=== PATIENT | male | born 1950 | race Caucasian/White ===

== ENCOUNTER → 2020-08-10 10:32 | Outpatient (BNVA) | payer MEDICARE, MEDICAID, SELFPAY | PROVIDERS: PCP Internal Medicine; Visit Provider Surgery | DX: K64.4 Residual hemorrhoidal skin tags (principal); K64.8 Other hemorrhoids | CPT/HCPCS: 46600; 99212 ==

== ENCOUNTER 2021-03-23 10:13 | Outpatient (REF) | payer MEDICARE, MEDICAID, SELFPAY | END 2021-03-23 10:14 | disposition home or self-care (01) | LOC: HO.LAB 10:13 | PROVIDERS: PCP Internal Medicine; Referring Provider Internal Medicine; Visit Provider Surgery | DX: L72.0 Epidermal cyst (principal) | CPT/HCPCS: 11403; 88304; 99212 ==

== ENCOUNTER → 2021-04-06 11:09 | Outpatient (BNVA) | payer MEDICARE, MEDICAID, SELFPAY | PROVIDERS: PCP Internal Medicine; Referring Provider Internal Medicine; Visit Provider Surgery | DX: L72.0 Epidermal cyst (principal) | CPT/HCPCS: 99212 ==

== ENCOUNTER 2022-10-17 02:18 | Observation (INO) | payer MEDICARE, MEDICAID, SELFPAY ==
[2022-10-17] VITALS (7 sets, daily range): BP systolic 129–154; BP diastolic 62–76; PULSE 47–99; RESP 12–18; TEMP 36.3–36.7; O2SAT 95–99; BMI 19.4; BMI 18.2
--- NOTE | ~2022-10-17 | XR_ITS ---
EXAMINATION: XR CHEST CLINICAL INFORMATION: Smoker. Weight loss. Rule out malignancy. COMPARISON: None available. TECHNIQUE: 2 views of the chest were obtained. FINDINGS: Emphysema with marked lung hyperinflation. Bandlike opacity in the right midlung. No pleural effusion or pneumothorax. Cardiac mediastinal silhouette and pulmonary vascularity within normal limits. XR/XR chest 2V IMPRESSION: * No acute findings. * Emphysema. * Bandlike opacity in the right midlung could represent subsegmental atelectasis, pleural-parenchymal scarring or potentially a right hilar/perihilar mass resulting in postobstructive changes
--- NOTE | 2022-10-17 02:39 | ECG_ITS ---
Test Reason : ABNORMAL LABS Blood Pressure : / mmHG Vent. Rate : 054 BPM Atrial Rate : 054 BPM P-R Int : 186 ms QRS Dur : 114 ms QT Int : 392 ms P-R-T Axes : 076 062 -10 degrees QTc Int : 371 ms Sinus bradycardia Nonspecific ST and T wave abnormality Abnormal ECG When compared with ECG of 05-MAR-2013 15:11, Non-specific change in ST segment in Anterior leads Nonspecific T wave abnormality now evident in Anterolateral leads QT has shortened Referred By: Generic ED Physician Electronically Signed By:SILVERIO ROSALES
[2022-10-17 02:56] LABS: MANUAL DIFF FLAG NO
[2022-10-17 02:59] LABS: Basophils Percent Auto 0.4 % (0-2); Eosinophils Absolute Auto 0.1 X10*3/uL (0.0-0.4); Eosinophils Percent Auto 0.9 % (0-4); Hematocrit 37.6 % (42.0-52.0); Imm Gran Abs Auto 0.03 X10*3/uL (0.00-0.03); Imm Gran Pct Auto 0.3 % (0.0-0.4); Lymphocytes Absolute Auto 1.8 X10*3/uL (1.2-4.9); Mean Corpuscular HGB Conc 34.6 g/dl (31.0-36.0); Mean Corpuscular Hemoglobin 31.5 pg (27.0-33.0); Mean Platelet Volume 9.1 fL (9.4-12.4); Monocytes Absolute Auto 0.7 X10*3/uL (0.1-1.2); Monocytes Percent Auto 6.8 % (2-11); Neutrophils Absolute Auto 7.6 x10*3/uL (2.0-8.3); Neutrophils Percent Auto 73.6 % (45-73); Platelet Count 244 X10*3/uL (160-400); Red Blood Count 4.13 X10*6/uL (4.60-5.80); Red Cell Distribution Width 12.1 % (11.0-16.0); White Blood Count 10.3 X10*3/uL (4.8-10.8)
--- NOTE | 2022-10-17 03:15 | MHC.EDTECH ---
Patient was changed into hospital attire, awake overnight monitor placed,EKG obtained. Call adam in reach.
[2022-10-17 03:23] LABS: Alanine Aminotransferase 11 U/L (0-40); Albumin Level 4.2 g/dL (3.5-5.0); Alkaline Phosphatase 50 U/L (39-117); Anion Gap 10 (12-20); Aspartate Amino Transferase 13 U/L (5-37); Bilirubin Total 0.8 mg/dL (0.0-1.0); Blood Urea Nitrogen 42 mg/dL (9-16); Calcium 15.7 mg/dL (8.4-10.2); Carbon Dioxide 33 mmol/L (22-29); Chloride 99 mmol/L (96-108); Creatinine Clr Calc Pharmacy 18.4; Estimated Glomerular Filt Rate 19; Glucose Random 129 mg/dL (60-115); Potassium 3.8 mmol/L (3.3-5.1); Sodium 138 mmol/L (135-145)
--- NOTE | 2022-10-17 03:43 | ED.RECABL ---
HPI - Recheck/Abnormal Lab/Rx General Chief Complaint: Recheck/Abnormal Lab/Rx Stated Complaint: ABN NORMAL LABS PER EMS Time Seen by Provider: 10/17/22 03:37 Source: patient and EMS Mode of arrival: EMS Limitations: no limitations History of Present Illness HPI narrative: 72-year-old male brought in by ambulance after found to have hypercalcemia on routine blood workup by his PCP. Patient is a heavy smoker reported that he had RSV for the past 5 months causing him to lose over 20 lb weight unintentionally, patient otherwise declined headache, no blurry vision, no CP, no abdominal pain. Patient takes supplemental calcium 1000 mg daily. Only medical history significant for hypertension takes amlodipine for 15 years. Related Data Home Medications Medication Instructions Recorded Confirmed amlodipine 2.5 mg tablet 2.5 mg PO DAILY 08/10/20 08/10/20 varenicline 0.5 mg (11)-1 mg (42) 0 ea PO 08/10/20 08/10/20 tablets in a dose pack Allergies Allergy/AdvReac Type Severity Reaction Status Date / Time peanut [PEANUT] AdvReac Intermediate GI UPSET Verified 03/23/21 10:22 tree nut [TREE NUT] AdvReac Intermediate GI UPSET Verified 03/23/21 10:22 Review of Systems Review of Systems: All other systems are reviewed and are negative Constitutional: Reports as per HPI and Reports no additional constitutional complaints Eyes: Reports as per HPI and Reports no additional eye complaints Reports system reviewed and no additional complaints, except as documented Cardiovascular: Reports as per HPI and Reports no additional cardiovascular complaints Respiratory: Reports as per HPI and Reports no additional respiratory complaints Gastrointestinal: Reports as per HPI and Reports no additional gastrointestinal complaints Genitourinary: Reports no additional female genitourinary complaints Musculoskeletal: Reports no additional musculoskeletal complaints Skin/Breast: Reports system reviewed and no additional complaints, except as docu Psychiatric: Reports no additional psychiatric complaints Endocrine: Reports no additional endocrine complaints Hematologic/Lymphatic: Reports no additional hematologic/lymphatic complaints Allergic/Immunologic: Reports no additional allergic/immunologic complaints Reports system reviewed and no additional complaints, except as documented and Reports Abnormal speech present [facility] Past Medical History Medical History Epidermal inclusion cyst Hypertension Internal and external bleeding hemorrhoids Smoker Surgical History History of removal of cyst History of removal of cyst (~2020) Family History Family History Paternal Aunt Colon cancer Social History Social History Alcohol intake: current Alcohol intake frequency: does not drink Smoked in Last 30 Days: Yes Use of substances other than those prescribed or required for medical reasons: No Substance Use Type: Marijuana Physical Exam Vital Signs: Vital Signs: Last Vital Signs Temp 97.6 F 10/17/22 02:29 Pulse 61 10/17/22 02:29 Resp 12 10/17/22 02:29 BP 129/71 10/17/22 02:29 Pulse Ox 96 10/17/22 02:29 O2 Del Method Room Air 10/17/22 02:29 BMI result Body Mass Index 19.4 Vital signs have been reviewed as appeared to be correct. Blood pressure normal. Heart rate normal. Respiration rate normal. Temperature normal. Oxygen saturation normal. Appearance: Alert. Oriented X3. No acute distress. Head: Normal external exam. Normocephalic. Atraumatic. No Mohamud signs noted. No raccoon eyes noted Eyes: PERRLA. EOMI. Conjunctiva and sclera normal. Eyelids normal. ENT: TM's Normal. Pharynx normal. Uvula midline. Moist mucous membranes. No trismus noted. No drooling noted. No muffled voice noted. Neck: Normal inspection. Neck supple. FROM. No adenopathy. Thyroid Normal. No meningeal signs. No neck mass noted. CVS: Normal heart rate and rhythm. Heart sound normal. No murmurs noted. Pulses normal throughout. Respiratory: No respiratory distress. Painless inspiration. Breath sounds normal. No wheezes/rales/rhonchi noted. Chest nontender. No accessory muscle usage noted or decreased air movement noted. Abdomen: Soft and nontender. Bowel sounds normal in all 4 quadrants. No distention noted. No organomegaly noted. No visible injury noted. Back: No CVA tenderness. Full range of motion noted. Skin: Skin warm and dry. Normal skin color. Normal skin turgor. No rashes/lesions/lacerations noted. Extremities: No lower extremity edema. Extremities exhibit normal range of motion. Extremities nontender. Neuro: Oriented X 3. Cranial nerve exam: II-XII are grossly intact No motor deficit. No sensory deficit. Reflexes normal. Course Course Course Narrative: Hypercalcemia. Will get admitted for further malignancy workup, IV hydration with normal saline, Lasix, and pamidronate. Medical Decision Making Differential Diagnosis Differential Diagnoses: The differential diagnosis associated with the presentation includes (Dehydration, electrolyte abnormalities, malignancy, hypercalcemia, severe anemia.) Admission/Observation Consideration of admission/observation: Escalation of care including admission/observation considered Consult Healthcare Provider Management of the patient was discussed with: Hospitalist (Dr. Bazan) and Forms Analyst (Dr. Lyles) Lab Data MDM Lab Attestation statement: I reviewed the patient's lab results. 10/17/22 02:51 10/17/22 02:51 Labs: Lab Results 10/17/22 10/17/22 Range/Units 02:51 02:51 WBC 10.3 (4.8-10.8) X10*3/uL RBC 4.13 L (4.60-5.80) X10*6/uL Hgb 13.0 L (14.0-18.0) g/dl Hct 37.6 L (42.0-52.0) % MCV 91.0 (80.0-98.0) fL MCH 31.5 (27.0-33.0) pg MCHC 34.6 (31.0-36.0) g/dl RDW 12.1 (11.0-16.0) % Plt Count 244 (160-400) X10*3/uL MPV 9.1 L (9.4-12.4) fL Immature Gran % (Auto) 0.3 (0.0-0.4) % Neut % (Auto) 73.6 H (45-73) % Lymph % (Auto) 18.0 L (20-40) % [place] % (Auto) 6.8 (2-11) % Eos % (Auto) 0.9 (0-4) % Baso % (Auto) 0.4 (0-2) % Lymph # (Auto) 1.8 (1.2-4.9) X10*3/uL [place] # (Auto) 0.7 (0.1-1.2) X10*3/uL Eos # (Auto) 0.1 (0.0-0.4) X10*3/uL Baso # (Auto) 0.0 (0.0-0.2) X10*3/uL Abs Immat Gran (auto) 0.03 (0.00-0.03) X10*3/uL Absolute Neuts (auto) 7.6 (2.0-8.3) x10*3/uL Absolute Nucleated RBC 0.000 (0.0-0.012) X10*3/uL Nucleated RBC % (auto) 0.0 (0.0-0.2) /100WBC Sodium 138 (135-145) mmol/L Potassium 3.8 (3.3-5.1) mmol/L Chloride 99 (96-108) mmol/L Carbon Dioxide 33 H (22-29) mmol/L Anion Gap 10 L (12-20) BUN 42 H (9-16) mg/dL Creatinine 3.18 H (0.5-1.4) mg/dL Estim Creat Clear Calc 18.4 Estimated GFR 19 Random Glucose 129 H (60-115) mg/dL Calcium 15.7 H* (8.4-10.2) mg/dL Total Bilirubin 0.8 (0.0-1.0) mg/dL AST 13 (5-37) U/L ALT 11 (0-40) U/L Alkaline Phosphatase 50 (39-117) U/L Total Protein 7.0 (6.5-8.0) g/dL Albumin 4.2 (3.5-5.0) g/dL Independent Interpretation I performed an independent interpretation of an: Plain X-Ray (Chest:) Radiology Impression Discussion of test interpretation with radiology: I have reviewed the radiologist's reading. Discharge Plan Discharge Clinical Impression: Hypercalcemia Patient Disposition: Admitted As Inpatient Prescriptions: No Action Chantix Starting Month Box 0.5 mg (11)- 1 mg (42) tablets,dose pack 0 ea PO amlodipine 2.5 mg tablet 2.5 mg PO DAILY
--- NOTE | 2022-10-17 04:12 | MHC.EDTECH ---
Patient walked to bathroom with a steady gait, Urine was collected and sent to lab.
[2022-10-17 04:21] LABS: Magnesium 2.6 mg/dL (1.6-2.6)
[2022-10-17 04:22] LABS: Appearance Urine Clear; Color Urine Yellow; Glucose Urine UA Negative (Negative); Leukocyte Esterase Urine Small (1+) (Negative); Nitrite Urine Negative (Negative); PH 6.5 (5.0-9.0); UMIC TRIGGER UACC YES; Urine Blood Negative (Negative); Urine Ketones Negative (Negative); Urine Protein Negative (Neg-Trace)
--- NOTE | 2022-10-17 04:22 | PC.NURSE ---
Contacted pharmacy regarding medication order for Aredia that needs to be mixed by pharmacist and not available in the pyxis. Pharmacy will mix medication upon their arrival this morning around 6am. aware and agrees to medicate pt at 0700.
[2022-10-17 04:26] LABS: Bacteria Urine None Seen (None Seen); RBC Urine 0-2 /HPF (0-2); Squamous Epithelial Cell Urine 0-2 /HPF (0-2); UACC Culture Trigger YES
[2022-10-17] MEDS: 0.9 % Sodium Chloride 1,000 ML 999 ML IV (04:27)
[2022-10-17] MEDS: Furosemide 40 MG/4 ML VIAL IVPUSH (04:27)
--- NOTE | 2022-10-17 05:06 | MHC.EDTECH ---
Patients belongings list done and at bedside with patient. Patient has clothes, boots, a cellphone,and $43.00 dollars in roe,and upper and lower dentures full set. Patient urinated 200cc of yellow urine in urinal. vitals were taken and patient is resting st this time. Call adam within reach
--- NOTE | 2022-10-17 05:17 | P.HPHOSP_ITS ---
History of Present Illness Date of Service: 10/17/22 Chief Complaint: Abnormal lab values This is a 72-year-old male with pertinent history essential hypertension, tobacco use disorder presents to the emergency department for evaluation and treatment of hypercalcemia. Patient states he went to his PCP for semiannual visit and got blood work done. His calcium was found to be significantly elevated and he was sent to the ER for further evaluation. Patient does not think he had elevated calcium levels in the past. Does complain of occasional dizziness and constipation. Patient denies abdominal discomfort, kidney stones, anorexia, nausea, vomiting. He denies fever, chills, chest discomfort, palpitations, shortness of breath, changes in urinary habits In the emergency department, calcium was found to be 15.7. Lasix and IV bisphosphonate ordered Review of Systems Constitutional: Constitutional: Reports fatigue Cardiovascular: Cardiovascular: Reports no additional cardiovascular complaints Respiratory: Respiratory: Reports no additional respiratory complaints Endocrine: Endocrine: Reports fatigue PMFSH Medical History Epidermal inclusion cyst Hypertension Internal and external bleeding hemorrhoids Smoker Family History Paternal Aunt Colon cancer Surgical History History of removal of cyst History of removal of cyst (~2020) Social History Alcohol intake: current Alcohol intake frequency: does not drink Smoked in Last 30 Days: Yes Use of substances other than those prescribed or required for medical reasons: No Substance Use Type: Marijuana Advance Directives: No Advance Directives Information Provided: Yes Meds Allergies Allergy/AdvReac Type Severity Reaction Status Date / Time peanut [PEANUT] AdvReac Intermediate GI UPSET Verified 03/23/21 10:22 tree nut [TREE NUT] AdvReac Intermediate GI UPSET Verified 03/23/21 10:22 Active Medications: Current Medications Pamidronate Disodium 60 mg/ (Sodium Chloride) 260 mls @ 130 mls/hr IV ONCE ONE Stop: 10/17/22 05:54 Home Medications Medication Instructions Recorded Confirmed Last Taken Type amlodipine 2.5 mg tablet 2.5 mg PO DAILY 08/10/20 10/17/22 Unknown History Physical Exam Vital Signs and Narrative: Vital Signs: Last Vital Signs Temp 97.6 F 05/24/23 04:42 Pulse 47 L 10/17/22 04:42 Resp 18 10/17/22 04:42 BP 138/76 10/17/22 04:42 Pulse Ox 98 10/17/22 04:42 O2 Del Method Room Air 10/17/22 04:42 BMI result Body Mass Index 19.4 Middle-aged male lying in bed in no distress Neck supple, no JVD Regular rate and rhythm, S1-S2 heard Regular breath sounds bilaterally, no wheezing or crackles appreciated Abdomen soft nontender, no guarding, no rigidity Patient is awake, alert and oriented to self, place, time and person ; no focal motor deficit Psych: Normal mood No pedal edema Results Labs 10/17/22 02:51 10/17/22 02:51 Labs: Laboratory Results - last 24 hr 10/17/22 10/17/22 10/17/22 02:51 02:51 04:16 MCV 91.0 MCH 31.5 MCHC 34.6 RDW 12.1 Plt Count 244 MPV 9.1 L Immature Gran % (Auto) 0.3 Neut % (Auto) 73.6 H Lymph % (Auto) 18.0 L [place] % (Auto) 6.8 Eos % (Auto) 0.9 Baso % (Auto) 0.4 Lymph # (Auto) 1.8 [place] # (Auto) 0.7 Eos # (Auto) 0.1 Baso # (Auto) 0.0 Abs Immat Gran (auto) 0.03 Absolute Neuts (auto) 7.6 Absolute Nucleated RBC 0.000 Nucleated RBC % (auto) 0.0 Anion Gap 10 L Estim Creat Clear Calc 18.4 Estimated GFR 19 Random Glucose 129 H Calcium 15.7 H* Magnesium 2.6 Total Bilirubin 0.8 AST 13 ALT 11 Alkaline Phosphatase 50 Total Protein 7.0 Albumin 4.2 Urine Color Yellow Urine Appearance Clear Urine pH 6.5 Ur Specific [place] 1.010 Urine Protein Negative Urine Glucose (UA) Negative Urine Ketones Negative Urine Blood Negative Urine Nitrite Negative Ur Leukocyte Esterase Small (1+) H Urine RBC 0-2 Urine WBC 11-20 H Ur Squamous Epith Cells 0-2 Urine Bacteria None Seen Hyaline Casts 3-5 Imaging Radiologist's Impressions: Impressions Chest X-Ray 10/17/22 03:50 IMPRESSION: * No acute findings. * Emphysema. * Bandlike opacity in the right midlung could represent subsegmental atelectasis, pleural-parenchymal scarring or potentially a right hilar/perihilar mass resulting in postobstructive changes Assessment and Plan (1) Hypercalcemia: Status: Acute Plan This is a 72-year-old male with pertinent history essential hypertension, tobacco use disorder presents to the emergency department for evaluation and treatment of hypercalcemia. #. Severe hypercalcemia: Will admit patient and continue IV fluid resuscitation. Patient given IV Lasix and IV pamidronate in the ER. Ordered PTH. Closely monitor serum calcium #. Elevated creatinine, likely acute kidney injury in the setting of above. Unknown baseline. Monitor urine output and creatinine with IV crystalloid resuscitation. Avoid nephrotoxins #. Essential hypertension: On amlodipine #. Tobacco use disorder: Counseled regarding cessation. Will offer nicotine patch while in the hospital DVT prophylaxis: Lovenox Full code Cardiac diet Time Spent With Patient Time: Total time managing care of this patient today ____ minutes. Quality Stroke Does the patient have a stroke diagnosis?: No VTE Prior VTE?: No VTE Risk Level:: Medical - moderate - high VTE Device Contraindication: Treatment Not Indicated VTE Drug Contraindication: N/A - Med Ordered
[2022-10-17] MEDS: 0.9 % Sodium Chloride 1,000 ML 200 ML IVCONT (05:43)
--- NOTE | 2022-10-17 05:59 | MHC.EDTECH ---
Vitals were taken, Patient voided 550cc of yellow urine in the urinal, Patient is resting at this time. Call adam within reach
[2022-10-17 06:20] LABS: Vitamin D 25-OH Total > 154.2 ng/mL (>30)
--- NOTE | 2022-10-17 06:23 | PC.NURSE ---
Called pharmacy regarding order for Aredia. Pharmacy states will bring medication down to the ED once it is mixed. Pharmacy will also contact provider regarding Lovenox 30mg scheduled for 0530 that has not been verified. Pharmacy reports not verifying this medication due to pts renal function.
--- NOTE | 2022-10-17 07:32 | PC.NURSE ---
assumed care of this pt at 0700. pt a&o x4, pleasant, calm, and cooperative. denies pain/sob. currently resting quietly on stretcher eating breakfast in no apparent distress. rr even/unlabored. wctm
--- NOTE | 2022-10-17 07:35 | PHA.MEDREC ---
Pharmacy Consult ? Medication Reconciliation Pharmacy has completed the medication reconciliation.
[2022-10-17 08:27] LABS: Anion Gap 10 (12-20); Blood Urea Nitrogen 40 mg/dL (9-16); Carbon Dioxide 29 mmol/L (22-29); Chloride 104 mmol/L (96-108); Creatinine Clr Calc Pharmacy 19.4; Estimated Glomerular Filt Rate 21; Glucose Random 142 mg/dL (60-115); Potassium 3.9 mmol/L (3.3-5.1); Sodium 139 mmol/L (135-145)
--- NOTE | 2022-10-17 09:28 | PC.NURSE ---
Text sent to at [phone]
--- NOTE | 2022-10-17 10:08 | PM.EVENT ---
Event Note Date of Service: 10/17/22 Event Note: Pt seen and examined. Admitted this morning with elevated calcim of 15 and Creatine of 3. A/P per H and P of this morning and additionally consult Nephrology, stop Vitamin D Time Spent With Patient Time: Total time managing care of this patient today ____ minutes.
--- NOTE | 2022-10-17 10:13 | P.CONNP_ITS ---
History of Present Illness Reason for Consult Consult date: 10/17/22 Chief Complaint Chief complaint: Abnormal lab History of Present Illness Narrative: 72-year-old male with presented to the emergency department for evaluation and treatment of hypercalcemia.? He had blood work after a visit to wvos PCP and was aksed to go to the hospital due to an elevated serum calcium. There is no report of fever, chills, chest discomfort, palpitations, shortness of breath, abdominal discomfort, nausea, vomiting.? He tells me he takes tums daily and was taking additional vitamin d supplementation. Review of Systems Review of Systems 10 points ROS negative except for pertinent in HPI PMFSH Past Medical History Medical History Epidermal inclusion cyst Hypertension Internal and external bleeding hemorrhoids Smoker Family History Family History Paternal Aunt Colon cancer Surgical History Surgical History History of removal of cyst History of removal of cyst (~2020) Social History Social History Alcohol intake: current Alcohol intake frequency: does not drink Patient Tobacco Use Status: Former Tobacco user Substance Use Type: Marijuana Meds Allergies Allergy/AdvReac Type Severity Reaction Status Date / Time peanut [PEANUT] AdvReac Intermediate GI UPSET Verified 03/23/21 10:22 tree nut [TREE NUT] AdvReac Intermediate GI UPSET Verified 03/23/21 10:22 Active Medications: Current Medications Acetaminophen (Acetaminophen 325 Mg Tablet) 650 mg PO Q6H PRN PRN Reason: Pain, Mild (Pain Scale 1-3) Heparin Sodium (Porcine) (Heparin Sodium,Porcine 5,000 Unit/Ml Vial) 5,000 unit SUBCUT Q12H ARIANA Sodium Chloride (Ns) 1,000 mls @ 200 mls/hr IVCONT .Q5H ARIANA Stop: 10/17/22 10:29 Last Admin: 10/17/22 05:43 Dose: 200 mls/hr Pamidronate Disodium 60 mg/ (Sodium Chloride) 260 mls @ 65 mls/hr IV ONCE ONE Stop: 10/17/22 11:59 Melatonin (Melatonin 3 Mg Tablet) 6 mg PO BEDTIME PRN PRN Reason: Insomnia Nicotine (Nicotine 14 Mg Patch.Td24) 14 mg TRANSDERMA DAILY PENDING SALE TO [facility] Ondansetron HCl (Ondansetron Hcl 4 Mg/2 Ml Vial) 4 mg IVPUSH Q8H PRN PRN Reason: Nausea and Vomiting Polyethylene Glycol (Polyethylene Glycol 3350 17 Gm Powd.Pack) 17 gm PO DAILY PRN PRN Reason: Constipation Sodium Chloride (0.9 % Sodium Chloride Flush 3 Ml Syringe) 3 ml IVFLUSH QSHIFT PENDING SALE TO [facility] Home Medications Medication Instructions Recorded Confirmed Last Taken Type amlodipine 2.5 mg tablet 2.5 mg PO BEDTIME 08/10/20 10/17/22 10/16/22 History cholecalciferol (vitamin D3) 125 125 mcg PO DAILY 10/17/22 10/17/22 Unknown History mcg (5,000 unit) tablet multivitamin 1 tab PO DAILY 10/17/22 10/17/22 Unknown History vitamin E 268 mg (400 unit) capsule 268 mg PO DAILY 10/17/22 10/17/22 Unknown History Physical Exam Vital Signs: Last Vital Signs Temp 97.6 F 10/17/22 05:57 Pulse 49 L 10/17/22 05:57 Resp 18 10/17/22 05:57 BP 143/73 H 10/17/22 05:57 Pulse Ox 98 10/17/22 05:57 O2 Del Method Room Air 10/17/22 05:57 BMI result Body Mass Index 19.4 Const General: alert and awake HEENT Head: Yes normocephalic and Yes atraumatic Neck Neck: Yes supple Resp Auscultation: clear to auscultation bilaterally Cardio Heart sounds: S1 normal heart sound present and S2 normal heart sound present GI Palpation (GI): Soft to palpation and nontender Extrem General: No pedal edema Results Lab Results 10/17/22 02:51 10/17/22 07:58 Lab results: Chemistry 10/17/22 10/17/22 02:51 07:58 Sodium 138 139 Potassium 3.8 3.9 Carbon Dioxide 33 H 29 BUN 42 H 40 H Creatinine 3.18 H 3.02 H Calcium 15.7 H* 15.0 H* Hematology 10/17/22 02:51 WBC 10.3 Hgb 13.0 L Plt Count 244 Urinalysis 10/17/22 04:16 Urine Color Yellow Urine Appearance Clear Urine pH 6.5 Ur Specific [place] 1.010 Urine Protein Negative Urine Glucose (UA) Negative Urine Ketones Negative Urine Blood Negative Urine Nitrite Negative Ur Leukocyte Esterase Small (1+) H Urine RBC 0-2 Urine WBC 11-20 H Ur Squamous Epith Cells 0-2 Hyaline Casts 3-5 Assessment and Plan (1) JAVIER (acute kidney injury): Status: Acute (2) Hypercalcemia: Status: Acute Plan JAVIER due to renal hypoperfusion and calcium nephrotoxicity causing vasoconstriction hypercalcemia can cause transient DI hypercalcemia most likely due to vitamin d intoxication and calcium supplementation will need to r/o other s/p pamidronate iPTH pending ? normal baseline kidney function REC Sylvia serum immunofixation IVF 0.9% to enhance calcium renal excretion hold furosemide (only if volume overload) follow kidney function and electrolytes Time Spent With Patient Time: Total time managing care of this patient today ____ minutes. Procedures Date of Service Date of Service: 10/17/22
[2022-10-17] MEDS: Heparin Sodium,Porcine 5,000 UNIT/ML VIAL 5000 UNIT SUBCUT ×2 (10:25→20:40)
[2022-10-17] MEDS: Pamidronate Disodium 60 MG in 0.9 % Sodium Chloride 250 ML 65 MG IV (10:26)
[2022-10-17] MEDS: Nicotine 14 MG PATCH.TD24 TRANSDERMA (10:26)
[2022-10-17] MEDS: 0.9 % Sodium Chloride Flush 3 ML SYRINGE IVFLUSH (10:27)
[2022-10-17] MEDS: 0.9 % Sodium Chloride 1,000 ML 125 ML IVCONT ×2 (11:05→20:40)
--- NOTE | 2022-10-17 11:06 | MHC.CM.PN ---
MALE 72 DX ABNORMAL LAB DIXON 10/17/22 LIVES BY HIMSELF INDEPENDENT VAXXED FOR LYNNID DECLINED OFFER TO DOCUMENT HCP [facility]. HE WILL ARRANGE FOR HIS FRIEND NATACHA TO PROVIDE TRANSPORT HOME.
--- NOTE | 2022-10-17 13:37 | MHC.CLN ---
NUTRITION SIGNIFICANT, UNPLANNED WEIGHT LOSS OF 20-30# X 5 MONTHS. DIET=CARDIAC. ADDING ENSURE BID. PROVIDES ADDITIONAL 700 KCALS, 40 G PROTEIN. SEE CLINICAL NUTRITION ASSESSMENT 10/17/22.
[2022-10-17] MEDS: polyethylene glycoL 3350 17 GM POWD.PACK PO (22:45)
[2022-10-18 04:00] VITALS: BP 130/68; PULSE 63; RESP 14; TEMP 36.4; O2SAT 94
[2022-10-18] MEDS: 0.9 % Sodium Chloride 1,000 ML 125 ML IVCONT ×3 (04:48→18:09)
[2022-10-18 07:01] LABS: MANUAL DIFF FLAG NO
[2022-10-18 07:08] LABS: Basophils Percent Auto 0.3 % (0-2); Eosinophils Absolute Auto 0.2 X10*3/uL (0.0-0.4); Eosinophils Percent Auto 1.9 % (0-4); Hematocrit 36.1 % (42.0-52.0); Hemoglobin 12.1 g/dl (14.0-18.0); Imm Gran Abs Auto 0.03 X10*3/uL (0.00-0.03); Imm Gran Pct Auto 0.3 % (0.0-0.4); Lymphocytes Absolute Auto 1.6 X10*3/uL (1.2-4.9); Mean Corpuscular HGB Conc 33.5 g/dl (31.0-36.0); Mean Corpuscular Hemoglobin 31.3 pg (27.0-33.0); Mean Corpuscular Volume 93.3 fL (80.0-98.0); Mean Platelet Volume 9.3 fL (9.4-12.4); Monocytes Absolute Auto 0.8 X10*3/uL (0.1-1.2); Monocytes Percent Auto 9.4 % (2-11); Neutrophils Percent Auto 70.1 % (45-73); Platelet Count 218 X10*3/uL (160-400); Red Blood Count 3.87 X10*6/uL (4.60-5.80); Red Cell Distribution Width 12.4 % (11.0-16.0); White Blood Count 8.6 X10*3/uL (4.8-10.8)
[2022-10-18 07:14] VITALS: BP 125/70; PULSE 53; RESP 16; TEMP 36.3; O2SAT 97
[2022-10-18] MEDS: 0.9 % Sodium Chloride Flush 3 ML SYRINGE IVFLUSH (07:39)
[2022-10-18 07:41] LABS: Anion Gap 11 (12-20); Blood Urea Nitrogen 45 mg/dL (9-16); Carbon Dioxide 26 mmol/L (22-29); Chloride 111 mmol/L (96-108); Creatinine Clr Calc Pharmacy 21.3; Estimated Glomerular Filt Rate 25; Glucose Random 87 mg/dL (60-115); Potassium 3.2 mmol/L (3.3-5.1); Sodium 145 mmol/L (135-145)
[2022-10-18] MEDS: Nicotine 14 MG PATCH.TD24 TRANSDERMA (07:46)
[2022-10-18 08:20] LABS: Calcium 13.1 mg/dL (8.4-10.2)
--- NOTE | 2022-10-18 09:10 | P.PNIM_ITS ---
Subjective Subjective Date of Service: 10/18/22 Interval History: f/u on javier, high ca2+ ca2+ 13, renal function is better Physical Exam 2 Vital Signs: Vital Signs: Last Vital Signs Temp 97.3 F 10/18/22 07:14 Pulse 53 10/18/22 07:14 Resp 16 10/18/22 07:14 BP 125/70 10/18/22 07:14 Pulse Ox 97 10/18/22 07:14 O2 Del Method Room Air 10/18/22 07:14 BMI result Body Mass Index 18.2 Const: Other: General: AO X 3, no acute distress Resp: CTA bilateral CVS: S1,S2,RRR GI: +BS, NT, no distention Skin: No rash Neuro: motor grossly intact Psych: appropriate affect Objective Data Active Medications Acetaminophen (Acetaminophen 325 Mg Tablet) 650 mg PO Q6H PRN PRN Reason: Pain, Mild (Pain Scale 1-3) Heparin Sodium (Porcine) (Heparin Sodium,Porcine 5,000 Unit/Ml Vial) 5,000 unit SUBCUT Q12H [facility] Last Admin: 10/17/22 20:40 Dose: 5,000 unit Documented By: JUSTIN Sodium Chloride (Ns) 1,000 mls @ 125 mls/hr IVCONT .Q8H [facility] Last Admin: 10/18/22 04:48 Dose: 125 mls/hr Documented By: JUSTIN Melatonin (Melatonin 3 Mg Tablet) 6 mg PO BEDTIME PRN PRN Reason: Insomnia Nicotine (Nicotine 14 Mg Patch.Td24) 14 mg TRANSDERMA DAILY [facility] Last Admin: 10/18/22 07:46 Dose: 14 mg Documented By: ALANA Ondansetron HCl (Ondansetron Hcl 4 Mg/2 Ml Vial) 4 mg IVPUSH Q8H PRN PRN Reason: Nausea and Vomiting Polyethylene Glycol (Polyethylene Glycol 3350 17 Gm Powd.Pack) 17 gm PO DAILY PRN PRN Reason: Constipation Last Admin: 10/17/22 22:45 Dose: 17 gm Documented By: JUSTIN Sodium Chloride (0.9 % Sodium Chloride Flush 3 Ml Syringe) 3 ml IVFLUSH QSHIFT [facility] Last Admin: 10/18/22 07:39 Dose: 3 ml Documented By: ALANA Labs 10/18/22 06:14 10/18/22 06:15 Labs: Laboratory Results - last 24 hr 10/17/22 10/18/22 10/18/22 22:30 06:14 06:15 MCV 93.3 MCH 31.3 MCHC 33.5 RDW 12.4 Plt Count 218 MPV 9.3 L Immature Gran % (Auto) 0.3 Neut % (Auto) 70.1 Lymph % (Auto) 18.0 L Williams % (Auto) 9.4 Eos % (Auto) 1.9 Baso % (Auto) 0.3 Lymph # (Auto) 1.6 Williams # (Auto) 0.8 Eos # (Auto) 0.2 Baso # (Auto) 0.0 Abs Immat Gran (auto) 0.03 Absolute Neuts (auto) 6.0 Absolute Nucleated RBC 0.000 Nucleated RBC % (auto) 0.0 Anion Gap Cancelled Estim Creat Clear Calc Cancelled Estimated GFR Cancelled Random Glucose Cancelled Calcium Cancelled Ur Random Sodium 43.0 10/18/22 06:15 MCV MCH MCHC RDW Plt Count MPV Immature Gran % (Auto) Neut % (Auto) Lymph % (Auto) Williams % (Auto) Eos % (Auto) Baso % (Auto) Lymph # (Auto) Williams # (Auto) Eos # (Auto) Baso # (Auto) Abs Immat Gran (auto) Absolute Neuts (auto) Absolute Nucleated RBC Nucleated RBC % (auto) Anion Gap 11 L Estim Creat Clear Calc 21.3 Estimated GFR 25 Random Glucose 87 Calcium 13.1 H* D Ur Random Sodium Assessment and Plan (1) JAVIER (acute kidney injury): Status: Acute (2) Hypercalcemia: Status: Acute Plan JAVIER --etiology unclear, pre renal vs hyercalcemia vs other, improving with IVF, baseline unknown -continue IVF -Awaiting Nephrology consult hypercalcemia most likely due to vitamin d intoxication and calcium supplementation -stopped VitD and Wili supplement, work up in progress, Nephro consult pending He wants to go home, but should wait till seen by Nephrology Time Spent With Patient Time: Total time managing care of this patient today ____ minutes. Quality Stroke Does the patient have a stroke diagnosis?: No VTE Prior VTE?: No VTE Risk Level:: Medical - moderate - high VTE Device Contraindication: Treatment Not Indicated VTE Drug Contraindication: N/A - Med Ordered
[2022-10-18] MEDS: Heparin Sodium,Porcine 5,000 UNIT/ML VIAL 5000 UNIT SUBCUT ×2 (11:03→21:25)
--- NOTE | 2022-10-18 12:16 | PM.PNNEP ---
Subjective Subjective Date of Service: 10/18/22 Interval history: seen and examined no complaints Physical Exam Vital Signs: Vital Signs: Last Vital Signs Temp 97.3 F 10/18/22 07:14 Pulse 53 10/18/22 07:14 Resp 16 10/18/22 07:14 BP 125/70 10/18/22 07:14 Pulse Ox 97 10/18/22 07:14 O2 Del Method Room Air 10/18/22 07:14 BMI result Body Mass Index 18.2 Const: General: alert and awake HEENT: Head: Yes normocephalic and Yes atraumatic Neck: Neck: Yes supple Resp: Auscultation: clear to auscultation bilaterally Cardio: Heart sounds: S1 normal heart sound present and S2 normal heart sound present GI: Palpation (GI): Soft to palpation and nontender Extrem: General: No pedal edema Objective Data Labs 10/18/22 06:14 10/18/22 06:15 Labs: Laboratory Results - last 24 hr 10/17/22 10/18/22 10/18/22 22:30 06:14 06:15 WBC 8.6 RBC 3.87 L Hgb 12.1 L Hct 36.1 L MCV 93.3 MCH 31.3 MCHC 33.5 RDW 12.4 Plt Count 218 MPV 9.3 L Immature Gran % (Auto) 0.3 Neut % (Auto) 70.1 Lymph % (Auto) 18.0 L Morris % (Auto) 9.4 Eos % (Auto) 1.9 Baso % (Auto) 0.3 Lymph # (Auto) 1.6 Morris # (Auto) 0.8 Eos # (Auto) 0.2 Baso # (Auto) 0.0 Abs Immat Gran (auto) 0.03 Absolute Neuts (auto) 6.0 Absolute Nucleated RBC 0.000 Nucleated RBC % (auto) 0.0 Sodium Cancelled Potassium Cancelled Chloride Cancelled Carbon Dioxide Cancelled Anion Gap Cancelled BUN Cancelled Creatinine Cancelled Estim Creat Clear Calc Cancelled Estimated GFR Cancelled Random Glucose Cancelled Calcium Cancelled Ur Random Sodium 43.0 10/18/22 06:15 WBC RBC Hgb Hct MCV MCH MCHC RDW Plt Count MPV Immature Gran % (Auto) Neut % (Auto) Lymph % (Auto) Morris % (Auto) Eos % (Auto) Baso % (Auto) Lymph # (Auto) Morris # (Auto) Eos # (Auto) Baso # (Auto) Abs Immat Gran (auto) Absolute Neuts (auto) Absolute Nucleated RBC Nucleated RBC % (auto) Sodium 145 Potassium 3.2 L Chloride 111 H Carbon Dioxide 26 Anion Gap 11 L BUN 45 H Creatinine 2.58 H Estim Creat Clear Calc 21.3 Estimated GFR 25 Random Glucose 87 Calcium 13.1 H* D Ur Random Sodium Procedures Date of Service Date of Service: 10/18/22 Assessment & Plan Assessment and plan (1) JAVIER (acute kidney injury): Status: Acute (2) Hypercalcemia: Status: Acute Plan Sa and Scr better JAVIER due to renal hypoperfusion and calcium nephrotoxicity causing vasoconstriction hypercalcemia can cause transient DI hypercalcemia most likely due to vitamin d intoxication and calcium supplementation will need to r/o other s/p pamidronate iPTH and serum immunofixation pending ? normal baseline kidney function REC replace potassium IVF 0.9% to enhance calcium renal excretion hold furosemide (only if volume overload) follow kidney function and electrolytes Time Spent With Patient Time: Total time managing care of this patient today ____ minutes. Progress Note: Quality Stroke Does the patient have a stroke diagnosis?: No
[2022-10-18] MEDS: Potassium Chloride Packet 20 MEQ PACKET PO (12:55)
[2022-10-18 15:08] VITALS: BP 141/71; PULSE 71; RESP 18; TEMP 36.3; O2SAT 99
[2022-10-18 19:10] VITALS: BP 134/69; PULSE 61; RESP 18; TEMP 36.3; O2SAT 97
[2022-10-18 20:49] LABS: PTHI 8 pg/mL (16-77)
[2022-10-18] MEDS: polyethylene glycoL 3350 17 GM POWD.PACK PO (21:30)
[2022-10-19] MEDS: 0.9 % Sodium Chloride 1,000 ML 125 ML IVCONT (02:28)
[2022-10-19 03:31] VITALS: BP 121/61; PULSE 60; RESP 16; TEMP 37; O2SAT 96
[2022-10-19 07:52] LABS: Calcium (PTHI) >15.0
[2022-10-19 08:00] VITALS: BP 143/68; PULSE 58; RESP 18; TEMP 36.6; O2SAT 96
--- NOTE | 2022-10-19 08:23 | HO.PM.IMPN ---
Subjective Subjective Date of Service: 10/19/22 Interval History: doing well, has no complaint and wishes to go home soon Physical Exam Vital Signs: Vital Signs: Last Vital Signs Temp 97.8 F 10/19/22 08:00 Pulse 58 10/19/22 08:00 Resp 18 10/19/22 08:00 BP 143/68 H 10/19/22 08:00 Pulse Ox 96 10/19/22 08:00 O2 Del Method Room Air 10/19/22 08:00 BMI result Body Mass Index 18.2 Const: Other: General: AO X 3, no acute distress Resp: CTA bilateral CVS: S1,S2,RRR GI: +BS, NT, no distention Skin: No rash Neuro: motor grossly intact Psych: appropriate affect Objective Data Active Medications Acetaminophen (Acetaminophen 325 Mg Tablet) 650 mg PO Q6H PRN PRN Reason: Pain, Mild (Pain Scale 1-3) Heparin Sodium (Porcine) (Heparin Sodium,Porcine 5,000 Unit/Ml Vial) 5,000 unit SUBCUT Q12H [facility] Last Admin: 10/18/22 21:25 Dose: 5,000 unit Documented By: JONATHAN Sodium Chloride (Ns) 1,000 mls @ 125 mls/hr IVCONT .Q8H [facility] Last Admin: 10/19/22 02:28 Dose: 125 mls/hr Documented By: JONATHAN Melatonin (Melatonin 3 Mg Tablet) 6 mg PO BEDTIME PRN PRN Reason: Insomnia Nicotine (Nicotine 14 Mg Patch.Td24) 14 mg TRANSDERMA DAILY [facility] Last Admin: 10/18/22 07:46 Dose: 14 mg Documented By: ALANA Ondansetron HCl (Ondansetron Hcl 4 Mg/2 Ml Vial) 4 mg IVPUSH Q8H PRN PRN Reason: Nausea and Vomiting Polyethylene Glycol (Polyethylene Glycol 3350 17 Gm Powd.Pack) 17 gm PO DAILY PRN PRN Reason: Constipation Last Admin: 10/18/22 21:30 Dose: 17 gm Documented By: JONATHAN Sodium Chloride (0.9 % Sodium Chloride Flush 3 Ml Syringe) 3 ml IVFLUSH QSHIFT [facility] Last Admin: 10/18/22 21:25 Dose: Not Given Documented By: JONATHAN Non-Admin Reason: IV Running Labs 10/18/22 06:14 10/18/22 06:15 Labs: Laboratory Results - last 24 hr 10/17/22 02:51 PTH Intact 8 L Calcium (PTH Intact) >15.0 Microbiology Microbiology Results: Microbiology 10/17/22 Unknown Urine Culture - Final Urine clean catch - Clean Catch Midstream Assessment and Plan (1) JAVIER (acute kidney injury): Status: Acute (2) Hypercalcemia: Status: Acute Plan JAVIER --etiology unclear, pre renal vs hyercalcemia vs other, improving with IVF, baseline unknown--Cr improving -continue IVF -Nephrology input noted, hypercalcemia most likely due to vitamin d intoxication and calcium supplementation -stopped VitD and Wili supplement, work up in progress, Nephro consult pending He wants to go home, but should wait till seen by Nephrology need for inpatient: severe hypercalcemia needing work up and IVF management and frequent level check Time Spent With Patient Time: Total time managing care of this patient today ____ minutes. Quality Stroke Does the patient have a stroke diagnosis?: No VTE Prior VTE?: No VTE Risk Level:: Medical - moderate - high VTE Device Contraindication: Treatment Not Indicated VTE Drug Contraindication: N/A - Med Ordered
[2022-10-19 08:27] LABS: Anion Gap 9 (12-20); Blood Urea Nitrogen 37 mg/dL (9-16); Calcium 11.5 mg/dL (8.4-10.2); Carbon Dioxide 23 mmol/L (22-29); Chloride 112 mmol/L (96-108); Creatinine Clr Calc Pharmacy 22.8; Estimated Glomerular Filt Rate 27; Glucose Random 84 mg/dL (60-115); Potassium 3.1 mmol/L (3.3-5.1); Sodium 141 mmol/L (135-145)
[2022-10-19] MEDS: Nicotine 14 MG PATCH.TD24 TRANSDERMA (08:51)
[2022-10-19] MEDS: Heparin Sodium,Porcine 5,000 UNIT/ML VIAL 5000 UNIT SUBCUT ×2 (08:52→21:21)
[2022-10-19] MEDS: 0.9 % Sodium Chloride Flush 3 ML SYRINGE IVFLUSH (08:53)
--- NOTE | 2022-10-19 10:04 | MHC.CLN ---
NUTRITION SIGNIFICANT, UNPLANNED WEIGHT LOSS OF 20-30# X 5 MONTHS. DIET=CARDIAC. ENSURE BID PROVIDES ADDITIONAL 700 KCALS, 40 G PROTEIN. INTAKE APPEARS GOOD/EXCELLENT. CALCIUM ELEVATED BUT IMPROVING. CONTINUE TO FOLLOW FOR INTAKE AND LABS.
[2022-10-19] MEDS: Lactated Ringers 1,000 ML 125 ML IVCONT ×2 (13:40→21:17)
--- NOTE | 2022-10-19 15:04 | PM.PNNEP ---
Subjective Subjective Date of Service: 10/19/22 Interval history: Seen and examined, events noted Physical Exam Vital Signs: Vital Signs: Last Vital Signs Temp 97.8 F 10/19/22 08:00 Pulse 58 10/19/22 08:00 Resp 18 10/19/22 08:00 BP 143/68 H 10/19/22 08:00 Pulse Ox 96 10/19/22 08:00 O2 Del Method Room Air 10/19/22 08:00 BMI result Body Mass Index 18.2 Const: General: alert and awake HEENT: Head: Yes normocephalic and Yes atraumatic Neck: Neck: Yes supple Resp: Auscultation: clear to auscultation bilaterally Cardio: Heart sounds: S1 normal heart sound present and S2 normal heart sound present GI: Palpation (GI): Soft to palpation and nontender Extrem: General: No pedal edema Objective Data Labs 10/18/22 06:14 10/19/22 07:51 Labs: Laboratory Results - last 24 hr 10/17/22 10/19/22 02:51 07:51 Sodium 141 Potassium 3.1 L Chloride 112 H Carbon Dioxide 23 Anion Gap 9 L BUN 37 H Creatinine 2.41 H Estim Creat Clear Calc 22.8 Estimated GFR 27 Random Glucose 84 Calcium 11.5 H D PTH Intact 8 L Calcium (PTH Intact) >15.0 Microbiology Microbiology Results: Microbiology 10/17/22 Unknown Urine clean catch - Clean Catch Midstream Urine Culture - Final Procedures Date of Service Date of Service: 10/19/22 Assessment & Plan Assessment and plan (1) JAVIER (acute kidney injury): Status: Acute (2) Hypercalcemia: Status: Acute Plan JAVIER: most c/w combo of HYPERCA and renal hypoperfuion ischemic ATN ( hyperCa can cause vasoconstriction of renal vasc); SCr cont to decr with IVF and decr Ca is encouraging hypercalcemia most likely due to vitamin d intoxication and calcium supplementation other causes being r/o s/p pamidronate x1 serum immunofixation, PTHrp and vit D 1,25, RORO level all pending ? normal baseline kidney function hypoK REC: cont IVF; track UOP/renal func; avoid vitD/Ca; check sero; repalce K r Time Spent With Patient Time: Total time managing care of this patient today ____ minutes. Progress Note: Quality Stroke Does the patient have a stroke diagnosis?: No
[2022-10-19 15:35] VITALS: BP 141/68; PULSE 54; RESP 18; TEMP 36.4; O2SAT 95
[2022-10-19 19:23] VITALS: BP 131/68; PULSE 66; RESP 20; TEMP 36.7; O2SAT 96
[2022-10-19] MEDS: Docusate Sodium 100 MG CAPSULE PO (19:44)
[2022-10-19] MEDS: Sennosides 8.6 MG TABLET 17.2 MG PO (19:44)
[2022-10-19 23:53] VITALS: BP 137/65; PULSE 59; RESP 18; TEMP 37.1; O2SAT 97
[2022-10-20] MEDS: Lactated Ringers 1,000 ML 125 ML IVCONT (04:46)
[2022-10-20 07:38] VITALS: BP 146/68; PULSE 67; RESP 20; TEMP 36.5; O2SAT 97
--- NOTE | 2022-10-20 08:06 | PM.DS ---
DS: Providers Provider Date of Service: 10/20/22 Date of admission: 10/17/22 05:17 Primary care physician: Arti Pires MD Consults: 10/17/22 10:06 Consult to Nephrology Routine Consulting Provider: Aleksandr Ayers Reason for consultation: JAVIER, Creatine Has provider been notified: No DS: Diagnosis Discharge Diagnosis (1) JAVIER (acute kidney injury): Status: Acute (2) Hypercalcemia: Status: Acute DS: Summary Hospital Course Hospital Course: Chief Complaint: Abnormal lab values This is a 72-year-old male with pertinent history essential hypertension, tobacco use disorder presents to the emergency department for evaluation and treatment of hypercalcemia.? Patient states he went to his PCP for semiannual visit and got blood work done.? His calcium was found to be significantly elevated and he was sent to the ER for further evaluation.? Patient does not think he had elevated calcium levels in the past.? Does complain of occasional dizziness and constipation.? Patient denies abdominal discomfort, kidney stones, anorexia, nausea, vomiting.? He denies fever, chills, chest discomfort, palpitations, shortness of breath, changes in urinary habits In the emergency department, calcium was found to be 15.7.? Lasix and IV bisphosphonate ordered Hospital course: Patient had routine labs work and found to have calcium of 15.7, normal albumin without any symptom of hypercalcemia. He takes calcium and Vit D 5000 units daily. He was admitted and given 1 dose of Pamidronate, and put on IVF with daily calcium level. Furhter work up included Vit D level of of 154 which is high, PTH level is 8 which is low. Pending labs include serum immunofixation, PTHrp and vit D 1,25, RORO level all pending. We suspect that hypercalcemia is due to vitamin-D intoxication and calcium suplment. as such he is advised to stop taking vitamin D and calcium supplements. He also had acute renal insufficiency although his baseline creatinine is not known, he presented with creatinine level of 3.18 and has steadily gone down with IV fluid to presently 2.15 It is possible that he has CKD. Calcium level iss 11.3 today. Also checking PTHrp and [place]/lambda before he goes, will have repeat labs in 3 days, advised to drink pleny of fluid and will follow up with nephrology on outaptient basis Final diagnosis: Acute hypercalcemia Acute kidney injury, Vitamin-D toxicity Hypertension Time Spent with Patient Time attestation: Total time managing care of this patient today ____ minutes. Discharge coordination time: Greater than 30 minutes Quality: Safe Use of Opioids Does Pt have an Active Cancer Diagnosis on the Problem List?: No Quality: Stroke Does the patient have a stroke diagnosis?: No Physical Exam Vital Signs: Vital Signs: Last Vital Signs Temp 97.7 F 10/20/22 07:38 Pulse 67 10/20/22 07:38 Resp 20 10/20/22 07:38 BP 146/68 H 10/20/22 07:38 Pulse Ox 97 10/20/22 07:38 O2 Del Method Room Air 10/20/22 07:38 BMI result Body Mass Index 18.2 Const: Other: General: AO X 3, no acute distress Resp: CTA bilateral CVS: S1,S2,RRR GI: +BS, NT, no distention Skin: No rash Neuro: motor grossly intact Psych: appropriate affect DS: Data Data Completed and Pending Labs on day of discharge: Laboratory Results - last 24 hr 10/19/22 07:51 Sodium 141 Potassium 3.1 L Chloride 112 H Carbon Dioxide 23 Anion Gap 9 L BUN 37 H Creatinine 2.41 H Estim Creat Clear Calc 22.8 Estimated GFR 27 Random Glucose 84 Calcium 11.5 H D Discharge Plan Discharge Anticipated Discharge Date/Time: 10/20/22 08:04 Patient Disposition: Home, Self-Care Discharge Diagnosis: JAVIER, hypercalcemia Referrals: Arti Lei MD [Primary Care Provider] - 1 Week Discharge Medications: Continued multivitamin Tablet 1 tab PO DAILY vitamin E 268 mg (400 unit) Capsule 268 mg PO DAILY amlodipine 2.5 mg tablet 2.5 mg PO BEDTIME Discontinued cholecalciferol (vitamin D3) 125 mcg (5,000 unit) Tablet 125 mcg PO DAILY Discharge Orders: Discharge Order (Routine); Ordered 10/20/22 Ordered By: Darwin Butlre Diet: Advance to usual diet Activity on Discharge: As tolerated Stand Alone Forms: Patient Portal Discharge page Care Plan Goals: recovery from hypercalcemia and renal failure Health Concerns: Calcemia and renal failure Plan of Treatment: Stop taking vitamin Avoid calcium supplements such as Tums Follow-up with her primary care doctor within a week call for appointment. Follow up with the kidney doctor (Dr. Hammond) Get labs done on Saturday10/23/22 Assessment: As above
[2022-10-20] MEDS: Heparin Sodium,Porcine 5,000 UNIT/ML VIAL 5000 UNIT SUBCUT (08:53)
[2022-10-20] MEDS: Nicotine 14 MG PATCH.TD24 TRANSDERMA (08:54)
[2022-10-20 10:11] LABS: Anion Gap 10 (12-20); Blood Urea Nitrogen 34 mg/dL (9-16); Calcium 11.3 mg/dL (8.4-10.2); Carbon Dioxide 24 mmol/L (22-29); Chloride 112 mmol/L (96-108); Creatinine Clr Calc Pharmacy 25.6; Estimated Glomerular Filt Rate 30; Glucose Random 109 mg/dL (60-115); Potassium 3.3 mmol/L (3.3-5.1); Sodium 143 mmol/L (135-145)
[2022-10-23 14:53] LABS: IgA 124 mg/dL (70-320); IgG 1016 mg/dL (600-1540); IgM 388 mg/dL (50-300)
[2022-10-24 14:59] LABS: Kappa Light Chain, Free Serum 219.9 mg/L (3.3-19.4); Kappa/Lambda Lt Ch Free Ratio 6.06 (0.26-1.65); Lambda Light Chain, Free Serum 36.3 mg/L (5.7-26.3)
[2022-10-26 17:24] LABS: Parathyroid Hormone Related Pr 13 pg/mL (11-20)
== END 2022-10-20 12:47 | disposition home or self-care (01) ==
LOC: HO.ED 04:23 → HO.EDOVER 05:34 → HO.S3 07:13
PROVIDERS: Internal Medicine Nephrology; Admitting Provider Student in an Organized Health Care Education/Training Program; Emergency Provider Emergency Medicine; PCP Internal Medicine; Visit Provider Internal Medicine
DX: E83.52 Hypercalcemia (principal); N17.9 Acute kidney failure, unspecified; I10 Essential (primary) hypertension; F17.210 Nicotine dependence, cigarettes, uncomplicated; F12.90 Cannabis use, unspecified, uncomplicated; Z79.899 Other long term (current) drug therapy
CPT/HCPCS: 36415; 71046; 80048; 80053; 81001; 82306; 82784; 83519; 83521; 83735; 83970; 84300; 85025; 86334; 87086; 93005; 96361; 96365; 96366; 96372; 96374; 96375; 99221; 99285; J1643; J1940; J2430

== ENCOUNTER 2022-10-23 09:45 | Outpatient (REF) | payer MEDICARE, MEDICAID, SELFPAY ==
[2022-10-23 11:53] LABS: Anion Gap 10 (12-20); Blood Urea Nitrogen 17 mg/dL (9-16); Carbon Dioxide 28 mmol/L (22-29); Chloride 109 mmol/L (96-108); Estimated Glomerular Filt Rate 33; Phosphorus 2.3 mg/dL (2.7-4.5); Potassium 3.9 mmol/L (3.3-5.1); Sodium 143 mmol/L (135-145)
== END 2022-10-23 09:46 | disposition home or self-care (01) ==
LOC: HO.LAB 09:45
PROVIDERS: PCP Internal Medicine; Visit Provider Internal Medicine Nephrology
DX: Z13.89 Encounter for screening for other disorder (principal)
CPT/HCPCS: 36415; 80051; 82310; 82565; 84100; 84520

== ENCOUNTER 2022-11-20 09:13 | Outpatient (REF) | payer MEDICARE, MEDICAID, SELFPAY ==
--- NOTE | ~2022-11-20 | XR_ITS ---
EXAMINATION: OSSEOUS SURVEY, COMPLETE CLINICAL INFORMATION: Multiple myeloma. COMPARISON: Chest radiographs dated 10/17/2022. TECHNIQUE: The following images were obtained: Lateral view of the skull, lateral view of the cervical spine, AP and lateral views of the thoracic spine, AP and lateral views of the lumbosacral spine, PA view of the chest, AP view the pelvis, and AP views of both upper and lower extremities to include the humeri, femora, and lower legs. FINDINGS: The calvarium is intact. The paranasal sinuses appear clear. At C5-C6, there is moderately severe degenerative disc disease. At C6-C7, there is moderate degenerative disc disease. The thoracic and lumbar vertebra are intact. There is degenerative disc disease at L5-S1. There is hyperinflation. There is chronic scar/subsegmental atelectasis in the mid right lung. There is biapical pleural and parenchymal scarring. At the right base, 2.7 cm 2.3 cm nodules are questioned. The shoulder girdles and pelvis appear intact. A sclerotic bone island is seen at the left acetabular roof. Within the right humeral head, a 7 mm lytic lesion is seen with sclerotic margin. This has nonaggressive features. The long bones of the lower extremity are unremarkable. XR/XR bone survey IMPRESSION: 1. A 7 mm lytic lesion with sclerotic margin is seen within the right humeral head, with nonaggressive features. 2. There are equivocal right base nodular densities, with infectious or inflammatory lesions not excluded. These could be further evaluated with oblique and lordotic chest radiographs and/or chest CT, if clinically indicated. 3. There is degenerative disc disease at C5-C6, C6-C7 and L5-S1.
== END 2022-11-20 09:14 | disposition home or self-care (01) ==
LOC: HO.XRAY 09:13
PROVIDERS: PCP Internal Medicine; Visit Provider Internal Medicine Medical Oncology
DX: C90.00 Multiple myeloma not having achieved remission (principal)
CPT/HCPCS: 77075

== ENCOUNTER 2022-11-22 09:19 | Day surgery (SDC) | payer MEDICARE, MEDICAID, SELFPAY ==
--- NOTE | 2022-11-21 09:38 | HO.ANESPROP2 ---
Documented by User: Crissy Gonzalez NP 11/21/22 09:41 HPI - Anesthesia Eval Consult details Narrative: 72yo M for Bone Marrow Biopsy 09/2022 [facility] admit with hypercalcemia and ARF PMFSH Active Problems Active Problems: All Active Problems (Updated 11/20/22 @ 09:30 by Oliver Ospina MD) Plasma cell dyscrasia (Acute) JAVIER (acute kidney injury) (Acute) Hypercalcemia (Acute) Epidermal inclusion cyst (Acute) Internal and external bleeding hemorrhoids (Acute) Smoker (Acute) Hypertension (Acute) Past Medical History Medical History Epidermal inclusion cyst Hypertension Internal and external bleeding hemorrhoids Smoker Family History Family History Paternal Aunt Colon cancer Surgical History Surgical History History of removal of cyst History of removal of cyst (~2020) Social History Social History Household Members: None Housing: House Do you presently have visiting nurse or other home services: No Alcohol intake: current Alcohol intake frequency: does not drink Patient Tobacco Use Status: Current everyday Tobacco user Tobacco use type: Cigarette Years Smoked: 52 Smoked in Last 30 Days: Yes Patient Interested in Nicotine Replacement: No Second Hand Smoke Exposure: No Substance Use Type: Marijuana Substance Use Frequency: Occasionally Are you DNR?: No Advance Directives: No Advance Directives Information Provided: Yes Nutrition Risks: No Nutritional Risk service: No Current occupational status: employed Meds Allergies Allergy/AdvReac Type Severity Reaction Status Date / Time peanut [PEANUT] AdvReac Intermediate GI UPSET Verified 03/23/21 10:22 tree nut [TREE NUT] AdvReac Intermediate GI UPSET Verified 03/23/21 10:22 Home Medications Medication Instructions Recorded Confirmed Last Taken Type amlodipine 2.5 mg tablet 2.5 mg PO BEDTIME 08/10/20 11/20/22 10/16/22 History multivitamin 1 tab PO DAILY 10/17/22 11/20/22 Unknown History vitamin E 268 mg (400 unit) capsule 268 mg PO DAILY 10/17/22 11/20/22 Unknown History Exam Exam Date and Time: November 21, 2022 0938 Pertinent Lab Results Pertinent Lab Results: Laboratory Tests 11/20/22 11/20/22 09:10 09:10 WBC 9.2 Hgb 11.9 L Hct 36.2 L Plt Count 277 D Sodium 141 Potassium 5.2 H D Chloride 108 Carbon Dioxide 25 BUN 18 H Creatinine 1.48 H Narrative Narrative: EKG 09/2022 Vent. Rate : 054 BPM ? ? Atrial Rate : 054 BPM ?? P-R Int : 186 ms? QRS Dur : 114 ms ? ? QT Int : 392 ms ? ? ? P-R-T Axes : 076 062 -10 degrees ?? QTc Int : 371 ms ? Sinus bradycardia Nonspecific ST and T wave abnormality Abnormal ECG When compared with ECG of 05-MAR-2013 15:11, Non-specific change in ST segment in Anterior leads Nonspecific T wave abnormality now evident in Anterolateral leads QT has shortened Assessment and Plan Assessment Anesthesia Assessment: Chart Reviewed Documented by User: Katrin Soto MD 11/22/22 11:18 PMFSH Past Medical History Medical History Epidermal inclusion cyst Hypertension Internal and external bleeding hemorrhoids Smoker Family History Family History Paternal Aunt Colon cancer Family history of problems with anesthesia: No Surgical History Surgical History History of removal of cyst History of removal of cyst (~2020) History of Problems with Anesthesia: No Social History Social History Household Members: None Housing: House Do you presently have visiting nurse or other home services: No Alcohol intake: current Alcohol intake frequency: does not drink Patient Tobacco Use Status: Current everyday Tobacco user Tobacco use type: Cigarette Years Smoked: 52 Smoked in Last 30 Days: Yes Patient Interested in Nicotine Replacement: No Second Hand Smoke Exposure: No Substance Use Type: Marijuana Substance Use Frequency: Occasionally Are you DNR?: No Advance Directives: No Advance Directives Information Provided: Yes Nutrition Risks: No Nutritional Risk service: No Current occupational status: employed Meds Allergies Allergy/AdvReac Type Severity Reaction Status Date / Time peanut [PEANUT] AdvReac Intermediate GI UPSET Verified 03/23/21 10:22 tree nut [TREE NUT] AdvReac Intermediate GI UPSET Verified 03/23/21 10:22 Home Medications Medication Instructions Recorded Confirmed Last Taken Type amlodipine 2.5 mg tablet 2.5 mg PO BEDTIME 08/10/20 11/20/22 10/16/22 History multivitamin 1 tab PO DAILY 10/17/22 11/20/22 Unknown History vitamin E 268 mg (400 unit) capsule 268 mg PO DAILY 10/17/22 11/20/22 Unknown History Exam Airway Mallampati Class: II TM Dist: >3cm Neck ROM: Full Denture: Upper and Lower Heart: rrr Lungs: cta Assessment and Plan Assessment Anesthesia Assessment: Anesthesia Plan Discussed Final Anesthetic Review Family History of Problems with Anesthesia: No History of Problems with Anesthesia: No NPO: Yes Final Preanesthetic Review: No Changes in Pt Med Stat, Meds/Allgs Chart Reviewed, Consent Obtained/Reviewed, Anes Risks/Benef Reviewed and DNR Form (If Appl.) Patient Risk: Low Procedure Risk: Low Anesthetic Plan Anesthetic Plan: MAC: Disposition: Standard PACU
[2022-11-22 09:32] VITALS: BMI 18.7
[2022-11-22] MEDS: Lactated Ringers 1,000 ML 100 ML IVCONT (09:36)
[2022-11-22 09:41] VITALS: BP 145/76; PULSE 60; RESP 18; TEMP 36.6; O2SAT 99
[2022-11-22 12:15] VITALS: BP 94/60; PULSE 59; RESP 16; TEMP 36.2; O2SAT 100
--- NOTE | 2022-11-22 12:19 | HO.ANESPROP2 ---
[facility] Active Problems Active Problems: All Active Problems (Updated 11/20/22 @ 09:30 by Oliver Ospina MD) Plasma cell dyscrasia (Acute) JAVIER (acute kidney injury) (Acute) Hypercalcemia (Acute) Epidermal inclusion cyst (Acute) Internal and external bleeding hemorrhoids (Acute) Smoker (Acute) Hypertension (Acute) Past Medical History Medical History Epidermal inclusion cyst Hypertension Internal and external bleeding hemorrhoids Smoker Family History Family History Paternal Aunt Colon cancer Family history of problems with anesthesia: No Surgical History Surgical History History of removal of cyst History of removal of cyst (~2020) History of Problems with Anesthesia: No Social History Social History Household Members: None Housing: House Do you presently have visiting nurse or other home services: No Alcohol intake: current Alcohol intake frequency: does not drink Patient Tobacco Use Status: Current everyday Tobacco user Tobacco use type: Cigarette Years Smoked: 52 Smoked in Last 30 Days: Yes Patient Interested in Nicotine Replacement: No Second Hand Smoke Exposure: No Substance Use Type: Marijuana Substance Use Frequency: Occasionally Are you DNR?: No Advance Directives: No Advance Directives Information Provided: Yes Nutrition Risks: No Nutritional Risk service: No Current occupational status: employed Meds Allergies Allergy/AdvReac Type Severity Reaction Status Date / Time peanut [PEANUT] AdvReac Intermediate GI UPSET Verified 03/23/21 10:22 tree nut [TREE NUT] AdvReac Intermediate GI UPSET Verified 03/23/21 10:22 Active Medications: Current Medications Albuterol Sulfate (Albuterol Sulfate (0.083%) 2.5 Mg/3 Ml Vial.Neb) 2.5 mg INHALE ONCE PRN PRN Reason: Shortness of Breath/Wheezing Fentanyl (Fentanyl Citrate/Pf 100 Mcg/2 Ml Vial) 25 mcg IVPUSH Q5M PRN; Protocol PRN Reason: Pain, Moderate(Pain Scale 4-6) Lactated Ringer's (Lr) 1,000 mls @ 100 mls/hr IVCONT .Q10H ARIANA Last Admin: 11/22/22 09:36 Dose: 100 mls/hr Ondansetron HCl (Ondansetron Hcl 4 Mg/2 Ml Vial) 4 mg IVPUSH ONCE PRN PRN Reason: Nausea and Vomiting Oxycodone HCl (Oxycodone Hcl Immed Release 5 Mg Tablet) 5 mg PO ONCE PRN PRN Reason: Pain, Severe (Pain Scale 7-10) Home Medications Medication Instructions Recorded Confirmed Last Taken Type amlodipine 2.5 mg tablet 2.5 mg PO BEDTIME 08/10/20 11/20/22 10/16/22 History multivitamin 1 tab PO DAILY 10/17/22 11/20/22 Unknown History vitamin E 268 mg (400 unit) capsule 268 mg PO DAILY 10/17/22 11/20/22 Unknown History Exam Exam Date and Time: November 22, 2022 121 Height,Weight and Vital Signs: Height 5 ft 10 in Weight 58.967 kg Last Vital Signs Temp 97.9 F 11/22/22 09:41 Pulse 60 11/22/22 09:41 Resp 18 11/22/22 09:41 BP 145/76 H 11/22/22 09:41 Pulse Ox 99 11/22/22 09:41 O2 Del Method Room Air 11/22/22 09:41 Airway Mallampati Class: II TM Dist: >3cm Neck ROM: Full Denture: Upper and Lower Heart: RRR Lungs: CTA Assessment and Plan Final Anesthetic Review Family History of Problems with Anesthesia: No History of Problems with Anesthesia: No Final Preanesthetic Review: Meds/Allgs Chart Reviewed, Consent Obtained/Reviewed and Anes Risks/Benef Reviewed Patient Risk: Low Procedure Risk: Low Anesthetic Plan Anesthetic Plan: MAC: Disposition: Standard PACU
--- NOTE | 2022-11-22 12:20 | HO.POSTANES ---
Post Anesthesia Evaluation Post Anesthesia Evaluation Date of Service: 11/22/22 Vital Signs: Vital Signs Temp Pulse Resp BP Pulse Ox O2 Del Method 11/22/22 09:41 97.9 F 60 18 145/76 H 99 Room Air Anesthesia: Monitored Mental Status: Awake Pain Control: Satisfactory Nausea/Vomiting: None Hydration: Adequate Anesthesia-Related Issues: No Anes. Related Issues
[2022-11-22 12:30] VITALS: BP 98/46; PULSE 56; RESP 16; O2SAT 99
[2022-11-22 12:45] VITALS: BP 115/69; PULSE 52; RESP 16; O2SAT 96
[2022-11-22 13:00] VITALS: BP 123/66; PULSE 57; RESP 16; TEMP 36.6; O2SAT 97
[2022-11-22 13:47] LABS: Bone Marrow SEE SEPARATE REPORT
--- NOTE | 2022-11-22 16:34 | PM.HEMONCBM ---
Bone Marrow Aspiration - Bone Marrow Aspiration Procedure:: *Service Date: [11/22/22] Pre Op Diagnosis:: Multiple myeloma. Post Op Diagnosis:: Multiple myeloma. Surgeon:: Oliver Ospina. Anesthesia:: MAC. Consent:: Informed consent obtained from the patient for the procedure. Pros and cons of biopsy explained. The patient was willing to proceed with the procedure under local anesthesia. Procedure in Detail:: *Service Date: October,2022. *Procedure: BONE MARROW ASPIRATE AND BIOPSY. *Pre Op Dx: MULTIPLE MYELOMA. *Surgeon: Oliver Ospina. The patient was positioned prone and the left posterior superior iliac spine prepped and draped. Patient was anesthetized under MAC. Under aseptic precautions, 5 ml of 1% lidocaine used for local anesthesia. A bone marrow aspirate was taken. Biopsy was performed with the Jamshidi needle, without any complications. Specimens were sent for Banerjee stain, flow cytometry and cytogenetics. Will also check the myeloma panel. Biopsy was sent for histology. The patient tolerated the procedure well. Bandage was applied and patient was positioned on his back for 10 to 15 minutes after the procedure. The patient was advised to call us if he develops any pain or swelling at the surgical site. Follow up in 2 weeks.
== END 2022-11-22 13:55 | disposition home or self-care (01) ==
PROVIDERS: PCP Internal Medicine; Visit Provider Internal Medicine Medical Oncology
PROC: (CPT 38221; principal; 2022-11-22 11:00)
DX: C90.00 Multiple myeloma not having achieved remission (principal); I10 Essential (primary) hypertension; F17.210 Nicotine dependence, cigarettes, uncomplicated
CPT/HCPCS: 38222; 36415; 88184; 88185; 88237; 88264; 88305; 88311; 88313; 88341; 88342; J0131; J1100; J1642; J2250; J3010

== ENCOUNTER 2022-11-28 09:00 | Outpatient (REF) | payer MEDICARE, MEDICAID, SELFPAY ==
[2022-11-28 09:23] LABS: MANUAL DIFF FLAG NO
[2022-11-28 09:50] LABS: Basophils Percent Auto 0.4 % (0-2); Eosinophils Absolute Auto 0.1 X10*3/uL (0.0-0.4); Eosinophils Percent Auto 1.2 % (0-4); Hematocrit 38.1 % (42.0-52.0); Hemoglobin 12.4 g/dl (14.0-18.0); Imm Gran Abs Auto 0.03 X10*3/uL (0.00-0.03); Imm Gran Pct Auto 0.4 % (0.0-0.4); Lymphocytes Absolute Auto 1.6 X10*3/uL (1.2-4.9); Lymphocytes Percent Auto 21.1 % (20-40); Mean Corpuscular HGB Conc 32.5 g/dl (31.0-36.0); Mean Corpuscular Hemoglobin 31.6 pg (27.0-33.0); Mean Corpuscular Volume 97.2 fL (80.0-98.0); Mean Platelet Volume 8.9 fL (9.4-12.4); Monocytes Absolute Auto 0.6 X10*3/uL (0.1-1.2); Monocytes Percent Auto 8.2 % (2-11); Neutrophils Absolute Auto 5.3 x10*3/uL (2.0-8.3); Neutrophils Percent Auto 68.7 % (45-73); Platelet Count 282 X10*3/uL (160-400); Red Blood Count 3.92 X10*6/uL (4.60-5.80); Red Cell Distribution Width 13.5 % (11.0-16.0); White Blood Count 7.7 X10*3/uL (4.8-10.8)
== END 2022-11-28 09:01 | disposition home or self-care (01) ==
LOC: HO.LAB 09:00
PROVIDERS: Absent Provider Internal Medicine Medical Oncology; PCP Internal Medicine; Visit Provider Internal Medicine Nephrology
DX: E88.09 Other disorders of plasma-protein metabolism, not elsewhere classified (principal); N17.9 Acute kidney failure, unspecified; E83.52 Hypercalcemia
CPT/HCPCS: 36415; 80051; 80053; 81003; 82043; 82306; 82310; 82565; 84156; 84520; 85025

== ENCOUNTER 2022-12-14 12:09 | Outpatient (AMB) | payer MEDICARE, MEDICAID, SELFPAY ==
--- NOTE | 2022-12-14 12:30 | MHC.OFFVIS ---
Intake Vital Signs 12/14/22 12:31 Height 5 ft 10 in Weight 126 lb 1.671 oz BMI 18.1 BP 120/72 Blood Pressure Location Lt brachial Position Sitting Pulse 50 Intake Visit Reasons: DEEP TISSUE MASSAGE THERAPIST/ Barciona/Dyspnea on exertion Intake Note: NPV Route Relief Driver Required: No Accompanied by: Self / Same As Patient Allergies peanut [PEANUT] Adverse Reaction (Intermediate, Verified 12/14/22 12:33) GI UPSET tree nut [TREE NUT] Adverse Reaction (Intermediate, Verified 12/14/22 12:33) GI UPSET Medication List - Last Reconciled 12/14/22 by Vidal James MD amlodipine 2.5 mg PO BEDTIME multivitamin 1 tab PO .Q3days vitamin E 268 mg PO DAILY HPI HPI Comments History of Present Illness Details John is here for consultation regarding shortness of breath. Referral is made few months ago but it seems that after that he was admitted to the hospital with hypercalcemia and renal failure. There is a possibility of multiple myeloma and he is being seen by Oncology in that regard. Patient himself denies any history of coronary disease, myocardial infarction or cardiomyopathy. He has a long history of smoking. There is also family history of coronary disease. With moderate to severe exertion, can feel short of breath but otherwise no clear-cut anginal-type symptoms. [facility] Medical History Epidermal inclusion cyst Hypertension Internal and external bleeding hemorrhoids Smoker Surgical History History of removal of cyst History of removal of cyst (~2020) Family History Paternal Aunt Colon cancer Social History Household Members: None Housing: House Do you presently have visiting nurse or other home services: No Alcohol intake: current Alcohol intake frequency: does not drink Patient Tobacco Use Status: Current everyday Tobacco user Tobacco use type: Cigarette Years Smoked: 52 Second Hand Smoke Exposure: No Substance Use Type: Marijuana service: No Current occupational status: employed Review of Systems Const Denies weakness ENT Denies dizziness Card Denies chest pain, Denies chest pain with activity, Denies syncope, Denies rapid heart rate, Denies pedal edema, Denies edema, Denies leg edema, Denies lightheadedness, Denies palpitations, Denies dyspnea, Denies dyspnea on exertion and Denies orthopnea Resp Denies cough, Denies dyspnea and Denies dyspnea on exertion GI Denies hematochezia and Denies change in stool character Musc Denies abnormal gait, Denies muscle cramps, Denies muscle weakness, Denies numbness, Denies radiating pain into limb and Denies tingling Neuro Denies abnormal gait, Denies dizziness, Denies syncope, Denies numbness, Denies tingling and Denies weakness Endo Denies palpitations Physical Exam Vital Signs: Last Vital Signs Pulse 50 12/14/22 12:31 BP 120/72 12/14/22 12:31 BMI result Body Mass Index 18.1 Const General: comfortable and no acute distress Orientation/consciousness: patient oriented x3 HEENT Other: Unremarkable Head: Yes normal to inspection Neck Neck: Yes normal visual inspection Chest Chest palpation & inspection: normal inspection of the chest Resp Auscultation: clear to auscultation bilaterally Cardio Palpation: normal PMI Heart sounds: S1 normal heart sound present, S2 normal heart sound present, no gallops, no murmurs and no rubs GI Palpation (GI): Soft to palpation Back/Spine/Pelvis Other: unremarkable Skin General skin exam: no rashes or lesions noted Neuro General: patient oriented x3 Extrem General: Yes normal to inspection Psych Mental Status: mental status grossly normal Assessment & Plan Assessment & Plan (1) Shortness of breath: Code(s): R06.02 - Shortness of breath (2) Plasma cell dyscrasia: Code(s): E88.09 - Other disorders of plasma-protein metabolism, not elsewhere classified Plan EKG from September shows sinus rhythm at 54/Min; nonspecific ST-T changes in the anterolateral leads and inferior leads. Normal OH and corrected QT. With long smoking history as well as family history, can do workup for ischemic heart disease. Can get an echocardiogram and stress test for further evaluation. If multiple myeloma also confirmed, then need to look for cardiac amyloidosis. Follow-up in a few weeks time. Orders: Orders CA stress test Today I25.10 - Atherosclerotic heart disease of [place] coronary artery without angina pectoris, R06.02 - Shortness of breath CA echo transthoracic complete Today E85.9 - Amyloidosis, unspecified, R06.02 - Shortness of breath NM cardiolite stress test Today I25.10 - Atherosclerotic heart disease of [place] coronary artery without angina pectoris, R06.02 - Shortness of breath Coding Level of Care Code New Pt Level 4 (77822) Diagnoses Shortness of breath R06.02 Plasma cell dyscrasia E88.09
[2022-12-14 12:31] VITALS: BP 120/72; PULSE 50; BMI 18.1
== END 2022-12-14 12:54 | disposition home or self-care (01) ==
PROVIDERS: PCP Internal Medicine; Visit Provider Internal Medicine
DX: R06.02 Shortness of breath (principal); E88.09 Other disorders of plasma-protein metabolism, not elsewhere classified
CPT/HCPCS: 99214

== ENCOUNTER → 2022-12-14 12:09 | Outpatient (BNVA) | payer MEDICARE, MEDICAID, SELFPAY | PROVIDERS: PCP Internal Medicine; Visit Provider Internal Medicine | DX: R06.02 Shortness of breath (principal); E88.09 Other disorders of plasma-protein metabolism, not elsewhere classified | CPT/HCPCS: 99212 ==

== ENCOUNTER 2022-12-17 13:33 | Outpatient (REF) | payer MEDICARE, MEDICAID, SELFPAY ==
--- NOTE | ~2022-12-17 | XR_ITS ---
EXAMINATION: XR CHEST CLINICAL INFORMATION: Nodules seen on osseous survey. Oblique views were requested per prior imaging the radiologist for protocol of 11/20/2022 COMPARISON: 11/20/2022, 10/17/2022, TECHNIQUE: 2 views of the chest were obtained. FINDINGS: The lungs are hyperinflated with emphysematous changes. Heart size is normal. Previously questioned right basilar nodular opacities are possibly still present. Prominence of the bilateral monse redemonstrated. Persistent bandlike opacity in the right perihilar region remains concerning for possible postobstructive atelectasis related to perihilar mass. Redemonstration of bilateral pleural-parenchymal opacities. XR/XR chest 4 views IMPRESSION: The right base nodular densities identified on exam of 11/20/2022 are difficult to characterize on images provided. Prominence of the bilateral monse redemonstrated. Persistent bandlike opacity in the right perihilar region remains concerning for possible postobstructive atelectasis related to perihilar mass. CT SCAN OF THE CHEST IS RECOMMENDED FOR FURTHER EVALUATION.
== END 2022-12-17 13:34 | disposition home or self-care (01) ==
LOC: HO.XRAY 13:33
PROVIDERS: PCP Internal Medicine; Visit Provider Internal Medicine Medical Oncology
DX: R91.8 Other nonspecific abnormal finding of lung field (principal)
CPT/HCPCS: 71048

== ENCOUNTER → 2022-12-17 14:20 | Outpatient (BNV) | payer MEDICARE, MEDICAID, SELFPAY | PROVIDERS: PCP Internal Medicine; Visit Provider Internal Medicine Medical Oncology | DX: E88.09 Other disorders of plasma-protein metabolism, not elsewhere classified (principal); F17.210 Nicotine dependence, cigarettes, uncomplicated | CPT/HCPCS: 99204; 99213; 99214 ==

== ENCOUNTER → 2022-12-24 08:21 | Outpatient (REF) | payer MEDICARE, MEDICAID, SELFPAY ==
--- NOTE | ~2022-12-24 | NM_ITS ---
Myocardial perfusion study Indication: Shortness of breath to evaluate for myocardial ischemia Technique: The patient was brought in for a Lexiscan perfusion study on 12/24/2022. Patient performed low-level exercise and was injected 0.4 mg of Lexiscan intravenously. Within a minute of injection, 25 mCi of sestamibi was given intravenously. Images were obtained using the SPECT gamma camera interlaced with the gating device. Images were obtained in supine position. Resting perfusion study was performed on 12/25/2022. Patient was administered 25 mCi of sestamibi intravenously at rest. Images were then obtained in supine position. Images obtained with and without CT attenuation. Total DLP 65 mGy-cm. Images were processed with the software and compared side to side in short axis, horizontal long axis and vertical long axis views. Findings: The stress perfusion study showed showed moderately reduced uptake in the inferoseptal, apical and inferior wall of the LV myocardium with absent uptake in the basal inferior wall of the LV myocardium. There is also mildly reduced uptake in the anteroseptal wall of the LV myocardium. Attenuation corrected images show absent uptake in the basal inferior and inferolateral wall of the LV myocardium with severely reduced uptake in the mid inferior and mildly reduced uptake in the inferoapical wall of the cardiac. There is mildly reduced uptake in the inferolateral wall of the LV myocardium apical and midportion.. The gated study shows normal LV systolic function with calculated LVEF of %. LV cavity is mildly to moderately dilated size. The gated study shows reduced basal and mid inferior as well as basal inferolateral wall thickening and contraction . Resting study shows non attenuated images show no change in perfusion pattern compared to stress perfusion study. Attenuation corrected show improved uptake. Gating at rest reveals the wall motion abnormality with ejection fraction at %. The findings are consistent with possible reversible defect mid and apical portion of inferolateral wall which may be ischemia. Basal and mid inferior as well as basal inferolateral and inferoapical apical defect suggestive. NM/NM cardiolite stress test Impression: 1. Myocardial perfusion imaging study shows basal and mid inferior and basal inferolateral myocardial infarction with lillian-infarct ischemia of the mid and apical portion of the inferolateral 2. Gated LVEF is 52% 3. Transient ischemic dilatation not present but LV cavity is dilated EKG is nondiagnostic for ischemia
--- NOTE | 2022-12-24 08:24 | CA_ITS ---
Acquisition Time: 2022-12-24 08:25:14 Total Exercise Time: 00:02:00 Test Indications: Dyspnea Medications: AMLODIPINE Protocol: RACHAEL Max HR: 206 BPM 138% of Pred: 149 BPM Max BP: 180/100 mmHG Max Work Load: 4.5 METS Exercise stress test exercise 2 min of Rachael protocol achieivng 77% MPHR, with severe SOB, no chest discomfort, with isolated PVCs and PACs, ventricular runs longest 7 beats, with highest BP 180/100. with request to stop due to significant SOB and ventricular ectopy. Patient assisted to chair and breathing returned to normal. Test changed to pharmacological with Lexiscan injection, while sitting and marching in chair, without anginal symptoms,with isolated PVCs and PACs, with normotensive response to injection, with non-diagnositic EKGs. Aminphylline 75mg IVP given to reverse Lexiscan, Nuclear images pending. Test reviewed with Dr. Rosales. Strips reviewed- 1 minute into recovery, there is suggestion of polymorphic VT, spontaneously converts to sinus. Referred By: Silverio Rosales Overread By: SILVERIO ROSALES
== END ==
LOC: HO.CARD 08:21
PROVIDERS: PCP Internal Medicine; Visit Provider Internal Medicine
DX: I25.10 Atherosclerotic heart disease of native coronary artery without angina pectoris (principal); R06.02 Shortness of breath
CPT/HCPCS: 78452; 93017; A9500; J0280; J2785

== ENCOUNTER → 2022-12-24 08:24 | Outpatient (BNV) | payer MEDICARE, MEDICAID, SELFPAY | PROVIDERS: PCP Internal Medicine; Visit Provider Internal Medicine | DX: I25.10 Atherosclerotic heart disease of native coronary artery without angina pectoris (principal) | CPT/HCPCS: 78452; 93016; 93018 ==

== ENCOUNTER 2022-12-25 11:22 | Outpatient (REF) | payer MEDICARE, MEDICAID, SELFPAY ==
--- NOTE | ~2022-12-25 | CT_ITS ---
EXAMINATION: CT CHEST SCREENING CLINICAL INFORMATION: Current smoker. 53 pack year history. COMPARISON: Previous chest x-ray November 2022 TECHNIQUE: Multidetector volumetric CT imaging of the chest is performed without contrast using low dose technique. Additional 2D coronal and sagittal reformatted images and axial 3D maximum intensity projection (MIP) images are generated on the CT workstation. This CT examination was performed using dose optimization techniques as appropriate, variously including the following: *Automated exposure control *Adjustment of mA and/or kV according to patient size (this includes techniques or standardized protocols for targeted exams where dose is matched to indication/reason for exam; i.e. extremities or head) *Use of iterative reconstruction technique DLP: 46 mGy-cm FINDINGS: LUNGS: There is severe emphysema. There is biapical pleural and parenchymal scarring. Is a 3 mm calcified right upper lobe nodule axial image 82 series 5. There is a 3 mm noncalcified right upper lobe nodule axial image 148 series 5. There is a 4 mm peripheral or subpleural noncalcified left upper lobe nodule axial image 187 series 5. There is scarring or subsegmental atelectasis in the anterior segment of the right upper lobe and the right middle lobe. There is mild traction bronchiolectasis seen in the right middle lobe. There is a 3 mm peripheral or subpleural noncalcified left lower lobe nodule axial image 342 series 5. There is an irregularly-shaped 3 x 6 mm left lower lobe nodule axial image 361 series 5. There is an irregularly-shaped 5 x 10 mm right lower lobe nodule axial image 414 series 5. There is a 4 mm right lower lobe nodule axial image 434 series 5. There is a 6 x 8 mm right lower lobe nodule axial image 473 series 5. There is a 4 mm lower lobe nodule axial image 358 series 5. There are small 3 mm peripheral or subpleural left lower lobe nodule adjacent to the fissure axial image 379 series 5. There is a heterogeneous or semisolid 7 mm left lower lobe nodule axial image 394 series 5. There is a 3 x 5 mm heterogeneous left lower lobe nodule axial image 402 series 5. There is a 3 x 5 mm peripheral or subpleural left lower lobe nodule adjacent to the fissure axial image 414 series 5. There is a 3 mm left lower lobe nodule axial 4-5 series 5. There is a 4 mm left upper lobe nodule anteriorly in the interhemispheric fissure axial image 293 series 5 and more inferiorly measuring 6 x 8 mm axial image 323 series 5. MEDIASTINUM: Normal heart size. No pericardial effusion. Upper normal-size thoracic aorta. No enlarged hilar or mediastinal lymph nodes. CORONARY ARTERY CALCIFICATION: None. PLEURA: There is no pleural effusion. No pleural mass or thickening. AXILLA: No lymphadenopathy. UPPER ABDOMEN: Unremarkable OSSEOUS STRUCTURES: Unremarkable. CT/CT lung screening IMPRESSION: Severe emphysema. Multiple pulmonary nodules, largest measuring 5 x 10 mm and 6 x 8 mm in the right lower lobe and 6 x 8 mm in the anterior left upper lobe. ASSESSMENT: Lung-RADS category 4A: Suspicious. RECOMMENDATION: 3 month low-dose chest CT follow-up recommended.
== END 2022-12-25 11:23 | disposition home or self-care (01) ==
LOC: HO.CT 11:22
PROVIDERS: Visit Provider Physician Assistant Medical
DX: Z12.2 Encounter for screening for malignant neoplasm of respiratory organs (principal); F17.210 Nicotine dependence, cigarettes, uncomplicated
CPT/HCPCS: 71271

== ENCOUNTER → 2022-12-28 09:29 | Outpatient (REF) | payer MEDICARE, MEDICAID, SELFPAY ==
--- NOTE | 2022-12-28 09:32 | CA_ITS ---
Transthoracic Echocardiogram Patient (Last, First, Middle): John Hwang, Gender: Male Date of : 1950 Age: 72 Procedure Date: 12/28/2022 Procedure Type: Transthoracic Echocardiogram Location: OP Height: 177.8 cm Weight: 56.96 kg BSA: 1.71 m2 Heart Rate: 63 bpm BP: 138 / 72 mmHg Director [employer] Operations: SB Referring MD: Vidal James MD Symptoms: R06.02 - Shortness of breath Study Quality: TDS/Narrow rib spaces ECG Rhythm: Sinus Conclusions: - The left ventricular systolic function is low normal. The visually estimated ejection fraction is between 50-55%. - The inferoseptal wall, the mid inferior, and basal anterolateral segments are hypokinetic. - The basal inferior and basal inferolateral segments are akinetic. - No obvious valvular pathology seen on this study. - Large plaque is seen in the sino tubular ridge. Findings Left Ventricle Normal left ventricular cavity size. There is normal left ventricular wall thickness. The left ventricular systolic function is low normal. The visually estimated ejection fraction is between 50-55%. There is evidence of regional wall motion abnormalities. Evidence suggests grade I (mild) diastolic dysfunction. LV peak GLS -15.9%. Wall Motion Rest Echo Findings The inferoseptal wall, the mid inferior, and basal anterolateral segments are hypokinetic. The basal inferior and basal inferolateral segments are akinetic. Right Ventricle Normal right ventricular cavity size and systolic function. Atria Both atria are normal in size. Aortic Valve There is a normal trileaflet aortic valve. There is no aortic valve stenosis. There is no aortic valve regurgitation. Mitral Valve The mitral valve appears normal. There is no mitral valve regurgitation. There is no mitral valve stenosis. Pulmonic Valve The pulmonic valve is likely normal. Tricuspid Valve There is trace tricuspid valve regurgitation. Borderline RVSP. Great Vessels The aorta was not well visualized. The sinuses of valsalva is normal in size. Large plaque is seen in the sino tubular ridge. Venous The inferior vena cava is normal in size and collapses less than 50% with inspiration. Pericardium/Pleural There is no evidence of pericardial effusion. Prior Study Comparison No prior study available for comparison. Recommendations, Care & Conclusions No obvious valvular pathology seen on this study. Measurements 2D Linear Measurements IVSd: 0.83 0.6-0.9/0.6-1.0 cm LVIDd: 5.22 3.9-5.3/4.2-5.9 cm LVIDd Index: 3.05 2.4-3.2/2.2-3.1 cm/m2 LVIDs: 4.39 2.0-3.6 cm LVPWd: 0.71 0.7-1.1 cm LA Diam: 3.30 2.7-3.8/3.0-4.0 cm LAIDs Index: 1.93 1.5-2.3 cm/m2 LV Mass: 172.63 67-162/88-224 g LV Mass Index: 100.96 43-95/49-115 g/m2 LVOT Diam: 2.00 3.0+(-)1.3 cm 2D Systolic Function EF 4C: 55.00 >55% EF 2C: 59.60 >55% EF BiP: 57.00 >55% Mitral Valve MV Pk E: 0.53 MV PK A: 0.57 MV Decel Time: 218.00 E/A: 0.90 E'Lateral: 10.20 E'Medial: 6.53 E/E' Med: 8.10 E/E' Lat: 5.20 PHT: 64.00 MVA PHT: 3.44 Decel [place]: 2.43 Aortic Valve AoV Pk Bradley: 1.15 AoV Pk Grad: 5.00 MARIVEL: 3.20 LVOT LVOT Pk Bradley: 1.12 LVOT Mn Bradley: 0.75 LVOT VTI: 0.23 LVOT Pk Grad: 5.00 LVOT Mn Grad: 3.00 LVOT Diam: 2.00 LVOT Area: 3.14 Diastolic Function MV Pk E: 0.53 MV Pk A: 0.57 E/A: 0.90 E'Medial: 6.53 E/E' Med: 8.10 E' Laterial: 10.20 E/E' Lat: 5.20 Right Ventricle TAPSE (mm): 19.20 TVS' Bradley: 10.00 Tricuspid Valve TR Pk Bradley: 2.87 TR Pk Grad: 33.00 RA Press: 8.00 RVSP: 41.00 Great Vessels Aorta Sinus of Valsalva: 3.90 2.0-3.5 cm Ao Asc: 3.40 2.1-3.4 cm Pulmonary Valve PV Pk Bradley: 0.61 Peak PV Grad: 1.00 Updated in Other Vendor System with Status of Final Vidal James MD electronically signed on 12/30/2022 9:47:42 AM with status of Final
[2022-12-28 09:41] LABS: MANUAL DIFF FLAG NO
[2022-12-28 10:39] LABS: Prothrombin Time 11.6 SEC (11.1-13.3)
[2022-12-28 10:40] LABS: Basophils Absolute Auto 0.1 X10*3/uL (0.0-0.2); Basophils Percent Auto 0.5 % (0-2); Eosinophils Absolute Auto 0.2 X10*3/uL (0.0-0.4); Hematocrit 39.4 % (42.0-52.0); Lymphocytes Absolute Auto 1.8 X10*3/uL (1.2-4.9); Lymphocytes Percent Auto 17.8 % (20-40); Monocytes Absolute Auto 0.7 X10*3/uL (0.1-1.2); Monocytes Percent Auto 7.5 % (2-11); Neutrophils Absolute Auto 7.1 x10*3/uL (2.0-8.3); Neutrophils Percent Auto 71.2 % (45-73); Platelet Count 275 X10*3/uL (160-400); Red Blood Count 4.06 X10*6/uL (4.60-5.80); Red Cell Distribution Width 12.7 % (11.0-16.0); White Blood Count 9.9 X10*3/uL (4.8-10.8)
[2022-12-28 11:12] LABS: Anion Gap 15 (12-20); Blood Urea Nitrogen 16 mg/dL (9-16); Calcium 9.1 mg/dL (8.4-10.2); Carbon Dioxide 22 mmol/L (22-29); Chloride 106 mmol/L (96-108); Cholesterol 166 mg/dL; Estimated Glomerular Filt Rate > 60; Glucose Random 113 mg/dL (60-115); HDL Cholesterol 45 mg/dL; LDL Cholesterol Calculated 107 mg/dl; Potassium 4.5 mmol/L (3.3-5.1); Sodium 138 mmol/L (135-145); Triglycerides 74 mg/dL
== END ==
LOC: HO.CARD 09:29
PROVIDERS: PCP Internal Medicine; Visit Provider Internal Medicine
DX: E85.9 Amyloidosis, unspecified (principal); R06.02 Shortness of breath; I10 Essential (primary) hypertension; R94.39 Abnormal result of other cardiovascular function study
CPT/HCPCS: 36415; 80048; 80061; 85025; 85610; 93306; 93356

== ENCOUNTER → 2022-12-28 09:32 | Outpatient (BNV) | payer MEDICARE, MEDICAID, SELFPAY | PROVIDERS: PCP Internal Medicine; Visit Provider Internal Medicine | DX: I51.9 Heart disease, unspecified (principal) | CPT/HCPCS: 93306 ==

== ENCOUNTER → 2023-01-08 23:59 | Outpatient (BNV) | payer MEDICARE, MEDICAID, SELFPAY | PROVIDERS: PCP Internal Medicine; Visit Provider Internal Medicine Cardiovascular Disease | DX: R93.1 Abnormal findings on diagnostic imaging of heart and coronary circulation (principal); I25.118 Atherosclerotic heart disease of native coronary artery with other forms of angina pectoris | CPT/HCPCS: 0715T; 92928; 92978; 93458; 93571; 99152 ==

== ENCOUNTER 2023-01-21 13:47 | Outpatient (AMB) | payer MEDICARE, MEDICAID, SELFPAY ==
--- NOTE | 2023-01-21 13:50 | MHC.OFFVIS ---
Intake Vital Signs 01/21/23 13:51 Height 5 ft 10 in Weight 126 lb 15.78 oz BMI 18.2 BP 132/88 Blood Pressure Location Lt brachial Position Sitting Pulse 58 Intake Visit Reasons: fu cardiac cath Intake Note: follow up cardiac cath Health Unit Clerk Required: No Accompanied by: Self / Same As Patient Allergies peanut [PEANUT] Adverse Reaction (Intermediate, Verified 01/21/23 13:52) GI UPSET tree nut [TREE NUT] Adverse Reaction (Intermediate, Verified 01/21/23 13:52) GI UPSET Medication List - Last Reconciled 01/21/23 by Vidal James MD amlodipine 2.5 mg PO BEDTIME aspirin (Mu Chewable Low Dose Aspirin) 81 mg PO DAILY metoprolol succinate ER (Toprol XL) 25 mg PO DAILY multivitamin 1 tab PO .Q3days rosuvastatin 20 mg PO DAILY ticagrelor (Brilinta) 90 mg PO BID vitamin E 268 mg PO DAILY HPI HPI Comments History of Present Illness Details John returns for follow-up. Recently, seen in consultation regarding shortness of breath. He initially underwent noninvasive workup with an echocardiogram and stress test leading to diagnostic catheterization. That showed CT of the right coronary artery, 70% mid LAD stenosis and 50% proximal left circumflex stenosis. Underwent PCI to LAD. Overall, he is optimal medical therapy for coronary disease. Generally okay. Some tiredness and nonspecific fatigue. Not clear if it is due to beta-blockers. No angina. [facility] Medical History (Updated 01/21/23 @ 14:07 by Vidal James MD) Atherosclerotic cardiovascular disease Hypertension Internal and external bleeding hemorrhoids Nicotine dependence, cigarettes, uncomplicated Tubular adenoma of colon (~2012) Surgical History History of bone marrow biopsy History of colonoscopy History of removal of cyst (~2020) Family History Paternal Aunt Colon cancer Social History Household Members: None Housing: House Do you presently have visiting nurse or other home services: No Alcohol intake: current Alcohol intake frequency: does not drink Patient Tobacco Use Status: Current everyday Tobacco user Tobacco use type: Cigarette Years Smoked: 52 Second Hand Smoke Exposure: No Substance Use Type: Marijuana service: No Current occupational status: employed Review of Systems Const Denies weakness ENT Denies dizziness Card Denies chest pain, Denies chest pain with activity, Denies syncope, Denies rapid heart rate, Denies pedal edema, Denies edema, Denies leg edema, Denies lightheadedness, Denies palpitations, Denies dyspnea, Denies dyspnea on exertion and Denies orthopnea Resp Denies cough, Denies dyspnea and Denies dyspnea on exertion GI Denies hematochezia and Denies change in stool character Musc Denies abnormal gait, Denies muscle cramps, Denies muscle weakness, Denies numbness, Denies radiating pain into limb and Denies tingling Neuro Denies abnormal gait, Denies dizziness, Denies syncope, Denies numbness, Denies tingling and Denies weakness Endo Denies palpitations Physical Exam Vital Signs: Last Vital Signs Pulse 58 01/21/23 13:51 BP 132/88 01/21/23 13:51 BMI result Body Mass Index 18.2 Const General: comfortable and no acute distress Orientation/consciousness: patient oriented x3 HEENT Other: Unremarkable Head: Yes normal to inspection Neck Neck: Yes normal visual inspection Chest Chest palpation & inspection: normal inspection of the chest Resp Auscultation: clear to auscultation bilaterally Cardio Palpation: normal PMI Heart sounds: S1 normal heart sound present, S2 normal heart sound present, no gallops, no murmurs and no rubs GI Palpation (GI): Soft to palpation Back/Spine/Pelvis Other: unremarkable Skin General skin exam: no rashes or lesions noted Neuro General: patient oriented x3 Extrem General: Yes normal to inspection Psych Mental Status: mental status grossly normal Assessment & Plan Assessment & Plan (1) Atherosclerotic cardiovascular disease: Code(s): I25.10 - Atherosclerotic heart disease of [place] coronary artery without angina pectoris (2) Hypertension: Code(s): I10 - Essential (primary) hypertension Plan Cardiac catheterization data reviewed. 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 50% proximal left circumflex stenosis and 70% mid LAD stenosis. He underwent PCI to LAD. Continue aspirin indefinitely. Continue Brilinta for about an year from time of PCI. Continue statins and amlodipine. He is describing nonspecific symptoms like not feeling well overall, tiredness. Not clear if it is beta-blockers artifact. Advised to hold it and see how he feels. He does not really have any overt angina. Otherwise, recommend cardiac rehabilitation. Follow-up in 3-4 months. He will call us with ongoing concerns. Orders: Orders Cardiac Rehab Today Z95.5 - Presence of coronary angioplasty implant and graft Coding Level of Care Code Est Pt Level 4 (49748) Diagnoses Atherosclerotic cardiovascular disease I25.10 Hypertension I10
[2023-01-21 13:51] VITALS: BP 132/88; PULSE 58; BMI 18.2
== END 2023-01-21 14:18 | disposition home or self-care (01) ==
PROVIDERS: PCP Internal Medicine; Referring Provider Internal Medicine; Visit Provider Internal Medicine
DX: I25.10 Atherosclerotic heart disease of native coronary artery without angina pectoris (principal); I10 Essential (primary) hypertension
CPT/HCPCS: 99214

== ENCOUNTER → 2023-01-21 13:47 | Outpatient (BNVA) | payer MEDICARE, MEDICAID, SELFPAY | PROVIDERS: PCP Internal Medicine; Referring Provider Internal Medicine; Visit Provider Internal Medicine | DX: I25.10 Atherosclerotic heart disease of native coronary artery without angina pectoris (principal); I10 Essential (primary) hypertension; Z79.82 Long term (current) use of aspirin; Z79.899 Other long term (current) drug therapy | CPT/HCPCS: 99212 ==

== ENCOUNTER 2023-02-01 12:53 | Outpatient (AMB) | payer MEDICARE, MEDICAID, SELFPAY ==
--- NOTE | 2023-02-01 07:41 | MHC.OFFVIS ---
Intake Intake Visit Reasons: LDCT SD Allergies peanut [PEANUT] Adverse Reaction (Intermediate, Verified 01/21/23 13:52) GI UPSET tree nut [TREE NUT] Adverse Reaction (Intermediate, Verified 01/21/23 13:52) GI UPSET HPI LDCT SD HPI Details Initial SDM visit for this 72 smoker with a 50PYH. Patient has been smoking since age 19 for 53 years at 1ppd. He is now down to 1/2ppd. . Reports occasional marijuana use. Denies second hand smoke exposure. Denies exposure to chemicals or substances like asbestos. . Denies known family history of lung cancer. Denies personal history of cancers. Denies chest CT in last year. . Denies recent travel outside the [place]. Denies recent respiratory illness or recent hospitalization for respiratory issues. Denies testing positive for COVID. Admits receiving COVID Vaccine. x 4. . Denies fever, chills, new/worsening cough, hemoptysis, hoarseness or dysphagia. Denies significant chest pain, significant dyspnea or unintentional weight loss. Patient Lung Cancer Screening Questionnaire reviewed with patient by provider. . Shared Decision Making Completed. Patient meets criteria. Discussed in detail with patient, the risk vs benefit of LDCT screening. Patient consents to proceed with scan. Discussed smoking cessation. . He was referred by oncology to join the Lung screening program. 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 12/25/[address] = Lung RADS 4A Multiple pulmonary nodules, largest is 5 x 10 mm and 6 x 8 mm in RLL and 6 x 8 mm in anterior DANISHA. Case reviewed at 01/04/23 interdisciplinary conference and plan is to do PFT's and 3m repeat LDCT scan in March. If nodules grow then plan would be do then do a PET scan and follow up with thoracics. [facility] Medical History (Updated 01/25/23 @ 12:38 by Ila Meek PA-C) Atherosclerotic cardiovascular disease Tubular adenoma of colon (~2012) Nicotine dependence, cigarettes, uncomplicated Internal and external bleeding hemorrhoids Hypertension Surgical History (Updated 01/25/23 @ 12:38 by Ila Meek PA-C) History of heart artery stent (~2022) History of cardiac cath (~2022) History of bone marrow biopsy (~2022) History of colonoscopy History of removal of cyst (~2020) Family History Paternal Aunt Colon cancer Social History Household Members: None Housing: House Do you presently have visiting nurse or other home services: No Alcohol intake: current Alcohol intake frequency: does not drink Patient Tobacco Use Status: Current everyday Tobacco user Tobacco use type: Cigarette Years Smoked: 52 Second Hand Smoke Exposure: No Substance Use Type: Marijuana service: No Current occupational status: employed Assessment & Plan Assessment & Plan (1) Nicotine dependence, cigarettes, uncomplicated: Comment: (Current smoker - onset 19, 1ppd x 53yrs, now 1/2ppd - 50pyh, appears onc wanted to refer to LDCT program - had LDCT on 12/25/22 without SDM visit) Code(s): F17.210 - Nicotine dependence, cigarettes, uncomplicated Plan: - SDM visit completed today in office. - Patient meets criteria for LDCT for lung cancer screening purposes and is asymptomatic. - Smoking cessation counseling offered. Patients can always call [phone]. - CT already done 12/25/22 and plan is for 3 month follow up LDCT in March, as well as PFTs. - Risks, benefits, and alternatives were discussed in detail and the patient agrees to proceed. - Risks discussed include but are not limited to: radiation exposure, anxiety during testing and while awaiting results, false negatives, false positives and possibility of additional intervention such as further imaging or surgical procedures for benign disease. - Benefits are obviously detection of lung cancer at an early stage which can lead to improved outcomes. - Discussed the importance of screening program compliance with adherence to yearly LDCT scan as scheduled - or sooner interval scans for personalized screening regimen. - Discussed follow up plan. Our office will send a letter discussing results and if needed set up phone call and office visit based on CT findings. - Patient educated on results categorization and the management decisions for suspicious findings potentially found on the screening LDCT scan. Any patient with a Lung RADS score of 3 or 4 will be reviewed by a multidisciplinary team at [facility] to form a plan of action in regards to scan findings. - If further work up is warranted for a suspicious lung finding this will be followed by the Lung Cancer Screening program in conjunction with the Thoracic Surgery Department at [facility]. - A copy of the office note and LDCT will be sent to the patient's PCP - as well as documentation on any associated further plans of care. - Incidental findings on LDCT are the PCP's responsibility. These findings are indicated with an S finding on the LDCT Assessment. A note discussing the findings will be sent to the PCP who is then responsible for further management. - All questions answered.? Coding Level of Care Code Lung Cancer Screening G0296 Diagnoses Nicotine dependence, cigarettes, uncomplicated F17.210
== END 2023-02-01 13:20 | disposition home or self-care (01) ==
PROVIDERS: PCP Internal Medicine; Visit Provider Physician Assistant Medical
DX: F17.210 Nicotine dependence, cigarettes, uncomplicated (principal)
CPT/HCPCS: G0296

== ENCOUNTER → 2023-02-01 12:53 | Outpatient (BNVA) | payer MEDICARE, MEDICAID, SELFPAY | PROVIDERS: PCP Internal Medicine; Visit Provider Physician Assistant Medical | DX: F17.210 Nicotine dependence, cigarettes, uncomplicated (principal) | CPT/HCPCS: G0296 ==

== ENCOUNTER 2023-02-04 13:28 | Outpatient (REF) | payer MEDICARE, MEDICAID, SELFPAY ==
[2023-02-04 15:38] LABS: Vitamin D 25-OH Total 25.6 ng/mL (>30)
== END 2023-02-04 13:29 | disposition home or self-care (01) ==
LOC: HO.LAB 13:28
PROVIDERS: Visit Provider Internal Medicine Nephrology
DX: N18.32 Chronic kidney disease, stage 3b (principal)
CPT/HCPCS: 36415; 82306

== ENCOUNTER 2023-02-15 14:19 | Outpatient (REF) | payer MEDICARE, MEDICAID, SELFPAY ==
[2023-02-15 14:33] LABS: MANUAL DIFF FLAG NO
[2023-02-15 15:23] LABS: Basophils Percent Auto 0.4 % (0-2); Eosinophils Absolute Auto 0.1 X10*3/uL (0.0-0.4); Eosinophils Percent Auto 0.8 % (0-4); Hematocrit 37.6 % (42.0-52.0); Hemoglobin 12.5 g/dl (14.0-18.0); Imm Gran Abs Auto 0.03 X10*3/uL (0.00-0.03); Imm Gran Pct Auto 0.3 % (0.0-0.4); Lymphocytes Absolute Auto 2.1 X10*3/uL (1.2-4.9); Lymphocytes Percent Auto 21.3 % (20-40); Mean Corpuscular HGB Conc 33.2 g/dl (31.0-36.0); Mean Corpuscular Volume 96.2 fL (80.0-98.0); Mean Platelet Volume 8.9 fL (9.4-12.4); Monocytes Absolute Auto 0.7 X10*3/uL (0.1-1.2); Monocytes Percent Auto 7.6 % (2-11); Neutrophils Absolute Auto 6.8 x10*3/uL (2.0-8.3); Neutrophils Percent Auto 69.6 % (45-73); Platelet Count 236 X10*3/uL (160-400); Red Blood Count 3.91 X10*6/uL (4.60-5.80); White Blood Count 9.8 X10*3/uL (4.8-10.8)
[2023-02-15 16:18] LABS: Appearance Urine Clear; Color Urine Yellow; Glucose Urine UA Negative (Negative); Leukocyte Esterase Urine Trace (Negative); Nitrite Urine Negative (Negative); UMIC TRIGGER UA YES; Urine Blood Negative (Negative); Urine Ketones Negative (Negative); Urine Protein Negative (Neg-Trace)
[2023-02-15 16:20] LABS: Bacteria Urine None Seen (None Seen); Hyaline Casts Urine 0-2 /LPF (0-2); RBC Urine 0-2 /HPF (0-2); Squamous Epithelial Cell Urine 0-2 /HPF (0-2); WBC Urine 0-5 /HPF (0-5)
[2023-02-15 16:30] LABS: Anion Gap 13 (12-20); Blood Urea Nitrogen 15 mg/dL (9-16); Calcium 9.4 mg/dL (8.4-10.2); Carbon Dioxide 22 mmol/L (22-29); Chloride 107 mmol/L (96-108); Estimated Glomerular Filt Rate > 60; Potassium 4.2 mmol/L (3.3-5.1); Sodium 138 mmol/L (135-145)
[2023-02-15 16:47] LABS: Creatinine Urine 42.04 mg/dL; Microalbumin Urine < 5.0 mg/L; Total Protein Urine Random < 7 mg/dL (<12)
[2023-02-21 15:57] LABS: Kappa, Serum 234 mg/dL (176-443); Kappa/Lambda Ratio, Serum 1.79 (1.29-2.55); Lambda, Serum 131 mg/dL (91-240)
== END 2023-02-15 14:20 | disposition home or self-care (01) ==
LOC: HO.LAB 14:19
PROVIDERS: PCP Internal Medicine; Visit Provider Internal Medicine Nephrology
DX: N18.32 Chronic kidney disease, stage 3b (principal)
CPT/HCPCS: 36415; 80051; 81001; 82310; 82565; 82570; 83883; 84156; 84520; 85025

== ENCOUNTER 2023-06-19 12:18 | Outpatient (REF) | payer MEDICARE, MEDICAID, SELFPAY ==
[2023-06-19 14:35] LABS: Alanine Aminotransferase 14 U/L (0-40); Albumin Level 4.1 g/dL (3.5-5.0); Alkaline Phosphatase 49 U/L (39-117); Aspartate Amino Transferase 17 U/L (5-37); Bilirubin Direct 0.2 mg/dL (0.0-0.5); Bilirubin Total 0.4 mg/dL (0.0-1.0); Cholesterol 110 mg/dL (<200); HDL Cholesterol 41 mg/dL (>40); LDL Cholesterol Calculated 56 mg/dL (<100); Total Protein 7.2 g/dL (6.5-8.0); Triglycerides 67 mg/dL (<150)
== END 2023-06-19 12:19 | disposition home or self-care (01) ==
LOC: HO.LAB 12:18
PROVIDERS: PCP Internal Medicine; Visit Provider Internal Medicine
DX: I25.10 Atherosclerotic heart disease of native coronary artery without angina pectoris (principal); I10 Essential (primary) hypertension; E78.5 Hyperlipidemia, unspecified; R06.02 Shortness of breath; Z79.899 Other long term (current) drug therapy
CPT/HCPCS: 36415; 80061; 80076; 99212

== ENCOUNTER 2023-06-19 12:18 | Outpatient (AMB) | payer MEDICARE, MEDICAID, SELFPAY ==
--- NOTE | 2023-06-19 12:40 | A.OFFVIS_ITS ---
Intake Vital Signs 06/19/23 12:43 Height 5 ft 10 in Weight 149 lb 14.629 oz BMI 21.5 BP 142/68 H Blood Pressure Location Lt brachial Position Sitting Pulse 64 Intake Visit Reasons: R/S 4 month follow up Intake Note: 4 month follow up Bedspread Cutter Required: No Accompanied by: Self / Same As Patient Allergies peanut [PEANUT] Adverse Reaction (Intermediate, Verified 06/19/23 12:42) GI UPSET tree nut [TREE NUT] Adverse Reaction (Intermediate, Verified 06/19/23 12:42) GI UPSET Medication List - Last Reconciled 06/19/23 by Vidal James MD amlodipine 2.5 mg PO BEDTIME aspirin (Um Chewable Low Dose Aspirin) 81 mg PO DAILY multivitamin 1 tab PO .Q3days rosuvastatin 20 mg PO DAILY ticagrelor (Brilinta) 90 mg PO BID 90 days vitamin E 268 mg PO DAILY HPI HPI Comments History of Present Illness Details John returns for follow-up regarding coronary artery disease. He was seen in consultation regarding shortness of breath. He initially underwent noninvasive workup with an echocardiogram and stress test leading to diagnostic catheterization. That showed ROUGH CARPENTER of the right coronary artery, 70% mid LAD stenosis and 50% proximal left circumflex stenosis. Underwent PCI to LAD. Overall, he is optimal medical therapy for coronary disease. No specific cardiac complaints. He has had some nosebleeds but seems to have gotten better. [facility] Medical History (Updated 01/25/23 @ 12:38 by Ila Meek PA-C) Atherosclerotic cardiovascular disease Tubular adenoma of colon (~2012) Nicotine dependence, cigarettes, uncomplicated Internal and external bleeding hemorrhoids Hypertension Surgical History History of heart artery stent (~2022) History of cardiac cath (~2022) History of bone marrow biopsy (~2022) History of colonoscopy History of removal of cyst (~2020) Family History Paternal Aunt Colon cancer Social History Household Members: None Housing: House Do you presently have visiting nurse or other home services: No Alcohol intake: current Alcohol intake frequency: does not drink Patient Tobacco Use Status: Current everyday Tobacco user Tobacco use type: Cigarette Years Smoked: 52 Second Hand Smoke Exposure: No Substance Use Type: Marijuana service: No Current occupational status: employed Review of Systems Const Denies weakness ENT Denies dizziness Card Denies chest pain, Denies chest pain with activity, Denies syncope, Denies rapid heart rate, Denies pedal edema, Denies edema, Denies leg edema, Denies lightheadedness, Denies palpitations, Denies dyspnea on exertion and Denies orthopnea Resp Denies cough and Denies dyspnea on exertion GI Denies hematochezia and Denies change in stool character Musc Denies abnormal gait, Denies muscle cramps, Denies muscle weakness, Denies numbness, Denies radiating pain into limb and Denies tingling Neuro Denies abnormal gait, Denies dizziness, Denies syncope, Denies numbness, Denies tingling and Denies weakness Endo Denies palpitations Physical Exam Vital Signs: Last Vital Signs Pulse 64 06/19/23 12:43 BP 142/68 H 06/19/23 12:43 BMI result Body Mass Index 21.5 Const General: comfortable and no acute distress Orientation/consciousness: patient oriented x3 HEENT Other: Unremarkable Head: Yes normal to inspection Neck Neck: Yes normal visual inspection Chest Chest palpation & inspection: normal inspection of the chest Resp Auscultation: clear to auscultation bilaterally Cardio Palpation: normal PMI Heart sounds: S1 normal heart sound present, S2 normal heart sound present, no gallops, no murmurs and no rubs GI Palpation (GI): Soft to palpation Back/Spine/Pelvis Other: unremarkable Skin General skin exam: no rashes or lesions noted Neuro General: patient oriented x3 Extrem General: Yes normal to inspection Psych Mental Status: mental status grossly normal Assessment & Plan Assessment & Plan (1) Atherosclerotic cardiovascular disease: Code(s): I25.10 - Atherosclerotic heart disease of [place] coronary artery without angina pectoris (2) Hypertension: Code(s): I10 - Essential (primary) hypertension Plan Cardiac catheterization data reviewed. 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 50% proximal left circumflex stenosis and 70% mid LAD stenosis. s/p PCI to LAD. Continue aspirin indefinitely. Continue Brilinta for about an year from time of PCI. For hypertension, he is on amlodipine. Blood pressure is borderline high but he states home pressure is somewhat on the lower side around 130s. We discussed about med changes but he would like to leave it alone for now. He has been on beta-blockers in the past but had some nonspecific tiredness. However, not clear if that is med related or not. With regard to lipids, continue statins. Check lipid profile and LFTs. Ordered. Follow-up in 6 months. He will call us with any interim concerns. Orders: Orders Lipid Panel Today E78.5 - Hyperlipidemia, unspecified, I25.10 - Atherosclerotic heart disease of [place] coronary artery without angina pectoris Liver Panel Today I25.10 - Atherosclerotic heart disease of [place] coronary artery without angina pectoris Coding Level of Care Code Est Pt Level 4 (93818) Diagnoses Atherosclerotic cardiovascular disease I25.10 Hypertension I10
[2023-06-19 12:43] VITALS: BP 142/68; PULSE 64; BMI 21.5
== END 2023-06-19 12:57 | disposition home or self-care (01) ==
PROVIDERS: PCP Internal Medicine; Visit Provider Internal Medicine
DX: I25.10 Atherosclerotic heart disease of native coronary artery without angina pectoris (principal); I10 Essential (primary) hypertension
CPT/HCPCS: 99214

== ENCOUNTER 2023-08-15 13:56 | Outpatient (REF) | payer MEDICARE, MEDICAID, SELFPAY ==
--- NOTE | ~2023-08-15 | CT_ITS ---
EXAMINATION: CT CHEST WITH CONTRAST CLINICAL INFORMATION: Pulmonary nodule in a smoker COMPARISON: 12/28/2022 TECHNIQUE: Multidetector volumetric CT imaging of the chest was obtained after the administration of 65 mL of Omnipaque 350 intravenous contrast without immediate adverse reactions. Axial MIP volume rendering provided. Sagittal and coronal reformatted images were obtained. This CT examination was performed using dose optimization techniques as appropriate, variously including the following: *Automated exposure control *Adjustment of mA and/or kV according to patient size (this includes techniques or standardized protocols for targeted exams where dose is matched to indication/reason for exam; i.e. extremities or head) *Use of iterative reconstruction technique DLP: 232 mGy-cm FINDINGS: COMMUNICATIONS MANAGER: Lungs are hyperinflated and there is scarring through the right lung. There is diaphragm flattening. LUNGS: There are changes of severe, panlobular emphysema. There is scarring in the right upper lobe. There is left upper lobe 0.3 cm nodule seen on image 127 series 6. There is ill-defined 0.3 cm nodule in the right lower lobe, seen on image 228 and 0.4 cm nodule in the right lower lobe seen on image 249. There is 0.3 cm nodule seen on image 367 and there is 0.2 cm nodule in the right middle lobe abating the fissure. There are 0.3 cm nodule seen in the right lower lobe image 386. There is 0.6 cm nodule in the right lower lobe, seen on image 426. On the left there is 0.3 cm nodule seen on image 346 and spiculated nodule in the left lower lobe seen on image 348 measured approximately 0.5 cm. 0.2 cm nodule seen in the left upper lobe on image 335 and 0.2 cm nodule seen on image 303. Subpleural left upper lobe nodule measured 0.5 cm visualized on image 176. Left upper lobe nodule seen on image 148, measured approximately 1.3 cm. Central airways are patent. MEDIASTINUM: There is mild mediastinal lymphadenopathy with multiple pretracheal lymph nodes. Thoracic aorta is ectatic, measured 3.8 x 4.0 cm and aortic arch measured 3.5 cm. Coronary artery calcifications present. PLEURA: There is no pleural effusion. No pleural mass or thickening. AXILLA: No lymphadenopathy. UPPER ABDOMEN: Unremarkable OSSEOUS STRUCTURES: Unremarkable. CT/CT chest w IV con IMPRESSION: 1. Changes of severe, panlobular emphysema with multiple lung nodules as described. 2. Mild mediastinal lymphadenopathy. 3. Coronary artery calcifications. 4. Ectatic thoracic aorta. Fleischner guidelines were followed.
[2023-08-15] MEDS: iohexoL 350 MG/ML 100 ML INFUS..BTL 65 ML IV (14:58)
== END 2023-08-15 13:57 | disposition home or self-care (01) ==
LOC: HO.CT 13:56
PROVIDERS: PCP Internal Medicine; Visit Provider Internal Medicine Medical Oncology
DX: R91.8 Other nonspecific abnormal finding of lung field (principal)
CPT/HCPCS: 71260; Q9967

== ENCOUNTER 2023-12-18 12:31 | Outpatient (AMB) | payer MEDICARE, MEDICAID, SELFPAY ==
[2023-12-18 12:39] VITALS: BP 130/70; PULSE 62; BMI 19.3
--- NOTE | 2023-12-18 12:39 | MHC.OFFVIS ---
Vital Signs 12/18/23 12:39 Height 5 ft 10 in Weight 134 lb 7.712 oz BMI 19.3 BP 130/70 Blood Pressure Location Lt brachial Position Sitting Pulse 62 Intake Visit Reasons: 6 month follow up Psychiatric Nursing Aide Required: No Accompanied by: Self / Same As Patient Allergies peanut [PEANUT] Adverse Reaction (Intermediate, Verified 10/24/23 14:22) GI UPSET tree nut [TREE NUT] Adverse Reaction (Intermediate, Verified 10/24/23 14:22) GI UPSET Medication List - Last Reconciled 12/18/23 by Vidal James MD amlodipine 2.5 mg PO BID aspirin (Mu Chewable Low Dose Aspirin) 81 mg PO DAILY multivitamin 1 tab PO .Q3days rosuvastatin 20 mg PO DAILY vitamin E 268 mg PO DAILY HPI Comments Details: John returns for follow-up regarding coronary artery disease. He was seen in consultation regarding shortness of breath. He initially underwent noninvasive workup with an echocardiogram and stress test leading to diagnostic catheterization. That showed OBSTETRICIAN AND GYNAECOLOGIST of the right coronary artery, 70% mid LAD stenosis and 50% proximal left circumflex stenosis. Underwent PCI to LAD. He states that he feels fine. Does not have any complaints like angina or in fact anything cardiac sounding. He states he is no longer taking the Brilinta. Last took 2 weeks ago. [facility] Medical History (Updated 12/18/23 @ 13:36 by Vidal James MD) Atherosclerotic cardiovascular disease Tubular adenoma of colon (~2012) Nicotine dependence, cigarettes, uncomplicated Internal and external bleeding hemorrhoids Hypertension Surgical History History of heart artery stent (~2022) History of cardiac cath (~2022) History of bone marrow biopsy (~2022) History of colonoscopy History of removal of cyst (~2020) Family History Paternal Aunt Colon cancer Social History Household Members: None Housing: House Do you presently have visiting nurse or other home services: No Alcohol intake: current Alcohol intake frequency: does not drink Patient Tobacco Use Status: Current everyday Tobacco user Tobacco use type: Cigarette Years Smoked: 52 Second Hand Smoke Exposure: No Substance Use Type: Marijuana service: No Current occupational status: employed Review of Systems Const All systems reviewed & are unremarkable except as noted in HPI and below Reports as per HPI and Reports no additional complaints Eyes Reports as per HPI and Denies no additional complaints ENT Denies no additional complaints and Reports as per HPI Card Reports as per HPI, Reports no additional complaints, Denies acrocyanosis, Denies chest pain, Denies leg edema, Denies lightheadedness, Denies palpitations and Denies dyspnea Resp Reports as per HPI, Denies no additional complaints and Denies dyspnea GI Reports as per HPI and Denies no additional complaints Reports no additional complaints and Reports as per HPI Musc Reports no additional complaints and Reports as per HPI Skin/Breast Reports system reviewed and no additional complaints, except as documented Neuro Reports no additional complaints and Reports as per HPI Psych Reports no additional complaints and Reports as per HPI Endo Reports no additional complaints, Reports as per HPI and Denies palpitations Gerald/Lymph Reports no additional complaints and Reports as per HPI Aller/Immun Reports no additional complaints and Reports as per HPI Physical Exam Vital Signs: Last Vital Signs Pulse 62 12/18/23 12:39 BP 130/70 12/18/23 12:39 BMI result Body Mass Index 19.3 Const General: comfortable and no acute distress Orientation/consciousness: patient oriented x3 HEENT Other: Unremarkable Head: Yes normal to inspection Neck Neck: Yes normal visual inspection Chest Chest palpation & inspection: normal inspection of the chest Resp Auscultation: clear to auscultation bilaterally Cardio Palpation: normal PMI Heart sounds: S1 normal heart sound present, S2 normal heart sound present, no gallops, no murmurs and no rubs GI Palpation (GI): Soft to palpation Back/Spine/Pelvis Other: unremarkable Skin General skin exam: no rashes or lesions noted Neuro General: patient oriented x3 Extrem General: Yes normal to inspection Psych Mental Status: mental status grossly normal Office Procedures EKG Details: EKG with sinus rhythm at 62/Min; T inversions along the inferior leads but otherwise unremarkable; [place]. [id number], Complete Assessment & Plan Assessment & Plan (1) Atherosclerotic cardiovascular disease: Code(s): I25.10 - Atherosclerotic heart disease of [place] coronary artery without angina pectoris Category: Medical (2) Hypertension: Code(s): I10 - Essential (primary) hypertension Category: Medical (3) Nicotine dependence, cigarettes, uncomplicated: Code(s): F17.210 - Nicotine dependence, cigarettes, uncomplicated Category: Medical Plan Cardiac catheterization data reviewed from 12/2022. 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 50% proximal left circumflex stenosis and 70% mid LAD stenosis. s/p PCI to LAD. Clinically, free of angina or other cardiac concerns. Continue aspirin. He has already stopped Brilinta as it is about an year. For blood pressure, on amlodipine. States home blood pressures are in the 130s/80s or so. No changes made. He has been on beta-blockers in the past but had some nonspecific tiredness. However, not clear if that is med related or not. For dyslipidemia, on statins. Most recently LDL 56 mg/dL. Triglycerides 67 mg/dL. Stable LFTs. Also discussed about smoking cessation. Unclear if he will quit. Follow-up in 6 months. Coding Level of Care Code Est Pt Level 4 (32835) Diagnoses Atherosclerotic cardiovascular disease I25.10 Hypertension I10 Nicotine dependence, cigarettes, uncomplicated F17.210 CPT Codes EKG - CPT: 16394-[id number], Complete ([id number])
== END 2023-12-18 13:05 | disposition home or self-care (01) ==
PROVIDERS: PCP Internal Medicine; Visit Provider Internal Medicine
DX: I25.10 Atherosclerotic heart disease of native coronary artery without angina pectoris (principal); I10 Essential (primary) hypertension; F17.210 Nicotine dependence, cigarettes, uncomplicated
CPT/HCPCS: 93010; 99214

== ENCOUNTER → 2023-12-18 12:31 | Outpatient (BNVA) | payer MEDICARE, MEDICAID, SELFPAY | PROVIDERS: PCP Internal Medicine; Visit Provider Internal Medicine | DX: I25.10 Atherosclerotic heart disease of native coronary artery without angina pectoris (principal); R94.31 Abnormal electrocardiogram [ECG] [EKG]; I10 Essential (primary) hypertension; F17.210 Nicotine dependence, cigarettes, uncomplicated | CPT/HCPCS: 93005; 99212 ==

== ENCOUNTER 2024-06-22 08:59 | Outpatient (REF) | payer MEDICARE, MEDICAID, SELFPAY ==
--- NOTE | ~2024-06-22 | US_ITS ---
CLINICAL HISTORY: SMOKER, PULSATING AORTA US Abdomen (AAA) Comparison: None Findings: Aorta proximal 2.1 x 2.3 cm. Aorta mid 1.8 x 2 cm. Aorta distal 1.6 x 2 cm. The bilateral iliac arteries are not seen due to bowel gas. Severe Atherosclerosis calcification of the aorta. IMPRESSION: 1. No abdominal aortic aneurysm. Nonvisualization of the bilateral iliac arteries. This document has been electronically signed by: Lenin Solares MD on 06/22/2024 12:50:36
--- OUTSIDE RECORDS SUMMARY | 2024-06-22 13:18 | XMS_ITS | Encounter Summary ---
Author Organization [email or web address] Address [address] [facility] 7t [place] [address] Care Team Providers Care Manager Internship Name Role Phone Arti Lei MD Primary Care Provide r Reason for Visit * Reason Onset Date Comments Nurse Triage 10/28/2023 Encounter Details Date Type Department Care Team ([facility] st Contact Info) Description 10/28/2023 Telephone [facility] [address] [place], [place] [phone] Arti Lei MD [address] [place] [address] Nurse Triage Social History Tobacco Use Types Packs/Day Years Used Date Smoking Tobacco: Every Day Cigarettes Passive Smoke Exposure: Current Smokeless Tobacco: Never Depression Answer Date Recorded Patient Health Questionnaire-9 Score 2 10/15/2022 Housing Stability Answer Date Recorded What is your housing situation today? I have [place] 03/14/[address] you li ve. Do you have problems with any of the following? None of the above 03/14/2023 Food Insecurity Answer Date Recorded Within the past 12 months, y ou worried that your food would run out before you got money to buy more: Never True 03/14/2023 Within the past 12 months,th e food you bought just didn't last and you didn't have enough money to get more: Never True Transportation Answer Date Recorded In the past 12 months, has l ack of transportation kept you from medical appts, meetings, work or from getting things needed for daily living? No 03/14/2023 Utilities Answer Date Recorded In the past 12 months, has t he electric, gas, oil or water company threatened to shut off services in your home? No 03/14/2023 Depression Answer Date Recorded Patient Health Questionnaire-2 Score 1 10/15/2022 Sex and Gender Information Value Date Recorded Sex Assigned at Male 03/26/2022 10:18 AM EDT Legal Sex Male 10:18 AM EDT Gender Identity Male 03/26/2022 10:18 AM EDT Sexual Orientation Straight 03/26/2022 10 :18 AM EDT documented as of this encounter Miscellaneous Notes * Telephone Encounter - Jacqueline Diaz RN - 10/28/2023 11:47 AM EDT Triage call Pt reports a dark mole, size of dime, on forehead by hairline. Pt reports has been there for 4-5 years but, has recently changed. Pt reports a dark spot in in the middle has developed, edges are smooth, rough to touch. No itchiness or redness but, size has changed at times becomes larger then, smaller. Pt would like to see provider and is concerned about melanoma. Apt with PCP today at 145pm. Unable to verify insurance due to computer error. Pt is advised to bring insurance cards toappt if any questions. Pt agreed and agreed with disposition. Protocol Used: Skin Lesion - Moles or Growths (Adult) Protocol-Based Disposition: See in Office or Video Visit within 3 Days Video visit not offered Positive Triage Question: * Patient wants to be seen * All higher-acuity triage questions were negative Care Advice Discussed: * Monthly Skin Self-Exam * Reasons To Call Back - Fever or pain occurs - Any change in the mole or growth - You become worse * Telephone Encounter - Leticia Orozco - 10/28/2023 10:41 AM EDT Symptom: Mole Outcome: Schedule an appointment to be seen within 3 days Reason: This is the only possible outcome for this symptom The caller accepted this outcome Please contact at [phone] documented in this encounter Plan of Treatment Upcoming Encounters Date Type Department Care Team (Late st Contact Info) Description 08/05/2024 11:30 AM EDT Office Visit [facility] [address] [place] [address] Arti Lei MD [address] [place] [address] documented as of this encounter Visit Diagnoses Not on filedocumented in this encounter Additional Health Concerns Assessment Noted Time PHQ-9 Depression Total Score: 2 10/16/19 23 3:44 PM EDT documented as of this encounter Care Teams Manager Internship Relationship Specialty Start Date End Date Arti Lei MD [address] [place], [place] [phone] PCP - General Family Medicine 02/05/18 documented as of this encounter
--- OUTSIDE RECORDS SUMMARY | 2024-06-22 13:18 | XMS_ITS | Encounter Summary ---
Author Organization [employer] [facility] Address [address] [place] [address] 7t [place] [address] Care Team Providers Care Powder Carrier Name Role Phone Arti Lei MD Primary Care Provide r Encounter Details Date Type Department Care Team (Late st Contact Info) Description 02/05/2023 Orders Only [facility] [address] [place] [address] [phone] Provider, MD Jenifer Social History Tobacco Use Types Packs/Day Years Used Date Smoking Tobacco: Every Day Cigarettes Smokeless Tobacco: Never Depression Answer Date Recorded Patient Health Questionnaire-9 Score 2 10/15/2022 Depression Answer Date Recorded Patient Health Questionnaire-2 Score 1 10/15/2022 Sex and Gender Information Value Date Recorded Sex Assigned at Male 03/26/2022 10:18 AM EDT Legal Sex Male 10:18 AM EDT Gender Identity Male 03/26/2022 10:18 AM EDT Sexual Orientation Straight 03/26/2022 10 :18 AM EDT documented as of this encounter Plan of Treatment Upcoming Encounters Date Type Department Care Team (Late st Contact Info) Description 08/05/2024 11:30 AM EDT Office Visit [facility] [address] [place] [address] [phone] Arti Lei MD [address] [place] [address] [phone] documented as of this encounter Procedures Procedure Name Priority Date/Time Associated Diagnosis Comments COLONOSCOPY Routine 05/02/2018 documented in this encounter Results * Hm Colonoscopy (05/02/2018) us Historical Provider HEALTH MAINTENANCE Final Result documented in this encounter Visit Diagnoses Not on filedocumented in this encounter Additional Health Concerns Assessment Noted Time PHQ-9 Depression Total Score: 2 10/16/19 23 3:44 PM EDT documented as of this encounter Care Teams Powder Carrier Relationship Specialty Start Date End Date Arti Lei MD [address] [place] [address] PCP - General Family Medicine 02/05/18 documented as of this encounter
--- OUTSIDE RECORDS SUMMARY | 2024-06-22 13:18 | XMS_ITS | Encounter Summary ---
Author Organization [employer] Address [address] [facility] 7t [place] [address] Care Team Providers Care Medical Case Manager Name Role Phone Arti Lei MD Primary Care Provide r Reason for Visit * Reason Onset Date Comments Nurse Triage 05/29/2024 Encounter Details Date Type Department Care Team ([facility] st Contact Info) Description 05/29/2024 Telephone [facility] [address] [place], [place] [phone] Arti Lei MD [address] [place] [address] Nurse Triage Social History Tobacco Use Types [...] t he electric, gas, oil or water [employer] threatened to shut off services in your [...] encounter Miscellaneous Notes * Telephone Encounter - Adriana Skinner LPN - 05/29/2024 3:42 PM EST Triage call to patient who reports several months of increased belching. Comes and goes Sister identified via Online search concern for Hpylori. Patient wit no abdominal pain no fever no nausea or vomiting and no noted blood in stools. Patient has taken OTC Beano and Gasx with little relief. It is not constant belching. Disposition reviewed and patient in agreement with plan ASK/PCP 06/05/24 315pm Reviewed with patient home care recommendations and reasons to call back. Pt verbalized understanding and agrees. Protocol Used: Abdomen Bloating and Swelling (Adult) Protocol-Based Disposition: See in Office or Video Visit within 2 Weeks Video visit not offered Positive Triage Question: * Abdomen bloating is a chronic symptom (recurrent or ongoing AND present > 4 weeks) * All higher-acuity triage questions were negative Care Advice Discussed: * Reasons To Call Back - Abdomen bloating lasts more than 1 week - New or worsening abdomen swelling - Constant pain lasting more than 2 hours - Intermittent pain (comes and goes, cramps) lasts over 48 hours - You become worse * Telephone Encounter - Robyn Landry - 05/29/2024 3:18 PM EST Tc from pt requesting a callback as he missed the calls . [phone] * Telephone Encounter - Robyn Landry - 05/29/2024 10:18 AM EST Tc from pt requesting a callback as he can't stop (burping) and he feels is not normal (Can't find symptoms for burping) [phone] documented in this encounter Plan of Treatment Upcoming Encounters Date Type Department Care Team (Late st Contact Info) Description 08/05/2024 11:30 AM EDT Office Visit [facility] [address] [place] [address] Arti Lei MD [address] [place], [place] [phone] documented as of this encounter Visit Diagnoses Not on filedocumented in this encounter Additional Health Concerns Assessment Noted Time PHQ-9 Depression Total Score: 2 10/16/19 23 3:44 PM EDT documented as of this encounter Care Teams Medical Case Manager Relationship Specialty Start Date End Date Arti Lei MD [address] [place] [phone] PCP - General Family Medicine 02/05/18 documented as of this encounter
--- OUTSIDE RECORDS SUMMARY | 2024-06-22 13:18 | XMS_ITS | Encounter Summary ---
Author Organization [employer] Address [address] [facility] 7t [place] [address] Care Team Providers Care Assistant Shift Supervisor Name Role Phone Arti Lei MD Primary Care Provide r Reason for Referral * Imaging (Routine) - Authorized Specialty Diagnoses / Procedures Referred By Contac t Referred To Contact Cardiology Diagnoses Bloating symptom Procedures Vascular US Abdominal Aorta Anuerysm Screening Arti Lei MD [address] [place] [address] Phone: tel: fax: [address] Phone: tel: fax: Referral ID Status Reason Start Date Expiration Date Visits Requested Visits Authorized [id number] Authorized Perform Procedure 06/05/2024 06/05/2025 1 1 * Consultation (Routine) - Authorized Specialty Diagnoses / Procedures Referred By Contac t Referred To Contact Gastroenterology Diagnoses Belching symptom Bloating symptom Arti Lei MD [address] [place] [address] Phone: tel: fax: [facility] [address] [place] [address] Drive [address] Floor [place], [place] Phone: tel: fax: Referral ID Status Reason Start Date Expiration Date Visits Requested Visits Authorized [id number] Authorized Specialty Services Required 06/05/2024 06/05/2025 1 1 Encounter Details Date Type Department Care Team (Late st Contact Info) Description 06/05/2024 3:15 PM EST Office Visit [facility] [address] [place] [address] Arti Lei MD [address] [place] [address] Belching symptom (Primary Dx); Bloating symptom Social History Tobacco Use Types Packs/Day Years Used Date Smoking Tobacco: Every Day Cigarettes Passive Smoke Exposure: Current Smokeless Tobacco: Never Alcohol Use Standard Drinks/Week Comments Never 0 (1 standard drink = 0.6 oz pur e alcohol) Depression Answer Date Recorded Patient Health Questionnaire-9 Score 2 10/15/2022 Housing Stability Answer Date Recorded What is your housing situation today? I have [place] 03/14/[address] you [...] AM EDT documented as of this encounter Last Filed Vital Signs Vital Sign Reading Time Taken Comments Blood Pressure 149/83 06/05/2024 3:12 PM EST Pulse 74 06/05/2024 3:12 PM EST Temperature 36.6 ??C (97.8 ??F) 06/05/2024 3:12 PM ES T Respiratory Rate 18 06/05/2024 3:12 PM EST Oxygen Saturation - - Inhaled Oxygen Concentration - - Weight 64.3 kg (141 lb 12.8 oz) 06/05/2024 3:12 PM EST Height 177.8 cm (5' 10 ) 06/05/2024 3:12 PM EST Body Mass Index 20.35 06/05/2024 3:12 PM EST documented in this encounter Progress Notes * Arti Pires MD - 06/05/2024 3:15 PM EST SUBJECTIVE: John Hwang is a 73 y.o. year old male who presents for sick visit . Acute Concerns: Burping for the past 4-5 months symptoms is described as debilitating Social History Social History Narrative Not on file Patient Active Problem List Diagnosis Primary hypertension Chronic fatigue Dyspnea on exertion Dyscrasia, plasma cell Coronary artery disease involving [place]sh[place] coronary artery of pa[place]shoshone heart without angina pectoris Stage 3b chronic kidney disease (CKD) (CMS/HCC) Chronic constipation Hemorrhoids Mixed anxiety and depressive disorder Tobacco dependence syndrome Hypertension Abdominal bloating Atypical mole Belching symptom Family History Problem Relation Name Age of Onset Coronary artery disease Mother Stroke Mother Stroke Father Review of Systems OBJECTIVE: Vitals: 06/05/24 1512 BP: (!) 149/83 BP Location: Left arm Patient Position: Sitting BP Cuff Size: Adult Pulse: 74 Resp: 18 Temp: 97.8 ??F (36.6 ??C) TempSrc: Oral Weight: 141 lb 12.8 oz (64.3 kg) Height: 5' 10 (1.778 m) Physical Exam Constitutional: Appearance: Normal appearance. Cardiovascular: Rate and Rhythm: Normal rate and regular rhythm. Pulmonary: Effort: Pulmonary effort is normal. Breath sounds: Normal breath sounds. Abdominal: General: Abdomen is flat. Tenderness: There is no abdominal tenderness. Comments: Pulsatile aorta Neurological: Mental Status: He is alert. Follow Up: No follow-ups on file. Current Outpatient Medications on File Prior to Visit Medication Sig Dispense Refill amLODIPine (Norvasc) 2.5 MG tablet Take 1 tablet (2.5 mg) by mouth Once per day. 90 tablet 1 Aspirin 81 MG capsule Take 81 mg by mouth Once per day. 90 capsule 1 Brilinta 90 MG tablet rosuvastatin (Crestor) 20 MG tablet Take 1 tablet (20 mg) by mouth Once per day. 90 tablet 1 No current facility-administered medications on file prior to visit. Problem List Items Addressed This Visit Belching symptom - Primary I advise patient to avoid NSAIDs, spicy and acid food, I advise to eat at the same time every day, I advise to elevate the head of the bed and take medications as prescribe Relevant Orders Helicobacter pylori Antigen, EIA, Stool Referral to Gastroenterology Other Visit Diagnoses Bloating symptom Relevant Medications simethicone (Mylicon,Gas-X) 180 MG capsule Wili Carb-Mag Hydrox-Simeth (Mylanta Tonight) 800-270-80 MG/10ML suspension Other Relevant Orders Helicobacter pylori Antigen, EIA, Stool Referral to Gastroenterology Vascular US Abdominal Aorta Anuerysm Screening documented in this encounter Miscellaneous Notes * Assessment & Plan Note - Arti Pires MD - 06/05/2024 3:46 PM EST Associated Problem(s): Belching symptom I advise patient to avoid NSAIDs, spicy and acid food, I advise to eat at the same time every day, I advise to elevate the head of the bed and take medications as prescribe documented in this encounter Plan of Treatment Upcoming Encounters Date Type Department Care Team (Late st Contact Info) Description 08/05/2024 11:30 AM EDT Office Visit [facility] [address] [place] [address] Arti Lei MD [address] [place], [place] [phone] Scheduled Referrals Name Type Priority Associated Diagnoses Order Schedule Referral to Gastroenterology Outpatient Referral Routine Belching symptom Bloating symptom Expected: 06/05/2024 (Approximate), Expires: 06/05/2025 documented as of this encounter Procedures Procedure Name Priority Date/Time Associated Diagnosis Comments HELICOBACTER PYLORI AG, EIA, STOOL Routine 06/08/2024 11:30 AM EST Belching symptom Bloating symptom documented in this encounter Results * Helicobacter pylori??Antigen, EIA, Stool (06/08/2024 11:30 AM EST) H pylori Ag Stool SEE NOTE [facility] Comment:HELICOBACTER PYLORI AG, EIA, STOOL Micro Number: [id number] Test Status: Final Specimen Source: Stool Specimen Quality: Adequate H.pylori Ag: Not Detected Antimicrobials, proton pump inhibitors, and bismuth preparations inhibit H. pylori and ingestion up to two weeks prior to testing may cause false negative results. If clinically indicated the test should be repeated on a new specimen obtained two weeks after discontinuing treatment. Reference Range: Not DetectedTHIS TEST WAS PERFORMED AT:[email or web address] [place] [id number] KEANE MD Stool Rectal contents / Unknown 06/08/2024 11:30 AM EST 06/08/2024 1:00 PM EST Arti Pires MD LAB BODY FLUIDS AND S TOOLS ORDERABLES Final Result [facility] [address] [place] [phone] documented in this encounter Visit Diagnoses Diagnosis Belching symptom- Primary Flatulence, eructation, and gas pain Bloating symptom Flatulence, eructation, and gas pain documented in this encounter Additional Health Concerns Assessment Noted Time PHQ-9 Depression Total Score: 2 10/16/19 23 3:44 PM EDT documented as of this encounter Care Teams Assistant Shift Supervisor Relationship Specialty Start Date End Date Arti Lei MD [address] [place] [phone] PCP - General Family Medicine 02/05/18 documented as of this encounter
--- OUTSIDE RECORDS SUMMARY | 2024-06-22 13:18 | XMS_ITS | Encounter Summary ---
Author Organization [employer] Address [address] [facility] [address] [place] [address] Care Team Providers Care Clock Repair Technician Name Role Phone Arti Lei MD Primary Care Provide r Encounter Details Date Type Department Care Team (Late st Contact Info) Description 09/12/2022 Orders Only [facility] [address] [place], [place] [phone] Emma Loredo LPN Social History Tobacco Use Types Packs/Day Years Used Date Smoking Tobacco: Never Assessed Sex and Gender Information Value Date Recorded Sex Assigned at Male 03/26/2022 10:18 AM EDT Legal Sex Male 10:18 AM EDT Gender Identity Male 03/26/2022 10:18 AM EDT Sexual Orientation Straight 03/26/2022 10 :18 AM EDT documented as of this encounter Plan of Treatment Upcoming Encounters Date Type Department Care Team (Late st Contact Info) Description 08/05/2024 11:30 AM EDT Office Visit [facility] [address] [place] [address] Arti Lei MD [address] [place], [place] [phone] documented as of this encounter Procedures Procedure Name Priority Date/Time Associated Diagnosis Comments CBC WITH AUTO DIFFERENTIAL Routine 12/28/2022 9:40 AM EDT PROTHROMBIN TIME-INR Routine 12/28/2022 9:40 AM EDT LIPID PANEL, STANDARD Routine 12/28/2022 9:40 AM EDT BASIC METABOLIC PANEL Routine 12/28/2022 9:40 AM EDT CBC WITH AUTO DIFFERENTIAL Routine 11/28/2022 9:22 AM EDT COMPREHENSIVE METABOLIC PANEL Routine 11/28/2022 9:22 AM EDT CHROMOSOME ANALYSIS, BONE MARROW Routine 11/22/2022 12:00 PM EDT LEUKEMIA/LYMPH. EVAL. BONE MAR Routine 11/22/2022 12:00 PM EDT BONE MARROW SMEAR Routine 11/22/2022 11: 45 AM EDT CREATININE, SERUM Routine 10/23/2022 10: 03 AM EDT UREA NITROGEN (BUN) Routine 10/23/2022 1 0:03 AM EDT PHOSPHATE ( PHOSPHORUS) Routine 10/23/2022 10:03 AM EDT CALCIUM Routine 10/23/2022 10:03 AM EDT ELECTROLYTE PANEL Routine 10/23/2022 10: 03 AM EDT URINALYSIS, COMPLETE, WITH REFLEX TO CULTURE Routine 10/17/2022 4:16 AM EDT CBC WITH AUTO DIFFERENTIAL Routine 10/17/2022 2:51 AM EDT MAGNESIUM Routine 10/17/2022 2:51 AM EDT COMPREHENSIVE METABOLIC PANEL Routine 10/17/2022 2:51 AM EDT documented in this encounter Results * Lipid Panel, Standard (12/28/2022 9:40 AM EDT) Triglycerides 74 mg/dL [facility] Comment:Desirable Triglyceri de: less than 150 mg/dLBorderline High Triglyceride 150-199 mg/dLHigh Triglyceride: 200-499 mg/dLVery High Triglyceride: greater than or equal to 5OO mg/dL Cholesterol 166 mg/dL [facility] Comment:Desirable Cholestero l: less than 200 mg/dLBorderline High Cholesterol: 200-239 mg/dLHigh Cholesterol: greater than 239 mg/dL LDL Cholesterol Calculated 107 mg/dl [facility] Comment:Desirable LDL: less than 100 mg/dLNear Optimal/Above Optimal LDL: 110- 129 mg/dLBorderline High LDL: 130-159 mg/dLHigh LDL: 160-189 mg/dLVery High LDL: greater than or equal to 190 mg/dL HDL Cholesterol 45 mg/dL [facility] Comment:Desirable HDL: great er than 40 mg/dL Note: This HDL assay may give artificially low results in patients with liver disease. 12/28/2022 9:40 AM EDT 12/28/2022 9:40 AM EDT us Generic External Data Provider LAB BLOOD ORDERAB LES Final Result [facility] [address] [place] [address] [phone] * Basic Metabolic Panel (12/28/2022 9:40 AM EDT) Sodium 138 135 - 145 mmol/L [facility] Potassium 4.5 3.3 - 5.1 mmol/L [facility] Chloride 106 96 - 108 mmol/L [facility] Carbon Dioxide 22 22 - 29 mmol/L [facility] Anion Gap 15 12 - 20 [facility] Urea Nitrogen (BUN) 16 9 - 16 mg/dL [facility] Creatinine, Serum 1.12 0.5 - 1.4 mg/dL [facility] Estimated Glomerular Filt Rate >60 [facility] Comment:NOTE: For -Am erican individuals, multiply the result by 1.210.Chronic Kidney Disease: Estimated GFR < 60 mL/min/1.77s0Fqtoab Kidney Disease: Estimated GFR < 15 mL/min/1.73m2 Glucose 113 60 - 115 mg/dL [facility] Calcium 9.1 8.4 - 10.2 mg/dL [facility] 12/28/2022 9:40 AM EDT 12/28/2022 9:40 AM EDT us [facility] External Provider LAB BLO OD ORDERABLES Final Result [facility] [address] [place] [phone] * (ABNORMAL) CBC auto differential (12/28/2022 9:40 AM EDT) White Blood Count 9.9 4.8 - 10.8 X10*3/uL [facility] Red Blood Count 4.06(L) 4.60 - 5.80 X10*6/uL [facility] Hemoglobin 13.0(L) 14.0 - 18.0 g/dl [facility] Hematocrit 39.4(L) 42.0 - 52.0 % [facility] Mean Corpuscular Volume 97.0 80.0 - 98.0 fL [facility] Mean Corpuscular Hemoglobin 32.0 27.0 - 33.0 pg [facility] Mean Corpuscular HGB Conc 33.0 31.0 - 36.0 g/dl [facility] Red Cell Distribution Width 12.7 11.0 - 16.0 % [facility] Platelet Count 275 160 - 400 X10*3/uL [facility] Mean Platelet Volume 9.0(L) 9.4 - 12.4 fL [facility] Neutrophils Percent Auto 71.2 45 - 73 % [facility] Imm Gran Pct Auto 1.0(H) 0.0 - 0.4 % [facility] Lymphocytes Percent Auto 17.8(L) 20 - 40 % [facility] Monocytes Percent Auto 7.5 2 - 11 % [facility] Eosinophils Percent Auto 2.0 0 - 4 % [facility] Basophils Percent Auto 0.5 0 - 2 % [facility] NRBC Pct Auto 0.0 0.0 - 0.2 /100WBC [facility] Neutrophils Absolute Auto 7.1 2.0 - 8.3 x10*3/uL [facility] Imm Gran Abs Auto 0.10(H) 0.00 - 0.03 X10*3/uL [facility] Lymphocytes Absolute Auto 1.8 1.2 - 4.9 X10*3/uL [facility] Monocytes Absolute Auto 0.7 0.1 - 1.2 X10*3/uL [facility] Eosinophils Absolute Auto 0.2 0.0 - 0.4 X10*3/uL [facility] Basophils Absolute Auto 0.1 0.0 - 0.2 X10*3/uL [facility] NRBC Abs Auto 0.000 0.0 - 0.012 X10*3/uL [facility] 12/28/2022 9:40 AM EDT 12/28/2022 9:40 AM EDT us [facility] External Provider LAB BLO OD ORDERABLES Final Result Performing Organization Address City/State/[facility] Co de Phone Number [facility] [address] [place] [phone] * Prothrombin Time-INR (12/28/2022 9:40 AM EDT) Prothrombin Time 11.6 11.1 - 13.3 SEC [facility] INTERNATIONAL NORM RATIO 1.0 0.9 - 1.1 [facility] Comment:INTERNATIONAL NORMAL IZED RATIO (INR) REFERENCE RANGES Reference RangeFor patients not on anticoagulant therapy: 0.9 - 1.1INR ranges for oral anticoagulanttherapy:For prevention and treatment of venous thrombosis and pulmonary embolism: 2.0 - 3.0For acute myocardial infarction with aspirin therapy: 2.0 - 3.0For acute myocardial infarction without aspirin therapy: 3.0 - 4.0For patients with mechanical prosthetic heart valves: 2.5 - 3.5 12/28/2022 9:40 AM EDT 12/28/2022 9:40 AM EDT us [facility] External Provider LAB BLO OD ORDERABLES Final Result [facility] [address] [place] [phone] * (ABNORMAL) Comprehensive Metabolic Panel (11/28/2022 9:22 AM EDT) Sodium 140 135 - 145 mmol/L [facility] Potassium 5.1 3.3 - 5.1 mmol/L [facility] Chloride 107 96 - 108 mmol/L [facility] Carbon Dioxide 24 22 - 29 mmol/L [facility] Anion Gap 14 12 - 20 [facility] Urea Nitrogen (BUN) 16 9 - 16 mg/dL [facility] Creatinine, Serum 1.54(H) 0.5 - 1.4 mg/dL [facility] Estimated Glomerular Filt Rate 45 [facility] Comment:NOTE: For -Am erican individuals, multiply the result by 1.210.Chronic Kidney Disease: Estimated GFR < 60 mL/min/1.38u1Tempth Kidney Disease: Estimated GFR < 15 mL/min/1.73m2 Glucose 119(H) 60 - 115 mg/dL [facility] Calcium 9.6 8.4 - 10.2 mg/dL [facility] Bilirubin, Total 0.8 0.0 - 1.0 mg/dL [facility] Aspartate Amino Transferase 13 5 - 37 U/L [facility] Alanine Aminotransferase 11 0 - 40 U/L [facility] Total Protein 7.2 6.5 - 8.0 g/dL [facility] Albumin Level 4.0 3.5 - 5.0 g/dL [facility] Alkaline Phosphatase 43 39 - 117 U/L [facility] 11/28/2022 9:22 AM EDT 11/28/2022 9:22 AM EDT us [facility] External Provider LAB BLO OD ORDERABLES Final Result [facility] [address] [place] [phone] * (ABNORMAL) CBC auto differential (11/28/2022 9:22 AM EDT) White Blood Count 7.7 4.8 - 10.8 X10*3/uL [facility] Red Blood Count 3.92(L) 4.60 - 5.80 X10*6/uL [facility] Hemoglobin 12.4(L) 14.0 - 18.0 g/dl [facility] Hematocrit 38.1(L) 42.0 - 52.0 % [facility] Mean Corpuscular Volume 97.2 80.0 - 98.0 fL [facility] Mean Corpuscular Hemoglobin 31.6 27.0 - 33.0 pg [facility] Mean Corpuscular HGB Conc 32.5 31.0 - 36.0 g/dl [facility] Red Cell Distribution Width 13.5 11.0 - 16.0 % [facility] Platelet Count 282 160 - 400 X10*3/uL [facility] Mean Platelet Volume 8.9(L) 9.4 - 12.4 fL [facility] Neutrophils Percent Auto 68.7 45 - 73 % [facility] Imm Gran Pct Auto 0.4 0.0 - 0.4 % [facility] Lymphocytes Percent Auto 21.1 20 - 40 % [facility] Monocytes Percent Auto 8.2 2 - 11 % [facility] Eosinophils Percent Auto 1.2 0 - 4 % [facility] Basophils Percent Auto 0.4 0 - 2 % [facility] NRBC Pct Auto 0.0 0.0 - 0.2 /100WBC [facility] Neutrophils Absolute Auto 5.3 2.0 - 8.3 x10*3/uL [facility] Imm Gran Abs Auto 0.03 0.00 - 0.03 X10*3/uL [facility] Lymphocytes Absolute Auto 1.6 1.2 - 4.9 X10*3/uL [facility] Monocytes Absolute Auto 0.6 0.1 - 1.2 X10*3/uL [facility] Eosinophils Absolute Auto 0.1 0.0 - 0.4 X10*3/uL [facility] Basophils Absolute Auto 0.0 0.0 - 0.2 X10*3/uL [facility] NRBC Abs Auto 0.000 0.0 - 0.012 X10*3/uL [facility] 11/28/2022 9:22 AM EDT 11/28/2022 9:22 AM EDT [facility] External Provider LAB BLO OD ORDERABLES Final Result Performing Organization Address [facility]/ZIP Co de Phone Number [facility] [address] [place] [address] [phone] * Chromosome Analysis, Bone Marrow (11/22/2022 12:00 PM EDT) Pathologist [facility] Chromosome Analysis, Bone Marrow See note [facility] Comment:See report from [employer] in the EMR. 11/22/2022 12:0 0 PM EDT 11/22/2022 1:46 PM EDT [facility] Exter nal Provider LAB BODY FLUIDS AND STOOLS ORDERABLES Final Result Performing Organization Address City/[facility] Co de Phone Number [facility] [address] [place] [address] [phone] * LEUKEMIA/LYMPH. EVAL. BONE MAR (11/22/2022 12:00 PM EDT) LLE Interpretation See Note [facility] Comment:See report from [employer] in the EMR. 11/22/2022 12:0 0 PM EDT 11/22/2022 1:46 PM EDT us [facility] External Provider LAB BLO OD ORDERABLES Final Result [facility] [address] [place] [address] [phone] * Bone Marrow Smear (11/22/2022 11:45 AM EDT) 11/22/2022 11:4 5 AM EDT 11/22/2022 1:56 PM EDT Narrative [facility] - 01/23/2023 11:20 AM EDT ----- ------- Name: John Hwang ?Age/Sex: 72/M ? : 1950 Unit#: [id number] ?? Attend Dr: Oliver Ospina MD ?Re11/22/22 ?Status: DEP SDC ? Location: HO.SS[facility] ?Disch: ? ----- ------- SPEC : [id number] ? RECD: 11/22/22-1356 ? STATUS: ??SOUT ? REQ NUM: [id number] ? AURA: 11/22/22-1145 ? SUBM DR: Oliver Ospina MD ? ENTERED: ??11/22/22-1408 ?SP TYPE: Surgical ? OTHR DR: Arti Lei MD ? ORDERED: ??Bm Smear, Iron Stain/3, HE Stain/3, Reticulin Stain, Gross Micro L4/2, B Cell, ?T Cell, Banerjee Giemsa/3, IHC/2, Add. immunos/2, Special st. 2/4, CD138/2, Decal ?Addendum Addendum ??1 ?Entered: 01/23/23-1119 No reticulin fibrosis is seen on reticulin stain. Cytogenetics: ??Abnormal male karyotype ??45,X,-Y[20] See report in its entirety in the EMR - Reports/Pathology section as a scanned report (camera icon). ??If appropriate, a copy has also been sent to the ordering provider's office. Technical services for reticulin study performed at [facility] [address] Alda Nagel [place]; [place] #[id number] Addendum Signed (signature on file) Malik Lancaster MD 01/23/23 1120 ? ----- ------- ? Diagnosis ?? A-C. ??Bone marrow, aspirate, biopsy and clot: ?- Mildly hypercellular marrow with maturing trilineage hematopoiesis. ?- Diagnostic morphologic features of a plasma cell dyscrasia not identified. ? COMMENT: ??Concurrent flow cytometry does not identify a clonal plasma cell population - ?? see report in its entirety in the EMR - Reports/Pathology section as a scanned report ?? (camera icon). ??If appropriate, a copy has also been sent to the ordering provider's ?? office. ??Cytogenetics will be addended. ?Clinical History Multiple myeloma not having achieved remission ?Microscopic Description Review of the peripheral smear: Red cells are mildly reduced in number, normochromic, and normocytic; rouleaux is not present. ??The white blood cell count appears normal and is comprised of normal constituents. ??The platelet count is normal. Bone Marrow ? CONTINUED ON NEXT PAGE ----- ------- Name: John Hwang ?Age/Sex: 72/M ? : 1950 Unit#: [id number] ?? Attend Dr: Oliver Ospina MD ?Re11/22/22 ?Status: DEP [facility] ? Location: [facility] ?Disch: ? ----- ------- SPEC : [id number] ? RECD: 11/22/226 ? STATUS: ??SOUT ? REQ NUM: [id number] ? AURA: 11/22/22-1145 ? SUBM DR: Oliver Ospina MD ? ENTERED: ??11/22/22-4998 ?SP TYPE: Surgical ? OTHR DR: Arti Lei MD ? ORDERED: ??Bm Smear, Iron Stain/3, HE Stain/3, Reticulin Stain, Gross Micro L4/2, B Cell, ?T Cell, Banerjee Giemsa/3, IHC/2, Add. immunos/2, Special st. 2/4, CD138/2, Decal ?Microscopic Description ? (Continued) A-C. ??The bone marrow biopsy measures 20 mm (fragmented) and consists of trabecular marrow, cortical bone, periosteum and clot. ??The overall cellularity is 40%. ??The M:E ratio is normal. ??Erythroid precursors have normoblastic maturation. ??Myeloid precursors have normal maturation through to the neutrophilic stage. ??Megakaryocytes appear normal in number, are focally loosely clusted and a rare naked megakaryocyte is identified. ??The clot section has marrow elements similar in composition to those seen in the biopsy and, additionally, a few lymphoid aggregates comprised of small lymphocytes. ??Plasma cells are approximately 5% of total cellularity by CD138 immunostain (A and B) and the lymphocytes in part C are mix of B and T-cells by CD20 and CD3 immunostaining, respectively (T-cells greater than B-cells). The marrow aspirate smear is adequate for evaluation and consists of few cellular spicules. The overall M:E ratio is 2.4. ??Red cells are normal in number and have normoblastic maturation. ??Myeloid precursors are normal in number and have normal maturation. Megakaryocytes are readily seen and morphologically typical. ??The differential has less than 1 blast, 1 promyelocytes, 22 myelocytes/metamyelocytes, 40 bands/neutrophils, 8 lymphs, 1 plasma cell, 27 erythroids. Special Studies: Iron stain performed on the core does not have significant stainable iron; iron stain performed on the clot has scattere storage iron. ??Iron stain performed on the aspirate has storage iron; a rare sideroblast is identified; no ring sideroblasts are identified. ??Reticulin stain on the core will be addended. ? Material Received ?? A. Bx bone marrow ?? B. Aspirate bone marrow ?? C. Smears bone marrow ? Gross Description Received in 3 parts. Part A: ??Received in B fix labeled bm bx? are 3 hard, carter-brown cylindrical portions of bone measuring 0.25, 0.3 and 0.7 cm in length and 0.2 cm in diameter which are submitted in toto in a single cassette labeled A following decalcification. Part B: ??Received in B fix labeled ?bm asp.? is a 1.2 x 1.0 x 0.4 cm aggregate of several soft, carter particulate tissue fragments. ??The specimen submitted in toto in a single cassette labeled B. Part C: ??Received are 2 Giemsa stained slides. ??A portion of the specimen is sent for flow cytometry and cytogenetic studies. ??CEDS ? CONTINUED ON NEXT PAGE ----- ------- Name: John Hwang ?Age/Sex: 72/M ? : 1950 Unit#: [id number] ?? Attend Dr: Oliver Ospina MD ?Re11/22/22 ?Status: DEP SDC ? Location: HO.SSS ?Disch: ? ----- ------- SPEC : [id number] ? RECD: 11/22/22-0555 ? STATUS: ??SOUT ? REQ NUM: [id number] ? AURA: 11/22/22-1142 ? SUBM DR: Oliver Ospina MD ? ENTERED: ??11/22/22-0475 ?SP TYPE: Surgical ? OTHR DR: Arti Lei MD ? ORDERED: ??Bm Smear, Iron Stain/3, HE Stain/3, Reticulin Stain, Gross Micro L4/2, B Cell, ?T Cell, Banerjee Giemsa/3, IHC/2, Add. immunos/2, Special st. 2/4, CD138/2, Decal ? Gross Description ?(Continued) Special studies ordered and performed: iron stain (A-C); immunostains for CD138 on A and B and CD20 and CD3 on B. Copies To: ?? Arti Lei MD ?? [address] [facility] ?? [place] ?? [phone] ?? Oliver Ospina MD ?? [address] ?? Dept. of Hematology/Oncology ?? [place] ?? [phone] ----- ------- Signed (signature on file) Malik Lancaster MD 11/30/221630 ? ----- ------- ? END OF REPORT ? us [facility] Exter nal Provider LAB BODY FLUIDS AND STOOLS ORDERABLES Final Result [facility] [address] [place] [address] [phone] * (ABNORMAL) Phosphate (As Phosphorus) (10/23/2022 10:03 AM EDT) Phosphorus 2.3(L) 2.7 - 4.5 mg/dL [facility] 10/23/2022 10:0 3 AM EDT 10/23/2022 10:04 AM EDT [facility] External Provider LAB BLO OD ORDERABLES Final Result [facility] [address] [place] [phone] * Calcium (10/23/2022 10:03 AM EDT) Calcium 10.0 8.4 - 10.2 mg/dL [facility] 10/23/2022 10:0 3 AM EDT 10/23/2022 10:04 AM EDT [facility] External Provider LAB BLO OD ORDERABLES Final Result Performing Organization Address City/[facility]/ZIP Co de Phone Number [facility] [address] [place] [phone] * (ABNORMAL) Creatinine, Serum (10/23/2022 10:03 AM EDT) Creatinine, Serum 2.03(H) 0.5 - 1.4 mg/dL [facility] Estimated Glomerular Filt Rate 33 [facility] Comment:NOTE: For -Am erican individuals, multiply the result by 1.210.Chronic Kidney Disease: Estimated GFR < 60 mL/min/1.63y8Lrwcjw Kidney Disease: Estimated GFR < 15 mL/min/1.73m2 10/23/2022 10:0 3 AM EDT 10/23/2022 10:04 AM EDT [facility] External Provider LAB BLO OD ORDERABLES Final Result Performing Organization Address [facility] Co de Phone Number [facility] [address] [place] [address] [phone] * (ABNORMAL) BUN (Blood Urea Nitrogen) (10/23/2022 10:03 AM EDT) Urea Nitrogen (BUN) 17(H) 9 - 16 mg/dL [facility] 10/23/2022 10:0 3 AM EDT 10/23/2022 10:04 AM EDT [facility] External Provider LAB BLO OD ORDERABLES Final Result Performing Organization Address [facility] de Phone Number [facility] [address] [place] [address] [phone] * (ABNORMAL) Electrolyte Panel (10/23/2022 10:03 AM EDT) Sodium 143 135 - 145 mmol/L [facility] Potassium 3.9 3.3 - 5.1 mmol/L [facility] Chloride 109(H) 96 - 108 mmol/L [facility] Carbon Dioxide 28 22 - 29 mmol/L [facility] Anion Gap 10(L) 12 - 20 [facility] 10/23/2022 10:0 3 AM EDT 10/23/2022 10:04 AM EDT [facility] External Provider LAB BLO OD ORDERABLES Final Result Performing Organization Address [facility] Co de Phone Number [facility] [address] [place] [address] [phone] * (ABNORMAL) Urinalysis, Complete, with Reflex to Culture (10/17/2022 4:16 AM EDT) Color Urine Yellow [facility] Appearance Urine Clear [facility] PH 6.5 5.0 - 9.0 [facility] Glucose Urine UA Negative Negative mg/dL [facility] Urine Blood Negative Negative [facility] Specific [place] - Urine 1.010 1.005 - 1.025 [facility] Urine Protein Negative Neg-Trace mg/dL [facility] Urine Ketones Negative Negative mg/dL [facility] Nitrite Urine Negative Negative [facility] Leukocyte Esterase Urine Small (1+)(A) Negative [facility] RBC Urine 0-2 0 - 2 /HPF [facility] Urine WBC 11-20(A) 0 - 5 /HPF [facility] Urine Squamous Epithelial Cell 0-2 0 - 2 /HPF [facility] Urine Bacteria None Seen None Seen [facility] Hyaline Casts, Urine 3-5 0 - 2 /LPF [facility] 10/17/2022 4:16 AM EDT 10/17/2022 4:19 AM EDT Narrative [facility] - 10/17/2022 4:34 AM EDT Urine, Clean Catch [facility] External Provider LAB URI NE ORDERABLES Final Result Performing Organization Address [facility] Co de Phone Number [facility] [address] [place] [phone] * Magnesium (10/17/2022 2:51 AM EDT) Magnesium 2.6 1.6 - 2.6 mg/dL [facility] 10/17/2022 2:51 AM EDT 10/17/2022 2:55 AM EDT [facility] External Provider LAB BLO OD ORDERABLES Final Result Performing Organization Address [facility] Co de Phone Number [facility] [address] [place] [phone] * (ABNORMAL) Comprehensive Metabolic Panel (10/17/2022 2:51 AM EDT) Sodium 138 135 - 145 mmol/L [facility] Potassium 3.8 3.3 - 5.1 mmol/L [facility] Chloride 99 96 - 108 mmol/L [facility] Carbon Dioxide 33(H) 22 - 29 mmol/L [facility] Anion Gap 10(L) 12 - 20 [facility] Urea Nitrogen (BUN) 42(H) 9 - 16 mg/dL [facility] Creatinine, Serum 3.18(H) 0.5 - 1.4 mg/dL [facility] Creatinine Clr Calc Pharmacy 18.4 [facility] Comment:eGFR (calculated fro m the MDRD study equation) and eCrCl(calculated from the Cockcroft-Gault equation) are based ondifferent parameters and may not yield comparable results.If eCrCl result is absurd, please check patient'sheight/weight. Estimated Glomerular Filt Rate 19 [facility] Comment:NOTE: For -Am erican individuals, multiply the result by 1.210.Chronic Kidney Disease: Estimated GFR < 60 mL/min/1.91t1Jtwcjm Kidney Disease: Estimated GFR < 15 mL/min/1.73m2 Glucose 129(H) 60 - 115 mg/dL [facility] Calcium 15.7(HH) 8.4 - 10.2 mg/dL [facility] Comment:Critical value for t est(s): CALCIUM Results called to luci back by: NEDRA Person calling:VINCENT Date:10/17/22 Time:0323 Bilirubin, Total 0.8 0.0 - 1.0 mg/dL [facility] Aspartate Amino Transferase 13 5 - 37 U/L [facility] Alanine Aminotransferase 11 0 - 40 U/L [facility] Total Protein 7.0 6.5 - 8.0 g/dL [facility] Albumin Level 4.2 3.5 - 5.0 g/dL [facility] Alkaline Phosphatase 50 39 - 117 U/L [facility] 10/17/2022 2:51 AM EDT 10/17/2022 2:55 AM EDT us [facility] External Provider LAB BLO OD ORDERABLES Final Result [facility] [address] [place], [place] [phone] * (ABNORMAL) CBC auto differential (10/17/2022 2:51 AM EDT) White Blood Count 10.3 4.8 - 10.8 X10*3/uL [facility] Red Blood Count 4.13(L) 4.60 - 5.80 X10*6/uL [facility] Hemoglobin 13.0(L) 14.0 - 18.0 g/dl [facility] Hematocrit 37.6(L) 42.0 - 52.0 % [facility] Mean Corpuscular Volume 91.0 80.0 - 98.0 fL [facility] Mean Corpuscular Hemoglobin 31.5 27.0 - 33.0 pg [facility] Mean Corpuscular HGB Conc 34.6 31.0 - 36.0 g/dl [facility] Red Cell Distribution Width 12.1 11.0 - 16.0 % [facility] Platelet Count 244 160 - 400 X10*3/uL [facility] Mean Platelet Volume 9.1(L) 9.4 - 12.4 fL [facility] Neutrophils Percent Auto 73.6(H) 45 - 73 % [facility] Imm Gran Pct Auto 0.3 0.0 - 0.4 % [facility] Lymphocytes Percent Auto 18.0(L) 20 - 40 % [facility] Monocytes Percent Auto 6.8 2 - 11 % [facility] Eosinophils Percent Auto 0.9 0 - 4 % [facility] Basophils Percent Auto 0.4 0 - 2 % [facility] NRBC Pct Auto 0.0 0.0 - 0.2 /100WBC [facility] Neutrophils Absolute Auto 7.6 2.0 - 8.3 x10*3/uL [facility] Imm Gran Abs Auto 0.03 0.00 - 0.03 X10*3/uL [facility] Lymphocytes Absolute Auto 1.8 1.2 - 4.9 X10*3/uL [facility] Monocytes Absolute Auto 0.7 0.1 - 1.2 X10*3/uL [facility] Eosinophils Absolute Auto 0.1 0.0 - 0.4 X10*3/uL [facility] Basophils Absolute Auto 0.0 0.0 - 0.2 X10*3/uL [facility] NRBC Abs Auto 0.000 0.0 - 0.012 X10*3/uL [facility] 10/17/2022 2:51 AM EDT 10/17/2022 2:55 AM EDT us [facility] External Provider LAB BLO OD ORDERABLES Final Result [facility] [address] [place] [phone] documented in this encounter Visit Diagnoses Not on filedocumented in this encounter Care Teams Clock Repair Technician Relationship Specialty Start Date End Date Arti Lei MD [address] [place] [phone] PCP - General Family Medicine 02/05/18 documented as of this encounter
--- OUTSIDE RECORDS SUMMARY | 2024-06-22 13:18 | XMS_ITS | Encounter Summary ---
Author Organization [employer] Address [address] [facility] [address] [place] [address] Care Team Providers Care Ticket Sales Agent Name Role Phone Arti Lei MD Primary Care Provide r Encounter Details Date Type Department Care Team (Latest Contact Info) Description 06/05/2024 Travel Social History Tobacco Use Types Packs/Day Years [...] Description 08/05/2024 11:30 AM EDT Office Visit [facility] [address] [place] [address] Arti Lei MD [address] [place] [address] documented as of this encounter Visit Diagnoses Not on filedocumented in this encounter Additional Health Concerns Assessment Noted Time PHQ-9 Depression Total Score: 2 10/16/19 23 3:44 PM EDT documented as of this encounter Care Teams Ticket Sales Agent Relationship Specialty Start Date End Date Arti Lei MD [address] [place] [phone] PCP - General Family Medicine 02/05/18 documented as of this encounter
--- OUTSIDE RECORDS SUMMARY | 2024-06-22 13:18 | XMS_ITS | Encounter Summary ---
Author Organization [employer] Address [address] [facility] [address] [place] [address] Care Team Providers Care Apartment Leasing Consultant Name Role Phone Arti Lei MD Primary Care Provide r Reason for Visit * Reason Onset Date Comments Results 06/12/2024 Encounter Details Date Type Department Care Team ([facility] st Contact Info) Description 06/12/2024 Telephone [facility] [address] [place], [place] [phone] Arti Lei MD [address] [place] [phone] Results Social History Tobacco Use Types Packs/Day Years [...] encounter Miscellaneous Notes * Telephone Encounter - Chacha Kendall RN - 06/12/2024 10:09 AM EST TC placed to patient [phone] in regards to below message. Patient advised H. Pylori test returned negative. Patient reports his s/s continue and he is requesting a f/u appointment. Patient advised he was referred to [facility] for further evalaution and testing and he should call their office to inquire on his appointment. Patient reports he missed a call from their office. RN provided patient with phone number to [facility] and reminded patient os US scheduled for 06/22/24 at 9am. Patient to f/u PRN. * Telephone Encounter - Parag Ramirez - 06/12/2024 10:06 AM EST TC from pt requesting call back regarding Results. Type of results: Stool Sample Date when done: 06/08/2024 Facility: [facility] lab documented in this encounter Plan of Treatment Upcoming Encounters Date Type Department Care Team (Late st Contact Info) Description 08/05/2024 11:30 AM EDT Office Visit [facility] [address] [place] [address] Arti Lei MD [address] [place] [address] documented as of this encounter Visit Diagnoses Not on filedocumented in this encounter Additional Health Concerns Assessment Noted Time PHQ-9 Depression Total Score: 2 10/16/19 23 3:44 PM EDT documented as of this encounter Care Teams Apartment Leasing Consultant Relationship Specialty Start Date End Date Arti Lei MD [address] [place] [phone] PCP - General Family Medicine 02/05/18 documented as of this encounter
--- OUTSIDE RECORDS SUMMARY | 2024-06-22 13:18 | XMS_ITS | Encounter Summary ---
Author Organization [employer] Address [address] [facility] [address] [place] [address] Care Team Providers Care Metal Reclamation Kettle Tender Name Role Phone Arti Lei MD Primary Care Provide r Reason for Visit * Reason Comments Med Refill Encounter Details Date Type Department Care Team ([facility] st Contact Info) Description 11/30/2023 Refill [facility] [address] [place], [place] [phone] Arti Lei MD [address] [place] [address] Primary hypertension Social History Tobacco Use Types Packs/Day Years [...] 11:30 AM EDT Office Visit [facility] [address] [place] [address] Arti Lei MD [address] [place] [address] documented as of this encounter Visit Diagnoses Diagnosis Primary hypertension Unspecified essential hypertension documented in this encounter Additional Health Concerns Assessment Noted Time PHQ-9 Depression Total Score: 2 10/16/19 23 3:44 PM EDT documented as of this encounter Care Teams Metal Reclamation Kettle Tender Relationship Specialty Start Date End Date Arti Lei MD [address] [place] [phone] PCP - General Family Medicine 02/05/18 documented as of this encounter
--- OUTSIDE RECORDS SUMMARY | 2024-06-22 13:18 | XMS_ITS | Clinical Summary ---
Author Organization [facility] Address [address] [place] [address] Care Team Providers Care Clothes Drier Assembler Name Role Phone Arti Lei MD Primary Care Provide r Allergies No known active allergies Medications amLODIPine (NORVASC) 2.5 MG tablet 2.5 mg in the morning and 2.5 mg in the evening. 09/12/2022 Active Brilinta 90 MG tablet TAKE 1 TABLET BY MOUTH TWO TIMES A DAY 01/08/2023 Active rosuvastatin (CRESTOR) 20 MG tablet 01/30/2023 Active Active Problems Problem Noted Date Diagnosed Date Underweight 08/20/2023 Multiple myeloma not having achieved remission 0 11/20/2022 Overview (08/20/2023): Last Assessment & Plan: Continue to follow with specialist Acute nontraumatic kidney injury 10/30/2022 Hypercalcemia 10/30/2022 Primary hypertension 10/15/2022 Overview (10/30/2022): Last Assessment & Plan: Maintenance: BMP: ordered today Lipid Panel: ordered today ASCVD Risk: Calculate pending updated labs - Aerobic exercise to reduce BP. Initial goal of 30 min walk 3-5x/week. Increase as tolerated. - low-sodium diet (goal: <2g/day) and heart healthy diet such as DASH to reduce BP and prevent ASCVD. - Home BP monitoring 1-2 x day with goal of <140/90. - Seek immediate medical attention for chest pain, palpitations, SOB, syncope, or sudden changes in mental status. - Do not change or discontinue current prescriptions without first consulting health care provider RTC 4 weeks with log Dyspnea on exertion 10/15/2022 Overview (10/30/2022): Last Assessment & Plan: Pulmonary function test ordered cardiology referral Chronic fatigue 10/15/2022 Overview (10/30/2022): Last Assessment & Plan: Blood work ordered today Immunizations Name Administration Dates Next Due Hepatitis B 06/16/2013,02/23/2013 Influenza Split 02/23/2013 Influenza Split High Dose Preservative Free IM 1 06/01/2018 Influenza Vaccine, Quadrivalent, Adjuvanted 06/2020,04/18/2020 Influenza, Quadrivalent, Preservative Free 12/31 Influenza, Unspecified 03/19/2022 Pneumococcal Conjugate Pcv 20 10/15/2022 Pneumococcal Polysaccharide 11/15/2014 Shingrix 12/17/2022,10/15/2022 Tdap 05/17/2015 Zoster 03/01/2009 Family History Relation Status Comments Father Mother Social History Tobacco Use Types Packs/Day Years Used Date Smoking Tobacco: Never Smokeless Tobacco: Never Tobacco Cessation:Counseling Given: Not Answered Alcohol Use Standard Drinks/Week Comments Never 0 (1 standard drink = 0.6 oz pur e alcohol) Sex and Gender Information Value Date Recorded Sex Assigned at Not on file Legal Sex Male 8:14 AM EDT Gender Identity Not on file Sexual Orientation Not on file Last Filed Vital Signs Vital Sign Reading Time Taken Comments Blood Pressure 121/60 08/20/2023 3:00 PM EDT Pulse 59 08/20/2023 3:00 PM EDT Temperature - - Respiratory Rate - - Oxygen Saturation 96% 08/20/2023 3:00 PM EDT Inhaled Oxygen Concentration - - Weight 64.4 kg (142 lb) 08/20/2023 3:00 PM EDT Height - - Body Mass Index - - Plan of Treatment Upcoming Encounters Date Type Department Care Team (Late st Contact Info) Description 08/24/2024 2:45 PM EDT Office Visit [facility] [address] [place] [phone] Brent Hammond MD [address] [facility] [address] [place] [phone] Health Maintenance Due Date Last Done Comments Colorectal Cancer Screening: Annual FOBT 10/15/2000 Colorectal Cancer Screening: Colonoscopy 10/15/2000 Colorectal Cancer Screening: Sigmoidoscopy 10/15/2000 Influenza Vaccine (#1) 2024 2, 04/27/2021, 04/18/2020, Additional history exists Hepatitis B Vaccine Aged Out 06/16/2013, 3 No longer eligible based on patient's age to complete this topic Pneumococcal Vaccine: 65+ Years Completed 10/15/2022, 11/15/2014 Insurance [place]ICARE [place]ICAID [place]ARE [place]ICAID [place] Care Teams Clothes Drier Assembler Relationship Specialty Start Date End Date Arti Lei MD [address] [place] [phone] PCP - General Internal Medicine 10/18/22
--- OUTSIDE RECORDS SUMMARY | 2024-06-22 13:18 | XMS_ITS | Clinical Summary ---
Author Organization [employer] Address [address] [facility] 7t [place] [address] Care Team Providers Care Table Games Dealer Name Role Phone Arti Lei MD Primary Care Provide r Allergies Active Allergy Reactions Criticality Noted Date Comments Other GI intolerance High 03/23/2021 Peanut-Containing Drug Products GI intolerance High 03/23/2021 Medications Brilinta 90 MG tablet 3 Active amLODIPine (Norvasc) 2.5 MG tabletIndications :Primary hypertension Take 1 tablet (2.5 mg) by mouth Once per day. 90 tablet 1 4 Active Aspirin 81 MG capsuleIndication s:Primary hypertension Take 81 mg by mouth Once per day. 90 capsule 1 4 Active rosuvastatin (Crestor) 20 MG tabletIndications :Primary hypertension Take 1 tablet (20 mg) by mouth Once per day. 90 tablet 1 4 Active simethicone (Mylicon,Gas-X) 180 MG capsuleIndication s:Bloating symptom Take 1 capsule (180 mg) by mouth every 6 (six) hours if needed for flatulence. 90 capsule 1 5 Active Wili Carb-Mag Hydrox-Simeth (Mylanta Tonight) 800-270-80 MG/10ML suspensionIndicat ions:Bloating symptom Take 1 each by mouth with breakfast, with lunch, and with evening meal. 355 mL 1 5 Active Active Problems Problem Noted Date Diagnosed Date Belching symptom 06/05/2024 Assessment & Plan (06/05/2024 3:46 PM EST): I advise patient to avoid NSAIDs, spicy and acid food, I advise to eat at the same time every day, I advise to elevate the head of the bed and take medications as prescribe Atypical mole 10/28/2023 Abdominal bloating 08/19/2023 Assessment & Plan (08/19/2023 2:13 PM EDT): Diet recommendations done He will try shalini the counter probiotics, Pepcid and simethicone Hemorrhoids 08/14/2023 Mixed anxiety and depressive disorder 08/14/2023 Assessment & Plan (02/25/2024 1:29 PM EDT): Counseling done Patient declines BHN referral, declines medications Coronary artery disease invo lving [place] coronary artery of [place] heart without angina pectoris 04/16/2023 Assessment & Plan (08/19/2023 2:12 PM EDT): Patient is being follow closely by cardiology he will c/w brillinta and aspirin until 12/2023 Assessment & Plan (04/16/2023 11:06 AM EST): C/w brillinta, ASA and crestor Continue to follow with cardiology Stage 3b chronic kidney disease (CKD) 04/16/2023 Assessment & Plan (08/19/2023 2:12 PM EDT): Continue to follow up with nephrology Assessment & Plan (04/16/2023 11:07 AM EST): Continue to follow with nephrology Avoid NSAIDs and nephrotoxic medications Dyscrasia, plasma cell 11/20/2022 Assessment & Plan (08/19/2023 2:12 PM EDT): Continue to follow up with hem/onc Assessment & Plan (04/16/2023 11:07 AM EST): Continue to follow with hematology/oncology Assessment & Plan (11/20/2022 12:16 PM EDT): Continue to follow with specialist Primary hypertension 10/15/2022 Assessment & Plan (02/25/2024 1:28 PM EDT): Maintenance: BMP: up to date Lipid Panel: up to date ASCVD Risk: on rosuvastatin 20mg daily - Aerobic exercise to reduce BP. Initial [...] prescriptions without first consulting health care provider Assessment & Plan (10/28/2023 2:39 PM EDT): -Today blood pressure was a little high, plan is patient will monitor his blood pressure at home and bring log on next appointment he will contact us back if he has consistent high readings in 150-160s/90s-100s - Aerobic exercise to reduce BP. Initial [...] prescriptions without first consulting health care provider Assessment & Plan (04/16/2023 11:05 AM EST): - Aerobic exercise to reduce BP. Initial [...] prescriptions without first consulting health care provider Assessment & Plan (11/20/2022 12:17 PM EDT): Controlled c/w current interventions Assessment & Plan (10/15/2022 4:34 PM EDT): Maintenance: BMP: ordered today Lipid Panel: ordered [...] care provider RTC 4 weeks with log Chronic fatigue 10/15/2022 Assessment & Plan (10/15/2022 4:34 PM EDT): Blood work ordered today Dyspnea on exertion 10/15/2022 Assessment & Plan (11/20/2022 12:17 PM EDT): Awaiting for pulmonary function test and cardiology appointment Assessment & Plan (10/15/2022 4:34 PM EDT): Pulmonary function test ordered cardiology referral Hypertension 02/23/2013 Assessment & Plan (08/19/2023 2:11 PM EDT): I notice his BP has being a little high today and on other appointment I decide to go up on his amlodipine to 5mg daily C/w low Na diet Chronic constipation 12/26/2012 Tobacco dependence syndrome 12/26/2012 Encounters Date Type Department Care Team Description 06/22/2024 Orders Only [facility] [address] [place] [phone] Arti Lei MD 06/17/2024 Telephone [facility] [address] [place] [phone] Rahul Yoder MA Results 06/12/2024 Telephone [facility] [address] [place] [phone] Arti Lei MD Results 06/05/2024 3:15 PM EST Office Visit [facility] [address] [place] [phone] Arti Lei MD Belching symptom (Primary Dx); Bloating symptom 06/05/2024 Travel 05/29/2024 Telephone [facility] [address] [place] [address] Arti Lei MD Nurse Triage from Last 3 Months Immunizations Name Administration Dates Next Due Hep B, adult 06/16/2013,02/23/2013 Influenza High-dose Quadrivalent Preservative Fr ee 03/12/2023,03/19/2022 Influenza Quadrivalent Adjuvanted 04/27/2021, Influenza injectable quadrivalent preservative f ree 12/31/2014 Influenza, High Dose Seasonal, Preservative Free 02/19/2024,04/01/2019 Influenza, Split (incl. purified surface antigen ) 02/23/2013 Pfizer Covid-19 Vaccine 12+ 02/19/2024 Pneumococcal Conjugate PCV 20 10/15/2022 Pneumococcal Polysaccharide PPSV23 11/15/2014 RSV Adjuvant 03/22/2023 Tdap 05/17/2015 Zoster, Recombinant 12/17/2022,10/15/2022 Zoster, live 03/01/2009 Family History Medical History Relation Name Comments Stroke Father Coronary artery disease Mother Stroke Mother Relation Name Status Comments Father Mother Social History Tobacco Use Types Packs/Day Years Used Date Smoking Tobacco: Every Day Cigarettes Passive Smoke Exposure: Current Smokeless Tobacco: Never Tobacco Cessation:Ready to Q uit: Not Asked; Counseling Given: Not Answered Alcohol Use Standard Drinks/Week [...] Orientation Straight 03/26/2022 10 :18 AM EDT Last Filed Vital Signs Vital Sign Reading Time Taken Comments Blood Pressure 149/83 06/05/2024 3:12 PM EST Pulse 74 06/05/2024 3:12 PM EST Temperature 36.6 ??C (97.8 ??F) 06/05/2024 3:12 PM ES T Respiratory Rate 18 06/05/2024 3:12 PM EST Oxygen Saturation 97% 01/22/2024 10: 36 AM EDT Inhaled Oxygen Concentration - - Weight 64.3 kg (141 lb 12.8 oz) 06/05/2024 3:12 PM EST Height 177.8 cm (5' 10 ) 06/05/2024 3:12 PM EST Body Mass Index 20.35 06/05/2024 3:12 PM EST Plan of Treatment Upcoming Encounters Date Type Department Care Team (Late st Contact Info) Description 08/05/2024 11:30 AM EDT Office Visit [facility] [address] [place], [place] [phone] Arti Lei MD [address] [place] [address] Health Maintenance Due Date Last Done Comments CT Colonography 1950 FIT DNA/Cologuard 1950 FIT 1950 FOBT 1950 Sigmoidoscopy 1950 Alcohol/Substance Use Screening 1963 Hepatitis C Screening 10/15/1969 Hepatitis A Vaccines (1 of 2 - Risk 2-dose series) 10/15/1970 Hepatitis B Vaccines (3 of 3 - 19+ 3-dose series) 08/23/2013 06/16/2013, 02/23/2013 Colonoscopy 05/02/2023 05/02/2018 Colorectal Cancer Screening 05/02/2023 Depression Screening 2023 10/15/2022, 10/16/19 23 SDOH Screening 2023 10/15/2022 COVID-19 Vaccine ( season) 2024 02/19/2024, 10/18/2023, 03/22/2023, Additional history exists DTaP/Tdap/Td Vaccines (2 - Td or Tdap) 05/17/2025 05/17/2015 Tobacco Screening 06/05/2025 06/05/2024 Lipid Panel 06/19/2028 06/19/2023, 08/0 08/2022, 2022, Additional history exists Pneumococcal Vaccine: 65+ Years Completed 10/15/2022, 11/15/2014 Zoster Vaccines Completed 12/17/2022, 09/25, 03/01/2009 RSV Patients and Patients Aged 60 years or older Completed 03/22/2023 Influenza Vaccine Completed 02/19/2024, , 03/19/2022, Additional history exists HIB Vaccines Aged Out No longer eligi ble based on patient's age to complete this topic HPV Vaccines Aged Out No longer eligi ble based on patient's age to complete this topic IPV Vaccines Aged Out No longer eligi ble based on patient's age to complete this topic Meningococcal Vaccine Aged Out No mouna ania eligible based on patient's age to complete this topic RSV under 20 months Aged Out No longe r eligible based on patient's age to complete this topic Rotavirus Vaccines Aged Out No longer eligible based on patient's age to complete this topic Procedures Procedure Name Priority Date/Time Associated Diagnosis Comments US ABDOMINAL AORTIC ANEURYSM Routine 06/22/2024 12:50 PM EST HELICOBACTER PYLORI AG, EIA, STOOL Routine 06/08/2024 11:30 AM EST Belching symptom Bloating symptom LIPID PANEL, STANDARD Routine 06/19/2023 1:12 PM EST HM COLONOSCOPY Routine 05/02/2018 from Last 3 Months or Most Recently Relevant to Health Maintenance Results * US ABDOMINAL AORTIC ANEURYSM (06/22/2024 12:50 PM EST) Anatomical Region Laterality Modality Abdomen Ultrasound 06/22/2024 12:5 0 PM EST Narrative 06/22/2024 12:51 PM EST ? [facility] ?[address] ? [place] [address] ? Ultrasound Report ? Signed ? Patient: John Hwang ?MR#: [id number] ?? 250 ? : 1950 ?Acct:[id number] ? Age/Sex: 73 / M ?ADM Date: 06/22/24 ? Loc: HO.[facility] ? Attending Dr: Arti Pires MD ? Ordering Physician: Arti Lei MD ?? Date of Service: 06/22/24 ?? Procedure(s): US abdominal aortic aneurysm ?? Accession Number(s): [id number] ? cc: Arti Lei MD ? CLINICAL HISTORY: SMOKER, PULSATING AORTA ? US Abdomen (AAA) ? Comparison: None ? Findings: ?? Aorta proximal 2.1 x 2.3 cm. ?? Aorta mid 1.8 x 2 cm. ?? Aorta distal 1.6 x 2 cm. ? The bilateral iliac arteries are not seen due to bowel gas. ?? Severe Atherosclerosis calcification of the aorta. ? IMPRESSION: ?? 1. No abdominal aortic aneurysm. Nonvisualization of the bilateral iliac ?? arteries. ? This document has been electronically signed by: Lenin Solares MD on ?? 06/22/2024 12:50:36 ? Dictated By: ?Lenin Solares MD ? Signed By: ?<Electronically signed by Lenin Solares MD in OV> ? 06/22/24 1251 ? DD/ 1250 ? TD/TT: 06/22/24 1250 ? Centerpuncher: ? Procedure Note Vinod, Quintin - 06/22/2024 [facility] [address] [place] [address] Ultrasound Report Signed Patient: John HwangMR#: [id number] : 1950cct:[id number] Age/Sex: 73 / MADM Date: 06/22/24 [facility] Attending Dr: Arti Pires MD Ordering Physician: Arti Lei MD Date of Service: 06/22/24 Procedure(s): US abdominal aortic aneurysm Accession Number(s): [id number] cc: Arti Lei MD CLINICAL HISTORY: SMOKER, PULSATING AORTA US Abdomen (AAA) Comparison: None Findings: Aorta proximal 2.1 x 2.3 cm. Aorta mid 1.8 x 2 cm. Aorta distal 1.6 x 2 cm. The bilateral iliac arteries are not seen due to bowel gas. Severe Atherosclerosis calcification of the aorta. IMPRESSION: 1. No abdominal aortic aneurysm. Nonvisualization of the bilateral iliac arteries. This document has been electronically signed by: Lenin Solares MD on 06/22/2024 12:50:36 Dictated By: Lenin Solares MD Signed By: <Electronically signed by Lenin Solares MD in OV> 06/22/24 1251 DD/ 1250 TD/TT: 06/22/24 1250 Centerpuncher: Arti Pires MD IMG US PROCEDURES Fin al Result * Helicobacter pylori??Antigen, EIA, Stool (06/08/2024 11:30 AM EST) H pylori Ag Stool SEE NOTE [facility] Comment:HELICOBACTER PYLORI AG, EIA, STOOL Micro Number: [id number] Test Status: Final Specimen Source: Stool Specimen Quality: Adequate H.pylori Ag: Not Detected Antimicrobials, proton pump inhibitors, and bismuth preparations inhibit H. pylori and ingestion up to two weeks prior to testing may cause false negative results. If clinically indicated the test should be repeated on a new specimen obtained two weeks after discontinuing treatment. Reference Range: Not DetectedTHIS TEST WAS PERFORMED AT:[facility] [place] [phone] KEANE MD Stool Rectal contents / Unknown 06/08/2024 11:30 AM EST 06/08/2024 1:00 PM EST us Arti Pires MD LAB BODY FLUIDS AND S TOOLS ORDERABLES Final Result Performing Organization Address City/[facility]/ZIP Co de Phone Number [facility] [address] [place] [phone] * Lipid Panel, Standard (06/19/2023 1:12 PM EST) Triglycerides 67 <150 mg/dL [facility] Comment:Desirable Triglyceri de: less than 150 mg/dLBorderline High Triglyceride 150-199 mg/dLHigh Triglyceride: 200-499 mg/dLVery High Triglyceride: greater than or equal to 5OO mg/dL Cholesterol 110 <200 mg/dL [facility] Comment:Desirable Cholestero l: less than 200 mg/dLBorderline High Cholesterol: 200-239 mg/dLHigh Cholesterol: greater than 239 mg/dL LDL Cholesterol Calculated 56 <100 mg/dL [facility] Comment:Desirable LDL: less than 100 mg/dLNear Optimal/Above Optimal LDL: 110- 129 mg/dLBorderline High LDL: 130-159 mg/dLHigh LDL: 160-189 mg/dLVery High LDL: greater than or equal to 190 mg/dL HDL Cholesterol 41 >40 mg/dL [facility] Comment:Desirable HDL: great er than 40 mg/dL Note: This HDL assay may give artificially low results in patients with liver disease. 06/19/2023 1:12 PM EST 06/19/2023 1:12 PM EST us Generic External Data Provider LAB BLOOD ORDERAB LES Final Result Performing Organization Address [facility]/ZIP Co de Phone Number [facility] [address] [place] [phone] * Hm Colonoscopy (05/02/2018) us Historical Provider HEALTH MAINTENANCE Final Result from Last 3 Months or Most Recently Relevant to Health Maintenance Insurance [place] [phone] [facility] Care Teams Table Games Dealer Relationship Specialty Start Date End Date Arti Lei MD [address] [place] [phone] PCP - General Family Medicine 02/05/18
--- OUTSIDE RECORDS SUMMARY | 2024-06-22 13:18 | XMS_ITS | Encounter Summary ---
Author Organization [employer] Address [address] [facility] 7t [place] [address] Care Team Providers Care Mud Car Worker Name Role Phone Arti Lei MD Primary Care Provide r Reason for Visit * Reason Onset Date Comments FYI 10/19/2022 Encounter Details Date Type Department Care Team ([facility] st Contact Info) Description 10/19/2022 Telephone [facility] [address] [place], [place] [phone] Arti Lei MD [address] [place] [address] FYI Social History Tobacco Use Types Packs/Day Years [...] Orientation Straight 03/26/2022 10 :18 AM EDT COVID-19 Exposure Response Date Recorded In the last 10 days, have yo u been in contact with someone who was confirmed or suspected to have Coronavirus/COVID-19? No / Unsure 10/15/2022 3:20 PM EDT documented as of this encounter Miscellaneous Notes * Telephone Encounter - Deana Savage - 10/19/2022 1:19 PM EDT TC from pt calling requesting a hospital discharge follow up but pt stated he still on the hospitalWriter advised pt contact Dr. Neff when he gets discharge. Pt is on C for High levels on Calcium. PCP DR. Devine documented in this encounter Plan of Treatment Upcoming Encounters Date Type Department Care Team (Late st Contact Info) Description 08/05/2024 11:30 AM EDT Office Visit [facility] [address] [place], [place] [phone] Arti Lei MD [address] [place], [place] [phone] documented as of this encounter Visit Diagnoses Not on filedocumented in this encounter Additional Health Concerns Assessment Noted Time PHQ-9 Depression Total Score: 2 10/16/19 23 3:44 PM EDT documented as of this encounter Care Teams Mud Car Worker Relationship Specialty Start Date End Date Arti Lei MD [address] [place] [address] PCP - General Family Medicine 02/05/18 documented as of this encounter
--- OUTSIDE RECORDS SUMMARY | 2024-06-22 13:18 | XMS_ITS | Encounter Summary ---
Author Organization [employer] Address [address] [facility] 7t [place] [address] Care Team Providers Care Firebrick Layer Helper Name Role Phone Arti Lei MD Primary Care Provide r Reason for Visit * Reason Onset Date Comments Results 06/17/2024 Encounter Details Date Type Department Care Team ([facility] st Contact Info) Description 06/17/2024 Telephone [facility] [address] [place] [address] Rahul Yoder MA Results Social History Tobacco Use Types Packs/Day [...] encounter Miscellaneous Notes * Telephone Encounter - Rahul Yoder MA - 06/17/2024 9:31 AM EST TC- Patient in regards of message below patient agreed to f\u with GI provided the GI number because patient didn't have it . Please let patient know his H pylori test is negative, he should f/u with GI . documented in this encounter Plan of Treatment Upcoming Encounters Date Type Department Care Team (Late st Contact Info) Description 08/05/2024 11:30 AM EDT Office Visit [facility] [address] [place] [address] Arti Lei MD [address] [place] [address] documented as of this encounter Visit Diagnoses Not on filedocumented in this encounter Additional Health Concerns Assessment Noted Time PHQ-9 Depression Total Score: 2 10/16/19 23 3:44 PM EDT documented as of this encounter Care Teams Firebrick Layer Helper Relationship Specialty Start Date End Date Arti Lei MD [address] [place] [address] PCP - General Family Medicine 02/05/18 documented as of this encounter
--- OUTSIDE RECORDS SUMMARY | 2024-06-22 13:19 | XMS_ITS | Encounter Summary ---
Author Organization [employer] Address [address] [place] [address] 7[address] [place] [address] Care Team Providers Care Quirk Sander Name Role Phone Arti Lei MD Primary Care Provide r Reason for Visit * Reason Comments Med Refill Encounter Details Date Type Department Care Team (Late st Contact Info) Description 12/17/2022 Refill [facility] [address] [place] [phone] Arti Lei MD [address] [place] [address] [phone] Primary hypertension Social History Tobacco Use Types [...] Description 08/05/2024 11:30 AM EDT Office Visit [facility] [address] [place] [address] [phone] Arti Lei MD [address] [place] [address] [phone] documented as of this encounter Visit Diagnoses Diagnosis Primary hypertension Unspecified essential hypertension documented in this encounter Additional Health Concerns Assessment Noted Time PHQ-9 Depression Total Score: 2 10/16/19 23 3:44 PM EDT documented as of this encounter Care Teams Quirk Sander Relationship Specialty Start Date End Date Arti Lei MD [address] [place] [address] PCP - General Family Medicine 02/05/18 documented as of this encounter
--- OUTSIDE RECORDS SUMMARY | 2024-06-22 13:19 | XMS_ITS | Encounter Summary ---
Author Organization [facility] Address [address] [facility] [address] [place] [phone] Phone Care Team Providers Care Police Specialist Name Role Phone Arti Lei MD Primary Care Provide r Encounter Details Date Type Department Care Team (Late st Contact Info) Description 10/23/2022 Telephone [facility] [address] [facility] [address] [place] [phone] Emma Wei Social History Tobacco Use Types Packs/Day Years Used Date Smoking Tobacco: Never Assessed Sex and Gender Information Value Date Recorded Sex Assigned at Not on file Legal Sex Male 8:14 AM EDT Gender Identity Not on file Sexual Orientation Not on file documented as of this encounter Miscellaneous Notes * Telephone Encounter - Emma Wei - 10/23/2022 4:48 PM EDT Pt called says he did labs today and that you would call him with results. He is following up on this. documented in this encounter Plan of Treatment Upcoming Encounters Date Type Department Care Team (Late Contact Info) Description 08/24/2024 2:45 PM EDT Office Visit [facility] [address] [place] [phone] Brent Hammond MD [address] [facility] [address] [place] [address] documented as of this encounter Visit Diagnoses Not on filedocumented in this encounter Care Teams Police Specialist Relationship Specialty Start Date End Date Arti Lei MD [address] [place] [phone] PCP - General Internal Medicine 10/18/22 documented as of this encounter
== END 2024-06-22 09:00 | disposition home or self-care (01) ==
LOC: HO.HMGCX 08:59
PROVIDERS: PCP Internal Medicine; Visit Provider Internal Medicine
DX: R14.0 Abdominal distension (gaseous) (principal)
CPT/HCPCS: 76706; 76775

== ENCOUNTER → 2024-06-22 09:02 | Outpatient (BNV) | payer MEDICARE, MEDICAID, SELFPAY | PROVIDERS: PCP Internal Medicine; Visit Provider Nuclear Medicine | DX: I70.0 Atherosclerosis of aorta (principal) | CPT/HCPCS: 76706 ==

== ENCOUNTER 2024-06-23 13:44 | Outpatient (AMB) | payer MEDICARE, MEDICAID, SELFPAY ==
--- NOTE | 2024-06-23 13:51 | A.OFFVIS_ITS ---
Vital Signs 06/23/24 14:01 Height 5 ft 10 in Weight 140 lb BMI 20.1 BP 160/73 H Blood Pressure Location Lt brachial Position Sitting Pulse 64 Intake Visit Reasons: colo screening, stomach pain, gas Intake Note: Patient new consult for stomach pain, gas and Colonoscopy screening. Patient cc: abdominal pain with bloating, and some hemorrhoids on and off with out any blood. Denies any other GI issues for this visit today. Patient have couples of Colonooscopy at [facility] in the pass. Stiff Leg Derrick Operator Required: No Accompanied by: Self / Same As Patient Allergies peanut [PEANUT] Adverse Reaction (Intermediate, Verified 06/23/24 13:51) GI UPSET tree nut [TREE NUT] Adverse Reaction (Intermediate, Verified 06/23/24 13:51) GI UPSET HPI HPI colo screening, stomach pain, gas: Details: 73-year-old male with past medical history of ACD, hypercalcemia, plasma cell dyscrasia, hypertension, hemorrhoids, JAVIER is here today for initial consultation. Patient was sent by his PCP for worsening symptoms of abdominal bloating and belching as well as epigastric pain. Patient is also due to go for colonoscopy. Last colonoscopy was in 2018 and patient was told to repeat in 5 years. Colonoscopy was done by Dr. Adams. Patient seen Dr. Adams for hemorrhoids as well. Denies any rectal pain or discomfort at this time. Today patient would like to discuss his symptoms and defer discussing going for colonoscopy until next visit. Patient reports bloating in the past few months more than usual. Epigastric pain depending on what he eats. Patient feels like bloating and belching happens with almost anything he eats. Patient currently is taking stool softener and senna to help him move his bowels. Patient denies any melena, hematochezia, unintentional weight loss or ribbon like stools. Patient reports occasional acid reflux without dyspepsia, dysphagia or odynophagia. Patient denies mucus in his stools or diarrhea. Reports he is moving his bowels better now. He is drinking plenty fluids. Patient continues to smoke cigarettes daily. [facility] Medical History (Updated 12/18/23 @ 13:36 by Vidal James MD) Atherosclerotic cardiovascular disease Tubular adenoma of colon (~2012) Nicotine dependence, cigarettes, uncomplicated Internal and external bleeding hemorrhoids Hypertension Surgical History History of heart artery stent (~2022) History of cardiac cath (~2022) History of bone marrow biopsy (~2022) History of colonoscopy History of removal of cyst (~2020) Family History Paternal Aunt Colon cancer Social History Household Members: None Housing: House Do you presently have visiting nurse or other home services: No Alcohol intake: current Alcohol intake frequency: does not drink Patient Tobacco Use Status: Current everyday Tobacco user Tobacco use type: Cigarette Years Smoked: 52 Second Hand Smoke Exposure: No Substance Use Type: Marijuana service: No Current occupational status: employed Review of Systems Const Denies weight gain and Denies weight loss ENT Reports no additional complaints, Denies dysphagia and Denies odynophagia Card Reports no additional complaints Resp Reports no additional complaints GI Denies abdominal pain, Denies belching, Denies melena, Denies bloating, Denies change in bowel habits, Denies dysphagia, Denies excessive flatus, Denies dyspepsia, Denies heartburn, Denies diarrhea, Denies loose stools, Denies naus ea, Denies odynophagia and Denies vomiting Reports no additional complaints Musc Reports no additional complaints Neuro Reports no additional complaints Psych Reports no additional complaints Endo Reports no additional complaints Physical Exam Vital Signs: Last Vital Signs Pulse 64 06/23/24 14:01 BP 160/73 H 06/23/24 14:01 BMI result Body Mass Index 20.1 Assessment & Plan Assessment & Plan (1) Postprandial abdominal bloating: Code(s): R14.0 - Abdominal distension (gaseous) (2) Postprandial epigastric pain: Code(s): R10.13 - Epigastric pain (3) Flatulence/gas pain/belching: Code(s): R14.0 - Abdominal distension (gaseous) (4) Constipation: Code(s): K59.00 - Constipation, unspecified Qualifiers: Constipation type: slow transit constipation Qualified Code(s): K59.01 - Slow transit constipation (5) GERD (gastroesophageal reflux disease): Code(s): K21.9 - Gastro-esophageal reflux disease without esophagitis Qualifiers: Esophagitis presence: esophagitis presence not specified Qualified Code(s): K21.9 - Gastro-esophageal reflux disease without esophagitis Plan Discussed with patient low FODMAP diet. List of food recommended as well as list of food to avoid given to patient. Patient will try ohtx-xyo-glcdhmm fiber with probiotics. Epigastric pain and occasional reflux with frequent belching. Will send patient script for pantoprazole. Patient will avoid eating late at night. Smoking cessation encouraged. Will check thyroid study, vitamin B12, folate, vitamin-D levels. Will send patient for upper GI with barium swallow to look for reflux, hiatal hernia. Patient will follow-up in our office in 2-3 months. He will call our office if he will continue to have symptoms or if he will develop any additional GI concerning symptoms. Patient is agreeable to current plan of care and verbalizes understanding of instructions. He was given the opportunity to ask questions and all questions answered. Thank you for allowing me to participate in his care Orders: Orders Vitamin D 25-OH (D2 and D3) Today E55.9 - Vitamin D deficiency, unspecified FL upper GI w Ba Swallow Today K21.9 - Gastro-esophageal reflux disease without esophagitis Vitamin B12 and Folate Today R19.7 - Diarrhea, unspecified TSH reflex Free T4 Today K59.00 - Constipation, unspecified Medications: New pantoprazole take one tablet half an hour before breakfast 40 mg PO DAILY 30 tabs 2RF K21.9 - Gastro-esophageal reflux disease without esophagitis Coding Level of Care Code New Pt Level 3 (12822) Diagnoses Postprandial abdominal bloating R14.0 Postprandial epigastric pain R10.13 Flatulence/gas pain/belching R14.0 Slow transit constipation K59.01 Constipation type: slow transit constipation Gastroesophageal reflux disease, unspecified whether esophagitis present K21.9 Esophagitis presence: esophagitis presence not specified Time Spent (min) 40 Comment 30 minutes spent with patient and additional 10 minutes spent reviewing his records
[2024-06-23 14:01] VITALS: BP 160/73; PULSE 64; BMI 20.1
--- OUTSIDE RECORDS SUMMARY | 2024-06-23 14:41 | XMS_ITS | Encounter Summary ---
Author Organization [facility] Address [address] [facility] [address] [place] [address] Phone Care Team Providers Care Branch Account Executive Name Role Phone Arti Lei MD Primary Care Provide r Encounter Details Date Type Department Care Team (Late st Contact Info) Description 10/23/2022 Telephone [facility] [address] [facility] [address] [place] [address] Emma Wei Social History Tobacco [...] Visit [facility] [address] [place] [phone] Brent Hammond MD [address] [facility] [address] [place] [address] documented as of this encounter Visit Diagnoses Not on filedocumented in this encounter Care Teams Branch Account Executive Relationship Specialty Start Date End Date Arti Lei MD [address] [place] [phone] PCP - General Internal Medicine 10/18/22 documented as of this encounter
--- OUTSIDE RECORDS SUMMARY | 2024-06-23 14:41 | XMS_ITS | Clinical Summary ---
Author Organization [facility] [place] [facility] Address [address] [place] [id number] Care Team Providers Care Summer Law Clerk Name Role Phone Arti Lei MD Primary [...] Visit [facility] [address] [place] [address] Brent Hammond MD [address] [facility] [facility] [address] [place] [phone] Health Maintenance Due Date Last Done Comments [...] [place] Care Teams Summer Law Clerk Relationship Specialty Start Date End Date Arti Lei MD [address] [place] [phone] PCP - General Internal Medicine 10/18/22
== END 2024-06-23 16:18 | disposition home or self-care (01) ==
PROVIDERS: PCP Internal Medicine; Visit Provider Nurse Practitioner Family
DX: R14.0 Abdominal distension (gaseous) (principal); R10.13 Epigastric pain; K59.01 Slow transit constipation; K21.9 Gastro-esophageal reflux disease without esophagitis
CPT/HCPCS: 99203

== ENCOUNTER 2024-06-23 13:44 | Outpatient (REF) | payer MEDICARE, MEDICAID, SELFPAY ==
--- OUTSIDE RECORDS SUMMARY | 2024-06-23 15:24 | XMS_ITS | Encounter Summary ---
Author Organization [employer] Address [address] [facility] 7t [place] [address] Care Team Providers Care Icing Coater Name Role Phone Arti Lei MD Primary Care Provide r Reason for Visit * Reason Comments Med Refill Encounter Details Date Type Department Care Team ([facility] st Contact Info) Description 11/30/2023 Refill [facility] [address] [place], [place] [phone] Arti Lei MD [address] [place] [address] Primary hypertension Social History Tobacco Use Types [...] Description 08/05/2024 11:30 AM EDT Office Visit [facility] [address] [place] [address] Arti Lei MD [address] [place] [address] documented as of this encounter Visit Diagnoses Diagnosis Primary hypertension Unspecified essential hypertension documented in this encounter Additional Health Concerns Assessment Noted Time PHQ-9 Depression Total Score: 2 10/16/19 23 3:44 PM EDT documented as of this encounter Care Teams Icing Coater Relationship Specialty Start Date End Date Arti Lei MD [address] [place] [address] PCP - General Family Medicine 02/05/18 documented as of this encounter
--- OUTSIDE RECORDS SUMMARY | 2024-06-23 15:24 | XMS_ITS | Encounter Summary ---
Author Organization [employer] Address [address] [place] [address] 7t [place] [address] Care Team Providers Care Pulp Screen Operator Name Role Phone Arti Lei MD Primary Care Provide r Reason for Visit * Reason Comments Med Refill Encounter Details Date Type Department Care Team (Late st Contact Info) Description 12/17/2022 Refill [facility] [address] [place] [address] [phone] Arti Lei MD [address] [place] [address] [phone] Primary hypertension Social History Tobacco Use Types [...] Description 08/05/2024 11:30 AM EDT Office Visit [facility] [address] [place] [address] [phone] Arti Lei MD [address] [place] [address] [phone] documented as of this encounter Visit Diagnoses Diagnosis Primary hypertension Unspecified essential hypertension documented in this encounter Additional Health Concerns Assessment Noted Time PHQ-9 Depression Total Score: 2 10/16/19 23 3:44 PM EDT documented as of this encounter Care Teams Pulp Screen Operator Relationship Specialty Start Date End Date Arti Lei MD 230 [place] [address] PCP - General Family Medicine 02/05/18 documented as of this encounter
--- OUTSIDE RECORDS SUMMARY | 2024-06-23 15:24 | XMS_ITS | Encounter Summary ---
Author Organization [employer] Address [address] [facility] 7t [place] [address] Care Team Providers Care First Dyer Name Role Phone Arti Lei MD Primary Care Provide r Reason for Referral * Imaging (Routine) - Authorized Specialty Diagnoses / Procedures Referred By Contac t Referred To Contact Cardiology Diagnoses Bloating symptom Procedures Vascular US Abdominal Aorta Anuerysm Screening Arti Lei MD [address] [place] [address] Phone: tel: fax: [address] Phone: tel: fax: Referral ID Status Reason Start Date Expiration Date Visits Requested Visits Authorized [id number] Authorized Perform Procedure 06/05/2024 06/05/2025 1 1 * Consultation (Routine) - Authorized Specialty Diagnoses / Procedures Referred By Contac t Referred To Contact Gastroenterology Diagnoses Belching symptom Bloating symptom Arti Lei MD [address] [place] [address] Phone: tel: fax: [facility] [address] [place] [address] Drive [address] Floor [place], [place] Phone: tel: fax: Referral ID Status Reason Start Date Expiration Date Visits Requested Visits Authorized [id number] Authorized Specialty Services Required 06/05/2024 06/05/2025 1 1 Encounter Details Date Type Department Care Team (Late st Contact Info) Description 06/05/2024 3:15 PM EST Office Visit [facility] [address] [place] [address] Arti Lei MD [address] [place] [address] Belching symptom (Primary Dx); Bloating symptom Social [...] Dyscrasia, plasma cell Coronary artery disease involving agdaagux coronary artery of agdaagux heart without angina pectoris Stage 3b chronic [...] Description 08/05/2024 11:30 AM EDT Office Visit [facility] [address] [place] [address] Arti eLi MD [address] [place], [place] [phone] Scheduled Referrals Name Type Priority Associated Diagnoses [...] EST) H pylori Ag Stool SEE NOTE [facility] Comment:[employer], EIA, STOOL Micro Number: [id number] Test Status: Final Specimen Source: Stool Specimen Quality: Adequate H.pylori Ag: Not Detected Antimicrobials, proton pump inhibitors, and bismuth preparations inhibit H. pylori and ingestion up to two weeks prior to testing may cause false negative results. If clinically indicated the test should be repeated on a new specimen obtained two weeks after discontinuing treatment. Reference Range: Not DetectedTHIS TEST WAS PERFORMED AT:[employer] [place] [phone] KEANE MD Stool Rectal contents / Unknown 06/08/2024 11:30 AM EST 06/08/2024 1:00 PM EST Arti Pires MD LAB BODY FLUIDS AND S TOOLS ORDERABLES Final Result [facility] [address] [place] [phone] documented in this encounter Visit Diagnoses Diagnosis Belching symptom- Primary Flatulence, eructation, and gas pain Bloating symptom Flatulence, eructation, and gas pain documented in this encounter Additional Health Concerns Assessment Noted Time PHQ-9 Depression Total Score: 2 10/16/19 23 3:44 PM EDT documented as of this encounter Care Teams First Dyer Relationship Specialty Start Date End Date Arti Lei MD [address] [place] [phone] PCP - General Family Medicine 02/05/18 documented as of this encounter
--- OUTSIDE RECORDS SUMMARY | 2024-06-23 15:24 | XMS_ITS | Encounter Summary ---
Author Organization [employer] [facility] Address [address] [place] [address] 7t [place] [address] Care Team Providers Care Mobile Home Servicer Name Role Phone Arti Lei MD Primary Care Provide r Encounter Details Date Type Department Care Team (Late st Contact Info) Description 02/05/2023 Orders Only [facility] [address] [place] [address] [phone] Provider, MD Jenifer Social History Tobacco Use [...] Description 08/05/2024 11:30 AM EDT Office Visit [facility] [address] [place] [address] [phone] Arti Lei MD [address] [place] [address] [phone] documented as of this encounter Procedures Procedure [...] documented as of this encounter Care Teams Mobile Home Servicer Relationship Specialty Start Date End Date Arti Lei MD [address] [place] [address] PCP - General Family Medicine 02/05/18 documented as of this encounter
--- OUTSIDE RECORDS SUMMARY | 2024-06-23 15:24 | XMS_ITS | Encounter Summary ---
Author Organization [employer] Address [address] [facility] 7t [place] [address] Care Team Providers Care Nutritional Yeast Supervisor Name Role Phone Arti Lei MD Primary Care Provide r Reason for Visit * Reason Onset Date Comments Nurse Triage 05/29/2024 Encounter Details Date Type Department Care Team ([facility] st Contact Info) Description 05/29/2024 Telephone [facility] [address] [place], [place] [phone] Arti Lei MD [address] [place] [address] Nurse Triage Social History Tobacco Use Types [...] t he electric, gas, oil or water [employer] threatened to shut off services in your [...] callback as he missed the calls . [phone] * Telephone Encounter - Robyn Landry - 05/29/2024 10:18 AM EST Tc from pt requesting a callback as he can't stop (burping) and he feels is not normal (Can't find symptoms for burping) [phone] documented in this encounter Plan of Treatment Upcoming Encounters Date Type Department Care Team (Late st Contact Info) Description 08/05/2024 11:30 AM EDT Office Visit [facility] [address] [place] [address] Arti Lei MD [address], [place] [phone] documented as of this encounter Visit Diagnoses Not on filedocumented in this encounter Additional Health Concerns Assessment Noted Time PHQ-9 Depression Total Score: 2 10/16/19 23 3:44 PM EDT documented as of this encounter Care Teams Nutritional Yeast Supervisor Relationship Specialty Start Date End Date Arit Lei MD [address] [place] [address] [phone] PCP - General Family Medicine 02/05/18 documented as of this encounter
--- OUTSIDE RECORDS SUMMARY | 2024-06-23 15:24 | XMS_ITS | Encounter Summary ---
Author Organization [employer] Address [address] [facility] 7t [place] [address] Care Team Providers Care Ob Gyn Physician Assistant Name Role Phone Arti Lei MD Primary Care Provide r Reason for Visit * Reason Onset Date Comments Results 06/17/2024 Encounter Details Date Type Department Care Team ([facility] st Contact Info) Description 06/17/2024 Telephone [facility] MED[facility] [address] [place] [address] Rahul Yoder [place] Results Social History Tobacco [...] Description 08/05/2024 11:30 AM EDT Office Visit [facility] [address] [place] [address] Arti Lei MD [address] [place] [address] documented as of this encounter Visit Diagnoses Not on filedocumented in this encounter Additional Health Concerns Assessment Noted Time PHQ-9 Depression Total Score: 2 10/16/19 23 3:44 PM EDT documented as of this encounter Care Teams Ob Gyn Physician Assistant Relationship Specialty Start Date End Date Arti Lei MD [address] [place] [address] PCP - General Family Medicine 02/05/18 documented as of this encounter
--- OUTSIDE RECORDS SUMMARY | 2024-06-23 15:24 | XMS_ITS | Encounter Summary ---
Author Organization [employer] Address [address] [facility] 7t [place] [address] Care Team Providers Care Representative Personal Service Name Role Phone Arti Lei MD Primary Care Provide r Reason for Visit * Reason Onset Date Comments Results 06/12/2024 Encounter Details Date Type Department Care Team ([facility] st Contact Info) Description 06/12/2024 Telephone [facility] [address] [place], [place] [phone] Arti Lei MD [address] [place] [address] Results Social History Tobacco Use Types Packs/Day [...] 10:09 AM EST TC placed to patient [phone] in regards to below message. Patient advised H. Pylori test returned negative. Patient reports his s/s continue and he is requesting a f/u appointment. Patient advised he was referred to [facility] for further evalaution and testing and he should call their office to inquire on his appointment. Patient reports he missed a call from their office. RN provided patient with phone number to [facility] and reminded patient os US scheduled for 06/22/24 at 9am. Patient to f/u PRN. * Telephone Encounter - Parag Ramirez - 06/12/2024 10:06 AM EST TC from pt requesting call back regarding Results. Type of results: Stool Sample Date when done: 06/08/2024 Facility: [facility] lab documented in this encounter Plan of Treatment Upcoming Encounters Date Type Department Care Team (Late st Contact Info) Description 08/05/2024 11:30 AM EDT Office Visit [facility] [address] [place] [address] Arti Lei MD [address] [place] [address] documented as of this encounter Visit Diagnoses Not on filedocumented in this encounter Additional Health Concerns Assessment Noted Time PHQ-9 Depression Total Score: 2 10/16/19 23 3:44 PM EDT documented as of this encounter Care Teams Representative Personal Service Relationship Specialty Start Date End Date Arti Lei MD [address] [place] [address] PCP - General Family Medicine 02/05/18 documented as of this encounter
--- OUTSIDE RECORDS SUMMARY | 2024-06-23 15:24 | XMS_ITS | Encounter Summary ---
Author Organization [employer] Address [address] [facility] 7t [place] [address] Care Team Providers Care Aircraft Mechanic Armament Name Role Phone Arti Lei MD Primary Care Provide r Encounter Details Date Type Department Care Team (Late st Contact Info) Description 06/22/2024 Orders Only [facility] [address] [place], [place] [phone] Arti Lei MD [address] [place], [place] [phone] Social History Tobacco Use Types Packs/Day Years [...] 11:30 AM EDT Office Visit [facility] [address] [place] [address] Arti Lei MD [address] [place] [address] documented as of this encounter Procedures Procedure Name Priority Date/Time Associated Diagnosis Comments US ABDOMINAL AORTIC ANEURYSM Routine 06/22/2024 12:50 PM EST documented in this encounter Results * US ABDOMINAL AORTIC ANEURYSM (06/22/2024 12:50 PM EST) Anatomical Region Laterality Modality Abdomen Ultrasound 06/22/2024 12:5 0 PM EST Narrative 06/22/2024 12:51 PM EST ? [facility] ?[address] ? [place] [address] ? Ultrasound Report ? Signed ? Patient: Jaiden,John ?MR#: [id number] ?? [id number] ? : 1950 ?Acct:[id number] ? Age/Sex: 73 / M ?ADM Date: /27/25 ? Loc: HO.HMGCX ? Attending Dr: Arti Pires MD ? Ordering Physician: Arti Lei MD ?? Date of Service: 06/22/24 ?? Procedure(s): US abdominal aortic aneurysm ?? Accession Number(s): [id number] ? cc: Arti Lei MD ? CLINICAL [...] DD/ 1250 ? TD/TT: 06/22/24 1250 ? Pneumatic Hoist Operator: ? Procedure Note Donnazarioter, Image - 06/22/2024 [facility] [address] [place] [address] [place] [address] Ultrasound Report Signed Patient: Thu Hwang#: [id number] : 1950cct:[id number] Age/Sex: 73 / MADM Date: 06/22/24 Loc: HO.HMGCX Attending Dr: Arti Pires MD Ordering Physician: Arti Lei MD Date of Service: 06/22/24 Procedure(s): US abdominal aortic aneurysm Accession Number(s): [id number] cc: Arti Lei MD CLINICAL HISTORY: SMOKER, [...] 06/22/24 1251 DD/ 1250 TD/TT: 06/22/24 1250 Pneumatic Hoist Operator: us Arti Pires MD IMG US PROCEDURES Fin al Result documented in this encounter Visit Diagnoses Not on filedocumented in this encounter Additional Health Concerns Assessment Noted Time PHQ-9 Depression Total Score: 2 10/16/19 23 3:44 PM EDT documented as of this encounter Care Teams Aircraft Mechanic Armament Relationship Specialty Start Date End Date Arti Lei MD [address] [place] [address] PCP - General Family Medicine 02/05/18 documented as of this encounter
--- OUTSIDE RECORDS SUMMARY | 2024-06-23 15:24 | XMS_ITS | Encounter Summary ---
Author Organization [employer] Address [address] [facility] 7t [place] [address] Care Team Providers Care Executive Sales Assistant Name Role Phone Arti Lei MD [...] Description 08/05/2024 11:30 AM EDT Office Visit [facility]ICINE [address] [place] [address] Arti Lei MD [address] [place] [address] documented as of this encounter Visit Diagnoses Not on filedocumented in this encounter Additional Health Concerns Assessment Noted Time PHQ-9 Depression Total Score: 2 10/16/19 23 3:44 PM EDT documented as of this encounter Care Teams Executive Sales Assistant Relationship Specialty Start Date End Date Arti Lei MD [address] [place] [phone] PCP - General Family Medicine 02/05/18 documented as of this encounter
--- OUTSIDE RECORDS SUMMARY | 2024-06-23 15:24 | XMS_ITS | Encounter Summary ---
Author Organization [employer] Address [address] [facility] [address] [place] [address] Care Team Providers Care Communications Tech Name Role Phone Arti Lei MD Primary Care Provide r Encounter Details Date Type Department Care Team (Late st Contact Info) Description 09/12/2022 Orders Only [facility] CH[facility] MED & PEDS [address] [place], [place] [phone] Emma Loredo LPN Social History Tobacco Use [...] 11:30 AM EDT Office Visit [facility] MEDICINE [address] [place] [address] Arti Lei MD [address] [place], [place] [phone] documented as of this encounter Procedures Procedure [...] (12/28/2022 9:40 AM EDT) Triglycerides 74 mg/dL [facility] Comment:Desirable Triglyceri de: less than 150 mg/dLBorderline High Triglyceride 150-199 mg/dLHigh Triglyceride: 200-499 mg/dLVery High Triglyceride: greater than or equal to 5OO mg/dL Cholesterol 166 mg/dL [facility] Comment:Desirable Cholestero l: less than 200 mg/dLBorderline High Cholesterol: 200-239 mg/dLHigh Cholesterol: greater than 239 mg/dL LDL Cholesterol Calculated 107 mg/dl [facility] Comment:Desirable LDL: less than 100 mg/dLNear Optimal/Above Optimal LDL: 110- 129 mg/dLBorderline High LDL: 130-159 mg/dLHigh LDL: 160-189 mg/dLVery High LDL: greater than or equal to 190 mg/dL HDL Cholesterol 45 mg/dL [facility] Comment:Desirable HDL: great er than 40 mg/dL Note: This HDL assay may give artificially low results in patients with liver disease. 12/28/2022 9:40 AM EDT 12/28/2022 9:40 AM EDT us Generic External Data Provider LAB BLOOD ORDERAB LES Final Result [facility] [address] [place] [address] [phone] * Basic Metabolic Panel (12/28/2022 9:40 AM EDT) Sodium 138 135 - 145 mmol/L [facility] Potassium 4.5 3.3 - 5.1 mmol/L [facility] Chloride 106 96 - 108 mmol/L [facility] Carbon Dioxide 22 22 - 29 mmol/L [facility] Anion Gap 15 12 - 20 [facility] Urea Nitrogen (BUN) 16 9 - 16 mg/dL [facility] Creatinine, Serum 1.12 0.5 - 1.4 mg/dL [facility] Estimated Glomerular Filt Rate >60 [facility] Comment:NOTE: For -Am erican individuals, multiply the result by 1.210.Chronic Kidney Disease: Estimated GFR < 60 mL/min/[id number] Kidney Disease: Estimated GFR < 15 mL/min/1.73m2 Glucose 113 60 - 115 mg/dL [facility] Calcium 9.1 8.4 - 10.2 mg/dL [facility] 12/28/2022 9:40 AM EDT 12/28/2022 9:40 AM EDT us [facility] External Provider LAB BLO OD ORDERABLES Final Result [facility] [address] [place] [address] [phone] * (ABNORMAL) CBC auto differential (12/28/2022 9:40 AM EDT) White Blood Count 9.9 4.8 - 10.8 X10*3/uL [facility] Red Blood Count 4.06(L) 4.60 - 5.80 X10*6/uL [facility] Hemoglobin 13.0(L) 14.0 - 18.0 g/dl [facility] Hematocrit 39.4(L) 42.0 - 52.0 % [facility] Mean Corpuscular Volume 97.0 80.0 - 98.0 fL [facility] Mean Corpuscular Hemoglobin 32.0 27.0 - 33.0 pg [facility] Mean Corpuscular HGB Conc 33.0 31.0 - 36.0 g/dl [facility] Red Cell Distribution Width 12.7 11.0 - 16.0 % [facility] Platelet Count 275 160 - 400 X10*3/uL [facility] Mean Platelet Volume 9.0(L) 9.4 - 12.4 fL [facility] Neutrophils Percent Auto 71.2 45 - 73 % [facility] Imm Gran Pct Auto 1.0(H) 0.0 - 0.4 % [facility] Lymphocytes Percent Auto 17.8(L) 20 - 40 % [facility] Monocytes Percent Auto 7.5 2 - 11 % [facility] Eosinophils Percent Auto 2.0 0 - 4 % [facility] Basophils Percent Auto 0.5 0 - 2 % [facility] NRBC Pct Auto 0.0 0.0 - 0.2 /100WBC [facility] Neutrophils Absolute Auto 7.1 2.0 - 8.3 x10*3/uL [facility] Imm Gran Abs Auto 0.10(H) 0.00 - 0.03 X10*3/uL [facility] Lymphocytes Absolute Auto 1.8 1.2 - 4.9 X10*3/uL [facility] Monocytes Absolute Auto 0.7 0.1 - 1.2 X10*3/uL [facility] Eosinophils Absolute Auto 0.2 0.0 - 0.4 X10*3/uL [facility] Basophils Absolute Auto 0.1 0.0 - 0.2 X10*3/uL [facility] NRBC Abs Auto 0.000 0.0 - 0.012 X10*3/uL [facility] 12/28/2022 9:40 AM EDT 12/28/2022 9:40 AM EDT us [facility] External Provider LAB BLO OD ORDERABLES Final Result Performing Organization Address City/State/[facility] Co de Phone Number [facility] [address] [place] [phone] * Prothrombin Time-INR (12/28/2022 9:40 AM EDT) Prothrombin Time 11.6 11.1 - 13.3 SEC [facility] INTERNATIONAL NORM RATIO 1.0 0.9 - 1.1 [facility] Comment:INTERNATIONAL NORMAL IZED RATIO (INR) REFERENCE [...] EDT 12/28/2022 9:40 AM EDT us [facility] External Provider LAB BLO OD ORDERABLES Final Result [facility] [address] [place] [address] [phone] * (ABNORMAL) Comprehensive Metabolic Panel (11/28/2022 9:22 AM EDT) Sodium 140 135 - 145 mmol/L [facility] Potassium 5.1 3.3 - 5.1 mmol/L [facility] Chloride 107 96 - 108 mmol/L [facility] Carbon Dioxide 24 22 - 29 mmol/L [facility] Anion Gap 14 12 - 20 [facility] Urea Nitrogen (BUN) 16 9 - 16 mg/dL [facility] Creatinine, Serum 1.54(H) 0.5 - 1.4 mg/dL [facility] Estimated Glomerular Filt Rate 45 [facility] Comment:NOTE: For -Am erican individuals, multiply the result by 1.210.Chronic Kidney Disease: Estimated GFR < 60 mL/min/1.76y2Wnrevk Kidney Disease: Estimated GFR < 15 mL/min/1.73m2 Glucose 119(H) 60 - 115 mg/dL [facility] Calcium 9.6 8.4 - 10.2 mg/dL [facility] Bilirubin, Total 0.8 0.0 - 1.0 mg/dL [facility] Aspartate Amino Transferase 13 5 - 37 U/L [facility] Alanine Aminotransferase 11 0 - 40 U/L [facility] Total Protein 7.2 6.5 - 8.0 g/dL [facility] Albumin Level 4.0 3.5 - 5.0 g/dL [facility] Alkaline Phosphatase 43 39 - 117 U/L [facility] 11/28/2022 9:22 AM EDT 11/28/2022 9:22 AM EDT us [facility] External Provider LAB BLO OD ORDERABLES Final Result [facility] [address] [place] [address] [phone] * (ABNORMAL) CBC auto differential (11/28/2022 9:22 AM EDT) White Blood Count 7.7 4.8 - 10.8 X10*3/uL [facility] Red Blood Count 3.92(L) 4.60 - 5.80 X10*6/uL [facility] Hemoglobin 12.4(L) 14.0 - 18.0 g/dl [facility] Hematocrit 38.1(L) 42.0 - 52.0 % [facility] Mean Corpuscular Volume 97.2 80.0 - 98.0 fL [facility] Mean Corpuscular Hemoglobin 31.6 27.0 - 33.0 pg [facility] Mean Corpuscular HGB Conc 32.5 31.0 - 36.0 g/dl [facility] Red Cell Distribution Width 13.5 11.0 - 16.0 % [facility] Platelet Count 282 160 - 400 X10*3/uL [facility] Mean Platelet Volume 8.9(L) 9.4 - 12.4 fL [facility] Neutrophils Percent Auto 68.7 45 - 73 % [facility] Imm Gran Pct Auto 0.4 0.0 - 0.4 % [facility] Lymphocytes Percent Auto 21.1 20 - 40 % [facility] Monocytes Percent Auto 8.2 2 - 11 % [facility] Eosinophils Percent Auto 1.2 0 - 4 % [facility] Basophils Percent Auto 0.4 0 - 2 % [facility] NRBC Pct Auto 0.0 0.0 - 0.2 /100WBC [facility] Neutrophils Absolute Auto 5.3 2.0 - 8.3 x10*3/uL [facility] Imm Gran Abs Auto 0.03 0.00 - 0.03 X10*3/uL [facility] Lymphocytes Absolute Auto 1.6 1.2 - 4.9 X10*3/uL [facility] Monocytes Absolute Auto 0.6 0.1 - 1.2 X10*3/uL [facility] Eosinophils Absolute Auto 0.1 0.0 - 0.4 X10*3/uL [facility] Basophils Absolute Auto 0.0 0.0 - 0.2 X10*3/uL [facility] NRBC Abs Auto 0.000 0.0 - 0.012 X10*3/uL [facility] 11/28/2022 9:22 AM EDT 11/28/2022 9:22 AM EDT [facility] External Provider LAB BLO OD ORDERABLES Final Result Performing Organization Address [facility]/ZIP Co de Phone Number [facility] [address] [place] [address] [phone] * Chromosome Analysis, Bone Marrow (11/22/2022 12:00 PM EDT) Pathologist [facility] Chromosome Analysis, Bone Marrow See note [facility] Comment:See report from [employer] in the EMR. 11/22/2022 12:0 0 PM EDT 11/22/2022 1:46 PM EDT [facility] Exter nal Provider LAB BODY FLUIDS AND STOOLS ORDERABLES Final Result Performing Organization Address City/[facility] Co de Phone Number [facility] [address] [place] [address] [phone] * LEUKEMIA/LYMPH. EVAL. BONE MAR (11/22/2022 12:00 PM EDT) LLE Interpretation See Note [facility] Comment:See report from [employer] in the EMR. 11/22/2022 12:0 0 PM EDT 11/22/2022 1:46 PM EDT us [facility] External Provider LAB BLO OD ORDERABLES Final Result [facility] [address] [place] [address] [phone] * Bone Marrow Smear (11/22/2022 11:45 AM EDT) 11/22/2022 11:4 5 AM EDT 11/22/2022 1:56 PM EDT Narrative [facility] - 01/23/2023 11:20 AM EDT ----- ------- Name: John Hwang ?Age/Sex: 72/M ? : 1950 Unit#: [id number] ?? Attend Dr: Oliver Ospina MD ?Re11/22/22 ?Status: DEP SDC ? Location: [facility] ?Disch: ? ----- ------- SPEC : [id number] ? RECD: 11/22/22-1356 ? STATUS: ??SOUT ? REQ NUM: [id number] ? AURA: 11/22/22-1145 ? SUBM DR: Oliver [...] Technical services for reticulin study performed at [facility] [address] Alda Nagel [place]; [place] #[id number] Addendum Signed (signature on file) Malik Lancaster [...] Hwang ?Age/Sex: 72/M ? : 1950 Unit#: [id number] ?? Attend Dr: Oliver Ospina MD ?Re11/22/22 ?Status: DEP [facility] ? Location: [facility] ?Disch: ? ----- ------- SPEC : [id number] ? RECD: 11/22/226 ? STATUS: ??SOUT ? REQ NUM: [id number] ? AURA: 11/22/22-1145 ? SUBM DR: Oliver Ospina MD ? ENTERED: ??11/22/22-3218 ?SP TYPE: Surgical ? OTHR DR: Arti [...] Hwang ?Age/Sex: 72/M ? : 1950 Unit#: [id number] ?? Attend Dr: Oliver Ospina MD ?Re11/22/22 ?Status: DEP SDC ? Location: [facility] ?Disch: ? ----- ------- SPEC : [id number] ? RECD: 11/22/22-6126 ? STATUS: ??SOUT ? REQ NUM: [id number] ? AURA: 11/22/22-1143 ? SUBM DR: Oliver Ospina MD ? ENTERED: ??11/22/22-6381 ?SP TYPE: Surgical ? OTHR DR: Arti [...] To: ?? Arti Lei MD ?? [address] [facility] ?? [place] ?? [phone] ?? Oliver Ospina MD ?? [address] ?? Dept. of Hematology/Oncology ?? [place] ?? [phone] ----- ------- Signed (signature on file) Malik Lancaster MD 11/30/221630 ? ----- ------- ? END OF REPORT ? us [facility] Exter nal Provider LAB BODY FLUIDS AND STOOLS ORDERABLES Final Result [facility] [address] [place] [phone] * (ABNORMAL) Phosphate (As Phosphorus) (10/23/2022 10:03 AM EDT) Phosphorus 2.3(L) 2.7 - 4.5 mg/dL [facility] 10/23/2022 10:0 3 AM EDT 10/23/2022 10:04 AM EDT [facility] External Provider LAB BLO OD ORDERABLES Final Result [facility] [address] [place] [phone] * Calcium (10/23/2022 10:03 AM EDT) Calcium 10.0 8.4 - 10.2 mg/dL [facility] 10/23/2022 10:0 3 AM EDT 10/23/2022 10:04 AM EDT [facility] External Provider LAB BLO OD ORDERABLES Final Result Performing Organization Address City/[facility]/ZIP Co de Phone Number [facility] [address] [place] [phone] * (ABNORMAL) Creatinine, Serum (10/23/2022 10:03 AM EDT) Creatinine, Serum 2.03(H) 0.5 - 1.4 mg/dL [facility] Estimated Glomerular Filt Rate 33 [facility] Comment:NOTE: For -Am erican individuals, multiply the result by 1.210.Chronic Kidney Disease: Estimated GFR < 60 mL/min/1.23y8Jltsek Kidney Disease: Estimated GFR < 15 mL/min/1.73m2 10/23/2022 10:0 3 AM EDT 10/23/2022 10:04 AM EDT [facility] External Provider LAB BLO OD ORDERABLES Final Result Performing Organization Address [facility] Co de Phone Number [facility] [address] [place] [address] [phone] * (ABNORMAL) BUN (Blood Urea Nitrogen) (10/23/2022 10:03 AM EDT) Urea Nitrogen (BUN) 17(H) 9 - 16 mg/dL [facility] 10/23/2022 10:0 3 AM EDT 10/23/2022 10:04 AM EDT [facility] External Provider LAB BLO OD ORDERABLES Final Result Performing Organization Address [facility] de Phone Number [facility] [address] [place] [address] [phone] * (ABNORMAL) Electrolyte Panel (10/23/2022 10:03 AM EDT) Sodium 143 135 - 145 mmol/L [facility] Potassium 3.9 3.3 - 5.1 mmol/L [facility] Chloride 109(H) 96 - 108 mmol/L [facility] Carbon Dioxide 28 22 - 29 mmol/L [facility] Anion Gap 10(L) 12 - 20 [facility] 10/23/2022 10:0 3 AM EDT 10/23/2022 10:04 AM EDT [facility] External Provider LAB BLO OD ORDERABLES Final Result Performing Organization Address [facility] Co de Phone Number [facility] [address] [place] [address] [phone] * (ABNORMAL) Urinalysis, Complete, with Reflex to Culture (10/17/2022 4:16 AM EDT) Color Urine Yellow [facility] Appearance Urine Clear [facility] PH 6.5 5.0 - 9.0 [facility] Glucose Urine UA Negative Negative mg/dL [facility] Urine Blood Negative Negative [facility] Specific [place] - Urine 1.010 1.005 - 1.025 [facility] Urine Protein Negative Neg-Trace mg/dL [facility] Urine Ketones Negative Negative mg/dL [facility] Nitrite Urine Negative Negative [facility] Leukocyte Esterase Urine Small (1+)(A) Negative [facility] RBC Urine 0-2 0 - 2 /HPF [facility] Urine WBC 11-20(A) 0 - 5 /HPF [facility] Urine Squamous Epithelial Cell 0-2 0 - 2 /HPF [facility] Urine Bacteria None Seen None Seen [facility] Hyaline Casts, Urine 3-5 0 - 2 /LPF [facility] 10/17/2022 4:16 AM EDT 10/17/2022 4:19 AM EDT Narrative [facility] - 10/17/2022 4:34 AM EDT Urine, Clean Catch [facility] External Provider LAB URI NE ORDERABLES Final Result Performing Organization Address [facility] Co de Phone Number [facility] [address] [place] [phone] * Magnesium (10/17/2022 2:51 AM EDT) Magnesium 2.6 1.6 - 2.6 mg/dL [facility] 10/17/2022 2:51 AM EDT 10/17/2022 2:55 AM EDT [facility] External Provider LAB BLO OD ORDERABLES Final Result Performing Organization Address [facility] Co de Phone Number [facility] [address] [place] [phone] * (ABNORMAL) Comprehensive Metabolic Panel (10/17/2022 2:51 AM EDT) Sodium 138 135 - 145 mmol/L [facility] Potassium 3.8 3.3 - 5.1 mmol/L [facility] Chloride 99 96 - 108 mmol/L [facility] Carbon Dioxide 33(H) 22 - 29 mmol/L [facility] Anion Gap 10(L) 12 - 20 [facility] Urea Nitrogen (BUN) 42(H) 9 - 16 mg/dL [facility] Creatinine, Serum 3.18(H) 0.5 - 1.4 mg/dL [facility] Creatinine Clr Calc Pharmacy 18.4 [facility] Comment:eGFR (calculated fro m the MDRD study equation) and eCrCl(calculated from the Cockcroft-Gault equation) are based ondifferent parameters and may not yield comparable results.If eCrCl result is absurd, please check patient'sheight/weight. Estimated Glomerular Filt Rate 19 [facility] Comment:NOTE: For -Am erican individuals, multiply the result by 1.210.Chronic Kidney Disease: Estimated GFR < 60 mL/min/[id number] Kidney Disease: Estimated GFR < 15 mL/min/1.73m2 Glucose 129(H) 60 - 115 mg/dL [facility] Calcium 15.7(HH) 8.4 - 10.2 mg/dL [facility] Comment:Critical value for t est(s): CALCIUM Results called to luci back by: NEDRA Person calling:VINCENT Date:10/17/22 Time:0323 Bilirubin, Total 0.8 0.0 - 1.0 mg/dL [facility] Aspartate Amino Transferase 13 5 - 37 U/L [facility] Alanine Aminotransferase 11 0 - 40 U/L [facility] Total Protein 7.0 6.5 - 8.0 g/dL [facility] Albumin Level 4.2 3.5 - 5.0 g/dL [facility] Alkaline Phosphatase 50 39 - 117 U/L [facility] 10/17/2022 2:51 AM EDT 10/17/2022 2:55 AM EDT us [facility] External Provider LAB BLO OD ORDERABLES Final Result [facility] [address] [place], [place] [phone] * (ABNORMAL) CBC auto differential (10/17/2022 2:51 AM EDT) White Blood Count 10.3 4.8 - 10.8 X10*3/uL [facility] Red Blood Count 4.13(L) 4.60 - 5.80 X10*6/uL [facility] Hemoglobin 13.0(L) 14.0 - 18.0 g/dl [facility] Hematocrit 37.6(L) 42.0 - 52.0 % [facility] Mean Corpuscular Volume 91.0 80.0 - 98.0 fL [facility] Mean Corpuscular Hemoglobin 31.5 27.0 - 33.0 pg [facility] Mean Corpuscular HGB Conc 34.6 31.0 - 36.0 g/dl [facility] Red Cell Distribution Width 12.1 11.0 - 16.0 % [facility] Platelet Count 244 160 - 400 X10*3/uL [facility] Mean Platelet Volume 9.1(L) 9.4 - 12.4 fL [facility] Neutrophils Percent Auto 73.6(H) 45 - 73 % [facility] Imm Gran Pct Auto 0.3 0.0 - 0.4 % [facility] Lymphocytes Percent Auto 18.0(L) 20 - 40 % [facility] Monocytes Percent Auto 6.8 2 - 11 % [facility] Eosinophils Percent Auto 0.9 0 - 4 % [facility] Basophils Percent Auto 0.4 0 - 2 % [facility] NRBC Pct Auto 0.0 0.0 - 0.2 /100WBC [facility] Neutrophils Absolute Auto 7.6 2.0 - 8.3 x10*3/uL [facility] Imm Gran Abs Auto 0.03 0.00 - 0.03 X10*3/uL [facility] Lymphocytes Absolute Auto 1.8 1.2 - 4.9 X10*3/uL [facility] Monocytes Absolute Auto 0.7 0.1 - 1.2 X10*3/uL [facility] Eosinophils Absolute Auto 0.1 0.0 - 0.4 X10*3/uL [facility] Basophils Absolute Auto 0.0 0.0 - 0.2 X10*3/uL [facility] NRBC Abs Auto 0.000 0.0 - 0.012 X10*3/uL [facility] 10/17/2022 2:51 AM EDT 10/17/2022 2:55 AM EDT us [facility] External Provider LAB BLO OD ORDERABLES Final Result [facility] [address] [place] [id number] [phone] documented in this encounter Visit Diagnoses Not on filedocumented in this encounter Care Teams Communications Tech Relationship Specialty Start Date End Date Arti Lei MD [address] [place] [phone] PCP - General Family Medicine 02/05/18 documented as of this encounter
--- OUTSIDE RECORDS SUMMARY | 2024-06-23 15:24 | XMS_ITS | Encounter Summary ---
Author Organization [employer] Address [address] [facility] 7t [place] [address] Care Team Providers Care Instructional Support Services Director Name Role Phone Arti Lei MD Primary Care Provide r Reason for Visit * Reason Onset Date Comments FYI 10/19/2022 Encounter Details Date Type Department Care Team ([facility] st Contact Info) Description 10/19/2022 Telephone [facility] MEDICINE [address] [place], [place] [phone] Arti Lei MD [address] [place] [address] FYI Social History Tobacco Use Types Packs/Day [...] Description 08/05/2024 11:30 AM EDT Office Visit [facility] MEDICINE [address] [place], [place] [phone] Arti Lei MD [address] [place], [place] [phone] documented as of this encounter Visit Diagnoses Not on filedocumented in this encounter Additional Health Concerns Assessment Noted Time PHQ-9 Depression Total Score: 2 10/16/19 23 3:44 PM EDT documented as of this encounter Care Teams Instructional Support Services Director Relationship Specialty Start Date End Date Arti Lei MD [address] [place] [address] PCP - General Family Medicine 02/05/18 documented as of this encounter
--- OUTSIDE RECORDS SUMMARY | 2024-06-23 15:24 | XMS_ITS | Clinical Summary ---
Author Organization [facility] Facility Address [address] [place] [phone] Care Team Providers Care Account Management Assistant Name Role Phone Arti Lei MD [...] Visit [facility] [address] [place] [phone] Brent Hammond MD [address] [facility] [address] [place] [phone] Health Maintenance Due Date Last Done Comments [...] [place] Care Teams Account Management Assistant Relationship Specialty Start Date End Date Arti Lei MD [address] [place] [phone] PCP - General Internal Medicine 10/18/22
--- OUTSIDE RECORDS SUMMARY | 2024-06-23 15:24 | XMS_ITS | Clinical Summary ---
Author Organization [employer] Address [address] [facility] 7t [place] [address] Care Team Providers Care Casing Crew Pusher Name Role Phone Arti Lei MD Primary [...] declines medications Coronary artery disease invo lving [place] coronary artery of [place] heart without angina pectoris 04/16/2023 Assessment & [...] Department Care Team Description 06/22/2024 Orders Only [facility] MEDICINE [address] [place] [phone] Arti Lei MD 06/17/2024 Telephone [facility] MEDICINE [address] [place] [place] [phone] Rahul Yoder MA Results 06/12/2024 Telephone [facility] MEDICINE [address] [place] [place] [phone] Arti Lei MD Results 06/05/2024 3:15 PM EST Office Visit [facility] MEDICINE [address] [place] [address] Arti Lei MD Belching symptom (Primary Dx); Bloating symptom 06/05/2024 Travel 05/29/2024 Telephone [facility] MEDICINE [address] [place] [address] Arti Lei MD Nurse Triage from Last [...] 11:30 AM EDT Office Visit [facility] MEDICINE [address] [place], [place] [phone] Arti Lei MD [address] [place] [address] Health Maintenance Due Date Last Done Comments [...] EST ? [facility] ?[address] [facility] [address] ? [place] [address] ? Ultrasound Report ? Signed ? Patient: John Hwang ?MR#: [id number] ?? 250 ? : 1950 ?Acct:[id number] ? Age/Sex: 73 / M ?ADM Date: 06/22/24 ? Loc: [facility] ? Attending Dr: Arti Pires MD ? Ordering Physician: Arti Lei MD ?? Date of Service: 06/22/24 ?? Procedure(s): US abdominal aortic aneurysm ?? Accession Number(s): [id number] ? cc: Arti Lei MD ? CLINICAL [...] DD/ 1250 ? TD/TT: 06/22/24 1250 ? Wrapper Leaf Inspector: ? Procedure Note Vinod, Quintin - 06/22/2024 [facility] [address] [facility] [place] [address] Ultrasound Report Signed Patient: John HwangMR#: [id number] : 1950cct:[id number] Age/Sex: 73 / MADM Date: 06/22/24 [facility] Attending Dr: Arti Pires MD Ordering Physician: Arti Lei MD Date of Service: 06/22/24 Procedure(s): US abdominal aortic aneurysm Accession Number(s): [id number] cc: Arti Lei MD CLINICAL HISTORY: SMOKER, [...] 06/22/24 1251 DD/ 1250 TD/TT: 06/22/24 1250 Wrapper Leaf Inspector: Arti Pires MD IMG US PROCEDURES Fin al Result * Helicobacter pylori??Antigen, EIA, Stool (06/08/2024 11:30 AM EST) H pylori Ag Stool SEE NOTE [facility] Comment:HELICOBACTER PYLORI AG, EIA, STOOL Micro Number: [id number] Test Status: Final Specimen Source: Stool Specimen Quality: Adequate H.pylori Ag: Not Detected Antimicrobials, proton pump inhibitors, and bismuth preparations inhibit H. pylori and ingestion up to two weeks prior to testing may cause false negative results. If clinically indicated the test should be repeated on a new specimen obtained two weeks after discontinuing treatment. Reference Range: Not DetectedTHIS TEST WAS PERFORMED AT:[facility] [place] [phone] KEANE MD Stool Rectal contents / Unknown 06/08/2024 11:30 AM EST 06/08/2024 1:00 PM EST us Arti Pires MD LAB BODY FLUIDS AND S TOOLS ORDERABLES Final Result Performing Organization Address City/[facility]/ZIP Co de Phone Number [facility] [address] [place] [phone] * Lipid Panel, Standard (06/19/2023 1:12 PM EST) Triglycerides 67 <150 mg/dL [facility] Comment:Desirable Triglyceri de: less than 150 mg/dLBorderline High Triglyceride 150-199 mg/dLHigh Triglyceride: 200-499 mg/dLVery High Triglyceride: greater than or equal to 5OO mg/dL Cholesterol 110 <200 mg/dL [facility] Comment:Desirable Cholestero l: less than 200 mg/dLBorderline High Cholesterol: 200-239 mg/dLHigh Cholesterol: greater than 239 mg/dL LDL Cholesterol Calculated 56 <100 mg/dL [facility] Comment:Desirable LDL: less than 100 mg/dLNear Optimal/Above Optimal LDL: 110- 129 mg/dLBorderline High LDL: 130-159 mg/dLHigh LDL: 160-189 mg/dLVery High LDL: greater than or equal to 190 mg/dL HDL Cholesterol 41 >40 mg/dL [facility] Comment:Desirable HDL: great er than 40 mg/dL Note: This HDL assay may give artificially low results in patients with liver disease. 06/19/2023 1:12 PM EST 06/19/2023 1:12 PM EST us Generic External Data Provider LAB BLOOD ORDERAB LES Final Result Performing Organization Address [facility]/ZIP Co de Phone Number [facility] [address] [place] [phone] * Hm Colonoscopy (05/02/2018) us Historical Provider HEALTH MAINTENANCE Final Result from Last 3 Months or Most Recently Relevant to Health Maintenance Insurance [place] [id number] [facility] Care Teams Casing Crew Pusher Relationship Specialty Start Date End Date Arti Lei MD [address] [place] [phone] PCP - General Family Medicine 02/05/18
--- OUTSIDE RECORDS SUMMARY | 2024-06-23 15:24 | XMS_ITS | Encounter Summary ---
Author Organization [employer] Address [address] [facility] 7t [place] [address] Care Team Providers Care Prison Officer Name Role Phone Arti Lei MD Primary Care Provide r Reason for Visit * Reason Onset Date Comments Nurse Triage 10/28/2023 Encounter Details Date Type Department Care Team ([facility] st Contact Info) Description 10/28/2023 Telephone [facility] MEDICINE [address] [place], [place] [phone] Arti Lei MD [address] [place] [address] Nurse Triage Social History Tobacco Use Types [...] caller accepted this outcome Please contact at [phone] documented in this encounter Plan of Treatment Upcoming Encounters Date Type Department Care Team (Late st Contact Info) Description 08/05/2024 11:30 AM EDT Office Visit [facility] MEDICINE [address] [place] [address] Arti Lei MD [address] [place] [address] documented as of this encounter Visit Diagnoses Not on filedocumented in this encounter Additional Health Concerns Assessment Noted Time PHQ-9 Depression Total Score: 2 10/16/19 23 3:44 PM EDT documented as of this encounter Care Teams Prison Officer Relationship Specialty Start Date End Date Arti Lei MD [address] [place], [place] [phone] PCP - General Family Medicine 02/05/18 documented as of this encounter
--- OUTSIDE RECORDS SUMMARY | 2024-06-23 15:24 | XMS_ITS | Encounter Summary ---
Author Organization [facility] Address [address] [facility] [address] [place] [address] Phone Care Team Providers Care Hospital Liaison Name Role Phone Arti Lei MD Primary Care Provide r Encounter Details Date Type Department Care Team (Late st Contact Info) Description 10/23/2022 Telephone [facility] [address] [facility] [address] [place] [address] Emma Wei Social History Tobacco [...] Visit [facility] [address] [place] [phone] Brent Hammond MD [address] [facility] [address] [place] [address] documented as of this encounter Visit Diagnoses Not on filedocumented in this encounter Care Teams Hospital Liaison Relationship Specialty Start Date End Date Arti Lei MD [address] [place] [phone] PCP - General Internal Medicine 10/18/22 documented as of this encounter
[2024-06-23 16:10] LABS: TSH reflex Free T4 1.65 uIU/mL (0.32-4.0)
[2024-06-23 16:29] LABS: Folate 15.4 ng/mL (> or = 4.0); Vitamin B12 570 pg/mL (200-900)
[2024-06-27 01:49] LABS: Vitamin D 25-OH, D2 4 ng/mL; Vitamin D 25-OH, D3 27 ng/mL; Vitamin D 25-OH, Total 31 ng/mL (30-100)
== END 2024-06-23 13:45 | disposition home or self-care (01) ==
LOC: HO.LAB 13:44
PROVIDERS: PCP Internal Medicine; Visit Provider Nurse Practitioner Family
DX: E55.9 Vitamin D deficiency, unspecified (principal); R19.7 Diarrhea, unspecified; K59.00 Constipation, unspecified; R14.0 Abdominal distension (gaseous); R10.13 Epigastric pain; K59.01 Slow transit constipation; K21.9 Gastro-esophageal reflux disease without esophagitis
CPT/HCPCS: 36415; 82306; 82607; 82746; 84443; 99202

== ENCOUNTER 2024-07-24 12:40 | Outpatient (REF) | payer MEDICARE, MEDICAID, SELFPAY ==
--- NOTE | ~2024-07-24 | CT_ITS ---
CLINICAL HISTORY: F17.210 - Nicotine dependence, cigarettes, uncomplicated CT lung cancer screening (LDCT) Comparison: 12/25/2022 Technique: Axial CT images of the chest using low-dose technique. Referring provider counseled the patient on shared decision-making for LDCT screening. Additional counseling was provided on smoking cessation. Effective radiation dose total: DLP 38.6 mGycm, CTDIvol 1 mGy. Findings: Lung: No new solid or semi solid lesion Coronary artery calcifications: Severe Limited upper abdomen: Unremarkable Other: Pulmonary bullous disease with areas of scarring or subsegmental atelectasis, not significantly changed Impression: Category 2: Benign appearance or behavior, continue annual screening Category 1: Normal; continue annual screening Category 2: Benign appearance or behavior, continue annual screening Category 3: Probably benign, [address] recommended Category 4A: Suspicious, [address] recommended; may consider PET/CT Category 4B: Suspicious, Additional diagnostics and/or tissue sampling recommended Category 4X: Suspicious, Additional diagnostics and/or tissue sampling recommended Category 0: Recalls (incomplete screen due to Incomplete coverage, Noise, Respiratory motion, Expiration, Obscured by acute abnormality) This document has been electronically signed by: John Ramírez MD on 07/24/2024 19:14:30
--- OUTSIDE RECORDS SUMMARY | 2024-07-24 14:44 | XMS_ITS | Encounter Summary ---
Author Organization [employer] Address [address] [facility] 7[address] [place] [address] Care Team Providers Care Rolfer Name Role Phone Arti Lei MD Primary Care Provide r Encounter Details Date Type Department Care Team (Late st Contact Info) Description 09/12/2022 Orders Only [facility] MED & PEDS [address] [place], [place] [phone] Emma Loredo LPN Social History Tobacco Use [...] AM EDT Office Visit [facility] MEDICINE [address] [place] [address] Arti Lei MD [address] [place], [place] [phone] documented as of this encounter Procedures Procedure [...] (12/28/2022 9:40 AM EDT) Triglycerides 74 mg/dL [facility] Comment:Desirable Triglyceri de: less than 150 mg/dLBorderline High Triglyceride 150-199 mg/dLHigh Triglyceride: 200-499 mg/dLVery High Triglyceride: greater than or equal to 5OO mg/dL Cholesterol 166 mg/dL [facility] Comment:Desirable Cholestero l: less than 200 mg/dLBorderline High Cholesterol: 200-239 mg/dLHigh Cholesterol: greater than 239 mg/dL LDL Cholesterol Calculated 107 mg/dl [facility] Comment:Desirable LDL: less than 100 mg/dLNear Optimal/Above Optimal LDL: 110- 129 mg/dLBorderline High LDL: 130-159 mg/dLHigh LDL: 160-189 mg/dLVery High LDL: greater than or equal to 190 mg/dL HDL Cholesterol 45 mg/dL [facility] Comment:Desirable HDL: great er than 40 mg/dL Note: This HDL assay may give artificially low results in patients with liver disease. 12/28/2022 9:40 AM EDT 12/28/2022 9:40 AM EDT us Generic External Data Provider LAB BLOOD ORDERAB LES Final Result [facility] [address] [place] [address] [phone] * Basic Metabolic Panel (12/28/2022 9:40 AM EDT) Sodium 138 135 - 145 mmol/L [facility] Potassium 4.5 3.3 - 5.1 mmol/L [facility] Chloride 106 96 - 108 mmol/L [facility] Carbon Dioxide 22 22 - 29 mmol/L [facility] Anion Gap 15 12 - 20 [facility] Urea Nitrogen (BUN) 16 9 - 16 mg/dL [facility] Creatinine, Serum 1.12 0.5 - 1.4 mg/dL [facility] Estimated Glomerular Filt Rate >60 [facility] Comment:NOTE: For -Am erican individuals, multiply the result by 1.210.Chronic Kidney Disease: Estimated GFR < 60 mL/min/[id number] Kidney Disease: Estimated GFR < 15 mL/min/1.73m2 Glucose 113 60 - 115 mg/dL [facility] Calcium 9.1 8.4 - 10.2 mg/dL [facility] 12/28/2022 9:40 AM EDT 12/28/2022 9:40 AM EDT us [facility] External Provider LAB BLO OD ORDERABLES Final Result [facility] [address] [place] [phone] * (ABNORMAL) CBC auto differential (12/28/2022 9:40 AM EDT) White Blood Count 9.9 4.8 - 10.8 X10*3/uL [facility] Red Blood Count 4.06(L) 4.60 - 5.80 X10*6/uL [facility] Hemoglobin 13.0(L) 14.0 - 18.0 g/dl [facility] Hematocrit 39.4(L) 42.0 - 52.0 % [facility] Mean Corpuscular Volume 97.0 80.0 - 98.0 fL [facility] Mean Corpuscular Hemoglobin 32.0 27.0 - 33.0 pg [facility] Mean Corpuscular HGB Conc 33.0 31.0 - 36.0 g/dl [facility] Red Cell Distribution Width 12.7 11.0 - 16.0 % [facility] Platelet Count 275 160 - 400 X10*3/uL [facility] Mean Platelet Volume 9.0(L) 9.4 - 12.4 fL [facility] Neutrophils Percent Auto 71.2 45 - 73 % [facility] Imm Gran Pct Auto 1.0(H) 0.0 - 0.4 % [facility] Lymphocytes Percent Auto 17.8(L) 20 - 40 % [facility] Monocytes Percent Auto 7.5 2 - 11 % [facility] Eosinophils Percent Auto 2.0 0 - 4 % [facility] Basophils Percent Auto 0.5 0 - 2 % [facility] NRBC Pct Auto 0.0 0.0 - 0.2 /100WBC [facility] Neutrophils Absolute Auto 7.1 2.0 - 8.3 x10*3/uL [facility] Imm Gran Abs Auto 0.10(H) 0.00 - 0.03 X10*3/uL [facility] Lymphocytes Absolute Auto 1.8 1.2 - 4.9 X10*3/uL [facility] Monocytes Absolute Auto 0.7 0.1 - 1.2 X10*3/uL [facility] Eosinophils Absolute Auto 0.2 0.0 - 0.4 X10*3/uL [facility] Basophils Absolute Auto 0.1 0.0 - 0.2 X10*3/uL [facility] NRBC Abs Auto 0.000 0.0 - 0.012 X10*3/uL [facility] 12/28/2022 9:40 AM EDT 12/28/2022 9:40 AM EDT us [facility] External Provider LAB BLO OD ORDERABLES Final Result Performing Organization Address City/State/[facility] Co de Phone Number [facility] [address] [place] [phone] * Prothrombin Time-INR (12/28/2022 9:40 AM EDT) Prothrombin Time 11.6 11.1 - 13.3 SEC [facility] INTERNATIONAL NORM RATIO 1.0 0.9 - 1.1 [facility] Comment:INTERNATIONAL NORMAL IZED RATIO (INR) [...] AM EDT 12/28/2022 9:40 AM EDT us [facility] External Provider LAB BLO OD ORDERABLES Final Result [facility] [address] [place] [address] [phone] * (ABNORMAL) Comprehensive Metabolic Panel (11/28/2022 9:22 AM EDT) Sodium 140 135 - 145 mmol/L [facility] Potassium 5.1 3.3 - 5.1 mmol/L [facility] Chloride 107 96 - 108 mmol/L [facility] Carbon Dioxide 24 22 - 29 mmol/L [facility] Anion Gap 14 12 - 20 [facility] Urea Nitrogen (BUN) 16 9 - 16 mg/dL [facility] Creatinine, Serum 1.54(H) 0.5 - 1.4 mg/dL [facility] Estimated Glomerular Filt Rate 45 [facility] Comment:NOTE: For -Am erican individuals, multiply the result by 1.210.Chronic Kidney Disease: Estimated GFR < 60 mL/min/1.87z5Chahoe Kidney Disease: Estimated GFR < 15 mL/min/1.73m2 Glucose 119(H) 60 - 115 mg/dL [facility] Calcium 9.6 8.4 - 10.2 mg/dL [facility] Bilirubin, Total 0.8 0.0 - 1.0 mg/dL [facility] Aspartate Amino Transferase 13 5 - 37 U/L [facility] Alanine Aminotransferase 11 0 - 40 U/L [facility] Total Protein 7.2 6.5 - 8.0 g/dL [facility] Albumin Level 4.0 3.5 - 5.0 g/dL [facility] Alkaline Phosphatase 43 39 - 117 U/L [facility] 11/28/2022 9:22 AM EDT 11/28/2022 9:22 AM EDT us [facility] External Provider LAB BLO OD ORDERABLES Final Result [facility] [address] [place] [phone] * (ABNORMAL) CBC auto differential (11/28/2022 9:22 AM EDT) White Blood Count 7.7 4.8 - 10.8 X10*3/uL [facility] Red Blood Count 3.92(L) 4.60 - 5.80 X10*6/uL [facility] Hemoglobin 12.4(L) 14.0 - 18.0 g/dl [facility] Hematocrit 38.1(L) 42.0 - 52.0 % [facility] Mean Corpuscular Volume 97.2 80.0 - 98.0 fL [facility] Mean Corpuscular Hemoglobin 31.6 27.0 - 33.0 pg [facility] Mean Corpuscular HGB Conc 32.5 31.0 - 36.0 g/dl [facility] Red Cell Distribution Width 13.5 11.0 - 16.0 % [facility] Platelet Count 282 160 - 400 X10*3/uL [facility] Mean Platelet Volume 8.9(L) 9.4 - 12.4 fL [facility] Neutrophils Percent Auto 68.7 45 - 73 % [facility] Imm Gran Pct Auto 0.4 0.0 - 0.4 % [facility] Lymphocytes Percent Auto 21.1 20 - 40 % [facility] Monocytes Percent Auto 8.2 2 - 11 % [facility] Eosinophils Percent Auto 1.2 0 - 4 % [facility] Basophils Percent Auto 0.4 0 - 2 % [facility] NRBC Pct Auto 0.0 0.0 - 0.2 /100WBC [facility] Neutrophils Absolute Auto 5.3 2.0 - 8.3 x10*3/uL [facility] Imm Gran Abs Auto 0.03 0.00 - 0.03 X10*3/uL [facility] Lymphocytes Absolute Auto 1.6 1.2 - 4.9 X10*3/uL [facility] Monocytes Absolute Auto 0.6 0.1 - 1.2 X10*3/uL [facility] Eosinophils Absolute Auto 0.1 0.0 - 0.4 X10*3/uL [facility] Basophils Absolute Auto 0.0 0.0 - 0.2 X10*3/uL [facility] NRBC Abs Auto 0.000 0.0 - 0.012 X10*3/uL [facility] 11/28/2022 9:22 AM EDT 11/28/2022 9:22 AM EDT [facility] External Provider LAB BLO OD ORDERABLES Final Result Performing Organization Address [facility]/ZIP Co de Phone Number [facility] [address] [place] [address] [phone] * Chromosome Analysis, Bone Marrow (11/22/2022 12:00 PM EDT) Pathologist [facility] Chromosome Analysis, Bone Marrow See note [facility] Comment:See report from [employer] in the EMR. 11/22/2022 12:0 0 PM EDT 11/22/2022 1:46 PM EDT [facility] Exter nal Provider LAB BODY FLUIDS AND STOOLS ORDERABLES Final Result Performing Organization Address City/[facility] Co de Phone Number [facility] [address] [place] [address] [phone] * LEUKEMIA/LYMPH. EVAL. BONE MAR (11/22/2022 12:00 PM EDT) LLE Interpretation See Note [facility] Comment:See report from [employer] in the EMR. 11/22/2022 12:0 0 PM EDT 11/22/2022 1:46 PM EDT us [facility] External Provider LAB BLO OD ORDERABLES Final Result [facility] [address] [place] [address] [phone] * Bone Marrow Smear (11/22/2022 11:45 AM EDT) 11/22/2022 11:4 5 AM EDT 11/22/2022 1:56 PM EDT Narrative [facility] - 01/23/2023 11:20 AM EDT ----- ------- Name: John Hwang ?Age/Sex: 72/M ? : 1950 Unit#: [id number] ?? Attend Dr: Oliver Ospina MD ?Re11/22/22 ?Status: DEP SDC ? Location: HO.SSS ?Disch: ? ----- ------- SPEC : [id number] ? RECD: 11/22/22-1356 ? STATUS: ??SOUT ? REQ NUM: [id number] ? AURA: 11/22/22-1145 ? SUBM DR: Oliver [...] Technical services for reticulin study performed at [facility] [address] Alda Nagel [place]; [place] #[id number] Addendum Signed (signature on file) Malik Lancaster [...] Hwang ?Age/Sex: 72/M ? : 1950 Unit#: [id number] ?? Attend Dr: Oliver Ospina MD ?Re11/22/22 ?Status: DEP [facility] ? Location: [facility] ?Disch: ? ----- ------- SPEC : [id number] ? RECD: 11/22/226 ? STATUS: ??SOUT ? REQ NUM: [id number] ? AURA: 11/22/22-1145 ? SUBM DR: Oliver Ospina MD ? ENTERED: ??11/22/22-2258 ?SP TYPE: Surgical ? OTHR DR: Arti [...] Hwang ?Age/Sex: 72/M ? : 1950 Unit#: [id number] ?? Attend Dr: Oliver Ospina MD ?Re11/22/22 ?Status: DEP SDC ? Location: HO.SSS ?Disch: ? ----- ------- SPEC : [id number] ? RECD: 11/22/22-1581 ? STATUS: ??SOUT ? REQ NUM: [id number] ? AURA: 11/22/22-1146 ? SUBM DR: Oliver Ospina MD ? ENTERED: ??11/22/22-6443 ?SP TYPE: Surgical ? OTHR DR: Arti [...] To: ?? Arti Lei MD ?? [address] [facility] ?? [place] ?? [phone] ?? Oliver Ospina MD ?? [address] ?? Dept. of Hematology/Oncology ?? [place] ?? [phone] ----- ------- Signed (signature on file) Malik Lancaster MD 11/30/221630 ? ----- ------- ? END OF REPORT ? us [facility] Exter nal Provider LAB BODY FLUIDS AND STOOLS ORDERABLES Final Result [facility] [address] [place] [address] [phone] * (ABNORMAL) Phosphate (As Phosphorus) (10/23/2022 10:03 AM EDT) Phosphorus 2.3(L) 2.7 - 4.5 mg/dL [facility] 10/23/2022 10:0 3 AM EDT 10/23/2022 10:04 AM EDT [facility] External Provider LAB BLO OD ORDERABLES Final Result [facility] [address] [place] [phone] * Calcium (10/23/2022 10:03 AM EDT) Calcium 10.0 8.4 - 10.2 mg/dL [facility] 10/23/2022 10:0 3 AM EDT 10/23/2022 10:04 AM EDT [facility] External Provider LAB BLO OD ORDERABLES Final Result Performing Organization Address City/[facility]/ZIP Co de Phone Number [facility] [address] [place] [phone] * (ABNORMAL) Creatinine, Serum (10/23/2022 10:03 AM EDT) Creatinine, Serum 2.03(H) 0.5 - 1.4 mg/dL [facility] Estimated Glomerular Filt Rate 33 [facility] Comment:NOTE: For -Am erican individuals, multiply the result by 1.210.Chronic Kidney Disease: Estimated GFR < 60 mL/min/1.14z5Gkujdj Kidney Disease: Estimated GFR < 15 mL/min/1.73m2 10/23/2022 10:0 3 AM EDT 10/23/2022 10:04 AM EDT [facility] External Provider LAB BLO OD ORDERABLES Final Result Performing Organization Address [facility] Co de Phone Number [facility] [address] [place] [address] [phone] * (ABNORMAL) BUN (Blood Urea Nitrogen) (10/23/2022 10:03 AM EDT) Urea Nitrogen (BUN) 17(H) 9 - 16 mg/dL [facility] 10/23/2022 10:0 3 AM EDT 10/23/2022 10:04 AM EDT [facility] External Provider LAB BLO OD ORDERABLES Final Result Performing Organization Address [facility] de Phone Number [facility] [address] [place] [address] [phone] * (ABNORMAL) Electrolyte Panel (10/23/2022 10:03 AM EDT) Sodium 143 135 - 145 mmol/L [facility] Potassium 3.9 3.3 - 5.1 mmol/L [facility] Chloride 109(H) 96 - 108 mmol/L [facility] Carbon Dioxide 28 22 - 29 mmol/L [facility] Anion Gap 10(L) 12 - 20 [facility] 10/23/2022 10:0 3 AM EDT 10/23/2022 10:04 AM EDT [facility] External Provider LAB BLO OD ORDERABLES Final Result Performing Organization Address [facility] Co de Phone Number [facility] [address] [place] [phone] * (ABNORMAL) Urinalysis, Complete, with Reflex to Culture (10/17/2022 4:16 AM EDT) Color Urine Yellow [facility] Appearance Urine Clear [facility] PH 6.5 5.0 - 9.0 [facility] Glucose Urine UA Negative Negative mg/dL [facility] Urine Blood Negative Negative [facility] Specific [place] - Urine 1.010 1.005 - 1.025 [facility] Urine Protein Negative Neg-Trace mg/dL [facility] Urine Ketones Negative Negative mg/dL [facility] Nitrite Urine Negative Negative [facility] Leukocyte Esterase Urine Small (1+)(A) Negative [facility] RBC Urine 0-2 0 - 2 /HPF [facility] Urine WBC 11-20(A) 0 - 5 /HPF [facility] Urine Squamous Epithelial Cell 0-2 0 - 2 /HPF [facility] Urine Bacteria None Seen None Seen [facility] Hyaline Casts, Urine 3-5 0 - 2 /LPF [facility] 10/17/2022 4:16 AM EDT 10/17/2022 4:19 AM EDT Narrative [facility] - 10/17/2022 4:34 AM EDT Urine, Clean Catch [facility] External Provider LAB URI NE ORDERABLES Final Result Performing Organization Address [facility] Co de Phone Number [facility] [address] [place] [phone] * Magnesium (10/17/2022 2:51 AM EDT) Magnesium 2.6 1.6 - 2.6 mg/dL [facility] 10/17/2022 2:51 AM EDT 10/17/2022 2:55 AM EDT [facility] External Provider LAB BLO OD ORDERABLES Final Result Performing Organization Address [facility] Co de Phone Number [facility] [address] [place] [phone] * (ABNORMAL) Comprehensive Metabolic Panel (10/17/2022 2:51 AM EDT) Sodium 138 135 - 145 mmol/L [facility] Potassium 3.8 3.3 - 5.1 mmol/L [facility] Chloride 99 96 - 108 mmol/L [facility] Carbon Dioxide 33(H) 22 - 29 mmol/L [facility] Anion Gap 10(L) 12 - 20 [facility] Urea Nitrogen (BUN) 42(H) 9 - 16 mg/dL [facility] Creatinine, Serum 3.18(H) 0.5 - 1.4 mg/dL [facility] Creatinine Clr Calc Pharmacy 18.4 [facility] Comment:eGFR (calculated fro m the MDRD study equation) and eCrCl(calculated from the Cockcroft-Gault equation) are based ondifferent parameters and may not yield comparable results.If eCrCl result is absurd, please check patient'sheight/weight. Estimated Glomerular Filt Rate 19 [facility] Comment:NOTE: For -Am erican individuals, multiply the result by 1.210.Chronic Kidney Disease: Estimated GFR < 60 mL/min/1.02r7Eglsnj Kidney Disease: Estimated GFR < 15 mL/min/1.73m2 Glucose 129(H) 60 - 115 mg/dL [facility] Calcium 15.7(HH) 8.4 - 10.2 mg/dL [facility] Comment:Critical value for t est(s): CALCIUM Results called to luci back by: NEDRA Person calling:VINCENT Date:10/17/22 Time:0323 Bilirubin, Total 0.8 0.0 - 1.0 mg/dL [facility] Aspartate Amino Transferase 13 5 - 37 U/L [facility] Alanine Aminotransferase 11 0 - 40 U/L [facility] Total Protein 7.0 6.5 - 8.0 g/dL [facility] Albumin Level 4.2 3.5 - 5.0 g/dL [facility] Alkaline Phosphatase 50 39 - 117 U/L [facility] 10/17/2022 2:51 AM EDT 10/17/2022 2:55 AM EDT us [facility] External Provider LAB BLO OD ORDERABLES Final Result [facility] [address] [place], [place] [phone] * (ABNORMAL) CBC auto differential (10/17/2022 2:51 AM EDT) White Blood Count 10.3 4.8 - 10.8 X10*3/uL [facility] Red Blood Count 4.13(L) 4.60 - 5.80 X10*6/uL [facility] Hemoglobin 13.0(L) 14.0 - 18.0 g/dl [facility] Hematocrit 37.6(L) 42.0 - 52.0 % [facility] Mean Corpuscular Volume 91.0 80.0 - 98.0 fL [facility] Mean Corpuscular Hemoglobin 31.5 27.0 - 33.0 pg [facility] Mean Corpuscular HGB Conc 34.6 31.0 - 36.0 g/dl [facility] Red Cell Distribution Width 12.1 11.0 - 16.0 % [facility] Platelet Count 244 160 - 400 X10*3/uL [facility] Mean Platelet Volume 9.1(L) 9.4 - 12.4 fL [facility] Neutrophils Percent Auto 73.6(H) 45 - 73 % [facility] Imm Gran Pct Auto 0.3 0.0 - 0.4 % [facility] Lymphocytes Percent Auto 18.0(L) 20 - 40 % [facility] Monocytes Percent Auto 6.8 2 - 11 % [facility] Eosinophils Percent Auto 0.9 0 - 4 % [facility] Basophils Percent Auto 0.4 0 - 2 % [facility] NRBC Pct Auto 0.0 0.0 - 0.2 /100WBC [facility] Neutrophils Absolute Auto 7.6 2.0 - 8.3 x10*3/uL [facility] Imm Gran Abs Auto 0.03 0.00 - 0.03 X10*3/uL [facility] Lymphocytes Absolute Auto 1.8 1.2 - 4.9 X10*3/uL [facility] Monocytes Absolute Auto 0.7 0.1 - 1.2 X10*3/uL [facility] Eosinophils Absolute Auto 0.1 0.0 - 0.4 X10*3/uL [facility] Basophils Absolute Auto 0.0 0.0 - 0.2 X10*3/uL [facility] NRBC Abs Auto 0.000 0.0 - 0.012 X10*3/uL [facility] 10/17/2022 2:51 AM EDT 10/17/2022 2:55 AM EDT us [facility] External Provider LAB BLO OD ORDERABLES Final Result [facility] [address] [place] [phone] documented in this encounter Visit Diagnoses Not on filedocumented in this encounter Care Teams Rolfer Relationship Specialty Start Date End Date Arti Lei MD [address] [place] [phone] PCP - General Family Medicine 02/05/18 documented as of this encounter
--- OUTSIDE RECORDS SUMMARY | 2024-07-24 14:44 | XMS_ITS | Clinical Summary ---
Author Organization [facility] Facility Address [address] [place] [address] [place] [address] Care Team Providers Care Solid Propellant Processor Name Role Phone Arti Lei MD Primary [...] [facility] [address] [place] [address] [place] [address] Brent Hammond MD [address] [facility] [address] [place] [phone] Health Maintenance Due Date Last Done Comments [...] [place] Care Teams Solid Propellant Processor Relationship Specialty Start Date End Date Arti Lei MD [address] [place] [phone] PCP - General Internal Medicine 10/18/22
--- OUTSIDE RECORDS SUMMARY | 2024-07-24 14:44 | XMS_ITS | Encounter Summary ---
Author Organization [employer] Address [address] [facility] [address] [place] [address] Care Team Providers Care Car Sweeper Name Role Phone Arti Lei MD Primary Care Provide r Reason for Visit * Reason Comments Med Refill Encounter Details Date Type Department Care Team ([facility] st Contact Info) Description 11/30/2023 Refill [facility] MED[facility] [address] [place], [place] [phone] Arti Lei MD [address] [place] [phone] Primary hypertension Social History Tobacco Use Types [...] Description 08/05/2024 11:30 AM EDT Office Visit [facility] [address] [place] [address] Arti Lei MD [address] [place] [address] documented as of this encounter Visit Diagnoses Diagnosis Primary hypertension Unspecified essential hypertension documented in this encounter Additional Health Concerns Assessment Noted Time PHQ-9 Depression Total Score: 2 10/16/19 23 3:44 PM EDT documented as of this encounter Care Teams Car Sweeper Relationship Specialty Start Date End Date Arti Lei MD [address] [place] [phone] PCP - General Family Medicine 02/05/18 documented as of this encounter
--- OUTSIDE RECORDS SUMMARY | 2024-07-24 14:45 | XMS_ITS | Encounter Summary ---
Author Organization [facility] Address [address] [facility] [address] [place] [address] Phone Care Team Providers Care Ski Patrol Director Name Role Phone Arti Lei MD Primary Care Provide r Encounter Details Date Type Department Care Team (Late st Contact Info) Description 10/23/2022 Telephone [facility] [address] [facility] [address] [place] [address] Emma Wei Social History Tobacco [...] Visit [facility] [address] [place] [phone] Brent Hammond MD [address] [facility] [address] [place] [address] documented as of this encounter Visit Diagnoses Not on filedocumented in this encounter Care Teams Ski Patrol Director Relationship Specialty Start Date End Date Arti Lei MD [address] [place] [phone] PCP - General Internal Medicine 10/18/22 documented as of this encounter
--- OUTSIDE RECORDS SUMMARY | 2024-07-24 14:45 | XMS_ITS | Clinical Summary ---
Author Organization [employer] Address [address] [facility] [address] [place] [address] Care Team Providers Care Ems Educator Name Role Phone Arti Lei MD Primary [...] declines medications Coronary artery disease invo lving [place] coronary artery of [place] heart without angina pectoris 04/16/2023 Assessment & [...] Encounters Date Type Department Care Team Description 06/23/2024 Orders Only GENERIC EXTERNAL DATA DEPARTMENT Provider, Generic External Data 06/22/2024 Orders Only [facility] [address] [place] [address] Arti Lei MD 06/17/2024 Telephone [facility] [address] [place] [address] Rahul Yoder MA Results 06/12/2024 Telephone [facility] [address] [place] [address] Arti Lei MD Results 06/05/2024 3:15 PM EST Office Visit [facility] [address] [place] [address] Arti Lei MD Belching symptom (Primary Dx); Bloating symptom 06/05/2024 Travel 05/29/2024 Telephone [facility] [address] [place] [address] Arti Lei MD Nurse Triage from Last [...] the past 12 months, has t he [employer] gas, oil or water company threatened to [...] Description 08/05/2024 11:30 AM EDT Office Visit [facility] [address] [place] [address] Arti Lei MD [address] [place], [place] [phone] Health Maintenance Due Date Last Done Comments [...] 08/2022, 2022, Additional history exists Pneumococcal Vaccine: 50+ Years Completed 10/15/2022, 11/15/2014 Zoster Vaccines Completed [...] Procedure Name Priority Date/Time Associated Diagnosis Comments VITAMIN D 25-OH (D2 AND D3) Routine 06/23/2024 2:50 PM EST VITAMIN B12/FOLATE, SERUM PANEL Routine 06/23/2024 2:50 PM EST TSH W/REFLEX TO FT4 Routine 06/23/2024 2 :50 PM EST US ABDOMINAL AORTIC ANEURYSM Routine 06/22/2024 12:50 PM EST HELICOBACTER PYLORI AG, EIA, STOOL Routine 06/08/2024 11:30 AM EST Belching symptom Bloating symptom LIPID PANEL, STANDARD Routine 06/19/2023 1:12 PM EST HM COLONOSCOPY Routine 05/02/2018 from Last 3 Months or Most Recently Relevant to Health Maintenance Results * VITAMIN D 25-OH (D2 AND D3) (06/23/2024 2:50 PM EST) Vitamin D, 25-OH, D2 4 ng/mL [facility] Comment:This test was develo ped and its analytical performancecharacteristics have been determined by [employer], [place]. It hasnot been cleared or approved by the U.S. Food and DrugAdministration. This assay has been validated pursuantto the CLIA regulations and is used for clinicalpurposes.THIS TEST WAS PERFORMED AT:[employer] [id number] [place] [id number] العلي MD,PHD Vitamin D, 25-OH, D3 27 ng/mL [facility] Comment:This test was develo ped and its analytical performancecharacteristics have been determined by [employer] [place], [place]. It hasnot been cleared or approved by the U.S. Food and DrugAdministration. This assay has been validated pursuantto the CLIA regulations and is used for clinicalpurposes. Vitamin D, 25-OH, Total 31 30 - 100 ng/mL [facility] Comment:Vitamin D, 25-Hydrox y reports concentrations of twocommon forms, 25-OHD2 and 25-OHD3. 25-OHD3 indicatesboth endogenous production and supplementation.25-OHD2 is an indicator of exogenous sources such asdiet or supplementation. Therapy is based onmeasurement of Total 25-OHD, with levels <20 ng/mLindicative of Vitamin D deficiency, while levelsbetween 20 ng/mL and 30 ng/mL suggest insufficiency.Optimal levels are > or = 30 ng/mL.For additional information, please refer tohttp://education.[employer]way/faq/WBJ676(This link is being provided for informational/educational purposes only.) 06/23/2024 2:50 PM EST 06/23/2024 2:50 PM EST Generic External Data Provider LAB BLOOD ORDERAB LES Final Result Performing Organization Address [facility]/ZIP Co de Phone Number [facility] [address] [place] [phone] * Vitamin B12 (Cobalamin) and Folate Panel, Serum (06/23/2024 2:50 PM EST) Vitamin B12 570 200 - 900 pg/mL [facility] Comment:NORMAL 200-900 PG/ML INDETERMINATE 160-199 PG/ML DEFICIENT < 160 PG/ML Folate 15.4 > or = 4.0 ng/mL [facility] Comment:Reference Values:> o r = 4.0 ng/mL< 4.0 ng/mL suggests folate deficiency Methotrexate, aminopterin and folinic acid(leucovorin) are chemotherapeutic agents whose molecularstructures are similar to folate; therefore, the Architectfolate assay cannot be used for patients using these drugs. 06/23/2024 2:50 PM EST 06/23/2024 2:50 PM EST Generic External Data Provider LAB BLOOD ORDERAB LES Final Result Performing Organization Address [facility]/ZIP Co de Phone Number [facility] [address] [place] [phone] * TSH with Reflex to Free T4 (06/23/2024 2:50 PM EST) TSH reflex Free T4 1.65 0.32 - 4.0 uIU/mL [facility] 06/23/2024 2:5 0 PM EST 06/23/2024 2:50 PM EST us Generic External Data Provider LAB BLOOD ORDERAB LES Final Result Performing Organization Address City/State/[facility] Co de Phone Number [facility] [address] [place] [phone] [phone] * US ABDOMINAL AORTIC ANEURYSM (06/22/2024 12:50 PM EST) Anatomical Region Laterality Modality Abdomen Ultrasound 06/22/2024 12:5 0 PM EST Narrative 06/22/2024 12:51 PM EST ? [facility] ?[address] ? [place] [address] ? Ultrasound Report ? Signed ? Patient: Jaiden,John ?MR#: [id number] ?? 250 ? : 1950 ?Acct:[id number] ? Age/Sex: 73 / M ?ADM Date: 06/22/24 ? Loc: HO.[facility]X ? Attending Dr: Arti Pires MD ? Ordering Physician: Arti Lei MD ?? Date of Service: 06/22/24 ?? Procedure(s): US abdominal aortic aneurysm ?? Accession Number(s): [id number] ? cc: Arti Lei MD ? CLINICAL [...] by Lenin Solares MD in OV> ? 06/22/241250 ? DD/ 125 ? TD/TT: 06/22/24 1250 ? Head Operator: ? Procedure Note Donotuseinterpreter, Image - 06/22/2024 [facility] [address] [place] [address] [place] [address] Ultrasound Report Signed Patient: Thu Hwang#: [id number] : 1950cct:[id number] Age/Sex: 73 / MADM Date: 06/22/24 [facility] Dr: Arti Pires MD Ordering Physician: Arti Lei MD Date of Service: 06/22/24 Procedure(s): US abdominal aortic aneurysm Accession Number(s): [id number] cc: Arti Lei MD CLINICAL HISTORY: SMOKER, [...] 06/22/24 1251 DD/ 1250 TD/TT: 06/22/24 1250 Head Operator: us Arti Pires MD [facility] US PROCEDURES Fin al Result * Helicobacter pylori??Antigen, EIA, Stool (06/08/2024 11:30 AM EST) H pylori Ag Stool SEE NOTE [facility] Comment:HELICOBACTER PYLORI AG, EIA, STOOL Micro Number: [id number] Test Status: Final Specimen Source: Stool Specimen Quality: Adequate H.pylori Ag: Not Detected Antimicrobials, proton pump inhibitors, and bismuth preparations inhibit H. pylori and ingestion up to two weeks prior to testing may cause false negative results. If clinically indicated the test should be repeated on a new specimen obtained two weeks after discontinuing treatment. Reference Range: Not DetectedTHIS TEST WAS PERFORMED AT:[employer] [place] [phone] KEANE MD Stool Rectal contents / Unknown 06/08/2024 11:30 AM EST 06/08/2024 1:00 PM EST us Arti Pires MD LAB BODY FLUIDS AND S TOOLS ORDERABLES Final Result Performing Organization Address City/[facility]/ZIP Co de Phone Number [facility] [address] [place] [phone] * Lipid Panel, Standard (06/19/2023 1:12 PM EST) Triglycerides 67 <150 mg/dL [facility] Comment:Desirable Triglyceri de: less than 150 mg/dLBorderline High Triglyceride 150-199 mg/dLHigh Triglyceride: 200-499 mg/dLVery High Triglyceride: greater than or equal to 5OO mg/dL Cholesterol 110 <200 mg/dL [facility] Comment:Desirable Cholestero l: less than 200 mg/dLBorderline High Cholesterol: 200-239 mg/dLHigh Cholesterol: greater than 239 mg/dL LDL Cholesterol Calculated 56 <100 mg/dL [facility] Comment:Desirable LDL: less than 100 mg/dLNear Optimal/Above Optimal LDL: 110- 129 mg/dLBorderline High LDL: 130-159 mg/dLHigh LDL: 160-189 mg/dLVery High LDL: greater than or equal to 190 mg/dL HDL Cholesterol 41 >40 mg/dL [facility] Comment:Desirable HDL: great er than 40 mg/dL Note: This HDL assay may give artificially low results in patients with liver disease. 06/19/2023 1:12 PM EST 06/19/2023 1:12 PM EST us Generic External Data Provider LAB BLOOD ORDERAB LES Final Result [facility] [address] [place] [phone] * Hm Colonoscopy (05/02/2018) us Historical Provider MD HEALTH MAINTENANCE Final Result from Last 3 Months or Most Recently Relevant to Health Maintenance Insurance MEDICARE Member Subscriber Plan / Payer (Ef fective 2022-Present) Name:John Hwang Member ID:[id number] Relation to Subscriber:Self Name:John Hwang Subscriber ID:[id number] Payer ID:[id number] Group ID:Not on file Type:Medicare Address: [facility] [address] [phone] [facility] Care Teams Ems Educator Relationship Specialty Start Date End Date Arti Lei MD [address] [place] [phone] PCP - General Family Medicine 02/05/18
--- OUTSIDE RECORDS SUMMARY | 2024-07-24 14:45 | XMS_ITS | Encounter Summary ---
Author Organization [employer] Address [address] [place] [address] [address] [place] [address] Care Team Providers Care Sea Air Land Officer Name Role Phone Arti Lei MD Primary Care Provide r Reason for Visit * Reason Comments Med Refill Encounter Details Date Type Department Care Team (Late st Contact Info) Description 12/17/2022 Refill [facility] MEDICINE [address] [place] [address] [phone] Arti Lei MD [address] [place] [address] [phone] Primary hypertension Social History Tobacco Use Types [...] Description 08/05/2024 11:30 AM EDT Office Visit [facility]INE [address] [place] [address] [phone] Arti Lei MD [address] [place] [address] [phone] documented as of this encounter Visit Diagnoses Diagnosis Primary hypertension Unspecified essential hypertension documented in this encounter Additional Health Concerns Assessment Noted Time PHQ-9 Depression Total Score: 2 10/16/19 23 3:44 PM EDT documented as of this encounter Care Teams Sea Air Land Officer Relationship Specialty Start Date End Date Arti Lei MD [address] [place] [phone] PCP - General Family Medicine 02/05/18 documented as of this encounter
--- OUTSIDE RECORDS SUMMARY | 2024-07-24 14:45 | XMS_ITS | Encounter Summary ---
Author Organization [employer] Address [address] [facility] 7t [place] [address] Care Team Providers Care High Tension Tester Name Role Phone Arti Lei MD Primary Care Provide r Reason for Visit * Reason Onset Date Comments FYI 10/19/2022 Encounter Details Date Type Department Care Team ([facility] st Contact Info) Description 10/19/2022 Telephone [facility] MEDICINE [address] [place], [place] [phone] Arti Lei MD [address] [place] [address] FYI Social History Tobacco Use Types Packs/Day [...] 11:30 AM EDT Office Visit [facility] [address] [place], [place] [phone] Arti Lei MD [address] [place], [place] [phone] documented as of this encounter Visit Diagnoses Not on filedocumented in this encounter Additional Health Concerns Assessment Noted Time PHQ-9 Depression Total Score: 2 10/16/19 23 3:44 PM EDT documented as of this encounter Care Teams High Tension Tester Relationship Specialty Start Date End Date Arti Lei MD [address] [place] [address] PCP - General Family Medicine 02/05/18 documented as of this encounter
--- OUTSIDE RECORDS SUMMARY | 2024-07-24 14:45 | XMS_ITS | Encounter Summary ---
Author Organization [employer] [facility] Address [address] [place] [address] 7[address] [place] [address] Care Team Providers Care Indian Blanket Weaver Name Role Phone Arti Lei MD Primary Care Provide r Encounter Details Date Type Department Care Team (Late st Contact Info) Description 02/05/2023 Orders Only [facility] MEDICINE [address] [place] [address] [phone] Provider, MD Jenifer Social History Tobacco Use [...] 11:30 AM EDT Office Visit [facility] MEDICINE [address] [place] [address] [phone] Arti Lei MD [address] [place] [address] [phone] documented as of this encounter Procedures Procedure [...] documented as of this encounter Care Teams Indian Blanket Weaver Relationship Specialty Start Date End Date Arti Lei MD [address] [place] [address] PCP - General Family Medicine 02/05/18 documented as of this encounter
== END 2024-07-24 12:41 | disposition home or self-care (01) ==
LOC: HO.CT 12:40
PROVIDERS: PCP Internal Medicine; Visit Provider Physician Assistant Medical
DX: Z12.2 Encounter for screening for malignant neoplasm of respiratory organs (principal); F17.210 Nicotine dependence, cigarettes, uncomplicated
CPT/HCPCS: 71271

== ENCOUNTER → 2024-07-24 12:42 | Outpatient (BNV) | payer MEDICARE, MEDICAID, SELFPAY | PROVIDERS: PCP Internal Medicine; Visit Provider Specialist | DX: F17.210 Nicotine dependence, cigarettes, uncomplicated (principal) | CPT/HCPCS: 71271 ==

== ENCOUNTER 2024-07-24 13:44 | Outpatient (REF) | payer MEDICARE, MEDICAID, SELFPAY ==
--- OUTSIDE RECORDS SUMMARY | 2024-07-24 15:51 | XMS_ITS | Encounter Summary ---
Author Organization [employer] Address [address] [facility] [address] [place] [address] Care Team Providers Care Radar Mechanic Name Role Phone Arti Lei MD Primary Care Provide r Encounter Details Date Type Department Care Team (Late st Contact Info) Description 09/12/2022 Orders Only [facility]S [address] [place], [place] [phone] Emma Loredo LPN Social History Tobacco Use [...] Description 08/05/2024 11:30 AM EDT Office Visit [facility] MEDICINE [address] [place] [address] Arti Lei MD [address] [place], [place] [phone] documented as of this encounter Procedures Procedure [...] (12/28/2022 9:40 AM EDT) Triglycerides 74 mg/dL [facility] Comment:Desirable Triglyceri de: less than 150 mg/dLBorderline High Triglyceride 150-199 mg/dLHigh Triglyceride: 200-499 mg/dLVery High Triglyceride: greater than or equal to 5OO mg/dL Cholesterol 166 mg/dL [facility] Comment:Desirable Cholestero l: less than 200 mg/dLBorderline High Cholesterol: 200-239 mg/dLHigh Cholesterol: greater than 239 mg/dL LDL Cholesterol Calculated 107 mg/dl [facility] Comment:Desirable LDL: less than 100 mg/dLNear Optimal/Above Optimal LDL: 110- 129 mg/dLBorderline High LDL: 130-159 mg/dLHigh LDL: 160-189 mg/dLVery High LDL: greater than or equal to 190 mg/dL HDL Cholesterol 45 mg/dL [facility] Comment:Desirable HDL: great er than 40 mg/dL Note: This HDL assay may give artificially low results in patients with liver disease. 12/28/2022 9:40 AM EDT 12/28/2022 9:40 AM EDT us Generic External Data Provider LAB BLOOD ORDERAB LES Final Result [facility] [address] [place] [address] [phone] * Basic Metabolic Panel (12/28/2022 9:40 AM EDT) Sodium 138 135 - 145 mmol/L [facility] Potassium 4.5 3.3 - 5.1 mmol/L [facility] Chloride 106 96 - 108 mmol/L [facility] Carbon Dioxide 22 22 - 29 mmol/L [facility] Anion Gap 15 12 - 20 [facility] Urea Nitrogen (BUN) 16 9 - 16 mg/dL [facility] Creatinine, Serum 1.12 0.5 - 1.4 mg/dL [facility] Estimated Glomerular Filt Rate >60 [facility] Comment:NOTE: For -Am erican individuals, multiply the result by 1.210.Chronic Kidney Disease: Estimated GFR < 60 mL/min/1.89w1Kpzagd Kidney Disease: Estimated GFR < 15 mL/min/1.73m2 Glucose 113 60 - 115 mg/dL [facility] Calcium 9.1 8.4 - 10.2 mg/dL [facility] 12/28/2022 9:40 AM EDT 12/28/2022 9:40 AM EDT us [facility] External Provider LAB BLO OD ORDERABLES Final Result [facility] [address] [place] [address] [phone] * (ABNORMAL) CBC auto differential (12/28/2022 9:40 AM EDT) White Blood Count 9.9 4.8 - 10.8 X10*3/uL [facility] Red Blood Count 4.06(L) 4.60 - 5.80 X10*6/uL [facility] Hemoglobin 13.0(L) 14.0 - 18.0 g/dl [facility] Hematocrit 39.4(L) 42.0 - 52.0 % [facility] Mean Corpuscular Volume 97.0 80.0 - 98.0 fL [facility] Mean Corpuscular Hemoglobin 32.0 27.0 - 33.0 pg [facility] Mean Corpuscular HGB Conc 33.0 31.0 - 36.0 g/dl [facility] Red Cell Distribution Width 12.7 11.0 - 16.0 % [facility] Platelet Count 275 160 - 400 X10*3/uL [facility] Mean Platelet Volume 9.0(L) 9.4 - 12.4 fL [facility] Neutrophils Percent Auto 71.2 45 - 73 % [facility] Imm Gran Pct Auto 1.0(H) 0.0 - 0.4 % [facility] Lymphocytes Percent Auto 17.8(L) 20 - 40 % [facility] Monocytes Percent Auto 7.5 2 - 11 % [facility] Eosinophils Percent Auto 2.0 0 - 4 % [facility] Basophils Percent Auto 0.5 0 - 2 % [facility] NRBC Pct Auto 0.0 0.0 - 0.2 /100WBC [facility] Neutrophils Absolute Auto 7.1 2.0 - 8.3 x10*3/uL [facility] Imm Gran Abs Auto 0.10(H) 0.00 - 0.03 X10*3/uL [facility] Lymphocytes Absolute Auto 1.8 1.2 - 4.9 X10*3/uL [facility] Monocytes Absolute Auto 0.7 0.1 - 1.2 X10*3/uL [facility] Eosinophils Absolute Auto 0.2 0.0 - 0.4 X10*3/uL [facility] Basophils Absolute Auto 0.1 0.0 - 0.2 X10*3/uL [facility] NRBC Abs Auto 0.000 0.0 - 0.012 X10*3/uL [facility] 12/28/2022 9:40 AM EDT 12/28/2022 9:40 AM EDT us [facility] External Provider LAB BLO OD ORDERABLES Final Result Performing Organization Address City/State/[facility] Co de Phone Number [facility] [address] [place] [phone] * Prothrombin Time-INR (12/28/2022 9:40 AM EDT) Prothrombin Time 11.6 11.1 - 13.3 SEC [facility] INTERNATIONAL NORM RATIO 1.0 0.9 - 1.1 [facility] Comment:INTERNATIONAL NORMAL IZED RATIO (INR) REFERENCE [...] AM EDT 12/28/2022 9:40 AM EDT us [facility] External Provider LAB BLO OD ORDERABLES Final Result [facility] [address] [place] [phone] [phone] * (ABNORMAL) Comprehensive Metabolic Panel (11/28/2022 9:22 AM EDT) Sodium 140 135 - 145 mmol/L [facility] Potassium 5.1 3.3 - 5.1 mmol/L [facility] Chloride 107 96 - 108 mmol/L [facility] Carbon Dioxide 24 22 - 29 mmol/L [facility] Anion Gap 14 12 - 20 [facility] Urea Nitrogen (BUN) 16 9 - 16 mg/dL [facility] Creatinine, Serum 1.54(H) 0.5 - 1.4 mg/dL [facility] Estimated Glomerular Filt Rate 45 [facility] Comment:NOTE: For -Am erican individuals, multiply the result by 1.210.Chronic Kidney Disease: Estimated GFR < 60 mL/min/1.12b5Ogffyb Kidney Disease: Estimated GFR < 15 mL/min/1.73m2 Glucose 119(H) 60 - 115 mg/dL [facility] Calcium 9.6 8.4 - 10.2 mg/dL [facility] Bilirubin, Total 0.8 0.0 - 1.0 mg/dL [facility] Aspartate Amino Transferase 13 5 - 37 U/L [facility] Alanine Aminotransferase 11 0 - 40 U/L [facility] Total Protein 7.2 6.5 - 8.0 g/dL [facility] Albumin Level 4.0 3.5 - 5.0 g/dL [facility] Alkaline Phosphatase 43 39 - 117 U/L [facility] 11/28/2022 9:22 AM EDT 11/28/2022 9:22 AM EDT us [facility] External Provider LAB BLO OD ORDERABLES Final Result [facility] [address] [place] [phone] * (ABNORMAL) CBC auto differential (11/28/2022 9:22 AM EDT) White Blood Count 7.7 4.8 - 10.8 X10*3/uL [facility] Red Blood Count 3.92(L) 4.60 - 5.80 X10*6/uL [facility] Hemoglobin 12.4(L) 14.0 - 18.0 g/dl [facility] Hematocrit 38.1(L) 42.0 - 52.0 % [facility] Mean Corpuscular Volume 97.2 80.0 - 98.0 fL [facility] Mean Corpuscular Hemoglobin 31.6 27.0 - 33.0 pg [facility] Mean Corpuscular HGB Conc 32.5 31.0 - 36.0 g/dl [facility] Red Cell Distribution Width 13.5 11.0 - 16.0 % [facility] Platelet Count 282 160 - 400 X10*3/uL [facility] Mean Platelet Volume 8.9(L) 9.4 - 12.4 fL [facility] Neutrophils Percent Auto 68.7 45 - 73 % [facility] Imm Gran Pct Auto 0.4 0.0 - 0.4 % [facility] Lymphocytes Percent Auto 21.1 20 - 40 % [facility] Monocytes Percent Auto 8.2 2 - 11 % [facility] Eosinophils Percent Auto 1.2 0 - 4 % [facility] Basophils Percent Auto 0.4 0 - 2 % [facility] NRBC Pct Auto 0.0 0.0 - 0.2 /100WBC [facility] Neutrophils Absolute Auto 5.3 2.0 - 8.3 x10*3/uL [facility] Imm Gran Abs Auto 0.03 0.00 - 0.03 X10*3/uL [facility] Lymphocytes Absolute Auto 1.6 1.2 - 4.9 X10*3/uL [facility] Monocytes Absolute Auto 0.6 0.1 - 1.2 X10*3/uL [facility] Eosinophils Absolute Auto 0.1 0.0 - 0.4 X10*3/uL [facility] Basophils Absolute Auto 0.0 0.0 - 0.2 X10*3/uL [facility] NRBC Abs Auto 0.000 0.0 - 0.012 X10*3/uL [facility] 11/28/2022 9:22 AM EDT 11/28/2022 9:22 AM EDT [facility] External Provider LAB BLO OD ORDERABLES Final Result Performing Organization Address [facility]/Va Hospital/ZIP Co de Phone Number [facility] [address] [place] [address] [phone] * Chromosome Analysis, Bone Marrow (11/22/2022 12:00 PM EDT) Pathologist [facility] Chromosome Analysis, Bone Marrow See note [facility] Comment:See report from [email or web address] in the EMR. 11/22/2022 12:0 0 PM EDT 11/22/2022 1:46 PM EDT [facility] Exter nal Provider LAB BODY FLUIDS AND STOOLS ORDERABLES Final Result Performing Organization Address City/[facility] Hospital/[facility] Co de Phone Number [facility] [address] [place] [address] [phone] * LEUKEMIA/LYMPH. EVAL. BONE MAR (11/22/2022 12:00 PM EDT) LLE Interpretation See Note [facility] Comment:See report from [email or web address] in the EMR. 11/22/2022 12:0 0 PM EDT 11/22/2022 1:46 PM EDT us [facility] External Provider LAB BLO OD ORDERABLES Final Result [facility] [address] [place] [address] [phone] * Bone Marrow Smear (11/22/2022 11:45 AM EDT) 11/22/2022 11:4 5 AM EDT 11/22/2022 1:56 PM EDT Narrative [facility] - 01/23/2023 11:20 AM EDT ----- ------- Name: John Hwang ?Age/Sex: 72/M ? : 1950 Unit#: [id number] ?? Attend Dr: Oliver Ospina MD ?Re11/22/22 ?Status: DEP SDC ? Location: HO.SSS ?Disch: ? ----- ------- SPEC : [id number] ? RECD: 11/22/22-1356 ? STATUS: ??SOUT ? REQ NUM: [id number] ? AURA: 11/22/22-1145 ? SUBM DR: Oliver [...] Technical services for reticulin study performed at [facility] [address] Alda Nagel [place]; [place] #[id number] Addendum Signed (signature on file) Malik Lancaster [...] Hwang ?Age/Sex: 72/M ? : 1950 Unit#: [id number] ?? Attend Dr: Oliver Ospina MD ?Re11/22/22 ?Status: DEP [facility] ? Location: [facility] ?Disch: ? ----- ------- SPEC : [id number] ? RECD: 11/22/226 ? STATUS: ??SOUT ? REQ NUM: [id number] ? AURA: 11/22/22-1145 ? SUBM DR: Oliver Ospina MD ? ENTERED: ??11/22/22-4688 ?SP TYPE: Surgical ? OTHR DR: Arti [...] Hwang ?Age/Sex: 72/M ? : 1950 Unit#: [id number] ?? Attend Dr: Oliver Ospina MD ?Re11/22/22 ?Status: DEP SDC ? Location: HO.SSS ?Disch: ? ----- ------- SPEC : [id number] ? RECD: 11/22/22-2886 ? STATUS: ??SOUT ? REQ NUM: [id number] ? AURA: 11/22/22-1142 ? SUBM DR: Oliver Ospina MD ? ENTERED: ??11/22/22-2444 ?SP TYPE: Surgical ? OTHR DR: Arti [...] To: ?? Arti Lei MD ?? [address] [facility] ?? [place] ?? [phone] ?? Oliver Ospina MD ?? [address] [facility] ?? Dept. of Hematology/Oncology ?? [place] ?? [phone] ----- ------- Signed (signature on file) Malik Lancaster MD 11/30/221630 ? ----- ------- ? END OF REPORT ? us [facility] Exter nal Provider LAB BODY FLUIDS AND STOOLS ORDERABLES Final Result [facility] [address] [place] [address] [phone] * (ABNORMAL) Phosphate (As Phosphorus) (10/23/2022 10:03 AM EDT) Phosphorus 2.3(L) 2.7 - 4.5 mg/dL [facility] 10/23/2022 10:0 3 AM EDT 10/23/2022 10:04 AM EDT [facility] External Provider LAB BLO OD ORDERABLES Final Result [facility] [address] [place] [phone] * Calcium (10/23/2022 10:03 AM EDT) Calcium 10.0 8.4 - 10.2 mg/dL [facility] 10/23/2022 10:0 3 AM EDT 10/23/2022 10:04 AM EDT [facility] External Provider LAB BLO OD ORDERABLES Final Result Performing Organization Address City/Va Hospital/ZIP Co de Phone Number [facility] [address] [place] [phone] * (ABNORMAL) Creatinine, Serum (10/23/2022 10:03 AM EDT) Creatinine, Serum 2.03(H) 0.5 - 1.4 mg/dL [facility] Estimated Glomerular Filt Rate 33 [facility] Comment:NOTE: For -Am erican individuals, multiply the result by 1.210.Chronic Kidney Disease: Estimated GFR < 60 mL/min/1.81n1Tfwewn Kidney Disease: Estimated GFR < 15 mL/min/1.73m2 10/23/2022 10:0 3 AM EDT 10/23/2022 10:04 AM EDT [facility] External Provider LAB BLO OD ORDERABLES Final Result Performing Organization Address [facility] Co de Phone Number [facility] [address] [place] [phone] * (ABNORMAL) BUN (Blood Urea Nitrogen) (10/23/2022 10:03 AM EDT) Urea Nitrogen (BUN) 17(H) 9 - 16 mg/dL [facility] 10/23/2022 10:0 3 AM EDT 10/23/2022 10:04 AM EDT [facility] External Provider LAB BLO OD ORDERABLES Final Result Performing Organization Address [facility] de Phone Number [facility] [address] [place] [address] [phone] * (ABNORMAL) Electrolyte Panel (10/23/2022 10:03 AM EDT) Sodium 143 135 - 145 mmol/L [facility] Potassium 3.9 3.3 - 5.1 mmol/L [facility] Chloride 109(H) 96 - 108 mmol/L [facility] Carbon Dioxide 28 22 - 29 mmol/L [facility] Anion Gap 10(L) 12 - 20 [facility] 10/23/2022 10:0 3 AM EDT 10/23/2022 10:04 AM EDT [facility] External Provider LAB BLO OD ORDERABLES Final Result Performing Organization Address [facility] Co de Phone Number [facility] [address] [place] [address] [phone] * (ABNORMAL) Urinalysis, Complete, with Reflex to Culture (10/17/2022 4:16 AM EDT) Color Urine Yellow [facility] Appearance Urine Clear [facility] PH 6.5 5.0 - 9.0 [facility] Glucose Urine UA Negative Negative mg/dL [facility] Urine Blood Negative Negative [facility] Specific Yarnell - Urine 1.010 1.005 - 1.025 [facility] Urine Protein Negative Neg-Trace mg/dL [facility] Urine Ketones Negative Negative mg/dL [facility] Nitrite Urine Negative Negative [facility] Leukocyte Esterase Urine Small (1+)(A) Negative [facility] RBC Urine 0-2 0 - 2 /HPF [facility] Urine WBC 11-20(A) 0 - 5 /HPF [facility] Urine Squamous Epithelial Cell 0-2 0 - 2 /HPF [facility] Urine Bacteria None Seen None Seen [facility] Hyaline Casts, Urine 3-5 0 - 2 /LPF [facility] 10/17/2022 4:16 AM EDT 10/17/2022 4:19 AM EDT Narrative [facility] - 10/17/2022 4:34 AM EDT Urine, Clean Catch [facility] External Provider LAB URI NE ORDERABLES Final Result Performing Organization Address [facility] Co de Phone Number [facility] [address] [place] [phone] * Magnesium (10/17/2022 2:51 AM EDT) Magnesium 2.6 1.6 - 2.6 mg/dL [facility] 10/17/2022 2:51 AM EDT 10/17/2022 2:55 AM EDT [facility] External Provider LAB BLO OD ORDERABLES Final Result Performing Organization Address [facility] Co de Phone Number [facility] [address] [place] [phone] * (ABNORMAL) Comprehensive Metabolic Panel (10/17/2022 2:51 AM EDT) Sodium 138 135 - 145 mmol/L [facility] Potassium 3.8 3.3 - 5.1 mmol/L [facility] Chloride 99 96 - 108 mmol/L [facility] Carbon Dioxide 33(H) 22 - 29 mmol/L [facility] Anion Gap 10(L) 12 - 20 [facility] Urea Nitrogen (BUN) 42(H) 9 - 16 mg/dL [facility] Creatinine, Serum 3.18(H) 0.5 - 1.4 mg/dL [facility] Creatinine Clr Calc Pharmacy 18.4 [facility] Comment:eGFR (calculated fro m the MDRD study equation) and eCrCl(calculated from the Cockcroft-Gault equation) are based ondifferent parameters and may not yield comparable results.If eCrCl result is absurd, please check patient'sheight/weight. Estimated Glomerular Filt Rate 19 [facility] Comment:NOTE: For -Am erican individuals, multiply the result by 1.210.Chronic Kidney Disease: Estimated GFR < 60 mL/min/1.46s6Xsnwbv Kidney Disease: Estimated GFR < 15 mL/min/1.73m2 Glucose 129(H) 60 - 115 mg/dL [facility] Calcium 15.7(HH) 8.4 - 10.2 mg/dL [facility] Comment:Critical value for t est(s): CALCIUM Results called to luci back by: NEDRA Person calling:VINCENT Date:10/17/22 Time:0323 Bilirubin, Total 0.8 0.0 - 1.0 mg/dL [facility] Aspartate Amino Transferase 13 5 - 37 U/L [facility] Alanine Aminotransferase 11 0 - 40 U/L [facility] Total Protein 7.0 6.5 - 8.0 g/dL [facility] Albumin Level 4.2 3.5 - 5.0 g/dL [facility] Alkaline Phosphatase 50 39 - 117 U/L [facility] 10/17/2022 2:51 AM EDT 10/17/2022 2:55 AM EDT us [facility] External Provider LAB BLO OD ORDERABLES Final Result [facility] [address] [place], [place] [phone] * (ABNORMAL) CBC auto differential (10/17/2022 2:51 AM EDT) White Blood Count 10.3 4.8 - 10.8 X10*3/uL [facility] Red Blood Count 4.13(L) 4.60 - 5.80 X10*6/uL [facility] Hemoglobin 13.0(L) 14.0 - 18.0 g/dl [facility] Hematocrit 37.6(L) 42.0 - 52.0 % [facility] Mean Corpuscular Volume 91.0 80.0 - 98.0 fL [facility] Mean Corpuscular Hemoglobin 31.5 27.0 - 33.0 pg [facility] Mean Corpuscular HGB Conc 34.6 31.0 - 36.0 g/dl [facility] Red Cell Distribution Width 12.1 11.0 - 16.0 % [facility] Platelet Count 244 160 - 400 X10*3/uL [facility] Mean Platelet Volume 9.1(L) 9.4 - 12.4 fL [facility] Neutrophils Percent Auto 73.6(H) 45 - 73 % [facility] Imm Gran Pct Auto 0.3 0.0 - 0.4 % [facility] Lymphocytes Percent Auto 18.0(L) 20 - 40 % [facility] Monocytes Percent Auto 6.8 2 - 11 % [facility] Eosinophils Percent Auto 0.9 0 - 4 % [facility] Basophils Percent Auto 0.4 0 - 2 % [facility] NRBC Pct Auto 0.0 0.0 - 0.2 /100WBC [facility] Neutrophils Absolute Auto 7.6 2.0 - 8.3 x10*3/uL [facility] Imm Gran Abs Auto 0.03 0.00 - 0.03 X10*3/uL [facility] Lymphocytes Absolute Auto 1.8 1.2 - 4.9 X10*3/uL [facility] Monocytes Absolute Auto 0.7 0.1 - 1.2 X10*3/uL [facility] Eosinophils Absolute Auto 0.1 0.0 - 0.4 X10*3/uL [facility] Basophils Absolute Auto 0.0 0.0 - 0.2 X10*3/uL [facility] NRBC Abs Auto 0.000 0.0 - 0.012 X10*3/uL [facility] 10/17/2022 2:51 AM EDT 10/17/2022 2:55 AM EDT us [facility] External Provider LAB BLO OD ORDERABLES Final Result [facility] [address] [place] [phone] documented in this encounter Visit Diagnoses Not on filedocumented in this encounter Care Teams Radar Mechanic Relationship Specialty Start Date End Date Arti Lei MD [address] [place] [phone] PCP - General Family Medicine 02/05/18 documented as of this encounter
--- OUTSIDE RECORDS SUMMARY | 2024-07-24 15:51 | XMS_ITS | Encounter Summary ---
Author Organization [employer] Address [address] [facility] [address] [place] [address] Care Team Providers Care Ecommerce Marketing Manager Name Role Phone Arti Lei MD Primary Care Provide r Reason for Visit * Reason Onset Date Comments FYI 10/19/2022 Encounter Details Date Type Department Care Team ([facility] st Contact Info) Description 10/19/2022 Telephone [facility] MEDICINE [address] [place], [place] [phone] Arti Lei MD [address] [place] [address] FYI Social History Tobacco Use Types Packs/Day [...] Description 08/05/2024 11:30 AM EDT Office Visit [facility] [address], [place] [phone] Arti Lei MD [address] [place], [place] [phone] documented as of this encounter Visit Diagnoses Not on filedocumented in this encounter Additional Health Concerns Assessment Noted Time PHQ-9 Depression Total Score: 2 10/16/19 23 3:44 PM EDT documented as of this encounter Care Teams Ecommerce Marketing Manager Relationship Specialty Start Date End Date Arti Lei MD [address] [place] [phone] PCP - General Family Medicine 02/05/18 documented as of this encounter
--- OUTSIDE RECORDS SUMMARY | 2024-07-24 15:51 | XMS_ITS | Encounter Summary ---
Author Organization [employer] Address [address] [facility] [address] [place] [address] Care Team Providers Care Entry Clerk Name Role Phone Arti Lei MD Primary Care Provide r Reason for Visit * Reason Comments Med Refill Encounter Details Date Type Department Care Team ([facility] st Contact Info) Description 11/30/2023 Refill [facility] MED[facility]INE [address] [place], [place] [phone] Arti Lei MD [address] [place] [phone] Primary hypertension Social History Tobacco Use Types [...] 11:30 AM EDT Office Visit [facility] MED[facility]INE [address] [place] [phone] Arti Lei MD [address] [place] [phone] documented as of this encounter Visit Diagnoses Diagnosis Primary hypertension Unspecified essential hypertension documented in this encounter Additional Health Concerns Assessment Noted Time PHQ-9 Depression Total Score: 2 10/16/19 23 3:44 PM EDT documented as of this encounter Care Teams Entry Clerk Relationship Specialty Start Date End Date Arti Lei MD [address] [place] [phone] PCP - General Family Medicine 02/05/18 documented as of this encounter
--- OUTSIDE RECORDS SUMMARY | 2024-07-24 15:51 | XMS_ITS | Clinical Summary ---
Author Organization [employer] Address [address] [facility] 7t [place] [address] Care Team Providers Care Filter Tank Operator Name Role Phone Arti Lei MD [...] declines medications Coronary artery disease invo lving cahuilla coronary artery of cahuilla heart without angina pectoris 04/16/2023 Assessment & [...] Provider, Generic External Data 06/22/2024 Orders Only [facility] [address] [facility] [place] [address] Arti Lei MD 06/17/2024 Telephone [facility] [address] [facility] [place] [address] Rahul Yoder MA Results 06/12/2024 Telephone [facility] [address] [place] [address] Arti Lei MD Results 06/05/2024 3:15 PM EST Office Visit [facility] [address] [place] [address] Arti Lei MD Belching symptom (Primary Dx); Bloating symptom 06/05/2024 Travel 05/29/2024 Telephone [facility] [address] [place] [address] Arti Lei MD Nurse Triage from Last [...] the past 12 months, has t he [employer] gas, oil or water company threatened to [...] Description 08/05/2024 11:30 AM EDT Office Visit [facility] [address] [place] [address] Arti Lei MD [address] [place], [place] [phone] Health Maintenance Due Date Last Done Comments [...] EST) Vitamin D, 25-OH, D2 4 ng/mL [facility] Comment:This test was develo ped and its analytical performancecharacteristics have been determined by [employer]. It hasnot been cleared or approved by the U.S. Food and DrugAdministration. This assay has been validated pursuantto the CLIA regulations and is used for clinicalpurposes.THIS TEST WAS PERFORMED AT:[facility] [id number] [place] [address]CTKGWAECARIE العلي MD,PHD Vitamin D, 25-OH, D3 27 ng/mL [facility] Comment:This test was develo ped and its analytical performancecharacteristics have been determined by [employer] [place], [place]. It hasnot been cleared or approved by the U.S. Food and DrugAdministration. This assay has been validated pursuantto the CLIA regulations and is used for clinicalpurposes. Vitamin D, 25-OH, Total 31 30 - 100 ng/mL [facility] Comment:Vitamin D, 25-Hydrox y reports [...] = 30 ng/mL.For additional information, please refer tohttp://education.TutorDudes/faq/VQN927(This link is being provided for informational/educational purposes only.) 06/23/2024 2:50 PM EST 06/23/2024 2:50 PM EST Generic External Data Provider LAB BLOOD ORDERAB LES Final Result Performing Organization Address [facility]/ZIP Co de Phone Number [facility] [address] [place] [phone] * Vitamin B12 (Cobalamin) and Folate Panel, Serum (06/23/2024 2:50 PM EST) Vitamin B12 570 200 - 900 pg/mL [facility] Comment:NORMAL 200-900 PG/ML INDETERMINATE 160-199 PG/ML DEFICIENT < 160 PG/ML Folate 15.4 > or = 4.0 ng/mL [facility] Comment:Reference Values:> o r = 4.0 ng/mL< 4.0 ng/mL suggests folate deficiency Methotrexate, aminopterin and folinic acid(leucovorin) are chemotherapeutic agents whose molecularstructures are similar to folate; therefore, the Architectfolate assay cannot be used for patients using these drugs. 06/23/2024 2:50 PM EST 06/23/2024 2:50 PM EST Generic External Data Provider LAB BLOOD ORDERAB LES Final Result Performing Organization Address [facility]/ZIP Co de Phone Number [facility] [address] [place] [phone] * TSH with Reflex to Free T4 (06/23/2024 2:50 PM EST) TSH reflex Free T4 1.65 0.32 - 4.0 uIU/mL [facility] 06/23/2024 2:5 0 PM EST 06/23/2024 2:50 PM EST us Generic External Data Provider LAB BLOOD ORDERAB LES Final Result Performing Organization Address City/State/[facility] Co de Phone Number [facility] [address] [place] [phone] * US ABDOMINAL AORTIC ANEURYSM (06/22/2024 12:50 PM EST) Anatomical Region Laterality Modality Abdomen Ultrasound 06/22/2024 12:5 0 PM EST Narrative 06/22/2024 12:51 PM EST ? [facility] ?[address] ? [place] [address] ? Ultrasound Report ? Signed ? Patient: Jaiden,John ?MR#: [id number] ?? 250 ? : 1950 ?Acct:[id number] ? Age/Sex: 73 / M ?ADM Date: 06/22/24 ? Loc: HO.[facility]GCX ? Attending Dr: Arti Pires MD ? Ordering Physician: Arti Lei MD ?? Date of Service: 06/22/24 ?? Procedure(s): US abdominal aortic aneurysm ?? Accession Number(s): [id number] ? cc: Arti Lei MD ? CLINICAL [...] DD/ 125 ? TD/TT: 06/22/24 1250 ? Medical Office Coordinator: ? Procedure Note Donotuseinterpreter, Image - 06/22/2024 [facility] [address] [place] [address] [place] [address] Ultrasound Report Signed Patient: Thu Hwang#: [id number] : 1950cct:[id number] Age/Sex: 73 / MADM Date: 06/22/24 [facility] Dr: Arti Pires MD Ordering Physician: Arti Lei MD Date of Service: 06/22/24 Procedure(s): US abdominal aortic aneurysm Accession Number(s): [id number] cc: Arti Lei MD CLINICAL HISTORY: SMOKER, [...] 06/22/24 1251 DD/ 1250 TD/TT: 06/22/24 1250 Medical Office Coordinator: us Arti Pires MD [facility] US PROCEDURES Fin al Result * Helicobacter pylori??Antigen, EIA, Stool (06/08/2024 11:30 AM EST) H pylori Ag Stool SEE NOTE [facility] Comment:HELICOBACTER PYLORI AG, EIA, STOOL Micro Number: [id number] Test Status: Final Specimen Source: Stool Specimen Quality: Adequate H.pylori Ag: Not Detected Antimicrobials, proton pump inhibitors, and bismuth preparations inhibit H. pylori and ingestion up to two weeks prior to testing may cause false negative results. If clinically indicated the test should be repeated on a new specimen obtained two weeks after discontinuing treatment. Reference Range: Not DetectedTHIS TEST WAS PERFORMED AT:[facility] [place] [id number] KEANE MD Stool Rectal contents / Unknown 06/08/2024 11:30 AM EST 06/08/2024 1:00 PM EST us Arti Pires MD LAB BODY FLUIDS AND S TOOLS ORDERABLES Final Result Performing Organization Address City/[facility]/ZIP Co de Phone Number [facility] [address] [place] [phone] * Lipid Panel, Standard (06/19/2023 1:12 PM EST) Triglycerides 67 <150 mg/dL [facility] Comment:Desirable Triglyceri de: less than 150 mg/dLBorderline High Triglyceride 150-199 mg/dLHigh Triglyceride: 200-499 mg/dLVery High Triglyceride: greater than or equal to 5OO mg/dL Cholesterol 110 <200 mg/dL [facility] Comment:Desirable Cholestero l: less than 200 mg/dLBorderline High Cholesterol: 200-239 mg/dLHigh Cholesterol: greater than 239 mg/dL LDL Cholesterol Calculated 56 <100 mg/dL [facility] Comment:Desirable LDL: less than 100 mg/dLNear Optimal/Above Optimal LDL: 110- 129 mg/dLBorderline High LDL: 130-159 mg/dLHigh LDL: 160-189 mg/dLVery High LDL: greater than or equal to 190 mg/dL HDL Cholesterol 41 >40 mg/dL [facility] Comment:Desirable HDL: great er than 40 mg/dL Note: This HDL assay may give artificially low results in patients with liver disease. 06/19/2023 1:12 PM EST 06/19/2023 1:12 PM EST us Generic External Data Provider LAB BLOOD ORDERAB LES Final Result [facility] [address] [place] [phone] * Hm Colonoscopy (05/02/2018) us Historical Provider MD HEALTH MAINTENANCE Final Result from Last 3 Months or Most Recently Relevant to Health Maintenance Insurance MEDICARE Member Subscriber Plan / Payer (Ef fective 2022-Present) Name:John Hwang Member ID:[id number] Relation to Subscriber:Self Name:John Hwang Subscriber ID:[id number] Payer ID:STATE Group ID:Not on file Type:Medicare Address: [facility] [address] [phone] [facility] Care Teams Filter Tank Operator Relationship Specialty Start Date End Date Arti Lei MD [address] [place] [phone] PCP - General Family Medicine 02/05/18
--- OUTSIDE RECORDS SUMMARY | 2024-07-24 15:51 | XMS_ITS | Clinical Summary ---
Author Organization [facility] Address [address] [place] [phone] Care Team Providers Care Principal Planner Name Role Phone Arti Lei MD Primary [...] Visit [facility] [address] [place] [address] Brent Hammond MD [address] [facility] [address] [place] [phone] Health Maintenance Due Date Last Done Comments [...] [place] Care Teams Principal Planner Relationship Specialty Start Date End Date Arti Lei MD [address] [place] [phone] PCP - General Internal Medicine 10/18/22
--- OUTSIDE RECORDS SUMMARY | 2024-07-24 15:51 | XMS_ITS | Encounter Summary ---
Author Organization [employer] [facility] Address [address] [place] [address] 7t [place] [address] Care Team Providers Care Germination Testing Manager Name Role Phone Arti Lei MD Primary Care Provide r Encounter Details Date Type Department Care Team (Late st Contact Info) Description 02/05/2023 Orders Only [facility] [address] [place] [address] [phone] Provider, MD Jenifer Social History Tobacco Use [...] Description 08/05/2024 11:30 AM EDT Office Visit [facility] [address] [place] [address] [phone] Arti Lei MD [address] [place] [address] [phone] documented as of this encounter Procedures Procedure [...] documented as of this encounter Care Teams Germination Testing Manager Relationship Specialty Start Date End Date Arti Lei MD [address] [place] [address] PCP - General Family Medicine 02/05/18 documented as of this encounter
--- OUTSIDE RECORDS SUMMARY | 2024-07-24 15:51 | XMS_ITS | Encounter Summary ---
Author Organization [employer] Address [address] [place] [address] 7t [place] [address] Care Team Providers Care Hydro Operator Name Role Phone Arti Lei MD Primary Care Provide r Reason for Visit * Reason Comments Med Refill Encounter Details Date Type Department Care Team (Late st Contact Info) Description 12/17/[address] [facility] [address] [place] [address] [phone] Arti Lei MD [address] [place] [address] [phone] Primary hypertension Social History Tobacco Use Types [...] Description 08/05/2024 11:30 AM EDT Office Visit [facility] [address] [place] [phone] Arti Lei MD [address] [place] [phone] documented as of this encounter Visit Diagnoses Diagnosis Primary hypertension Unspecified essential hypertension documented in this encounter Additional Health Concerns Assessment Noted Time PHQ-9 Depression Total Score: 2 10/16/19 23 3:44 PM EDT documented as of this encounter Care Teams Hydro Operator Relationship Specialty Start Date End Date Arti Lei MD [address] [place] [address] PCP - General Family Medicine 02/05/18 documented as of this encounter
--- OUTSIDE RECORDS SUMMARY | 2024-07-24 15:52 | XMS_ITS | Encounter Summary ---
Author Organization [facility] Address [address] [facility] [address] [place] [address] Phone Care Team Providers Care Spa Associate Name Role Phone Arti Lei MD Primary Care Provide r Encounter Details Date Type Department Care Team (Late st Contact Info) Description 10/23/2022 Telephone [facility] [address] [facility] [address] [place] [address] Emma Wei Social History Tobacco [...] Visit [facility] [address] [place] [phone] Brent Hammond MD [address] [facility] [address] [place] [address] documented as of this encounter Visit Diagnoses Not on filedocumented in this encounter Care Teams Spa Associate Relationship Specialty Start Date End Date Arti Lei MD [address] [place] [phone] PCP - General Internal Medicine 10/18/22 documented as of this encounter
[2024-07-27 22:14] LABS: Transglutaminase IgA <1.0 U/mL
== END 2024-07-24 13:45 | disposition home or self-care (01) ==
LOC: HO.HMGCLDS 13:44
PROVIDERS: PCP Internal Medicine; Visit Provider Nurse Practitioner Family
DX: R10.9 Unspecified abdominal pain (principal); F17.210 Nicotine dependence, cigarettes, uncomplicated
CPT/HCPCS: 36415; 71271; 86364

== ENCOUNTER 2024-07-28 10:00 | Outpatient (REF) | payer MEDICARE, MEDICAID, SELFPAY ==
--- OUTSIDE RECORDS SUMMARY | 2024-07-28 15:21 | XMS_ITS | Clinical Summary ---
Author Organization [facility] Address [address] [place] [address] Care Team Providers Care Felt Hanger Name Role Phone Arti Lei MD Primary [...] [facility] [address] [place] [address] Brent Hammond MD [address] [facility] [address] [place] [phone] Health Maintenance Due Date Last Done Comments [...] [place] Care Teams Felt Hanger Relationship Specialty Start Date End Date Arti Lei MD [address] [place] [phone] PCP - General Internal Medicine 10/18/22
--- OUTSIDE RECORDS SUMMARY | 2024-07-28 15:22 | XMS_ITS | Encounter Summary ---
Author Organization [employer] Address [address] [facility] 7t [place] [address] Care Team Providers Care Shape Hand Name Role Phone Arti Lei MD Primary Care Provide r Reason for Visit * Reason Onset Date Comments FYI 10/19/2022 Encounter Details Date Type Department Care Team ([facility] st Contact Info) Description 10/19/2022 Telephone [facility] [address] [place], [place] [phone] Arti Lei MD [address] [place] [address] FYI Social History Tobacco Use Types Packs/Day [...] Description 08/05/2024 11:30 AM EDT Office Visit [facility] [address] [place], [place] [phone] Arti Lei MD [address] [place], [place] [phone] documented as of this encounter Visit Diagnoses Not on filedocumented in this encounter Additional Health Concerns Assessment Noted Time PHQ-9 Depression Total Score: 2 10/16/19 23 3:44 PM EDT documented as of this encounter Care Teams Shape Hand Relationship Specialty Start Date End Date Arti Lei MD [address] [place] [address] PCP - General Family Medicine 02/05/18 documented as of this encounter
--- OUTSIDE RECORDS SUMMARY | 2024-07-28 15:22 | XMS_ITS | Encounter Summary ---
Author Organization [employer] Address [address] [facility] 7t [place] [address] Care Team Providers Care System Software Developer Name Role Phone Arti Lei MD Primary Care Provide r Reason for Visit * Reason Comments Med Refill Encounter Details Date Type Department Care Team ([facility] st Contact Info) Description 11/30/2023 Refill [facility] [address] [place], [place] [phone] Arti Lei MD [address] [place] [address] Primary hypertension Social History Tobacco Use Types [...] 11:30 AM EDT Office Visit [facility] [address] [place] [address] Arti Lei MD [address] [place] [address] documented as of this encounter Visit Diagnoses Diagnosis Primary hypertension Unspecified essential hypertension documented in this encounter Additional Health Concerns Assessment Noted Time PHQ-9 Depression Total Score: 2 10/16/19 23 3:44 PM EDT documented as of this encounter Care Teams System Software Developer Relationship Specialty Start Date End Date Arti Lei MD [address] [place] [phone] PCP - General Family Medicine 02/05/18 documented as of this encounter
--- OUTSIDE RECORDS SUMMARY | 2024-07-28 15:22 | XMS_ITS | Encounter Summary ---
Author Organization [employer] Address [address] [facility] [address] [place] [address] Care Team Providers Care Bell Valet Name Role Phone Arti Lei MD Primary Care Provide r Encounter Details Date Type Department Care Team (Late st Contact Info) Description 09/12/2022 Orders Only [facility] MED & PEDS [address] [place], [place] [phone] Emma Loredo LPN Social History Tobacco Use [...] Description 08/05/2024 11:30 AM EDT Office Visit [facility] MEDICINE [address] [place] [address] Arti Lei MD [address] [place], [place] [phone] documented as of this encounter Procedures Procedure [...] (12/28/2022 9:40 AM EDT) Triglycerides 74 mg/dL [facility] Comment:Desirable Triglyceri de: less than 150 mg/dLBorderline High Triglyceride 150-199 mg/dLHigh Triglyceride: 200-499 mg/dLVery High Triglyceride: greater than or equal to 5OO mg/dL Cholesterol 166 mg/dL [facility] Comment:Desirable Cholestero l: less than 200 mg/dLBorderline High Cholesterol: 200-239 mg/dLHigh Cholesterol: greater than 239 mg/dL LDL Cholesterol Calculated 107 mg/dl [facility] Comment:Desirable LDL: less than 100 mg/dLNear Optimal/Above Optimal LDL: 110- 129 mg/dLBorderline High LDL: 130-159 mg/dLHigh LDL: 160-189 mg/dLVery High LDL: greater than or equal to 190 mg/dL HDL Cholesterol 45 mg/dL [facility] Comment:Desirable HDL: great er than 40 mg/dL Note: This HDL assay may give artificially low results in patients with liver disease. 12/28/2022 9:40 AM EDT 12/28/2022 9:40 AM EDT us Generic External Data Provider LAB BLOOD ORDERAB LES Final Result [facility] [address] [place] [address] [phone] * Basic Metabolic Panel (12/28/2022 9:40 AM EDT) Sodium 138 135 - 145 mmol/L [facility] Potassium 4.5 3.3 - 5.1 mmol/L [facility] Chloride 106 96 - 108 mmol/L [facility] Carbon Dioxide 22 22 - 29 mmol/L [facility] Anion Gap 15 12 - 20 [facility] Urea Nitrogen (BUN) 16 9 - 16 mg/dL [facility] Creatinine, Serum 1.12 0.5 - 1.4 mg/dL [facility] Estimated Glomerular Filt Rate >60 [facility] Comment:NOTE: For -Am erican individuals, multiply the result by 1.210.Chronic Kidney Disease: Estimated GFR < 60 mL/min/1.82q0Baizht Kidney Disease: Estimated GFR < 15 mL/min/1.73m2 Glucose 113 60 - 115 mg/dL [facility] Calcium 9.1 8.4 - 10.2 mg/dL [facility] 12/28/2022 9:40 AM EDT 12/28/2022 9:40 AM EDT us [facility] External Provider LAB BLO OD ORDERABLES Final Result [facility] [address] [place] [address] [phone] * (ABNORMAL) CBC auto differential (12/28/2022 9:40 AM EDT) White Blood Count 9.9 4.8 - 10.8 X10*3/uL [facility] Red Blood Count 4.06(L) 4.60 - 5.80 X10*6/uL [facility] Hemoglobin 13.0(L) 14.0 - 18.0 g/dl [facility] Hematocrit 39.4(L) 42.0 - 52.0 % [facility] Mean Corpuscular Volume 97.0 80.0 - 98.0 fL [facility] Mean Corpuscular Hemoglobin 32.0 27.0 - 33.0 pg [facility] Mean Corpuscular HGB Conc 33.0 31.0 - 36.0 g/dl [facility] Red Cell Distribution Width 12.7 11.0 - 16.0 % [facility] Platelet Count 275 160 - 400 X10*3/uL [facility] Mean Platelet Volume 9.0(L) 9.4 - 12.4 fL [facility] Neutrophils Percent Auto 71.2 45 - 73 % [facility] Imm Gran Pct Auto 1.0(H) 0.0 - 0.4 % [facility] Lymphocytes Percent Auto 17.8(L) 20 - 40 % [facility] Monocytes Percent Auto 7.5 2 - 11 % [facility] Eosinophils Percent Auto 2.0 0 - 4 % [facility] Basophils Percent Auto 0.5 0 - 2 % [facility] NRBC Pct Auto 0.0 0.0 - 0.2 /100WBC [facility] Neutrophils Absolute Auto 7.1 2.0 - 8.3 x10*3/uL [facility] Imm Gran Abs Auto 0.10(H) 0.00 - 0.03 X10*3/uL [facility] Lymphocytes Absolute Auto 1.8 1.2 - 4.9 X10*3/uL [facility] Monocytes Absolute Auto 0.7 0.1 - 1.2 X10*3/uL [facility] Eosinophils Absolute Auto 0.2 0.0 - 0.4 X10*3/uL [facility] Basophils Absolute Auto 0.1 0.0 - 0.2 X10*3/uL [facility] NRBC Abs Auto 0.000 0.0 - 0.012 X10*3/uL [facility] 12/28/2022 9:40 AM EDT 12/28/2022 9:40 AM EDT us [facility] External Provider LAB BLO OD ORDERABLES Final Result Performing Organization Address City/State/[facility] Co de Phone Number [facility] [address] [place] [phone] * Prothrombin Time-INR (12/28/2022 9:40 AM EDT) Prothrombin Time 11.6 11.1 - 13.3 SEC [facility] INTERNATIONAL NORM RATIO 1.0 0.9 - 1.1 [facility] Comment:INTERNATIONAL NORMAL IZED RATIO (INR) REFERENCE [...] AM EDT 12/28/2022 9:40 AM EDT us [facility] External Provider LAB BLO OD ORDERABLES Final Result [facility] [address] [place] [address] [phone] * (ABNORMAL) Comprehensive Metabolic Panel (11/28/2022 9:22 AM EDT) Sodium 140 135 - 145 mmol/L [facility] Potassium 5.1 3.3 - 5.1 mmol/L [facility] Chloride 107 96 - 108 mmol/L [facility] Carbon Dioxide 24 22 - 29 mmol/L [facility] Anion Gap 14 12 - 20 [facility] Urea Nitrogen (BUN) 16 9 - 16 mg/dL [facility] Creatinine, Serum 1.54(H) 0.5 - 1.4 mg/dL [facility] Estimated Glomerular Filt Rate 45 [facility] Comment:NOTE: For -Am erican individuals, multiply the result by 1.210.Chronic Kidney Disease: Estimated GFR < 60 mL/min/1.63g4Osotyc Kidney Disease: Estimated GFR < 15 mL/min/1.73m2 Glucose 119(H) 60 - 115 mg/dL [facility] Calcium 9.6 8.4 - 10.2 mg/dL [facility] Bilirubin, Total 0.8 0.0 - 1.0 mg/dL [facility] Aspartate Amino Transferase 13 5 - 37 U/L [facility] Alanine Aminotransferase 11 0 - 40 U/L [facility] Total Protein 7.2 6.5 - 8.0 g/dL [facility] Albumin Level 4.0 3.5 - 5.0 g/dL [facility] Alkaline Phosphatase 43 39 - 117 U/L [facility] 11/28/2022 9:22 AM EDT 11/28/2022 9:22 AM EDT us [facility] External Provider LAB BLO OD ORDERABLES Final Result [facility] [address] [place] [address] [phone] * (ABNORMAL) CBC auto differential (11/28/2022 9:22 AM EDT) White Blood Count 7.7 4.8 - 10.8 X10*3/uL [facility] Red Blood Count 3.92(L) 4.60 - 5.80 X10*6/uL [facility] Hemoglobin 12.4(L) 14.0 - 18.0 g/dl [facility] Hematocrit 38.1(L) 42.0 - 52.0 % [facility] Mean Corpuscular Volume 97.2 80.0 - 98.0 fL [facility] Mean Corpuscular Hemoglobin 31.6 27.0 - 33.0 pg [facility] Mean Corpuscular HGB Conc 32.5 31.0 - 36.0 g/dl [facility] Red Cell Distribution Width 13.5 11.0 - 16.0 % [facility] Platelet Count 282 160 - 400 X10*3/uL [facility] Mean Platelet Volume 8.9(L) 9.4 - 12.4 fL [facility] Neutrophils Percent Auto 68.7 45 - 73 % [facility] Imm Gran Pct Auto 0.4 0.0 - 0.4 % [facility] Lymphocytes Percent Auto 21.1 20 - 40 % [facility] Monocytes Percent Auto 8.2 2 - 11 % [facility] Eosinophils Percent Auto 1.2 0 - 4 % [facility] Basophils Percent Auto 0.4 0 - 2 % [facility] NRBC Pct Auto 0.0 0.0 - 0.2 /100WBC [facility] Neutrophils Absolute Auto 5.3 2.0 - 8.3 x10*3/uL [facility] Imm Gran Abs Auto 0.03 0.00 - 0.03 X10*3/uL [facility] Lymphocytes Absolute Auto 1.6 1.2 - 4.9 X10*3/uL [facility] Monocytes Absolute Auto 0.6 0.1 - 1.2 X10*3/uL [facility] Eosinophils Absolute Auto 0.1 0.0 - 0.4 X10*3/uL [facility] Basophils Absolute Auto 0.0 0.0 - 0.2 X10*3/uL [facility] NRBC Abs Auto 0.000 0.0 - 0.012 X10*3/uL [facility] 11/28/2022 9:22 AM EDT 11/28/2022 9:22 AM EDT [facility] External Provider LAB BLO OD ORDERABLES Final Result Performing Organization Address [facility]/ZIP Co de Phone Number [facility] [address] [place] [address] [phone] * Chromosome Analysis, Bone Marrow (11/22/2022 12:00 PM EDT) Pathologist [facility] Chromosome Analysis, Bone Marrow See note [facility] Comment:See report from [employer] in the EMR. 11/22/2022 12:0 0 PM EDT 11/22/2022 1:46 PM EDT [facility] Exter nal Provider LAB BODY FLUIDS AND STOOLS ORDERABLES Final Result Performing Organization Address City/[facility] Co de Phone Number [facility] [address] [place] [address] [phone] * LEUKEMIA/LYMPH. EVAL. BONE MAR (11/22/2022 12:00 PM EDT) LLE Interpretation See Note [facility] Comment:See report from [employer] in the EMR. 11/22/2022 12:0 0 PM EDT 11/22/2022 1:46 PM EDT us [facility] External Provider LAB BLO OD ORDERABLES Final Result [facility] [address] [place] [phone] * Bone Marrow Smear (11/22/2022 11:45 AM EDT) 11/22/2022 11:4 5 AM EDT 11/22/2022 1:56 PM EDT Narrative [facility] - 01/23/2023 11:20 AM EDT ----- ------- Name: John Hwang ?Age/Sex: 72/M ? : 1950 Unit#: [id number] ?? Attend Dr: Oliver Ospina MD ?Re11/22/22 ?Status: DEP SDC ? Location: [facility] ?Disch: ? ----- ------- SPEC : [id number] ? RECD: 11/22/22-1356 ? STATUS: ??SOUT ? REQ NUM: [id number] ? AURA: 11/22/22-1145 ? SUBM DR: Oliver [...] Technical services for reticulin study performed at [facility] [address] Alda Nagel [place]; [place] #[id number] Addendum Signed (signature on file) Malik Lancaster [...] Hwang ?Age/Sex: 72/M ? : 1950 Unit#: [id number] ?? Attend Dr: Oliver Ospina MD ?Re11/22/22 ?Status: DEP [facility] ? Location: [facility] ?Disch: ? ----- ------- SPEC : [id number] ? RECD: 11/22/226 ? STATUS: ??SOUT ? REQ NUM: [id number] ? AURA: 11/22/22-1145 ? SUBM DR: Oliver Ospina MD ? ENTERED: ??11/22/22-8738 ?SP TYPE: Surgical ? OTHR DR: Arti [...] Hwang ?Age/Sex: 72/M ? : 1950 Unit#: [id number] ?? Attend Dr: Oliver Ospina MD ?Re11/22/22 ?Status: DEP SDC ? Location: HO.SSS ?Disch: ? ----- ------- SPEC : [id number] ? RECD: 11/22/22-8662 ? STATUS: ??SOUT ? REQ NUM: [id number] ? AURA: 11/22/22-114 ? SUBM DR: Oliver Ospina MD ? ENTERED: ??11/22/22-1938 ?SP TYPE: Surgical ? OTHR DR: Arti [...] ?? [address] [facility] ?? [address] ?? [phone] ?? Oliver Ospina MD ?? [address] ?? Dept. of Hematology/Oncology ?? [address] ?? [phone] ----- ------- Signed (signature on file) Malik Lancaster MD 11/30/221630 ? ----- ------- ? END OF REPORT ? us [facility] Exter nal Provider LAB BODY FLUIDS AND STOOLS ORDERABLES Final Result [facility] [address] [place] [address] [phone] * (ABNORMAL) Phosphate (As Phosphorus) (10/23/2022 10:03 AM EDT) Phosphorus 2.3(L) 2.7 - 4.5 mg/dL [facility] 10/23/2022 10:0 3 AM EDT 10/23/2022 10:04 AM EDT [facility] External Provider LAB BLO OD ORDERABLES Final Result [facility] [address] [place] [phone] * Calcium (10/23/2022 10:03 AM EDT) Calcium 10.0 8.4 - 10.2 mg/dL [facility] 10/23/2022 10:0 3 AM EDT 10/23/2022 10:04 AM EDT [facility] External Provider LAB BLO OD ORDERABLES Final Result Performing Organization Address City/[facility]/ZIP Co de Phone Number [facility] [address] [place] [phone] * (ABNORMAL) Creatinine, Serum (10/23/2022 10:03 AM EDT) Creatinine, Serum 2.03(H) 0.5 - 1.4 mg/dL [facility] Estimated Glomerular Filt Rate 33 [facility] Comment:NOTE: For -Am erican individuals, multiply the result by 1.210.Chronic Kidney Disease: Estimated GFR < 60 mL/min/1.01r6Wpctbk Kidney Disease: Estimated GFR < 15 mL/min/1.73m2 10/23/2022 10:0 3 AM EDT 10/23/2022 10:04 AM EDT [facility] External Provider LAB BLO OD ORDERABLES Final Result Performing Organization Address [facility] Co de Phone Number [facility] [address] [place] [address] [phone] * (ABNORMAL) BUN (Blood Urea Nitrogen) (10/23/2022 10:03 AM EDT) Urea Nitrogen (BUN) 17(H) 9 - 16 mg/dL [facility] 10/23/2022 10:0 3 AM EDT 10/23/2022 10:04 AM EDT [facility] External Provider LAB BLO OD ORDERABLES Final Result Performing Organization Address [facility] de Phone Number [facility] [address] [place] [address] [phone] * (ABNORMAL) Electrolyte Panel (10/23/2022 10:03 AM EDT) Sodium 143 135 - 145 mmol/L [facility] Potassium 3.9 3.3 - 5.1 mmol/L [facility] Chloride 109(H) 96 - 108 mmol/L [facility] Carbon Dioxide 28 22 - 29 mmol/L [facility] Anion Gap 10(L) 12 - 20 [facility] 10/23/2022 10:0 3 AM EDT 10/23/2022 10:04 AM EDT [facility] External Provider LAB BLO OD ORDERABLES Final Result Performing Organization Address [facility] Co de Phone Number [facility] [address] [place] [address] [phone] * (ABNORMAL) Urinalysis, Complete, with Reflex to Culture (10/17/2022 4:16 AM EDT) Color Urine Yellow [facility] Appearance Urine Clear [facility] PH 6.5 5.0 - 9.0 [facility] Glucose Urine UA Negative Negative mg/dL [facility] Urine Blood Negative Negative [facility] Specific [place] - Urine 1.010 1.005 - 1.025 [facility] Urine Protein Negative Neg-Trace mg/dL [facility] Urine Ketones Negative Negative mg/dL [facility] Nitrite Urine Negative Negative [facility] Leukocyte Esterase Urine Small (1+)(A) Negative [facility] RBC Urine 0-2 0 - 2 /HPF [facility] Urine WBC 11-20(A) 0 - 5 /HPF [facility] Urine Squamous Epithelial Cell 0-2 0 - 2 /HPF [facility] Urine Bacteria None Seen None Seen [facility] Hyaline Casts, Urine 3-5 0 - 2 /LPF [facility] 10/17/2022 4:16 AM EDT 10/17/2022 4:19 AM EDT Narrative [facility] - 10/17/2022 4:34 AM EDT Urine, Clean Catch [facility] External Provider LAB URI NE ORDERABLES Final Result Performing Organization Address [facility] Co de Phone Number [facility] [address] [place] [phone] * Magnesium (10/17/2022 2:51 AM EDT) Magnesium 2.6 1.6 - 2.6 mg/dL [facility] 10/17/2022 2:51 AM EDT 10/17/2022 2:55 AM EDT [facility] External Provider LAB BLO OD ORDERABLES Final Result Performing Organization Address [facility] Co de Phone Number [facility] [address] [place] [phone] * (ABNORMAL) Comprehensive Metabolic Panel (10/17/2022 2:51 AM EDT) Sodium 138 135 - 145 mmol/L [facility] Potassium 3.8 3.3 - 5.1 mmol/L [facility] Chloride 99 96 - 108 mmol/L [facility] Carbon Dioxide 33(H) 22 - 29 mmol/L [facility] Anion Gap 10(L) 12 - 20 [facility] Urea Nitrogen (BUN) 42(H) 9 - 16 mg/dL [facility] Creatinine, Serum 3.18(H) 0.5 - 1.4 mg/dL [facility] Creatinine Clr Calc Pharmacy 18.4 [facility] Comment:eGFR (calculated fro m the MDRD study equation) and eCrCl(calculated from the Cockcroft-Gault equation) are based ondifferent parameters and may not yield comparable results.If eCrCl result is absurd, please check patient'sheight/weight. Estimated Glomerular Filt Rate 19 [facility] Comment:NOTE: For -Am erican individuals, multiply the result by 1.210.Chronic Kidney Disease: Estimated GFR < 60 mL/min/1.88r6Pjrinh Kidney Disease: Estimated GFR < 15 mL/min/1.73m2 Glucose 129(H) 60 - 115 mg/dL [facility] Calcium 15.7(HH) 8.4 - 10.2 mg/dL [facility] Comment:Critical value for t est(s): CALCIUM Results called to luci back by: NEDRA Person calling:VINCENT Date:10/17/22 Time:0323 Bilirubin, Total 0.8 0.0 - 1.0 mg/dL [facility] Aspartate Amino Transferase 13 5 - 37 U/L [facility] Alanine Aminotransferase 11 0 - 40 U/L [facility] Total Protein 7.0 6.5 - 8.0 g/dL [facility] Albumin Level 4.2 3.5 - 5.0 g/dL [facility] Alkaline Phosphatase 50 39 - 117 U/L [facility] 10/17/2022 2:51 AM EDT 10/17/2022 2:55 AM EDT us [facility] External Provider LAB BLO OD ORDERABLES Final Result [facility] [address] [place], [place] [phone] * (ABNORMAL) CBC auto differential (10/17/2022 2:51 AM EDT) White Blood Count 10.3 4.8 - 10.8 X10*3/uL [facility] Red Blood Count 4.13(L) 4.60 - 5.80 X10*6/uL [facility] Hemoglobin 13.0(L) 14.0 - 18.0 g/dl [facility] Hematocrit 37.6(L) 42.0 - 52.0 % [facility] Mean Corpuscular Volume 91.0 80.0 - 98.0 fL [facility] Mean Corpuscular Hemoglobin 31.5 27.0 - 33.0 pg [facility] Mean Corpuscular HGB Conc 34.6 31.0 - 36.0 g/dl [facility] Red Cell Distribution Width 12.1 11.0 - 16.0 % [facility] Platelet Count 244 160 - 400 X10*3/uL [facility] Mean Platelet Volume 9.1(L) 9.4 - 12.4 fL [facility] Neutrophils Percent Auto 73.6(H) 45 - 73 % [facility] Imm Gran Pct Auto 0.3 0.0 - 0.4 % [facility] Lymphocytes Percent Auto 18.0(L) 20 - 40 % [facility] Monocytes Percent Auto 6.8 2 - 11 % [facility] Eosinophils Percent Auto 0.9 0 - 4 % [facility] Basophils Percent Auto 0.4 0 - 2 % [facility] NRBC Pct Auto 0.0 0.0 - 0.2 /100WBC [facility] Neutrophils Absolute Auto 7.6 2.0 - 8.3 x10*3/uL [facility] Imm Gran Abs Auto 0.03 0.00 - 0.03 X10*3/uL [facility] Lymphocytes Absolute Auto 1.8 1.2 - 4.9 X10*3/uL [facility] Monocytes Absolute Auto 0.7 0.1 - 1.2 X10*3/uL [facility] Eosinophils Absolute Auto 0.1 0.0 - 0.4 X10*3/uL [facility] Basophils Absolute Auto 0.0 0.0 - 0.2 X10*3/uL [facility] NRBC Abs Auto 0.000 0.0 - 0.012 X10*3/uL [facility] 10/17/2022 2:51 AM EDT 10/17/2022 2:55 AM EDT us [facility] External Provider LAB BLO OD ORDERABLES Final Result [facility] [address] [place] [phone] documented in this encounter Visit Diagnoses Not on filedocumented in this encounter Care Teams Bell Valet Relationship Specialty Start Date End Date Arti eLi MD [address] [place] [phone] PCP - General Family Medicine 02/05/18 documented as of this encounter
--- OUTSIDE RECORDS SUMMARY | 2024-07-28 15:22 | XMS_ITS | Encounter Summary ---
Author Organization [employer] Address [address] [facility] 7t [place] [address] Care Team Providers Care Mat Making Machine Tender Name Role Phone Arti Lei MD Primary Care Provide r Encounter Details Date Type Department Care Team (Late st Contact Info) Description 07/24/2024 Orders Only [facility] External Provider, [facility] Social History Tobacco Use Types Packs/Day Years [...] Description 08/05/2024 11:30 AM EDT Office Visit [facility] [address] [facility] [place] [address] Arti Lei MD [address] [facility] [place] [address] documented as of this encounter Procedures Procedure Name Priority Date/Time Associated Diagnosis Comments LDCT LUNG SCREENING Routine 07/24/2024 7 :14 PM EST TISSUE TRANSGLUTAMINASE AB, IGA Routine 07/24/2024 1:54 PM EST documented in this encounter Results * CT Lung Screening Low dose (07/24/2024 7:14 PM EST) Anatomical Region Laterality Modality Lung Computed Tomogra phy 07/24/2024 7:14 PM EST Narrative 07/24/2024 7:16 PM EST ? [facility] ?[address] ?[place] [address] ? CT Scan Report ? Signed ? Patient: Jaiden,John ?MR#: [id number] ?? 250 ? : 1950 ?Acct:[id number] ? Age/Sex: 73 / M ?ADM Date: 02/28/25 ? Loc: HO.CT ? Attending Dr: Ila Meek PA-C ? Ordering Physician: Ila Meek PA-C ?? Date of Service: 07/24/24 ?? Procedure(s): CT lung screening ?? Accession Number(s): [id number] ? cc: Arti Lei MD; Ila Meek PA-C ? Report Number: ?? [id number]: Total DLP = ?? 50.00 mGy-cm ? CLINICAL HISTORY: F17.210 - Nicotine dependence, cigarettes, uncomplicated ? CT lung cancer screening (LDCT) ? Comparison: 12/25/2022 ? Technique: ?? Axial CT images of the chest using low-dose technique. Referring provider ?? counseled the patient on shared decision-making for LDCT screening. ?? Additional counseling was provided on smoking cessation. ?? Effective radiation dose total: DLP 38.6 mGycm, CTDIvol 1 mGy. ? Findings: ?? Lung: No new solid or semi solid lesion ? Coronary artery calcifications: Severe ?? Limited upper abdomen: Unremarkable ? Other: Pulmonary bullous disease with areas of scarring or subsegmental ?? atelectasis, not significantly changed ? Impression: ?? Category 2: Benign appearance or behavior, continue annual screening ? Category 1: Normal; continue annual screening ?? Category 2: Benign appearance or behavior, continue annual screening ?? Category 3: Probably benign, [address] recommended ?? Category 4A: Suspicious, [address] recommended; may consider PET/CT ?? Category 4B: Suspicious, Additional diagnostics and/or tissue sampling ?? recommended ?? Category 4X: Suspicious, Additional diagnostics and/or tissue sampling ?? recommended ?? Category 0: Recalls (incomplete screen due to Incomplete coverage, Noise, ?? Respiratory motion, Expiration, Obscured by acute abnormality) ? This document has been electronically signed by: John Ramírez MD on ?? 07/24/2024 19:14:30 ? Dictated By: ?John Ramírez MD ? Signed By: ?<Electronically signed by John Ramírez MD in OV> ?07/24/241914 ? DD/ 13 ? TD/TT: 07/24/241913 ? Assistant Store Manager Sales: ? Procedure Note Vinod, Quintin - 07/24/2024 [address] [id number] [place] [address] CT Scan Report Signed Patient: John HwangMR#: [id number] 250 : 2Acct:[id number] Age/Sex: 73 / MADM Date: 07/24/24 Loc: HO.CT Attending Dr: Ila Meek PA-C Ordering Physician: Ila Meek PA-C Date of Service: 07/24/24 Procedure(s): CT lung screening Accession Number(s): [id number] cc: Arti Lei MD; Ila Meek PA-C Report Number: [id number]: Total DLP = 50.00 mGy-cm CLINICAL HISTORY: F17.210 - Nicotine dependence, cigarettes, uncomplicated CT lung cancer screening (LDCT) Comparison: 12/25/2022 Technique: Axial CT images of the chest using low-dose technique. Referring provider counseled the patient on shared decision-making for LDCT screening. Additional counseling was provided on smoking cessation. Effective radiation dose total: DLP 38.6 mGycm, CTDIvol 1 mGy. Findings: Lung: No new solid or semi solid lesion Coronary artery calcifications: Severe Limited upper abdomen: Unremarkable Other: Pulmonary bullous disease with areas of scarring or subsegmental atelectasis, not significantly changed Impression: Category 2: Benign appearance or behavior, continue annual screening Category 1: Normal; continue annual screening Category 2: Benign appearance or behavior, continue annual screening Category 3: Probably benign, [address] recommended Category 4A: Suspicious, [address] recommended; may consider PET/CT Category 4B: Suspicious, Additional diagnostics and/or tissue sampling recommended Category 4X: Suspicious, Additional diagnostics and/or tissue sampling recommended Category 0: Recalls (incomplete screen due to Incomplete coverage, Noise, Respiratory motion, Expiration, Obscured by acute abnormality) This document has been electronically signed by: John Ramírez MD on 07/24/2024 19:14:30 Dictated By: John Ramírez MD Signed By: <Electronically signed by John Ramírez MD in OV> 07/24/241914 DD/ 13 TD/TT: 07/24/241913 Assistant Store Manager Sales: [facility] External Provider IMG CT PROCEDURES Final Result * Tissue Transglutaminase Antibody, IgA (07/24/2024 1:54 PM EST) Transglutaminase IgA <1.0 U/mL [facility] Comment:Value Interpretation ----- <15.0 Antibody not detected> or = 15.0 Antibody detectedTHIS TEST WAS PERFORMED AT:[employer] [place] [phone] KEANE MD 07/24/2024 1:54 PM EST 07/24/2024 4:12 PM EST Generic External Data Provider LAB BLOOD ORDERAB LES Final Result Performing Organization Address City/State/[facility] Co de Phone Number [facility] [address] [place] [phone] documented in this encounter Visit Diagnoses Not on filedocumented in this encounter Additional Health Concerns Assessment Noted Time PHQ-9 Depression Total Score: 2 10/16/19 23 3:44 PM EDT documented as of this encounter Care Teams Mat Making Machine Tender Relationship Specialty Start Date End Date Arti Lei MD [address] [place] [phone] PCP - General Family Medicine 02/05/18 documented as of this encounter
--- OUTSIDE RECORDS SUMMARY | 2024-07-28 15:22 | XMS_ITS | Encounter Summary ---
Author Organization [employer] Address [address] [place] [address] 7t [place] [address] Care Team Providers Care Toy Maker Name Role Phone Arti Lei MD Primary Care Provide r Reason for Visit * Reason Comments Med Refill Encounter Details Date Type Department Care Team (Late st Contact Info) Description 12/17/2022 Refill [facility] [address] [place] [address] [phone] Arti Lei MD [address] [place] [address] [phone] Primary hypertension Social History Tobacco Use Types [...] Description 08/05/2024 11:30 AM EDT Office Visit [facility] [address] [place] [address] [phone] Arti Lei MD [address] [place] [address] [phone] documented as of this encounter Visit Diagnoses Diagnosis Primary hypertension Unspecified essential hypertension documented in this encounter Additional Health Concerns Assessment Noted Time PHQ-9 Depression Total Score: 2 10/16/19 23 3:44 PM EDT documented as of this encounter Care Teams Toy Maker Relationship Specialty Start Date End Date Arti Lei MD [address] [place] [address] PCP - General Family Medicine 02/05/18 documented as of this encounter
--- OUTSIDE RECORDS SUMMARY | 2024-07-28 15:22 | XMS_ITS | Encounter Summary ---
Author Organization [facility] Address [address] [facility] [address] [place] [address] Phone Care Team Providers Care Kiln Firer Helper Name Role Phone Arti Lei MD Primary Care Provide r Encounter Details Date Type Department Care Team (Late st Contact Info) Description 10/23/2022 Telephone [facility] [address] [facility] [address] [place] [address] Emma Wei Social History Tobacco [...] Visit [facility] [address] [place] [phone] Brent Hammond MD [address] [facility] [address] [place] [address] documented as of this encounter Visit Diagnoses Not on filedocumented in this encounter Care Teams Kiln Firer Helper Relationship Specialty Start Date End Date Arti Lei MD [address] [place] [phone] PCP - General Internal Medicine 10/18/22 documented as of this encounter
--- OUTSIDE RECORDS SUMMARY | 2024-07-28 15:22 | XMS_ITS | Encounter Summary ---
Author Organization [employer] [facility] Address [address] [place] [address] 7t [place] [address] Care Team Providers Care Paintings Conservator Name Role Phone Arti Lei MD Primary Care Provide r Encounter Details Date Type Department Care Team (Late st Contact Info) Description 02/05/2023 Orders Only [facility] [address] [place] [address] [phone] Provider, MD Jenifer Social History Tobacco Use [...] Description 08/05/2024 11:30 AM EDT Office Visit [facility] [address] [place] [address] [phone] Arti Lei MD [address] [place] [address] [phone] documented as of this encounter Procedures Procedure [...] documented as of this encounter Care Teams Paintings Conservator Relationship Specialty Start Date End Date Arti Lei MD [address] [place] [address] PCP - General Family Medicine 02/05/18 documented as of this encounter
--- OUTSIDE RECORDS SUMMARY | 2024-07-28 15:22 | XMS_ITS | Clinical Summary ---
Author Organization [employer] Address [address] 7t [place] [address] Care Team Providers Care Unstacker Name Role Phone Arti Lei MD Primary [...] declines medications Coronary artery disease invo lving [place] coronary artery of [place] heart without angina pectoris 04/16/2023 Assessment & [...] Encounters Date Type Department Care Team Description 07/24/2024 Orders Only [facility] External Provider, [facility] 06/23/2024 Orders Only GENERIC EXTERNAL DATA DEPARTMENT Provider, Generic External Data 06/22/2024 Orders Only [facility] [address] [place] [address] Arti Lei MD 06/17/2024 Telephone [facility] [address] [place] [address] Karol YodervladJACKIE Results 06/12/2024 Telephone [facility] [address] [place] [address] Arti Lei MD Results 06/05/2024 3:15 PM EST Office Visit [facility] [address] [place] [address] Arti Lei MD Belching symptom (Primary Dx); Bloating symptom 06/05/2024 Travel 05/29/2024 Telephone [facility] [place] [address] Arti Lei MD Nurse Triage from Last [...] Description 08/05/2024 11:30 AM EDT Office Visit [facility] [address] [place], [place] [phone] Arti Lei MD [address] [place], [place] [phone] Health Maintenance Due Date Last Done Comments [...] AB, IGA Routine 07/24/2024 1:54 PM EST VITAMIN D 25-OH (D2 AND D3) Routine [...] Recently Relevant to Health Maintenance Results * CT Lung Screening Low dose (07/24/2024 7:14 PM EST) Anatomical Region Laterality Modality Lung Computed Tomogra phy 07/24/2024 7:14 PM EST Narrative 07/24/2024 7:16 PM EST ? [facility] ?[address] ?[place] [address] ? CT Scan Report ? Signed ? Patient: Jaiden,John ?MR#: [id number] ?? 250 ? : 1950 ?Acct:[id number] ? Age/Sex: 73 / M ?ADM Date: 02/28/25 ? Loc: HO.CT ? Attending Dr: Ila M May PA-C ? Ordering Physician: Ila Meek PA-C ?? Date of Service: 07/24/24 ?? Procedure(s): CT lung screening ?? Accession Number(s): [id number] ? cc: Arti Lei MD; Ila Meek PA-C ? Report Number: ?? [id number]: Total DLP = ?? 50.00 mGy-cm ? [...] ? DD/ 13 ? TD/TT: 07/24/241913 ? Pants Closer: ? Procedure Note Quintin Brock - 07/24/[address] [address] [address] Scan Report Signed Patient: John HwangMR#: [id number] 250 : 1950cct:[id number] Age/Sex: 73 / MADM Date: 07/24/24 Loc: HO.CT Attending Dr: Ila Meek PA-C Ordering Physician: Ila Meek PA-C Date of Service: 07/24/24 Procedure(s): CT lung screening Accession Number(s): [id number] cc: Arti Lei MD; Ila Meek PA-C Report Number: [id number]: Total DLP = 50.00 mGy-cm CLINICAL HISTORY: [...] in OV> 07/24/241914 DD/ 13 TD/TT: 07/24/241913 Pants Closer: [facility] External Provider IMG CT PROCEDURES Final Result * Tissue Transglutaminase Antibody, IgA (07/24/2024 1:54 PM EST) Transglutaminase IgA <1.0 U/mL [facility] Comment:Value Interpretation ----- <15.0 Antibody not detected> or = 15.0 Antibody detectedTHIS TEST WAS PERFORMED AT:[facility] [address] [phone] KEANE MD 07/24/2024 1:54 PM EST 07/24/2024 4:12 PM EST Generic External Data Provider LAB BLOOD ORDERAB LES Final Result [facility] [address] [place] [address] [phone] * VITAMIN D 25-OH (D2 AND D3) (06/23/2024 2:50 PM EST) Vitamin D, 25-OH, D2 4 ng/mL [facility] Comment:This test was develo ped and its analytical performancecharacteristics have been determined by [employer] [place], [place]. It hasnot been cleared or approved by the U.S. Food and DrugAdministration. This assay has been validated pursuantto the CLIA regulations and is used for clinicalpurposes.THIS TEST WAS PERFORMED AT:[facility] [id number] [place] [address]LRPYKJWCARIE العلي MD,PHD Vitamin D, 25-OH, D3 27 ng/mL [facility] Comment:This test was develo ped and its analytical performancecharacteristics have been determined by [employer] [place], [place]. It hasnot been cleared or approved by the U.S. Food and DrugAdministration. This assay has been validated pursuantto the CLIA regulations and is used for clinicalpurposes. Vitamin D, 25-OH, Total 31 30 - 100 ng/mL [facility] Comment:Vitamin D, 25-Hydrox y reports [...] = 30 ng/mL.For additional information, please refer tohttp://education.Likez/faq/RCE218(This link is being provided for informational/educational purposes only.) 06/23/2024 2:50 PM EST 06/23/2024 2:50 PM EST us Generic External Data Provider LAB BLOOD ORDERAB LES Final Result [facility] [address] [place] [phone] * Vitamin B12 (Cobalamin) and Folate Panel, Serum (06/23/2024 2:50 PM EST) Vitamin B12 570 200 - 900 pg/mL [facility] Comment:NORMAL 200-900 PG/ML INDETERMINATE 160-199 PG/ML DEFICIENT < 160 PG/ML Folate 15.4 > or = 4.0 ng/mL [facility] Comment:Reference Values:> o r = 4.0 ng/mL< 4.0 ng/mL suggests folate deficiency Methotrexate, aminopterin and folinic acid(leucovorin) are chemotherapeutic agents whose molecularstructures are similar to folate; therefore, the Architectfolate assay cannot be used for patients using these drugs. 06/23/2024 2:50 PM EST 06/23/2024 2:50 PM EST us Generic External Data Provider LAB BLOOD ORDERAB LES Final Result Performing Organization Address [facility] de Phone Number [facility] [address] [place] [phone] [phone] * TSH with Reflex to Free T4 (06/23/2024 2:50 PM EST) TSH reflex Free T4 1.65 0.32 - 4.0 uIU/mL [facility] 06/23/2024 2:50 PM EST 06/23/2024 2:50 PM EST Generic External Data Provider LAB BLOOD ORDERAB LES Final Result Performing Organization Address [facility] de Phone Number [facility] [address] [place] [address] [phone] * US ABDOMINAL AORTIC ANEURYSM (06/22/2024 12:50 PM EST) Anatomical Region Laterality Modality Abdomen Ultrasound 06/22/2024 12:5 0 PM EST Narrative 06/22/2024 12:51 PM EST ? [facility] ?[address] ? [place] [address] ? Ultrasound Report ? Signed ? Patient: Jaiden,John ?MR#: [id number] ?? 250 ? : 1950 ?Acct:[id number] ? Age/Sex: 73 / M ?ADM Date: 06/22/ ? Loc: HO.HMGCX ? Attending Dr: Arti Pires MD ? Ordering Physician: Arti Lei MD ?? Date of Service: 06/22/24 ?? Procedure(s): US abdominal aortic aneurysm ?? Accession Number(s): [id number] ? cc: Arti Lei MD ? CLINICAL [...] DD/ 1250 ? TD/TT: 06/22/24 1250 ? [facility] Cl[facility]: ? Procedure Note Donotuseinterpreter, Image - 06/22/2024 [facility] [address] [place] [address] [place] [address] Ultrasound Report Signed Patient: Thu Hwang#: [id number] 250 : 2Acct:[id number] Age/Sex: 73 / MADM Date: 06/22/24 Loc: [facility] Attending Dr: Arti Pires MD Ordering Physician: Arti Lei MD Date of Service: 06/22/24 Procedure(s): US abdominal aortic aneurysm Accession Number(s): [id number] cc: Arti Lei MD CLINICAL HISTORY: SMOKER, [...] 06/22/24 1251 DD/ 1250 TD/TT: 06/22/24 1250 [facility]ants Closer: us Arti Pires MD IMG US PROCEDURES Fin al Result * Helicobacter pylori??Antigen, EIA, Stool (06/08/2024 11:30 AM EST) H pylori Ag Stool SEE NOTE [facility] Comment:HELICOBACTER PYLORI AG, EIA, STOOL Micro Number: [id number] Test Status: Final Specimen Source: Stool Specimen Quality: Adequate H.pylori Ag: Not Detected Antimicrobials, proton pump inhibitors, and bismuth preparations inhibit H. pylori and ingestion up to two weeks prior to testing may cause false negative results. If clinically indicated the test should be repeated on a new specimen obtained two weeks after discontinuing treatment. Reference Range: Not DetectedTHIS TEST WAS PERFORMED AT:[facility] [place] [phone] KEANE MD Stool Rectal contents / Unknown 06/08/2024 11:30 AM EST 06/08/2024 1:00 PM EST Arti Pires MD LAB BODY FLUIDS AND S TOOLS ORDERABLES Final Result [facility] [address] [place] [address] [phone] * Lipid Panel, Standard (06/19/2023 1:12 PM EST) Triglycerides 67 <150 mg/dL [facility] Comment:Desirable Triglyceri de: less than 150 mg/dLBorderline High Triglyceride 150-199 mg/dLHigh Triglyceride: 200-499 mg/dLVery High Triglyceride: greater than or equal to 5OO mg/dL Cholesterol 110 <200 mg/dL [facility] Comment:Desirable Cholestero l: less than 200 mg/dLBorderline High Cholesterol: 200-239 mg/dLHigh Cholesterol: greater than 239 mg/dL LDL Cholesterol Calculated 56 <100 mg/dL [facility] Comment:Desirable LDL: less than 100 mg/dLNear Optimal/Above Optimal LDL: 110- 129 mg/dLBorderline High LDL: 130-159 mg/dLHigh LDL: 160-189 mg/dLVery High LDL: greater than or equal to 190 mg/dL HDL Cholesterol 41 >40 mg/dL [facility] Comment:Desirable HDL: great er than 40 mg/dL Note: This HDL assay may give artificially low results in patients with liver disease. 06/19/2023 1:12 PM EST 06/19/2023 1:12 PM EST us Generic External Data Provider LAB BLOOD ORDERAB LES Final Result [facility] [address] [place] [address] [phone] * Hm Colonoscopy (05/02/2018) Historical Provider MD HEALTH MAINTENANCE Final Result from Last 3 Months or Most Recently Relevant to Health Maintenance Insurance MEDICARE Member Subscriber Plan / Payer (Ef fective 2022-Present) Name:John Hwang Member ID:[id number] Relation to Subscriber:Self Name:John Hwang Subscriber ID:[id number] Payer ID:STATE Group ID:Not on file Type:Medicare Address: [facility] [address] [address] [facility] Care Teams Unstacker Relationship Specialty Start Date End Date Arti Lei MD [address] [place] [phone] PCP - General Family Medicine 02/05/18
[2024-08-04 19:43] LABS: Pancreatic Elastase-1 514 mcg/g (>200)
== END 2024-07-28 10:01 | disposition home or self-care (01) ==
LOC: HO.HMGCLNP 10:00
PROVIDERS: PCP Internal Medicine; Visit Provider Nurse Practitioner Family
DX: R10.9 Unspecified abdominal pain (principal)
CPT/HCPCS: 82656

== ENCOUNTER 2024-07-29 14:42 | Outpatient (AMB) | payer MEDICARE, MEDICAID, SELFPAY ==
--- NOTE | 2024-07-29 15:06 | MHC.OFFVIS ---
Vital Signs 07/29/24 15:07 Height 5 ft 10 in Weight 138 lb 14.259 oz BMI 19.9 BP 138/80 Blood Pressure Location Lt brachial Position Sitting Pulse 72 Pulse Source Pulse Oximeter Intake Visit Reasons: 6 mth fu w ekg Allergies peanut [PEANUT] Adverse Reaction (Intermediate, Verified 06/23/24 13:51) GI UPSET tree nut [TREE NUT] Adverse Reaction (Intermediate, Verified 06/23/24 13:51) GI UPSET Medication List - Last Reconciled 07/29/24 by Vidal James MD amlodipine 2.5 mg PO BID aspirin (Mu Chewable Low Dose Aspirin) 81 mg PO DAILY multivitamin 1 tab PO .Q3days rosuvastatin 20 mg PO DAILY HPI Comments Details: John returns for follow-up regarding coronary artery disease. To recall, he was initially seen in consultation regarding shortness of breath. He initially underwent noninvasive workup with an echocardiogram and stress test leading to diagnostic catheterization. That showed MASTER CARPENTER of the right coronary artery, 70% mid LAD stenosis and 50% proximal left circumflex stenosis. Underwent PCI to LAD. Overall, he states he feels good. No new concerns. No angina. Otherwise getting along fine. [facility] Medical History (Updated 12/18/23 @ 13:36 by Vidal James MD) Atherosclerotic cardiovascular disease Tubular adenoma of colon (~2012) Nicotine dependence, cigarettes, uncomplicated Internal and external bleeding hemorrhoids Hypertension Surgical History History of heart artery stent (~2022) History of cardiac cath (~2022) History of bone marrow biopsy (~2022) History of colonoscopy History of removal of cyst (~2020) Family History Paternal Aunt Colon cancer Social History Household Members: None Housing: House Do you presently have visiting nurse or other home services: No Alcohol intake: current Alcohol intake frequency: does not drink Patient Tobacco Use Status: Current everyday Tobacco user Tobacco use type: Cigarette Years Smoked: 52 Second Hand Smoke Exposure: No Substance Use Type: Marijuana service: No Current occupational status: employed Review of Systems Const Denies weakness ENT Denies dizziness Card Denies chest pain, Denies chest pain with activity, Denies syncope, Denies rapid heart rate, Denies pedal edema, Denies edema, Denies leg edema, Denies lightheadedness, Denies palpitations, Denies dyspnea, Denies dyspnea on exertion and Denies orthopnea Resp Denies cough, Denies dyspnea and Denies dyspnea on exertion GI Denies hematochezia and Denies change in stool character Musc Denies abnormal gait, Denies muscle cramps, Denies muscle weakness, Denies numbness, Denies radiating pain into limb and Denies tingling Neuro Denies abnormal gait, Denies dizziness, Denies syncope, Denies numbness, Denies tingling and Denies weakness Endo Denies palpitations Physical Exam Vital Signs: Last Vital Signs Pulse 72 07/29/24 15:07 BP 138/80 07/29/24 15:07 BMI result Body Mass Index 19.9 Const General: comfortable and no acute distress Orientation/consciousness: patient oriented x3 HEENT Other: Unremarkable Head: Yes normal to inspection Neck Neck: Yes normal visual inspection Chest Chest palpation & inspection: normal inspection of the chest Resp Auscultation: clear to auscultation bilaterally Cardio Palpation: normal PMI Heart sounds: S1 normal heart sound present, S2 normal heart sound present, no gallops, no murmurs and no rubs GI Palpation (GI): Soft to palpation Back/Spine/Pelvis Other: unremarkable Skin General skin exam: no rashes or lesions noted Neuro General: patient oriented x3 Extrem General: Yes normal to inspection Psych Mental Status: mental status grossly normal Assessment & Plan Assessment & Plan (1) Atherosclerotic cardiovascular disease: Code(s): I25.10 - Atherosclerotic heart disease of [place] coronary artery without angina pectoris Category: Medical (2) Hypertension: Code(s): I10 - Essential (primary) hypertension Category: Medical (3) Nicotine dependence, cigarettes, uncomplicated: Code(s): F17.210 - Nicotine dependence, cigarettes, uncomplicated Category: Medical Plan Cardiac catheterization data reviewed from 12/2022. 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 50% proximal left circumflex stenosis and 70% mid LAD stenosis. s/p PCI to LAD. Clinically, free of angina. Continue aspirin. Continue amlodipine for blood pressure. In the past, he had some tiredness from beta-blockers. With regard to dyslipidemia, on statins. Last LDL 56 mg/dL. Smoking cessation. Coding Level of Care Code Est Pt Level 4 (70628) Complex EM visit Add On G2211 Diagnoses Atherosclerotic cardiovascular disease I25.10 Hypertension I10 Nicotine dependence, cigarettes, uncomplicated F17.210
[2024-07-29 15:07] VITALS: BP 138/80; PULSE 72; BMI 19.9
--- OUTSIDE RECORDS SUMMARY | 2024-07-29 17:46 | XMS_ITS | Encounter Summary ---
Author Organization [employer] Address [address] [facility] 7t [place] [address] Care Team Providers Care Money Room Teller Name Role Phone Arti Lei MD Primary Care Provide r Reason for Visit * Reason Comments Med Refill Encounter Details Date Type Department Care Team ([facility] st Contact Info) Description 11/30/2023 Refill [facility] [address] [place], [place] [phone] Arti Lei MD 230 [place] [address] Primary hypertension Social History Tobacco Use Types [...] Description 08/05/2024 11:30 AM EDT Office Visit [facility] [address] [place] [address] Arti Lei MD 230 [place] [address] documented as of this encounter Visit Diagnoses Diagnosis Primary hypertension Unspecified essential hypertension documented in this encounter Additional Health Concerns Assessment Noted Time PHQ-9 Depression Total Score: 2 10/16/19 23 3:44 PM EDT documented as of this encounter Care Teams Money Room Teller Relationship Specialty Start Date End Date Arti Lei MD [address] [place] [phone] PCP - General Family Medicine 02/05/18 documented as of this encounter
--- OUTSIDE RECORDS SUMMARY | 2024-07-29 17:46 | XMS_ITS | Clinical Summary ---
Author Organization [facility] Address [address] [place] [address] Care Team Providers Care Ditcher Name Role Phone Arti Lei MD Primary [...] Visit [facility] [address] [place] [phone] Brent Hammond MD [address] [facility] [address] [place] [phone] Health Maintenance Due Date Last Done Comments [...] [place] Care Teams Ditcher Relationship Specialty Start Date End Date Arti Lei MD [address] [place] [phone] PCP - General Internal Medicine 10/18/22
--- OUTSIDE RECORDS SUMMARY | 2024-07-29 17:47 | XMS_ITS | Encounter Summary ---
Author Organization [facility] Address [address] [facility] [address] [place] [address] Phone Care Team Providers Care Director Validation Name Role Phone Arti Lei MD Primary Care Provide r Encounter Details Date Type Department Care Team (Late st Contact Info) Description 10/23/2022 Telephone [facility] [address] [facility] [address] [place] [address] Emma Wei Social History Tobacco [...] Visit [facility] [address] [place] [phone] Brent Hammond MD [address] [facility] [address] [place] [address] documented as of this encounter Visit Diagnoses Not on filedocumented in this encounter Care Teams Director Validation Relationship Specialty Start Date End Date Arti Lei MD [address] [place] [phone] PCP - General Internal Medicine 10/18/22 documented as of this encounter
--- OUTSIDE RECORDS SUMMARY | 2024-07-29 17:47 | XMS_ITS | Encounter Summary ---
Author Organization [employer] Address [address] [facility] 7t [place] [address] Care Team Providers Care Cosmetic Counselor Name Role Phone Arti Lei MD Primary Care Provide r Reason for Visit * Reason Comments Pre-visit Planning (Unable to reach for PVP screening, LVM) Encounter Details Date Type Department Care Team ([facility] st Contact Info) Description 07/29/2024 Patient Outreach [facility] [address] [place], [place] [phone] Arti Lei MD 230 [place] [address] Pre-visit Planning ((Unable to reach for PVP screening, LVM)) Social History Tobacco Use Types Packs/Day Years [...] AM EDT documented as of this encounter Progress Notes * Brenda Downs - 07/29/2024 10:05 AM EST JOSH Gutierrez. Placed outbound call to patient to complete pre-visit planning. No answer at this time. Patient name and were not confirmed. CC left voicemail requesting return call. Direct contact information provided. documented in this encounter Plan of Treatment Upcoming Encounters Date Type Department Care Team (Late st Contact Info) Description 08/05/2024 11:30 AM EDT Office Visit [facility] [address] [place] [address] Arti Lei MD 230 [place] [address] documented as of this encounter Visit Diagnoses Not on filedocumented in this encounter Additional Health Concerns Assessment Noted Time PHQ-9 Depression Total Score: 2 10/16/19 23 3:44 PM EDT documented as of this encounter Care Teams Cosmetic Counselor Relationship Specialty Start Date End Date Arti Lei MD 230 [place] [address] PCP - General Family Medicine 02/05/18 documented as of this encounter
--- OUTSIDE RECORDS SUMMARY | 2024-07-29 17:47 | XMS_ITS | Clinical Summary ---
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 04/16/2023 Assessment & [...] Encounters Date Type Department Care Team Description 07/29/2024 Patient Outreach [facility] [address] [place] [address] Arti Lei MD Pre-visit Planning ((Unable to reach for PVP screening, LVM)) 07/24/2024 Orders Only [facility] External Provider, [facility] 06/23/2024 Orders Only GENERIC EXTERNAL DATA DEPARTMENT Provider, Generic External Data 06/22/2024 Orders Only [facility] [address] [place] [address] Arti Lei MD 06/17/2024 Telephone [facility] [address] [place] [address], [place] [address] Rahul Yoder MA Results 06/12/[address] [address] Arti Lei MD Results 06/05/2024 3:15 PM EST Office Visit [address] [place] [address] Arti Lei MD Belching symptom (Primary Dx); Bloating symptom 06/05/2024 Travel 05/29/[address] [address] Arti Lei MD Nurse Triage from Last [...] [facility] [address] [place] [address] Arti Lei MD 230 [place] [address] Health Maintenance Due Date Last Done Comments [...] EST Narrative 07/24/2024 7:16 PM EST ? [facility] ?[address] [facility] [address] ?[place] [address] ? CT Scan Report ? Signed ? Patient: Jaiden,John ?MR#: [id number] ?? 250 ? : 1950 ?Acct:[id number] ? Age/Sex: 73 / M ?ADM Date: 02/28/25 ? Loc: HO.CT ? Attending Dr: Ila Meek PA-C ? Ordering Physician: Ila Meek PA-C ?? Date of Service: 07/24/24 ?? Procedure(s): CT lung screening ?? Accession Number(s): [id number] ? cc: Arti Lei MD; Ila Meek PA-C ? Report Number: ?? [id number]: Total DLP = ?? 50.00 mGy-cm ? [...] ? DD/ 13 ? TD/TT: 07/24/241913 ? Rougher Helper: ? Procedure Note Donotuseinterpreter, Image - 07/24/[address] [address] [place] Scan Report Signed Patient: Thu Hwang#: [id number] 250 : 1950cct:[id number] Age/Sex: 73 / MADM Date: 07/24/24 Loc: HO.CT Attending Dr: Ila Meek PA-C Ordering Physician: Ila Meek PA-C Date of Service: 07/24/24 Procedure(s): CT lung screening Accession Number(s): [id number] cc: Arti Lei MD; Ila Meek PA-C Report Number: [id number]: Total DLP = 50.00 mGy-cm CLINICAL HISTORY: [...] in OV> 07/24/241914 DD/ 13 TD/TT: 07/24/241913 Rougher Helper: [facility] External Provider IMG CT PROCEDURES Final Result * Tissue Transglutaminase Antibody, IgA (07/24/2024 1:54 PM EST) Transglutaminase IgA <1.0 U/mL [facility] Comment:Value Interpretation ----- <15.0 Antibody not detected> or = 15.0 Antibody detectedTHIS TEST WAS PERFORMED AT:[employer] [address] [phone] KEANE MD 07/24/2024 1:54 PM EST 07/24/2024 4:12 PM EST Generic External Data Provider LAB BLOOD ORDERAB LES Final Result [facility] [address] [place] [phone] * VITAMIN D 25-OH (D2 AND D3) (06/23/2024 2:50 PM EST) Vitamin D, 25-OH, D2 4 ng/mL [facility] Comment:This test was develo ped and its analytical performancecharacteristics have been determined by [employer] [place], [place]. It hasnot been cleared or approved by the U.S. Food and DrugAdministration. This assay has been validated pursuantto the CLIA regulations and is used for clinicalpurposes.THIS TEST WAS PERFORMED AT:[employer] [place] [address]NCBMIQICARIE العلي MD,PHD Vitamin D, 25-OH, D3 27 ng/mL [facility] Comment:This test was jin alfred and its analytical performancecharacteristics have been determined by [employer] [place], [place]. It hasnot been cleared or approved by the U.S. Food and DrugAdministration. This assay has been validated pursuantto the CLIA regulations and is used for clinicalpurposes. Vitamin D, 25-OH, Total 31 30 - 100 ng/mL [facility] Comment:Vitamin D, 25-Hydrox y reports [...] = 30 ng/mL.For additional information, please refer tohttp://education.DiscountIF/faq/[email or web address](This link is being provided for informational/educational purposes only.) 06/23/2024 2:50 PM EST 06/23/2024 2:50 PM EST us Generic External Data Provider LAB BLOOD ORDERAB LES Final Result [facility] [address] [place] [phone] * Vitamin B12 (Cobalamin) and Folate Panel, Serum (06/23/2024 2:50 PM EST) Vitamin B12 570 200 - 900 pg/mL [facility] Comment:NORMAL 200-900 PG/ML INDETERMINATE 160-199 PG/ML DEFICIENT < 160 PG/ML Folate 15.4 > or = 4.0 ng/mL [facility] Comment:Reference Values:> o r = 4.0 ng/mL< 4.0 ng/mL suggests folate deficiency Methotrexate, aminopterin and folinic acid(leucovorin) are chemotherapeutic agents whose molecularstructures are similar to folate; therefore, the Architectfolate assay cannot be used for patients using these drugs. 06/23/2024 2:50 PM EST 06/23/2024 2:50 PM EST Generic External Data Provider LAB BLOOD ORDERAB LES Final Result Performing Organization Address [facility] de Phone Number [facility] [address] [place] [address] [phone] * TSH with Reflex to Free T4 (06/23/2024 2:50 PM EST) TSH reflex Free T4 1.65 0.32 - 4.0 uIU/mL [facility] 06/23/2024 2:50 PM EST 06/23/2024 2:50 PM EST Generic External Data Provider LAB BLOOD ORDERAB LES Final Result Performing Organization Address [facility] Phone Number [facility] [address] [place] [phone] * US ABDOMINAL AORTIC ANEURYSM (06/22/2024 12:50 PM EST) Anatomical Region Laterality Modality Abdomen Ultrasound 06/22/2024 12:5 0 PM EST Narrative 06/22/2024 12:51 PM EST ? [facility] ?[facility] ? [place] [address] ? Ultrasound Report ? Signed ? Patient: Jaiden,John ?MR#: [id number] ?? 250 ? : 1950 ?Acct:[id number] ? Age/Sex: 73 / M ?ADM Date: 01/27/25 ? Loc: HO.HMGCX ? Attending Dr: Arti Pires MD ? Ordering Physician: Arti Lei MD ?? Date of Service: 06/22/24 ?? Procedure(s): US abdominal aortic aneurysm ?? Accession Number(s): [id number] ? cc: Arti Lei MD ? CLINICAL [...] DD/ 1250 ? TD/TT: 06/22/24 1250 ? Rougher Helper: ? Procedure Note Donnazarioter, Image - 06/22/2024 [facility] [address] [place] [address] Ultrasound Report Signed Patient: Thu Hwang#: [id number] 250 : 1950cct:[id number] Age/Sex: 73 / MADM Date: 06/22/24 Loc: .HMGCX Attending Dr: Arti Pires MD Ordering Physician: Arti Lei MD Date of Service: 06/22/24 Procedure(s): US abdominal aortic aneurysm Accession Number(s): [id number] cc: Arti Lei MD CLINICAL HISTORY: SMOKER, [...] 06/22/24 1251 DD/ 1250 TD/TT: 06/22/24 1250 Rougher Helper: us Arti Pires MD [facility] PROCEDURES Fin al Result * Helicobacter pylori??Antigen, EIA, Stool (06/08/2024 11:30 AM EST) H pylori Ag Stool SEE NOTE [facility] Comment:HELICOBACTER PYLORI AG, EIA, STOOL Micro Number: [id number] Test Status: Final Specimen Source: Stool Specimen Quality: Adequate H.pylori Ag: Not Detected Antimicrobials, proton pump inhibitors, and bismuth preparations inhibit H. pylori and ingestion up to two weeks prior to testing may cause false negative results. If clinically indicated the test should be repeated on a new specimen obtained two weeks after discontinuing treatment. Reference Range: Not DetectedTHIS TEST WAS PERFORMED AT:[employer] [place] [phone] KEANE MD Stool Rectal contents / Unknown 06/08/2024 11:30 AM EST 06/08/2024 1:00 PM EST us Arti Pires MD LAB BODY FLUIDS AND S TOOLS ORDERABLES Final Result [facility] [address] [place] [phone] * Lipid Panel, Standard (06/19/2023 1:12 PM EST) Triglycerides 67 <150 mg/dL [facility] Comment:Desirable Triglyceri de: less than 150 mg/dLBorderline High Triglyceride 150-199 mg/dLHigh Triglyceride: 200-499 mg/dLVery High Triglyceride: greater than or equal to 5OO mg/dL Cholesterol 110 <200 mg/dL [facility] Comment:Desirable Cholestero l: less than 200 mg/dLBorderline High Cholesterol: 200-239 mg/dLHigh Cholesterol: greater than 239 mg/dL LDL Cholesterol Calculated 56 <100 mg/dL [facility] Comment:Desirable LDL: less than 100 mg/dLNear Optimal/Above Optimal LDL: 110- 129 mg/dLBorderline High LDL: 130-159 mg/dLHigh LDL: 160-189 mg/dLVery High LDL: greater than or equal to 190 mg/dL HDL Cholesterol 41 >40 mg/dL [facility] Comment:Desirable HDL: great er than 40 mg/dL Note: This HDL assay may give artificially low results in patients with liver disease. 06/19/2023 1:12 PM EST 06/19/2023 1:12 PM EST us Generic External Data Provider LAB BLOOD ORDERAB LES Final Result [facility] [address] [place] [address] [phone] * Colonoscopy (05/02/2018) Historical Provider MD HEALTH MAINTENANCE Final Result from Last 3 Months or Most Recently Relevant to Health Maintenance Insurance [place] [address] [place] [id number] [facility] STANDARD Care Teams Venetian Blind Mechanic Relationship Specialty Start Date End Date Arti Lei MD [address] [place] [phone] PCP - General Family Medicine 02/05/18
--- OUTSIDE RECORDS SUMMARY | 2024-07-29 17:47 | XMS_ITS | Encounter Summary ---
Author Organization [employer] Address [address] [facility] 7t [place] [address] Care Team Providers Care Motion Picture Operator Name Role Phone Arti Lei MD Primary Care Provide r Encounter Details Date Type Department Care Team (Late st Contact Info) Description 07/24/2024 Orders Only [facility] External Provider, [facility] Social History Tobacco Use Types Packs/Day Years [...] Description 08/05/2024 11:30 AM EDT Office Visit [facility] [address] [facility] [place] [address] Arti Lei MD [address] [facility] [place] [address] documented as of this encounter Procedures Procedure [...] EST Narrative 07/24/2024 7:16 PM EST ? [facility] ?[address] ?[place] [address] ? CT Scan Report ? Signed ? Patient: Jaiden,John ?MR#: [id number] ?? 250 ? : 1950 ?Acct:[id number] ? Age/Sex: 73 / M ?ADM Date: 02/28/25 ? Loc: HO.CT ? Attending Dr: Ila Meek PA-C ? Ordering Physician: Ila Meek PA-C ?? Date of Service: 07/24/24 ?? Procedure(s): CT lung screening ?? Accession Number(s): [id number] ? cc: Arti Lei MD; Ila Meek PA-C ? Report Number: ?? [id number]: Total DLP = ?? 50.00 mGy-cm ? [...] ? DD/ 13 ? TD/TT: 07/24/241913 ? Gambling Supervisor: ? Procedure Note Vinod, Quintin - 07/24/2024 [place] [address] [place] [address] CT Scan Report Signed Patient: John HwangMR#: [id number] 250 : 2Acct:[id number] Age/Sex: 73 / MADM Date: 07/24/24 Loc: HO.CT Attending Dr: Ila Meek PA-C Ordering Physician: Ila Meek PA-C Date of Service: 07/24/24 Procedure(s): CT lung screening Accession Number(s): [id number] cc: Arti Lei MD; Ila Meek PA-C Report Number: [id number]: Total DLP = 50.00 mGy-cm CLINICAL HISTORY: [...] in OV> 07/24/241914 DD/ 13 TD/TT: 07/24/241913 Gambling Supervisor: [facility] External Provider IMG CT PROCEDURES Final Result * Tissue Transglutaminase Antibody, IgA (07/24/2024 1:54 PM EST) Transglutaminase IgA <1.0 U/mL [facility] Comment:Value Interpretation ----- <15.0 Antibody not detected> or = 15.0 Antibody detectedTHIS TEST WAS PERFORMED AT:[facility] [place] [phone] KEANE MD 07/24/2024 1:54 PM EST 07/24/2024 4:12 PM EST Generic External Data Provider LAB BLOOD ORDERAB LES Final Result Performing Organization Address City/State/[facility] Co de Phone Number [facility] [address] [place] [phone] documented in this encounter Visit Diagnoses Not on filedocumented in this encounter Additional Health Concerns Assessment Noted Time PHQ-9 Depression Total Score: 2 10/16/19 23 3:44 PM EDT documented as of this encounter Care Teams Motion Picture Operator Relationship Specialty Start Date End Date Arti Lei MD [address] [place] [phone] PCP - General Family Medicine 02/05/18 documented as of this encounter
--- OUTSIDE RECORDS SUMMARY | 2024-07-29 17:47 | XMS_ITS | Encounter Summary ---
Author Organization [employer] Address [address] [facility] 7t [place] [address] Care Team Providers Care Pound Keeper Name Role Phone Arti Lei MD Primary Care Provide r Reason for Visit * Reason Onset Date Comments FYI 10/19/2022 Encounter Details Date Type Department Care Team ([facility] st Contact Info) Description 10/19/2022 Telephone [facility] [address] [place], [place] [phone] Arti Lei MD [address] [place] [address] FYI Social History Tobacco Use Types Packs/Day [...] Description 08/05/2024 11:30 AM EDT Office Visit [facility] [address] [place], [place] [phone] Arti Lei MD [address] [place], [place] [phone] documented as of this encounter Visit Diagnoses Not on filedocumented in this encounter Additional Health Concerns Assessment Noted Time PHQ-9 Depression Total Score: 2 10/16/19 23 3:44 PM EDT documented as of this encounter Care Teams Pound Keeper Relationship Specialty Start Date End Date Arti Lei MD [address] [place] [address] PCP - General Family Medicine 02/05/18 documented as of this encounter
--- OUTSIDE RECORDS SUMMARY | 2024-07-29 17:47 | XMS_ITS | Encounter Summary ---
Author Organization [employer] [facility] Address [address] [place] [address] [address] [place] [address] Care Team Providers Care Inflatable Buildings Laminator Name Role Phone Arti Lei MD Primary Care Provide r Encounter Details Date Type Department Care Team (Late st Contact Info) Description 02/05/2023 Orders Only [facility] [address] [place] [phone] Provider, MD Jenifer Social History Tobacco Use [...] AM EDT Office Visit [facility] [address] [place] [address] [phone] Arti Lei MD [address] [place] [address] [phone] documented as of this encounter Procedures Procedure [...] documented as of this encounter Care Teams Inflatable Buildings Laminator Relationship Specialty Start Date End Date Arti Lei MD [address] [place] [phone] PCP - General Family Medicine 02/05/18 documented as of this encounter
--- OUTSIDE RECORDS SUMMARY | 2024-07-29 17:47 | XMS_ITS | Encounter Summary ---
Author Organization [employer] Address [address] [place] [address] [address] [place] [address] Care Team Providers Care Reach Lift Truck Driver Name Role Phone Arti Lei MD Primary Care Provide r Reason for Visit * Reason Comments Med Refill Encounter Details Date Type Department Care Team (Late st Contact Info) Description 12/17/[address] [facility] [address] [place] [address] [phone] Arti Lei MD [address] [place] [address] [phone] Primary hypertension Social History Tobacco Use Types [...] 08/05/2024 11:30 AM EDT Office Visit [facility] [address] [place] [address] [phone] Arti Lei MD [address] [place] [address] [phone] documented as of this encounter Visit Diagnoses Diagnosis Primary hypertension Unspecified essential hypertension documented in this encounter Additional Health Concerns Assessment Noted Time PHQ-9 Depression Total Score: 2 10/16/19 23 3:44 PM EDT documented as of this encounter Care Teams Reach Lift Truck Driver Relationship Specialty Start Date End Date Arti Lei MD [address] [place] [address] PCP - General Family Medicine 02/05/18 documented as of this encounter
--- OUTSIDE RECORDS SUMMARY | 2024-07-29 17:47 | XMS_ITS | Encounter Summary ---
Author Organization [email or web address] Address [address] [facility] [address] [place] [address] Care Team Providers Care In Flight Refueling Manager Name Role Phone Arti Lei MD Primary Care Provide r Encounter Details Date Type Department Care Team (Late st Contact Info) Description 09/12/2022 Orders Only [facility] [address] [place], [place] [phone] Emma Loredo LPN Social History Tobacco Use [...] Description 08/05/2024 11:30 AM EDT Office Visit [facility] [address] [place] [address] Arti Lei MD [address] [place], [place] [phone] documented as of this encounter Procedures Procedure [...] (12/28/2022 9:40 AM EDT) Triglycerides 74 mg/dL [facility] Comment:Desirable Triglyceri de: less than 150 mg/dLBorderline High Triglyceride 150-199 mg/dLHigh Triglyceride: 200-499 mg/dLVery High Triglyceride: greater than or equal to 5OO mg/dL Cholesterol 166 mg/dL [facility] Comment:Desirable Cholestero l: less than 200 mg/dLBorderline High Cholesterol: 200-239 mg/dLHigh Cholesterol: greater than 239 mg/dL LDL Cholesterol Calculated 107 mg/dl [facility] Comment:Desirable LDL: less than 100 mg/dLNear Optimal/Above Optimal LDL: 110- 129 mg/dLBorderline High LDL: 130-159 mg/dLHigh LDL: 160-189 mg/dLVery High LDL: greater than or equal to 190 mg/dL HDL Cholesterol 45 mg/dL [facility] Comment:Desirable HDL: great er than 40 mg/dL Note: This HDL assay may give artificially low results in patients with liver disease. 12/28/2022 9:40 AM EDT 12/28/2022 9:40 AM EDT us Generic External Data Provider LAB BLOOD ORDERAB LES Final Result [facility] [address] [place] [address] [phone] * Basic Metabolic Panel (12/28/2022 9:40 AM EDT) Sodium 138 135 - 145 mmol/L [facility] Potassium 4.5 3.3 - 5.1 mmol/L [facility] Chloride 106 96 - 108 mmol/L [facility] Carbon Dioxide 22 22 - 29 mmol/L [facility] Anion Gap 15 12 - 20 [facility] Urea Nitrogen (BUN) 16 9 - 16 mg/dL [facility] Creatinine, Serum 1.12 0.5 - 1.4 mg/dL [facility] Estimated Glomerular Filt Rate >60 [facility] Comment:NOTE: For -Am erican individuals, multiply the result by 1.210.Chronic Kidney Disease: Estimated GFR < 60 mL/min/[id number] Kidney Disease: Estimated GFR < 15 mL/min/1.73m2 Glucose 113 60 - 115 mg/dL [facility] Calcium 9.1 8.4 - 10.2 mg/dL [facility] 12/28/2022 9:40 AM EDT 12/28/2022 9:40 AM EDT us [facility] External Provider LAB BLO OD ORDERABLES Final Result [facility] [address] [place] [address] [phone] * (ABNORMAL) CBC auto differential (12/28/2022 9:40 AM EDT) White Blood Count 9.9 4.8 - 10.8 X10*3/uL [facility] Red Blood Count 4.06(L) 4.60 - 5.80 X10*6/uL [facility] Hemoglobin 13.0(L) 14.0 - 18.0 g/dl [facility] Hematocrit 39.4(L) 42.0 - 52.0 % [facility] Mean Corpuscular Volume 97.0 80.0 - 98.0 fL [facility] Mean Corpuscular Hemoglobin 32.0 27.0 - 33.0 pg [facility] Mean Corpuscular HGB Conc 33.0 31.0 - 36.0 g/dl [facility] Red Cell Distribution Width 12.7 11.0 - 16.0 % [facility] Platelet Count 275 160 - 400 X10*3/uL [facility] Mean Platelet Volume 9.0(L) 9.4 - 12.4 fL [facility] Neutrophils Percent Auto 71.2 45 - 73 % [facility] Imm Gran Pct Auto 1.0(H) 0.0 - 0.4 % [facility] Lymphocytes Percent Auto 17.8(L) 20 - 40 % [facility] Monocytes Percent Auto 7.5 2 - 11 % [facility] Eosinophils Percent Auto 2.0 0 - 4 % [facility] Basophils Percent Auto 0.5 0 - 2 % [facility] NRBC Pct Auto 0.0 0.0 - 0.2 /100WBC [facility] Neutrophils Absolute Auto 7.1 2.0 - 8.3 x10*3/uL [facility] Imm Gran Abs Auto 0.10(H) 0.00 - 0.03 X10*3/uL [facility] Lymphocytes Absolute Auto 1.8 1.2 - 4.9 X10*3/uL [facility] Monocytes Absolute Auto 0.7 0.1 - 1.2 X10*3/uL [facility] Eosinophils Absolute Auto 0.2 0.0 - 0.4 X10*3/uL [facility] Basophils Absolute Auto 0.1 0.0 - 0.2 X10*3/uL [facility] NRBC Abs Auto 0.000 0.0 - 0.012 X10*3/uL [facility] 12/28/2022 9:40 AM EDT 12/28/2022 9:40 AM EDT us [facility] External Provider LAB BLO OD ORDERABLES Final Result Performing Organization Address City/State/[facility] Co de Phone Number [facility] [address] [place] [phone] * Prothrombin Time-INR (12/28/2022 9:40 AM EDT) Prothrombin Time 11.6 11.1 - 13.3 SEC [facility] INTERNATIONAL NORM RATIO 1.0 0.9 - 1.1 [facility] Comment:INTERNATIONAL NORMAL IZED RATIO (INR) REFERENCE [...] AM EDT 12/28/2022 9:40 AM EDT us [facility] External Provider LAB BLO OD ORDERABLES Final Result [facility] [address] [place] [phone] * (ABNORMAL) Comprehensive Metabolic Panel (11/28/2022 9:22 AM EDT) Sodium 140 135 - 145 mmol/L [facility] Potassium 5.1 3.3 - 5.1 mmol/L [facility] Chloride 107 96 - 108 mmol/L [facility] Carbon Dioxide 24 22 - 29 mmol/L [facility] Anion Gap 14 12 - 20 [facility] Urea Nitrogen (BUN) 16 9 - 16 mg/dL [facility] Creatinine, Serum 1.54(H) 0.5 - 1.4 mg/dL [facility] Estimated Glomerular Filt Rate 45 [facility] Comment:NOTE: For -Am erican individuals, multiply the result by 1.210.Chronic Kidney Disease: Estimated GFR < 60 mL/min/1.93a9Ogdaqm Kidney Disease: Estimated GFR < 15 mL/min/1.73m2 Glucose 119(H) 60 - 115 mg/dL [facility] Calcium 9.6 8.4 - 10.2 mg/dL [facility] Bilirubin, Total 0.8 0.0 - 1.0 mg/dL [facility] Aspartate Amino Transferase 13 5 - 37 U/L [facility] Alanine Aminotransferase 11 0 - 40 U/L [facility] Total Protein 7.2 6.5 - 8.0 g/dL [facility] Albumin Level 4.0 3.5 - 5.0 g/dL [facility] Alkaline Phosphatase 43 39 - 117 U/L [facility] 11/28/2022 9:22 AM EDT 11/28/2022 9:22 AM EDT us [facility] External Provider LAB BLO OD ORDERABLES Final Result [facility] [address] [place] [address] [phone] * (ABNORMAL) CBC auto differential (11/28/2022 9:22 AM EDT) White Blood Count 7.7 4.8 - 10.8 X10*3/uL [facility] Red Blood Count 3.92(L) 4.60 - 5.80 X10*6/uL [facility] Hemoglobin 12.4(L) 14.0 - 18.0 g/dl [facility] Hematocrit 38.1(L) 42.0 - 52.0 % [facility] Mean Corpuscular Volume 97.2 80.0 - 98.0 fL [facility] Mean Corpuscular Hemoglobin 31.6 27.0 - 33.0 pg [facility] Mean Corpuscular HGB Conc 32.5 31.0 - 36.0 g/dl [facility] Red Cell Distribution Width 13.5 11.0 - 16.0 % [facility] Platelet Count 282 160 - 400 X10*3/uL [facility] Mean Platelet Volume 8.9(L) 9.4 - 12.4 fL [facility] Neutrophils Percent Auto 68.7 45 - 73 % [facility] Imm Gran Pct Auto 0.4 0.0 - 0.4 % [facility] Lymphocytes Percent Auto 21.1 20 - 40 % [facility] Monocytes Percent Auto 8.2 2 - 11 % [facility] Eosinophils Percent Auto 1.2 0 - 4 % [facility] Basophils Percent Auto 0.4 0 - 2 % [facility] NRBC Pct Auto 0.0 0.0 - 0.2 /100WBC [facility] Neutrophils Absolute Auto 5.3 2.0 - 8.3 x10*3/uL [facility] Imm Gran Abs Auto 0.03 0.00 - 0.03 X10*3/uL [facility] Lymphocytes Absolute Auto 1.6 1.2 - 4.9 X10*3/uL [facility] Monocytes Absolute Auto 0.6 0.1 - 1.2 X10*3/uL [facility] Eosinophils Absolute Auto 0.1 0.0 - 0.4 X10*3/uL [facility] Basophils Absolute Auto 0.0 0.0 - 0.2 X10*3/uL [facility] NRBC Abs Auto 0.000 0.0 - 0.012 X10*3/uL [facility] 11/28/2022 9:22 AM EDT 11/28/2022 9:22 AM EDT [facility] External Provider LAB BLO OD ORDERABLES Final Result Performing Organization Address [facility]/ZIP Co de Phone Number [facility] [address] [place] [address] [phone] * Chromosome Analysis, Bone Marrow (11/22/2022 12:00 PM EDT) Pathologist [facility] Chromosome Analysis, Bone Marrow See note [facility] Comment:See report from [employer] in the EMR. 11/22/2022 12:0 0 PM EDT 11/22/2022 1:46 PM EDT [facility] Exter nal Provider LAB BODY FLUIDS AND STOOLS ORDERABLES Final Result Performing Organization Address City/[facility] Co de Phone Number [facility] [address] [place] [address] [phone] * LEUKEMIA/LYMPH. EVAL. BONE MAR (11/22/2022 12:00 PM EDT) LLE Interpretation See Note [facility] Comment:See report from [employer] in the EMR. 11/22/2022 12:0 0 PM EDT 11/22/2022 1:46 PM EDT us [facility] External Provider LAB BLO OD ORDERABLES Final Result [facility] [address] [place] [address] [phone] * Bone Marrow Smear (11/22/2022 11:45 AM EDT) 11/22/2022 11:4 5 AM EDT 11/22/2022 1:56 PM EDT Narrative [facility] - 01/23/2023 11:20 AM EDT ----- ------- Name: John Hwang ?Age/Sex: 72/M ? : 1950 Unit#: [id number] ?? Attend Dr: Oliver Ospina MD ?Re11/22/22 ?Status: DEP SDC ? Location: [facility] ?Disch: ? ----- ------- SPEC : [id number] ? RECD: 11/22/22-1356 ? STATUS: ??SOUT ? REQ NUM: [id number] ? AURA: 11/22/22-1145 ? SUBM DR: Oliver Ospina MD ? ENTERED: ??11/22/22-1408 ?SP TYPE: Surgical ? OTHR DR: Arti Lei MD ? ORDERED: ??Bm Smear, Iron Stain/3, HE Stain/3, Reticulin Stain, Gross Micro L4/2, B Cell, ?T Cell, Bnaerjee Giemsa/3, IHC/2, Add. immunos/2, Special st. 2/4, [...] Technical services for reticulin study performed at [facility] [address] Alda Nagel [place]; [place] #[id number] Addendum Signed (signature on file) Malik Lancaster [...] Hwang ?Age/Sex: 72/M ? : 1950 Unit#: [id number] ?? Attend Dr: Oliver Ospina MD ?Re11/22/22 ?Status: DEP [facility] ? Location: [facility] ?Disch: ? ----- ------- SPEC : [id number] ? RECD: 11/22/226 ? STATUS: ??SOUT ? REQ NUM: [id number] ? AURA: 11/22/22-1145 ? SUBM DR: Oliver Ospina MD ? ENTERED: ??11/22/22-8098 ?SP TYPE: Surgical ? OTHR DR: Arti [...] Hwang ?Age/Sex: 72/M ? : 1950 Unit#: [id number] ?? Attend Dr: Oliver Ospina MD ?Re11/22/22 ?Status: DEP SDC ? Location: HO.SSS ?Disch: ? ----- ------- SPEC : [id number] ? RECD: 11/22/22-0568 ? STATUS: ??SOUT ? REQ NUM: [id number] ? AURA: 11/22/22-1142 ? SUBM DR: Oliver Ospina MD ? ENTERED: ??11/22/22-3551 ?SP TYPE: Surgical ? OTHR DR: Arti [...] CD3 on B. Copies To: ?? Arti eLi MD ?? [address] [facility] ?? [place] ?? [phone] ?? Oliver Ospina MD ?? [address] ?? Dept. of Hematology/Oncology ?? [place] ?? [phone] ----- ------- Signed (signature on file) Malik Lancaster MD 11/30/221630 ? ----- ------- ? END OF REPORT ? us [facility] Exter nal Provider LAB BODY FLUIDS AND STOOLS ORDERABLES Final Result [facility] [address] [place] [address] [phone] * (ABNORMAL) Phosphate (As Phosphorus) (10/23/2022 10:03 AM EDT) Phosphorus 2.3(L) 2.7 - 4.5 mg/dL [facility] 10/23/2022 10:0 3 AM EDT 10/23/2022 10:04 AM EDT [facility] External Provider LAB BLO OD ORDERABLES Final Result [facility] [address] [place] [phone] * Calcium (10/23/2022 10:03 AM EDT) Calcium 10.0 8.4 - 10.2 mg/dL [facility] 10/23/2022 10:0 3 AM EDT 10/23/2022 10:04 AM EDT [facility] External Provider LAB BLO OD ORDERABLES Final Result Performing Organization Address City/[facility]/ZIP Co de Phone Number [facility] [address] [place] [phone] * (ABNORMAL) Creatinine, Serum (10/23/2022 10:03 AM EDT) Creatinine, Serum 2.03(H) 0.5 - 1.4 mg/dL [facility] Estimated Glomerular Filt Rate 33 [facility] Comment:NOTE: For -Am erican individuals, multiply the result by 1.210.Chronic Kidney Disease: Estimated GFR < 60 mL/min/1.74j5Djslyv Kidney Disease: Estimated GFR < 15 mL/min/1.73m2 10/23/2022 10:0 3 AM EDT 10/23/2022 10:04 AM EDT [facility] External Provider LAB BLO OD ORDERABLES Final Result Performing Organization Address [facility] Co de Phone Number [facility] [address] [place] [address] [phone] * (ABNORMAL) BUN (Blood Urea Nitrogen) (10/23/2022 10:03 AM EDT) Urea Nitrogen (BUN) 17(H) 9 - 16 mg/dL [facility] 10/23/2022 10:0 3 AM EDT 10/23/2022 10:04 AM EDT [facility] External Provider LAB BLO OD ORDERABLES Final Result Performing Organization Address [facility] de Phone Number [facility] [address] [place] [address] [phone] * (ABNORMAL) Electrolyte Panel (10/23/2022 10:03 AM EDT) Sodium 143 135 - 145 mmol/L [facility] Potassium 3.9 3.3 - 5.1 mmol/L [facility] Chloride 109(H) 96 - 108 mmol/L [facility] Carbon Dioxide 28 22 - 29 mmol/L [facility] Anion Gap 10(L) 12 - 20 [facility] 10/23/2022 10:0 3 AM EDT 10/23/2022 10:04 AM EDT [facility] External Provider LAB BLO OD ORDERABLES Final Result Performing Organization Address [facility] Co de Phone Number [facility] [address] [place] [address] [phone] * (ABNORMAL) Urinalysis, Complete, with Reflex to Culture (10/17/2022 4:16 AM EDT) Color Urine Yellow [facility] Appearance Urine Clear [facility] PH 6.5 5.0 - 9.0 [facility] Glucose Urine UA Negative Negative mg/dL [facility] Urine Blood Negative Negative [facility] Specific [place] - Urine 1.010 1.005 - 1.025 [facility] Urine Protein Negative Neg-Trace mg/dL [facility] Urine Ketones Negative Negative mg/dL [facility] Nitrite Urine Negative Negative [facility] Leukocyte Esterase Urine Small (1+)(A) Negative [facility] RBC Urine 0-2 0 - 2 /HPF [facility] Urine WBC 11-20(A) 0 - 5 /HPF [facility] Urine Squamous Epithelial Cell 0-2 0 - 2 /HPF [facility] Urine Bacteria None Seen None Seen [facility] Hyaline Casts, Urine 3-5 0 - 2 /LPF [facility] 10/17/2022 4:16 AM EDT 10/17/2022 4:19 AM EDT Narrative [facility] - 10/17/2022 4:34 AM EDT Urine, Clean Catch [facility] External Provider LAB URI NE ORDERABLES Final Result Performing Organization Address [facility] Co de Phone Number [facility] [address] [place] [phone] * Magnesium (10/17/2022 2:51 AM EDT) Magnesium 2.6 1.6 - 2.6 mg/dL [facility] 10/17/2022 2:51 AM EDT 10/17/2022 2:55 AM EDT [facility] External Provider LAB BLO OD ORDERABLES Final Result Performing Organization Address [facility] Co de Phone Number [facility] [address] [place] [phone] * (ABNORMAL) Comprehensive Metabolic Panel (10/17/2022 2:51 AM EDT) Sodium 138 135 - 145 mmol/L [facility] Potassium 3.8 3.3 - 5.1 mmol/L [facility] Chloride 99 96 - 108 mmol/L [facility] Carbon Dioxide 33(H) 22 - 29 mmol/L [facility] Anion Gap 10(L) 12 - 20 [facility] Urea Nitrogen (BUN) 42(H) 9 - 16 mg/dL [facility] Creatinine, Serum 3.18(H) 0.5 - 1.4 mg/dL [facility] Creatinine Clr Calc Pharmacy 18.4 [facility] Comment:eGFR (calculated fro m the MDRD study equation) and eCrCl(calculated from the Cockcroft-Gault equation) are based ondifferent parameters and may not yield comparable results.If eCrCl result is absurd, please check patient'sheight/weight. Estimated Glomerular Filt Rate 19 [facility] Comment:NOTE: For -Am erican individuals, multiply the result by 1.210.Chronic Kidney Disease: Estimated GFR < 60 mL/min/1.65l0Jshsbh Kidney Disease: Estimated GFR < 15 mL/min/1.73m2 Glucose 129(H) 60 - 115 mg/dL [facility] Calcium 15.7(HH) 8.4 - 10.2 mg/dL [facility] Comment:Critical value for t est(s): CALCIUM Results called to luci back by: NEDRA Person calling:VINCENT Date:10/17/22 Time:0323 Bilirubin, Total 0.8 0.0 - 1.0 mg/dL [facility] Aspartate Amino Transferase 13 5 - 37 U/L [facility] Alanine Aminotransferase 11 0 - 40 U/L [facility] Total Protein 7.0 6.5 - 8.0 g/dL [facility] Albumin Level 4.2 3.5 - 5.0 g/dL [facility] Alkaline Phosphatase 50 39 - 117 U/L [facility] 10/17/2022 2:51 AM EDT 10/17/2022 2:55 AM EDT us [facility] External Provider LAB BLO OD ORDERABLES Final Result [facility] [address], [place] [phone] * (ABNORMAL) CBC auto differential (10/17/2022 2:51 AM EDT) White Blood Count 10.3 4.8 - 10.8 X10*3/uL [facility] Red Blood Count 4.13(L) 4.60 - 5.80 X10*6/uL [facility] Hemoglobin 13.0(L) 14.0 - 18.0 g/dl [facility] Hematocrit 37.6(L) 42.0 - 52.0 % [facility] Mean Corpuscular Volume 91.0 80.0 - 98.0 fL [facility] Mean Corpuscular Hemoglobin 31.5 27.0 - 33.0 pg [facility] Mean Corpuscular HGB Conc 34.6 31.0 - 36.0 g/dl [facility] Red Cell Distribution Width 12.1 11.0 - 16.0 % [facility] Platelet Count 244 160 - 400 X10*3/uL [facility] Mean Platelet Volume 9.1(L) 9.4 - 12.4 fL [facility] Neutrophils Percent Auto 73.6(H) 45 - 73 % [facility] Imm Gran Pct Auto 0.3 0.0 - 0.4 % [facility] Lymphocytes Percent Auto 18.0(L) 20 - 40 % [facility] Monocytes Percent Auto 6.8 2 - 11 % [facility] Eosinophils Percent Auto 0.9 0 - 4 % [facility] Basophils Percent Auto 0.4 0 - 2 % [facility] NRBC Pct Auto 0.0 0.0 - 0.2 /100WBC [facility] Neutrophils Absolute Auto 7.6 2.0 - 8.3 x10*3/uL [facility] Imm Gran Abs Auto 0.03 0.00 - 0.03 X10*3/uL [facility] Lymphocytes Absolute Auto 1.8 1.2 - 4.9 X10*3/uL [facility] Monocytes Absolute Auto 0.7 0.1 - 1.2 X10*3/uL [facility] Eosinophils Absolute Auto 0.1 0.0 - 0.4 X10*3/uL [facility] Basophils Absolute Auto 0.0 0.0 - 0.2 X10*3/uL [facility] NRBC Abs Auto 0.000 0.0 - 0.012 X10*3/uL [facility] 10/17/2022 2:51 AM EDT 10/17/2022 2:55 AM EDT us [facility] External Provider LAB BLO OD ORDERABLES Final Result [facility] [address] [place] [phone] documented in this encounter Visit Diagnoses Not on filedocumented in this encounter Care Teams In Flight Refueling Manager Relationship Specialty Start Date End Date Arti Lei MD [address] [place] [phone] PCP - General Family Medicine 02/05/18 documented as of this encounter
== END 2024-07-29 15:27 | disposition home or self-care (01) ==
PROVIDERS: PCP Internal Medicine; Visit Provider Internal Medicine
DX: I25.10 Atherosclerotic heart disease of native coronary artery without angina pectoris (principal); I10 Essential (primary) hypertension; F17.210 Nicotine dependence, cigarettes, uncomplicated
CPT/HCPCS: 99214; G2211

== ENCOUNTER → 2024-07-29 14:42 | Outpatient (BNVA) | payer MEDICARE, MEDICAID, SELFPAY | PROVIDERS: PCP Internal Medicine; Visit Provider Internal Medicine | DX: I25.10 Atherosclerotic heart disease of native coronary artery without angina pectoris (principal); I10 Essential (primary) hypertension; F17.210 Nicotine dependence, cigarettes, uncomplicated | CPT/HCPCS: 99212 ==

== ENCOUNTER 2024-08-28 14:04 | Outpatient (AMB) | payer MEDICARE, MEDICAID, SELFPAY ==
--- NOTE | 2024-08-28 14:06 | A.OFFVIS_ITS ---
Vital Signs 08/28/24 14:07 Height 5 ft 10 in Weight 140 lb 10.479 oz BMI 20.2 BP 136/84 Blood Pressure Location Rt brachial Position Sitting Pulse 76 Pulse Source Pulse Oximeter Pulse Oximetry (%) 96 Oxygen Delivery Method Room Air Intake Visit Reasons: 2 mo f/u belching Intake Note: ESTABLISHED PATIENT for Constipation + Abd pain mgmt. Labs done, Imaging schedu led. Chief Complaint; Pt reports sx have remained unchanged since last visit. Pt is not taking any GI medications at this time. No additional concerns at this time. College Or [employer] Business [employer] Required: No Accompanied by: Self / Same As Patient Allergies peanut [PEANUT] Adverse Reaction (Intermediate, Verified 08/28/24 14:07) GI UPSET tree nut [TREE NUT] Adverse Reaction (Intermediate, Verified 08/28/24 14:07) GI UPSET HPI HPI 2 mo f/u belching: Details: LAST VISIT: Postprandial abdominal bloating Postprandial epigastric pain Flatulence/gas pain/belching Constipation GERD (gastroesophageal reflux disease) Plan Discussed with patient low FODMAP diet. List of food recommended as well as list of food to avoid given to patient. Patient will try fxiy-jzy-mdnckdn fiber with probiotics. Epigastric pain and occasional reflux with frequent belching. Will send patient script for pantoprazole. Patient will avoid eating late at night. Smoking cessation encouraged. Will check thyroid study, vitamin B12, folate, vitamin-D levels. Will send patient for upper GI with barium swallow to look for reflux, hiatal hernia. Patient will follow-up in our office in 2-3 months. He will call our office if he will continue to have symptoms or if he will develop any additional GI concerning symptoms. Patient is agreeable to current plan of care and verbalizes understanding of instructions. He was given the opportunity to ask questions and all questions answered. ? Thank you for allowing me to participate in his care Orders Orders Vitamin D 25-OH (D2 and D3) Today E55.9 FL upper GI w Ba Swallow Today K21.9 Vitamin B12 and Folate Today R19.7 TSH reflex Free T4 Today K59.00 Medications New pantoprazole take one tablet half an hour before breakfast 40 mg PO DAILY 30 tabs 2RF K21.9 TODAY'S VISIT Patient is here today for follow-up and to discuss lab results. Patient has upper GI series scheduled for September 08. Currently patient reports that his symptoms remain the same. Patient contemplated about starting pantoprazole as he did not had any acid reflux, dyspepsia, dysphagia or odynophagia. Patient tried for 1 week, however states that his symptoms did not change in he stop that. We did speak together on the phone about holding it off. Since that time patient continues to have frequent belching and feeling very gaseous. Patient followed low FODMAP diet and continues with symptoms no matter what. He does admit that he is not moving his bowels very well. Tried yrbv-gsa-slgmztz fiber supplements and then finally started eating pairs and apples which helps him go to the bathroom. Patient started taking supplement activateyou that has pre and probiotics as well as fiber. Patient just started it is was given this by his friend. Patient denies any nausea or vomiting. Denies any melena, hematochezia, unintentional weight loss or ribbon like stools. Pancreatic elastase normal. [facility] Medical History Atherosclerotic cardiovascular disease Tubular adenoma of colon (~2012) Nicotine dependence, cigarettes, uncomplicated Internal and external bleeding hemorrhoids Hypertension Surgical History History of heart artery stent (~2022) History of cardiac cath (~2022) History of bone marrow biopsy (~2022) History of colonoscopy History of removal of cyst (~2020) Family History Paternal Aunt Colon cancer Social History Household Members: None Housing: House Do you presently have visiting nurse or other home services: No Alcohol intake: current Alcohol intake frequency: does not drink Patient Tobacco Use Status: Current everyday Tobacco user Tobacco use type: Cigarette Years Smoked: 52 Second Hand Smoke Exposure: No Substance Use Type: Marijuana service: No Current occupational status: employed Review of Systems Const Denies weight gain and Denies weight loss ENT Reports no additional complaints, Denies dysphagia and Denies odynophagia Card Reports no additional complaints Resp Reports no additional complaints GI Denies abdominal pain, Denies belching, Denies melena, Reports bloating, Denies change in bowel habits, Reports constipation, Denies dysphagia, Denies excessive flatus, Denies dyspepsia, Denies heartburn, Denies diarrhea, Denies loose stools, Denies nausea, Denies odynophagia and Denies vomiting Reports no additional complaints Musc Reports no additional complaints Neuro Reports no additional complaints Psych Reports no additional complaints Endo Reports no additional complaints Physical Exam Vital Signs: Last Vital Signs Pulse 76 08/28/24 14:07 BP 136/84 08/28/24 14:07 Pulse Ox 96 08/28/24 14:07 Oxygen Delivery Method Room Air 08/28/24 14:07 BMI result Body Mass Index 20.2 Const General: healthy appearing, no acute distress and well developed Nutritional Appearance: well nourished Orientation/consciousness: patient oriented x3 Resp Effort & Inspection: normal respiratory effort, able to speak in complete sentences, no tracheal deviation and symmetric chest movement Auscultation: clear to auscultation bilaterally Cardio Rate: regular rate GI Inspection: Yes normal to inspection and No distended Palpation (GI): Soft to palpation, not firm, nontender and No hepatosplenomegaly present Auscultation: normal bowel sounds General: Yes no CVA tenderness Back/Spine/Pelvis Back: no CVA tenderness Skin General skin exam: elasticity normal, turgor normal and dry skin Neuro General: patient oriented x3 Psych Appearance: grossly normal Mental Status: mental status grossly normal Results Reviewed Results Reviewed: Laboratory Tests 06/23/24 07/24/24 07/28/24 14:50 13:54 10:00 Vitamin B12 570 25-OH Vitamin D Total 31 Folate 15.4 TSH 1.65 Stool Pancreat Elastase 514 Tiss Transglutamin IgA <1.0 Assessment & Plan Assessment & Plan (1) Postprandial abdominal bloating: Code(s): R14.0 - Abdominal distension (gaseous) (2) Postprandial epigastric pain: Code(s): R10.13 - Epigastric pain (3) Flatulence/gas pain/belching: Code(s): R14.0 - Abdominal distension (gaseous) (4) Constipation: Code(s): K59.00 - Constipation, unspecified Qualifiers: Constipation type: slow transit constipation Qualified Code(s): K59.01 - Slow transit constipation (5) GERD (gastroesophageal reflux disease): Code(s): K21.9 - Gastro-esophageal reflux disease without esophagitis Qualifiers: Esophagitis presence: esophagitis presence not specified Qualified Code(s): K21.9 - Gastro-esophageal reflux disease without esophagitis Plan Discussed with patient trying PPI again. We will start him on Nexium. He has his upper GI series in couple weeks we will review it. I will see patient in 3- 4 months. He will be sent for upper endoscopy. Will call Cardiology for clearance. Patient was encouraged to increase fluid intake and activity to promote better bowel motility. If patient continues to be constipated not feeling like he empties his bowels completely he is to call our office and we can order mild stimulant like senna. Continue follow FODMAP diet. Avoid dietary triggers in late night snacking. Staying upright for minimum 3 hours after meals discussed with patient. Patient also smokes every day which probably is contributing to his symptoms as well. She message sent to Surgical schedules to bulk upper endoscopy for him as well as colonoscopy. Patient is agreeable to this plan and verbalizes understanding of instructions. He was given the opportunity to ask questions and all questions answered. Thank you for allowing me to participate in his care Medications: New esomeprazole magnesium (Nexium) 40 mg PO DAILY 30 caps 3RF K21.9 - Gastro- esophageal reflux disease without esophagitis Coding Level of Care Code Est Pt Level 4 (22798) Complex EM visit Add On G2211 Diagnoses Postprandial abdominal bloating R14.0 Postprandial epigastric pain R10.13 Flatulence/gas pain/belching R14.0 Slow transit constipation K59.01 Constipation type: slow transit constipation Gastroesophageal reflux disease, unspecified whether esophagitis present K21.9 Esophagitis presence: esophagitis presence not specified Time Spent (min) 35 Comment 25 minutes spent with patient and additional 10 minutes spent reviewing her records
[2024-08-28 14:07] VITALS: BP 136/84; PULSE 76; O2SAT 96; BMI 20.2
--- OUTSIDE RECORDS SUMMARY | 2024-08-28 15:49 | XMS_ITS | Encounter Summary ---
Author Organization [employer] Address [address] [place] [address] [address] [place] [address] Care Team Providers Care Head Athletic Trainer/Strength Coach Name Role Phone Arti Lei MD Primary Care Provide r Reason for Visit * Reason Comments Med Refill Encounter Details Date Type Department Care Team (Late st Contact Info) Description 12/17/2022 Refill [facility] [address] [place] [address] [phone] Arti Lei MD [address] [place] [address] [phone] Primary hypertension Social History Tobacco Use Types [...] Care Team (Late st Contact Info) Description 11/05/2024 11:30 AM EDT Telemedicine [facility] [address] [place] [address] [phone] Arti Lei MD [address] [place] [address] [phone] documented as of this encounter Visit Diagnoses Diagnosis Primary hypertension Unspecified essential hypertension documented in this encounter Additional Health Concerns Assessment Noted Time PHQ-9 Depression Total Score: 2 10/16/19 23 3:44 PM EDT documented as of this encounter Care Teams Head Athletic Trainer/Strength Coach Relationship Specialty Start Date End Date Arti Lei MD [address] [place] [address] PCP - General Family Medicine 02/05/18 documented as of this encounter
--- OUTSIDE RECORDS SUMMARY | 2024-08-28 15:49 | XMS_ITS | Encounter Summary ---
Author Organization [facility] Address [address] [phone] Phone Care Team Providers Care Electrician Crane Maintenance Name Role Phone Arti Lei MD Primary Care Provide r Reason for Visit * Reason Comments Primary hypertension Encounter Details Date Type Department Care Team ([facility] st Contact Info) Description 08/24/2024 2:45 PM EDT [facility] Visit [facility] [address] [place] [phone] Brent Hammond MD [address] [phone] Stage 3a chronic kidney disease (HCC) (Primary Dx) Social History Tobacco Use Types Packs/Day Years Used Date Smoking Tobacco: Never Smokeless Tobacco: Never Alcohol Use Standard Drinks/Week Comments Never 0 (1 standard drink = 0.6 oz pur e alcohol) Sex and Gender Information Value Date Recorded Sex Assigned at Not on file Legal Sex Male 8:14 AM EDT Gender Identity Not on file Sexual Orientation Not on file documented as of this encounter Last Filed Vital Signs Vital Sign Reading Time Taken Comments Blood Pressure 136/80 08/24/2024 2:44 PM EDT Pulse 85 08/24/2024 2:44 PM EDT Temperature - - Respiratory Rate - - Oxygen Saturation 96% 08/24/2024 2:44 PM EDT Inhaled Oxygen Concentration - - Weight 65.1 kg (143 lb 9.6 oz) 08/24/2024 2:44 P M EDT Height - - Body Mass Index - - documented in this encounter Patient Instructions * Patient Instructions* Brent Hammond MD - 08/24/2024 2:45 PM EDT No NSAIDS - Do not take non-steroidal anti-inflammatory medications (NSAIDS) such as Ibuprofen (Advil, Motrin, etc), Naproxen (Aleve, etc), Celecoxib (Celebrex) or Ketoprofen. These common arthritis medications can cause permanent kidney damage or worsen your kidney damage. For mild occasional pain, Acetaminophen (Tylenol, etc) is safe for your kidneys. Sodium and Your CKD Diet: How to Spice Up Your Cooking What is sodium? Sodium is a mineral found naturally in foods and is the major part of table salt. What are the effects of eating too much sodium? When your kidneys are not healthy, extra sodium and fluid build up in your body. This can cause swollen ankles, puffiness, a rise in blood pressure, shortness of breath, and/or fluid around your heart and lungs. See the following table for suggestions on how to reduce sodium in your diet. LIMIT THE [AMOUNT OF... FOOD TO LIMIT BECAUSE OF THEIR HIGH SODIUM CONTENT ACCEPTABLE SUBSTITUTES SALT & SALT SEASONINGS Table salt Seasoning salt Garlic salt Onion salt Celery salt Lemon pepper Lite salt Meat tenderizer Bouillon cubes Flavor enhancers Fresh garlic, fresh onion, garlic powder, onion powder, black [pepper, lemon juice, low-sodium/salt-free seasoning blends, vinegar SALTY FOODS Barbecue sauce Steak sauce Soy sauce Teriaky sauce Oyster sauce Salted Snacks such as Crackers Potato chips Point chips Pretzels Tortilla chips Nuts Popcorn [place] seeds Homemade or low- sodium sauces and salad dressings; Vinegar, dry mustard, unsalted popcorn, pretzels, tortilla or corn chips Cured Foods Ham Salt pork [place]onte Sauerkraut Pickles, pickle relish Lox & Figueroa Olives Fresh beef, veal, pork, poultry, fish, eggs [place] MEATS Hot Dogs Cold cuts, deli meats Pastrami Sausage Corned beef Spam Low-salt deli meats PROCESSED FOODS Buttermilk Cheese Canned: Soups Tomato products Vegetable juices Canned vegetables Convenience Foods such as: TV Dinners Canned raviolis Gabbs Macaroni & Cheese Spaghetti Frozen prepared foods Fast foods Natural cheese (1-2 oz Per week) Homemade or moisés,1- sodium soups, canned food without added salt Homemade casseroles without added salt, made with fresh or raw vegetables, fresh meat, mary, pasta, or unsalted canned vegetables Some salt or sodium is needed for body water balance. But when your kidneys lose the ability to control sodium and water balance, you may experience the following: thirst fluid gain high blood pressure discomfort during dialysis By using less sodium in your diet, you can control these problems. Hints to keep your sodium intake down Cook with herbs and spices instead of salt. (Refer to Spice Up Your Cooking section for further suggestions.) Read food labels and choose those foods low in sodium. Avoid salt substitutes and specialty low-sodium foods made with salt substitutes because they are high in potassium. When eating out, ask for meat or fish without salt. Ask for gravy or sauce on the side; these may contain large amounts of salt and should be used in small amounts . Limit use of canned, processed and frozen foods. Some information about reading labels Understanding the terms: Sodium Free - Only a trivial amount of sodium per serving. Very Low Sodium - 35 mg or less per serving. Low Sodium - 140 mg or less per serving. Reduced Sodium - Foods in which the level of sodium is reduced by 25%. Light or Lite in Sodium - Foods in which the sodium is reduced by at least 50% . Simple rule of thumb : If salt is listed in the first five ingredients, the item is probably too high in sodium to use. All food labels now have milligrams (mg) of sodium listed. Follow these steps when reading the sodiwn information on the label: 1. Know how much sodium you are allowed each day. Remember that there are 1000 milligrams (mg) in 1gram. For [id number], if your diet prescription is 2 grams of sodium , your limit is 2000 milligrams per day. Consider the sodium value or other food to be eaten during the day. 2. Look at the package label. Check the serving size. Nutrition values are expressed per rodrick g. How does this compare to your total daily allowance? If the sodium level is 500 mg or more per serving, the item is not a good choice. 3. Compare labels of similar products. Select the lowest sodium level for the same serving size. How to Spice Up Your Cooking Giving up salt does not mean giving up flavor. Learn to season your food with herbs and spices. Be creative and experiment for a new and exciting flavor. What kinds of spices and herbs should I use instead of salt to add flavor? Try the following spices with the foods listed. Allspice: Use with beef, fish, beets, cabbage, canots, peas, fruit. Basil: Use with beef, pork, most vegetables. [place]yer [place]: Use with beef, pork, most vegetables. Jaime: Use with beef, pork, green beans, cauliflower, cabbage, beets, asparagus, and in dips and marinades. Cardamom: Use with fruit and in baked goods. Peterson: Use with beef, chicken, pork, fish, green beans, carrots and in marinades. Dill: Use with beef, chicken, green beans, cabbage, carrots, peas and in dips. Ashlee: Use with beef, chicken, pork, green beans, cauliflower and eggplant. Marjoram: Use with beef, chicken, pork, green beans, cauliflower and eggplant. Mary Ann: Use with chicken, pork, cauliflower, peas and in marinades. Thyme: Use with beef, chicken, pork, fish, green beans, beets and carrots. Aleks: Use with chicken, pork, eggplant and in dressing. Tarragon: Use with fish, chicken, asparagus, beets, cabbage, cauliflower and in marinades. Tips for cooking with herbs and spices Purchase spices and herbs in small amounts . When they sit on the shelf for years they lose their flavor. Use no more than ?? teaspoon of dried spice (?? of fresh) per pound of meat. Add ground spices to food about 15 minutes before the end of the cooking period. Add whole spices to food at least one hour before the end of the cooking period. Combine herbs with oil or butter, set for 30 minutes to bring out their flavor, then brush on foodswhile they cook, or brush meat with oil and sprinkle herbs one hour before coolcing. Crush dried herbs before adding to foods. Can I use salt substitutes? Caution! If you are told to limit potassium in your diet, be very cautious about using salt substitutes because most of them contain some form of potassium. Check with your doctor or dietitian beforeusing and salt substitute. [place] and create your own seasoning containing those spices that you like. If you would like to become a volunteer and find out more about what's happening where you live, contact your local [facility] Affiliate. Blood pressure monitoring education: Monitor home blood pressure values after sitting for 5 minutes with back and arm support. Keep a log. Bring your log and blood pressure cuff to your next visit. documented in this encounter Progress Notes * Brent Hammond MD - 08/24/2024 2:45 PM EDT Images from the original note were not included. Patient Name: John Hwang, Male Date of : 1950, 73 y.o. Date: 08/24/24 [] New Patient [x] Established Patient [] New Hospital Follow Up [] Established Hospital Follow Up [] Telemed Visit [] H&P Referring MD: No primary care provider on file. PCP: Arti Lei MD Reason For Visit: JAVIER, CKD, Hypercalcemia; Dysproteinemia/? Myeloma ( IgM spike) John Hwang is a 73 y.o. male seen tday in f/u Re: H/O JAVIER and hyperCa with IgM spike. Main c/o today in office is belching . He is getting evl with PCP and GI vinh Cont close f/u with Heme/Onc and per PT BM Bx unrevealing and not get Tx for Myeloma but rather being monitored and may need another BM Bx. Overall feeling well. Remains Active. WT stable at 145; he was as slow as 120 in past Previous w/u revealed approriately PTH suppressed and PTHrp neg. IgM K spike noted and elevated K/Lratio of 6.0. Per PT BM Bx not c/w Myeloma Denies chest pain or shortness of breath. No blood in the urine or difficulties urinating. Complains of mild arthritic complaints but avoids use of NSAIDs. The following portions of the patient's chart were reviewed in this encounter and updated as appropriate: Allergies Meds Problems Med Hx Surg Hx Fam Hx Constitutional: Negative for chills and fever. Respiratory: Negative for cough and shortness of breath. Cardiovascular: Negative for chest pain, palpitations and leg swelling. Gastrointestinal: Negative for abdominal pain, nausea and vomiting. Genitourinary: Negative for dysuria, frequency, hematuria and urgency. Full 13 point review of systems unremarkable except as noted above. Past Medical History: Diagnosis Date Essential hypertension History reviewed. No pertinent surgical history. Social History Tobacco Use Smoking status: Never Smokeless tobacco: Never Substance Use Topics Alcohol use: Never History reviewed. No pertinent family history. Current Outpatient Medications Medication Sig Dispense Refill amLODIPine (NORVASC) 2.5 MG tablet 2.5 mg in the morning and 2.5 mg in the evening. Brilinta 90 MG tablet TAKE 1 TABLET BY MOUTH TWO TIMES A DAY rosuvastatin (CRESTOR) 20 MG tablet No current facility-administered medications for this visit. No Known Allergies Objective: Vitals: 08/24/24 1444 BP: 136/80 BP Location: Left upper arm Patient Position: Sitting BP Cuff Size: Adult Pulse: 85 SpO2: 96% Weight: 143 lb 9.6 oz (65.1 kg) 128/70 Vitals reviewed. Constitutional: No distress. Cardiovascular: Normal rate, regular rhythm and normal heart sounds. He exhibits no edema. Pulmonary/Chest: Effort normal and breath sounds normal. No respiratory distress. Abdominal: Soft. There is no abdominal tenderness. No hernia. Skin: Skin is warm and dry. Psychiatric: He has a normal mood and affect. His behavior is normal. No results found for: EGFRAFR eGFR Non- Date Value Ref Range Status 06/09/2021 73 > OR = 60 mL/min/1.73m2 Final Chemistry Lab Units 07/17/23 0000 02/15/23 1433 12/28/22 0940 11/28/22 0922 10/23/22 1004 10/23/22 1003 10/17/22 0251 10/16/22 1017 CREATININE mg/dL 1.16 1.16 1.17 1.12 1.54* 1.56* 2.03* 2.03* 3.18* 2.93* BUN mg/dL 18 18 15 16 16 16 17* 17* 42* 42* BUN / CREAT RATIO (calc) -- -- -- -- -- -- -- 14 GLUCOSE mg/dL -- -- 113 119* -- -- 129* 92 POTASSIUM 5.0 5.0 4.2 4.5 5.1 5.1 3.9 3.9 3.8 3.9 SODIUM 141 141 138 138 140 139 143 143 138 138 CO2 mmol/L -- 22 24 25 28 28 33* 28 CHLORIDE 108.0 108.0 107 106 107 107 109* 109* 99 101 ALBUMIN g/dL 4.4 4.4 -- -- 4.0 -- -- 4.2 -- BILIRUBIN TOTAL mg/dL -- -- -- 0.8 -- -- 0.8 -- AST U/L -- -- -- 13 -- -- 13 -- ALT U/L -- -- -- 11 -- -- 11 -- Bone Mineral Lab Units 07/17/23 0000 02/15/23 1433 02/04/23 1339 12/28/22 0940 11/28/22 0922 10/23/22 1004 10/23/22 1003 10/17/22 0251 CALCIUM mg/dL 9.2 9.2 9.4 -- 9.1 9.6 9.7 10.0 < > 15.7* PHOSPHORUS mg/dL -- -- -- -- -- 2.3* -- -- ALK PHOS U/L -- -- -- -- 43 -- -- 50 VITAMIN D ng/mL -- -- 25.6 -- 56.8 -- -- -- < > = values in this interval not displayed. CBC Lab Units 07/17/23 0000 02/15/23 1433 WBC AUTO 10*3/ML 9.0 9.0 9.8 RBC AUTO X10*6/uL -- 3.91* MCV 90.7 90.7 96.2 HEMATOCRIT 38.9* 38.9* 37.6* HEMOGLOBIN 12.5* 12.5* 12.5* PLATELETS AUTO 10*3/UL 201 201 236 Urine Lab Units 02/15/23 1635 11/28/22 1051 PROT/CREAT RATIO UR TNP TNP ALB MG/G CREAT UR ug/mg cr TNP TNP Urine Lab Units 02/15/23 1613 11/28/22 1051 PH U 7.0 7.0 COLOR U Yellow Yellow GLUCOSE U MG/DL mg/dL Negative Negative WBC UR HPF /HPF 0-5 -- RBC UR HPF /HPF 0-2 -- Labs Lab Units 10/17/22 1131 IGG mg/dL 1,016 IGM mg/dL 388* IGA mg/dL 124 PLAN: Assessment & Plan 73 Y/O M JAVIER ON QUES CKD WITH H/O HYPERCALCEMIA AND IgM K SPIKE C/W MYELOMA JAVIER: resolved Scr peak 3.2--> 2.0--> 1.56 --> 1.16 H/O HyperCa: resolved IgM K spike (faint) and abnl K/L ratio: w/u thus far per PT does not detect myelom based on BM Bx and interestingly HyperCa and JAVIER all resolved PLAN: needs repeat labs to track renal func and Ca level; cont close Heme/Onc eval for further evaland possible treatment 1. Stage 3a chronic kidney disease (HCC) Orders Placed This Encounter PTH, Intact Renal Function Panel Urinalysis with microscopic Urine Albumin / Creatinine Ratio Protein, Total, Random Urine w/Creatinine (Protein/Creat Ratio) Vitamin D 25 Hydroxy CBC Phosphorus Magnesium Albumin Calcium Return in about 1 year (around 08/24/2025). Brent Hammond MD documented in this encounter Plan of Treatment Upcoming Encounters Date Type Department Care Team (Late st Contact Info) Description 08/23/2025 2:30 PM EDT Office Visit [facility] [address] [place] [phone] Brent Hammond MD [address] [facility] [address] [place] [address] Scheduled Orders Name Type Priority Associated Diagnoses Orde r Schedule PTH, Intact Lab Routine Stage 3a chronic kidney disease (HCC) Expected: 08/24/2024, Expires: 09/23/2025 Renal Function Panel Lab Routine Stage 3a chronic kidney disease (HCC) Expected: 08/24/2024, Expires: 09/23/2025 Urinalysis with microscopic Lab Routine Stage 3a chronic kidney disease (HCC) Expected: 08/24/2024, Expires: 09/23/2025 Urine Albumin / Creatinine Ratio Lab Routine Stage 3a chronic kidney disease (HCC) Expected: 08/24/2024, Expires: 09/23/2025 Protein, Total, Random Urine w/Creatinine (Protein/Creat Ratio) Lab Routine Stage 3a chronic kidney disease (HCC) Expected: 08/24/2024, Expires: 09/23/2025 Vitamin D 25 Hydroxy Lab Routine Stage 3a chronic kidney disease (HCC) Expected: 08/24/2024, Expires: 09/23/2025 CBC Lab Routine Stage 3a chronic kidney disease (HCC) Expected: 08/24/2024, Expires: 09/23/2025 Phosphorus Lab Routine Stage 3a chronic kidney disease (HCC) Expected: 08/24/2024, Expires: 09/23/2025 Magnesium Lab Routine Stage 3a chronic kidney disease (HCC) Expected: 08/24/2024, Expires: 09/23/2025 Albumin Lab Routine Stage 3a chronic kidney disease (HCC) Expected: 08/24/2024, Expires: 09/23/2025 Calcium Lab Routine Stage 3a chronic kidney disease (HCC) Expected: 08/24/2024, Expires: 09/23/2025 documented as of this encounter Visit Diagnoses Diagnosis Stage 3a chronic kidney disease (HCC)- Primary documented in this encounter Care Teams Electrician Crane Maintenance Relationship Specialty Start Date End Date Arti Lei MD [address] [place] [phone] PCP - General Internal Medicine 10/18/22 documented as of this encounter
--- OUTSIDE RECORDS SUMMARY | 2024-08-28 15:49 | XMS_ITS | Encounter Summary ---
Author Organization [facility] Address [address] [facility] [address] [place] [address] Phone Care Team Providers Care Senior Project Engineer Name Role Phone Arti Lei MD Primary Care Provide r Encounter Details Date Type Department Care Team (Late st Contact Info) Description 10/23/2022 Telephone [facility] [address] [facility] [address] [place] [phone] Emma Wei Social History Tobacco [...] Department Care Team (Late Contact Info) Description 08/23/2025 2:30 PM EDT Office Visit [facility] [address] [place] [phone] Brent Hammond MD [address] [facility] [address] [place] [phone] documented as of this encounter Visit Diagnoses Not on filedocumented in this encounter Care Teams Senior Project Engineer Relationship Specialty Start Date End Date Arti Lei MD [address] [place] [phone] PCP - General Internal Medicine 10/18/22 documented as of this encounter
--- OUTSIDE RECORDS SUMMARY | 2024-08-28 15:49 | XMS_ITS | Encounter Summary ---
Author Organization [employer] Address [address] [facility] [place] [address] [place] [address] Care Team Providers Care Networking Administrator Name Role Phone Arti Lei MD Primary Care Provide r Encounter Details Date Type Department Care Team (Late st Contact Info) Description 09/12/2022 Orders Only [facility] MED & PEDS [address] [place], [place] [phone] Emma Loredo LPN Social History Tobacco Use [...] Info) Description 11/05/2024 11:30 AM EDT Telemedicine [facility] MEDICINE [address] [place] [address] Arti Lei MD [address] [place] [address] documented as of this encounter Procedures Procedure [...] (12/28/2022 9:40 AM EDT) Triglycerides 74 mg/dL [facility] Comment:Desirable Triglyceri de: less than 150 mg/dLBorderline High Triglyceride 150-199 mg/dLHigh Triglyceride: 200-499 mg/dLVery High Triglyceride: greater than or equal to 5OO mg/dL Cholesterol 166 mg/dL [facility] Comment:Desirable Cholestero l: less than 200 mg/dLBorderline High Cholesterol: 200-239 mg/dLHigh Cholesterol: greater than 239 mg/dL LDL Cholesterol Calculated 107 mg/dl [facility] Comment:Desirable LDL: less than 100 mg/dLNear Optimal/Above Optimal LDL: 110- 129 mg/dLBorderline High LDL: 130-159 mg/dLHigh LDL: 160-189 mg/dLVery High LDL: greater than or equal to 190 mg/dL HDL Cholesterol 45 mg/dL [facility] Comment:Desirable HDL: great er than 40 mg/dL Note: This HDL assay may give artificially low results in patients with liver disease. 12/28/2022 9:40 AM EDT 12/28/2022 9:40 AM EDT us Generic External Data Provider LAB BLOOD ORDERAB LES Final Result [facility] [address] [place] [phone] * Basic Metabolic Panel (12/28/2022 9:40 AM EDT) Sodium 138 135 - 145 mmol/L [facility] Potassium 4.5 3.3 - 5.1 mmol/L [facility] Chloride 106 96 - 108 mmol/L [facility] Carbon Dioxide 22 22 - 29 mmol/L [facility] Anion Gap 15 12 - 20 [facility] Urea Nitrogen (BUN) 16 9 - 16 mg/dL [facility] Creatinine, Serum 1.12 0.5 - 1.4 mg/dL [facility] Estimated Glomerular Filt Rate >60 [facility] Comment:NOTE: For -Am erican individuals, multiply the result by 1.210.Chronic Kidney Disease: Estimated GFR < 60 mL/min/1.27s2[place] Kidney Disease: Estimated GFR < 15 mL/min/1.73m2 Glucose 113 60 - 115 mg/dL [facility] Calcium 9.1 8.4 - 10.2 mg/dL [facility] 12/28/2022 9:40 AM EDT 12/28/2022 9:40 AM EDT [facility] External Provider LAB BLO OD ORDERABLES Final Result [facility] [address] [place] [address] [phone] * (ABNORMAL) CBC auto differential (12/28/2022 9:40 AM EDT) White Blood Count 9.9 4.8 - 10.8 X10*3/uL [facility] Red Blood Count 4.06(L) 4.60 - 5.80 X10*6/uL [facility] Hemoglobin 13.0(L) 14.0 - 18.0 g/dl [facility] Hematocrit 39.4(L) 42.0 - 52.0 % [facility] Mean Corpuscular Volume 97.0 80.0 - 98.0 fL [facility] Mean Corpuscular Hemoglobin 32.0 27.0 - 33.0 pg [facility] Mean Corpuscular HGB Conc 33.0 31.0 - 36.0 g/dl [facility] Red Cell Distribution Width 12.7 11.0 - 16.0 % [facility] Platelet Count 275 160 - 400 X10*3/uL [facility] Mean Platelet Volume 9.0(L) 9.4 - 12.4 fL [facility] Neutrophils Percent Auto 71.2 45 - 73 % [facility] Imm Gran Pct Auto 1.0(H) 0.0 - 0.4 % [facility] Lymphocytes Percent Auto 17.8(L) 20 - 40 % [facility] Monocytes Percent Auto 7.5 2 - 11 % [facility] Eosinophils Percent Auto 2.0 0 - 4 % [facility] Basophils Percent Auto 0.5 0 - 2 % [facility] NRBC Pct Auto 0.0 0.0 - 0.2 /100WBC [facility] Neutrophils Absolute Auto 7.1 2.0 - 8.3 x10*3/uL [facility] Imm Gran Abs Auto 0.10(H) 0.00 - 0.03 X10*3/uL [facility] Lymphocytes Absolute Auto 1.8 1.2 - 4.9 X10*3/uL [facility] Monocytes Absolute Auto 0.7 0.1 - 1.2 X10*3/uL [facility] Eosinophils Absolute Auto 0.2 0.0 - 0.4 X10*3/uL [facility] Basophils Absolute Auto 0.1 0.0 - 0.2 X10*3/uL [facility] NRBC Abs Auto 0.000 0.0 - 0.012 X10*3/uL [facility] 12/28/2022 9:40 AM EDT 12/28/2022 9:40 AM EDT us [facility] External Provider LAB BLO OD ORDERABLES Final Result Performing Organization Address City/State/[facility] Co de Phone Number [facility] [address] [place] [phone] * Prothrombin Time-INR (12/28/2022 9:40 AM EDT) Prothrombin Time 11.6 11.1 - 13.3 SEC [facility] INTERNATIONAL NORM RATIO 1.0 0.9 - 1.1 [facility] Comment:INTERNATIONAL NORMAL IZED RATIO (INR) [...] AM EDT 12/28/2022 9:40 AM EDT us [facility] External Provider LAB BLO OD ORDERABLES Final Result [facility] [address] [place] [address] [phone] * (ABNORMAL) Comprehensive Metabolic Panel (11/28/2022 9:22 AM EDT) Sodium 140 135 - 145 mmol/L [facility] Potassium 5.1 3.3 - 5.1 mmol/L [facility] Chloride 107 96 - 108 mmol/L [facility] Carbon Dioxide 24 22 - 29 mmol/L [facility] Anion Gap 14 12 - 20 [facility] Urea Nitrogen (BUN) 16 9 - 16 mg/dL [facility] Creatinine, Serum 1.54(H) 0.5 - 1.4 mg/dL [facility] Estimated Glomerular Filt Rate 45 [facility] Comment:NOTE: For -Am erican individuals, multiply the result by 1.210.Chronic Kidney Disease: Estimated GFR < 60 mL/min/1.89d3Mmxgzy Kidney Disease: Estimated GFR < 15 mL/min/1.73m2 Glucose 119(H) 60 - 115 mg/dL [facility] Calcium 9.6 8.4 - 10.2 mg/dL [facility] Bilirubin, Total 0.8 0.0 - 1.0 mg/dL [facility] Aspartate Amino Transferase 13 5 - 37 U/L [facility] Alanine Aminotransferase 11 0 - 40 U/L [facility] Total Protein 7.2 6.5 - 8.0 g/dL [facility] Albumin Level 4.0 3.5 - 5.0 g/dL [facility] Alkaline Phosphatase 43 39 - 117 U/L [facility] 11/28/2022 9:22 AM EDT 11/28/2022 9:22 AM EDT us [facility] External Provider LAB BLO OD ORDERABLES Final Result [facility] [address] [place] [address] [phone] * (ABNORMAL) CBC auto differential (11/28/2022 9:22 AM EDT) White Blood Count 7.7 4.8 - 10.8 X10*3/uL [facility] Red Blood Count 3.92(L) 4.60 - 5.80 X10*6/uL [facility] Hemoglobin 12.4(L) 14.0 - 18.0 g/dl [facility] Hematocrit 38.1(L) 42.0 - 52.0 % [facility] Mean Corpuscular Volume 97.2 80.0 - 98.0 fL [facility] Mean Corpuscular Hemoglobin 31.6 27.0 - 33.0 pg [facility] Mean Corpuscular HGB Conc 32.5 31.0 - 36.0 g/dl [facility] Red Cell Distribution Width 13.5 11.0 - 16.0 % [facility] Platelet Count 282 160 - 400 X10*3/uL [facility] Mean Platelet Volume 8.9(L) 9.4 - 12.4 fL [facility] Neutrophils Percent Auto 68.7 45 - 73 % [facility] Imm Gran Pct Auto 0.4 0.0 - 0.4 % [facility] Lymphocytes Percent Auto 21.1 20 - 40 % [facility] Monocytes Percent Auto 8.2 2 - 11 % [facility] Eosinophils Percent Auto 1.2 0 - 4 % [facility] Basophils Percent Auto 0.4 0 - 2 % [facility] NRBC Pct Auto 0.0 0.0 - 0.2 /100WBC [facility] Neutrophils Absolute Auto 5.3 2.0 - 8.3 x10*3/uL [facility] Imm Gran Abs Auto 0.03 0.00 - 0.03 X10*3/uL [facility] Lymphocytes Absolute Auto 1.6 1.2 - 4.9 X10*3/uL [facility] Monocytes Absolute Auto 0.6 0.1 - 1.2 X10*3/uL [facility] Eosinophils Absolute Auto 0.1 0.0 - 0.4 X10*3/uL [facility] Basophils Absolute Auto 0.0 0.0 - 0.2 X10*3/uL [facility] NRBC Abs Auto 0.000 0.0 - 0.012 X10*3/uL [facility] 11/28/2022 9:22 AM EDT 11/28/2022 9:22 AM EDT [facility] External Provider LAB BLO OD ORDERABLES Final Result Performing Organization Address [facility]/ZIP Co de Phone Number [facility] [address] [place] [address] [phone] * Chromosome Analysis, Bone Marrow (11/22/2022 12:00 PM EDT) Pathologist [facility] Chromosome Analysis, Bone Marrow See note [facility] Comment:See report from [employer] in the EMR. 11/22/2022 12:0 0 PM EDT 11/22/2022 1:46 PM EDT [facility] Exter nal Provider LAB BODY FLUIDS AND STOOLS ORDERABLES Final Result Performing Organization Address City/[facility] Co de Phone Number [facility] [address] [place] [address] [phone] * LEUKEMIA/LYMPH. EVAL. BONE MAR (11/22/2022 12:00 PM EDT) LLE Interpretation See Note [facility] Comment:See report from [employer] in the EMR. 11/22/2022 12:0 0 PM EDT 11/22/2022 1:46 PM EDT us [facility] External Provider LAB BLO OD ORDERABLES Final Result [facility] [address] [place] [address] [phone] * Bone Marrow Smear (11/22/2022 11:45 AM EDT) 11/22/2022 11:4 5 AM EDT 11/22/2022 1:56 PM EDT Narrative [facility] - 01/23/2023 11:20 AM EDT ----- ------- Name: John Hwang ?Age/Sex: 72/M ? : 1950 Unit#: [id number] ?? Attend Dr: Oliver Ospina MD ?Re11/22/22 ?Status: DEP SDC ? Location: HO.SSS ?Disch: ? ----- ------- SPEC : [id number] ? RECD: 11/22/22-1356 ? STATUS: ??SOUT ? REQ NUM: [id number] ? AURA: 11/22/22-1145 ? SUBM DR: Oliver [...] Technical services for reticulin study performed at [employer] [address] Alda Nagel [place]; [place] #[id number] Addendum Signed (signature on file) Malik Lancaster [...] Hwang ?Age/Sex: 72/M ? : 1950 Unit#: [id number] ?? Attend Dr: Oliver Ospina MD ?Re11/22/22 ?Status: [place] [facility] [place] Location: [facility] ?Disch: ? ----- ------- SPEC : [id number] ? RECD: 11/22/226 ? STATUS: ??SOUT ? REQ NUM: [id number] ? AURA: 11/22/22-1145 ? SUBM DR: Oliver Ospina MD ? ENTERED: ??11/22/22-3260 ?SP TYPE: Surgical ? OTHR DR: Arti [...] Hwang ?Age/Sex: 72/M ? : 1950 Unit#: [id number] ?? Attend Dr: Oliver Ospina MD ?Re11/22/22 ?Status: DEP SDC ? Location: HO.SSS ?Disch: ? ----- ------- SPEC : [id number] ? RECD: 11/22/22-1891 ? STATUS: ??SOUT ? REQ NUM: [id number] ? AURA: 11/22/22-1147 ? SUBM DR: Oliver Ospina MD ? ENTERED: ??11/22/22-1203 ?SP TYPE: Surgical ? OTHR DR: Arti [...] To: ?? Arti Lei MD ?? [address] [facility] ?? [place] [address] ?? [phone] ?? Oliver Ospina MD ?? [address] ?? Dept. of Hematology/Oncology ?? [place] ?? [phone] ----- ------- Signed (signature on file) Malik Lancaster MD 11/30/221630 ? ----- ------- ? END OF REPORT ? us [facility] Exter nal Provider LAB BODY FLUIDS AND STOOLS ORDERABLES Final Result [facility] [address] [facility] [place] [address] [phone] * (ABNORMAL) Phosphate (As Phosphorus) (10/23/2022 10:03 AM EDT) Phosphorus 2.3(L) 2.7 - 4.5 mg/dL [facility] 10/23/2022 10:0 3 AM EDT 10/23/2022 10:04 AM EDT [facility] External Provider LAB BLO OD ORDERABLES Final Result [facility] [address] [place] [phone] * Calcium (10/23/2022 10:03 AM EDT) Calcium 10.0 8.4 - 10.2 mg/dL [facility] 10/23/2022 10:0 3 AM EDT 10/23/2022 10:04 AM EDT [facility] External Provider LAB BLO OD ORDERABLES Final Result Performing Organization Address City/[facility]/ZIP Co de Phone Number [facility] [address] [place] [phone] * (ABNORMAL) Creatinine, Serum (10/23/2022 10:03 AM EDT) Creatinine, Serum 2.03(H) 0.5 - 1.4 mg/dL [facility] Estimated Glomerular Filt Rate 33 [facility] Comment:NOTE: For -Am erican individuals, multiply the result by 1.210.Chronic Kidney Disease: Estimated GFR < 60 mL/min/1.75m3Qannfd Kidney Disease: Estimated GFR < 15 mL/min/1.73m2 10/23/2022 10:0 3 AM EDT 10/23/2022 10:04 AM EDT [facility] External Provider LAB BLO OD ORDERABLES Final Result Performing Organization Address [facility] Co de Phone Number [facility] [address] [place] [address] [phone] * (ABNORMAL) BUN (Blood Urea Nitrogen) (10/23/2022 10:03 AM EDT) Urea Nitrogen (BUN) 17(H) 9 - 16 mg/dL [facility] 10/23/2022 10:0 3 AM EDT 10/23/2022 10:04 AM EDT [facility] External Provider LAB BLO OD ORDERABLES Final Result Performing Organization Address [facility] de Phone Number [facility] [address] [place] [address] [phone] * (ABNORMAL) Electrolyte Panel (10/23/2022 10:03 AM EDT) [facility] Signature Sodium 143 135 - 145 mmol/L [facility] Potassium 3.9 3.3 - 5.1 mmol/L [facility] Chloride 109(H) 96 - 108 mmol/L [facility] Carbon Dioxide 28 22 - 29 mmol/L [facility] Anion Gap 10(L) 12 - 20 [facility] 10/23/2022 10:0 3 AM EDT 10/23/2022 10:04 AM EDT [facility] External Provider LAB BLO OD ORDERABLES Final Result Performing Organization Address [facility] Co de Phone Number [facility] [address] [place] [address] [phone] * (ABNORMAL) Urinalysis, Complete, with Reflex to Culture (10/17/2022 4:16 AM EDT) Color Urine Yellow [facility] Appearance Urine Clear [facility] PH 6.5 5.0 - 9.0 [facility] Glucose Urine UA Negative Negative mg/dL [facility] Urine Blood Negative Negative [facility] Specific Etlan - Urine 1.010 1.005 - 1.025 [facility] Urine Protein Negative Neg-Trace mg/dL [facility] Urine Ketones Negative Negative mg/dL [facility] Nitrite Urine Negative Negative [facility] Leukocyte Esterase Urine Small (1+)(A) Negative [facility] RBC Urine 0-2 0 - 2 /HPF [facility] Urine WBC 11-20(A) 0 - 5 /HPF [facility] Urine Squamous Epithelial Cell 0-2 0 - 2 /HPF [facility] Urine Bacteria None Seen None Seen [facility] Hyaline Casts, Urine 3-5 0 - 2 /LPF [facility] 10/17/2022 4:16 AM EDT 10/17/2022 4:19 AM EDT Narrative [facility] - 10/17/2022 4:34 AM EDT Urine, Clean Catch [facility] External Provider LAB URI NE ORDERABLES Final Result Performing Organization Address [facility] Co de Phone Number [facility] [address] [place] [phone] * Magnesium (10/17/2022 2:51 AM EDT) Magnesium 2.6 1.6 - 2.6 mg/dL [facility] 10/17/2022 2:51 AM EDT 10/17/2022 2:55 AM EDT [facility] External Provider LAB BLO OD ORDERABLES Final Result Performing Organization Address [facility] Co de Phone Number [facility] [address] [place] [phone] * (ABNORMAL) Comprehensive Metabolic Panel (10/17/2022 2:51 AM EDT) Sodium 138 135 - 145 mmol/L [facility] Potassium 3.8 3.3 - 5.1 mmol/L [facility] Chloride 99 96 - 108 mmol/L [facility] Carbon Dioxide 33(H) 22 - 29 mmol/L [facility] Anion Gap 10(L) 12 - 20 [facility] Urea Nitrogen (BUN) 42(H) 9 - 16 mg/dL [facility] Creatinine, Serum 3.18(H) 0.5 - 1.4 mg/dL [facility] Creatinine Clr Calc Pharmacy 18.4 [facility] Comment:eGFR (calculated fro m the MDRD study equation) and eCrCl(calculated from the Cockcroft-Gault equation) are based ondifferent parameters and may not yield comparable results.If eCrCl result is absurd, please check patient'sheight/weight. Estimated Glomerular Filt Rate 19 [facility] Comment:NOTE: For -Am erican individuals, multiply the result by 1.210.Chronic Kidney Disease: Estimated GFR < 60 mL/min/1.67s9Kdonpk Kidney Disease: Estimated GFR < 15 mL/min/1.73m2 Glucose 129(H) 60 - 115 mg/dL [facility] Calcium 15.7(HH) 8.4 - 10.2 mg/dL [facility] Comment:Critical value for t est(s): CALCIUM Results called to luci back by: NEDRA Person calling:VINCENT Date:10/17/22 Time:0323 Bilirubin, Total 0.8 0.0 - 1.0 mg/dL [facility] Aspartate Amino Transferase 13 5 - 37 U/L [facility] Alanine Aminotransferase 11 0 - 40 U/L [facility] Total Protein 7.0 6.5 - 8.0 g/dL [facility] Albumin Level 4.2 3.5 - 5.0 g/dL [facility] Alkaline Phosphatase 50 39 - 117 U/L [facility] 10/17/2022 2:51 AM EDT 10/17/2022 2:55 AM EDT us [facility] External Provider LAB BLO OD ORDERABLES Final Result [facility] [address] [place], [place] [phone] * (ABNORMAL) CBC auto differential (10/17/2022 2:51 AM EDT) White Blood Count 10.3 4.8 - 10.8 X10*3/uL [facility] Red Blood Count 4.13(L) 4.60 - 5.80 X10*6/uL [facility] Hemoglobin 13.0(L) 14.0 - 18.0 g/dl [facility] Hematocrit 37.6(L) 42.0 - 52.0 % [facility] Mean Corpuscular Volume 91.0 80.0 - 98.0 fL [facility] Mean Corpuscular Hemoglobin 31.5 27.0 - 33.0 pg [facility] Mean Corpuscular HGB Conc 34.6 31.0 - 36.0 g/dl [facility] Red Cell Distribution Width 12.1 11.0 - 16.0 % [facility] Platelet Count 244 160 - 400 X10*3/uL [facility] Mean Platelet Volume 9.1(L) 9.4 - 12.4 fL [facility] Neutrophils Percent Auto 73.6(H) 45 - 73 % [facility] Imm Gran Pct Auto 0.3 0.0 - 0.4 % [facility] Lymphocytes Percent Auto 18.0(L) 20 - 40 % [facility] Monocytes Percent Auto 6.8 2 - 11 % [facility] Eosinophils Percent Auto 0.9 0 - 4 % [facility] Basophils Percent Auto 0.4 0 - 2 % [facility] NRBC Pct Auto 0.0 0.0 - 0.2 /100WBC [facility] Neutrophils Absolute Auto 7.6 2.0 - 8.3 x10*3/uL [facility] Imm Gran Abs Auto 0.03 0.00 - 0.03 X10*3/uL [facility] Lymphocytes Absolute Auto 1.8 1.2 - 4.9 X10*3/uL [facility] Monocytes Absolute Auto 0.7 0.1 - 1.2 X10*3/uL [facility] Eosinophils Absolute Auto 0.1 0.0 - 0.4 X10*3/uL [facility] Basophils Absolute Auto 0.0 0.0 - 0.2 X10*3/uL [facility] NRBC Abs Auto 0.000 0.0 - 0.012 X10*3/uL [facility] 10/17/2022 2:51 AM EDT 10/17/2022 2:55 AM EDT us [facility] External Provider LAB BLO OD ORDERABLES Final Result [facility] [address] [place] [address] [phone] documented in this encounter Visit Diagnoses Not on filedocumented in this encounter Care Teams Networking Administrator Relationship Specialty Start Date End Date Arti Lei MD [address] [place] [phone] PCP - General Family Medicine 02/05/18 documented as of this encounter
--- OUTSIDE RECORDS SUMMARY | 2024-08-28 15:49 | XMS_ITS | Clinical Summary ---
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 [...] Assessment & Plan: Blood work ordered today Encounters Date Type Department Care Team Description 08/24/2024 2:45 PM EDT Office Visit [facility] [address] [place] [address] Brent Hammond MD Stage 3a chronic kidney disease (HCC) (Primary Dx) from Last 3 Months Immunizations Name Administration Dates Next Due Hepatitis B 06/16/2013,02/23/2013 Influenza Split 02/23/2013 Influenza Split High Dose Preservative Free IM 0 02/19/2024,04/01/2019 Influenza Vaccine, Quadrivalent, Adjuvanted 06/2020,04/18/2020 Influenza, Quadrivalent, [...] Visit [facility] [address] [place] [phone] Brent Hammond MD [address] [facility] [address] [place] [address] Health Maintenance Due Date Last Done Comments Colorectal Cancer Screening: Annual FOBT 10/15/2000 Colorectal Cancer Screening: Colonoscopy 10/15/2000 Colorectal Cancer Screening: Sigmoidoscopy 10/15/2000 Hepatitis B Vaccine Aged Out 06/16/2013, 3 No longer eligible based on patient's age to complete this topic Pneumococcal Vaccine: 65+ Years Completed 10/15/2022, 11/15/2014 Influenza Vaccine Completed 02/19/2024, , 04/27/2021, Additional history exists Insurance [place]ARE [place]ID [place] Care Teams Central Supply Manager Relationship Specialty Start Date End Date Arti Lei MD [address] [place] [phone] PCP - General Internal Medicine 10/18/22
--- OUTSIDE RECORDS SUMMARY | 2024-08-28 15:49 | XMS_ITS | Encounter Summary ---
Author Organization [employer] [facility] Address [address] [place] [address] 7t [place] [address] Care Team Providers Care Credit Compliance Officer Name Role Phone Arti Lei MD Primary Care Provide r Encounter Details Date Type Department Care Team (Late st Contact Info) Description 02/05/2023 Orders Only [facility] [address] [place] [address] [phone] Provider, MD Jenifer Social History Tobacco Use [...] Info) Description 11/05/2024 11:30 AM EDT Telemedicine [facility] [address] [place] [address] [phone] Arti Lei MD [address] [place] [address] [phone] documented as of this encounter Procedures Procedure [...] documented as of this encounter Care Teams Credit Compliance Officer Relationship Specialty Start Date End Date Arti Lei MD [address] [place] [address] PCP - General Family Medicine 02/05/18 documented as of this encounter
--- OUTSIDE RECORDS SUMMARY | 2024-08-28 15:49 | XMS_ITS | Clinical Summary ---
Author Organization [employer] Address [address] [facility] 7t [place] [address] Care Team Providers Care National Accounts Recruiter Name Role Phone Arti Lei MD Primary Care Provide r Allergies Active Allergy Reactions Criticality Noted Date Comments Other GI intolerance High 03/23/2021 Peanut-Containing Drug Products GI intolerance High 03/23/2021 Medications Brilinta 90 MG tablet 02/12/20 23 Active Aspirin 81 MG capsuleIndicati ons:Primary hypertension Take 81 mg by mouth Once per day. 90 capsule 1 02/19/20 24 Active rosuvastatin (Crestor) 20 MG tabletIndicatio ns:Primary hypertension Take 1 tablet (20 mg) by mouth Once per day. 90 tablet 1 02/19/20 24 Active simethicone (Mylicon,Gas-X) 180 MG capsuleIndicati ons:Bloating symptom Take 1 capsule (180 mg) by mouth every 6 (six) hours if needed for flatulence. 90 capsule 1 06/05/19 25 Active Wili Carb-Mag Hydrox-Simeth (Mylanta Tonight) 800-270-80 MG/10ML suspensionIndic ations:Bloating symptom Take 1 each by mouth with breakfast, with lunch, and with evening meal. 355 mL 1 06/05/19 25 Active amLODIPine (Norvasc) 2.5 MG tabletIndicatio ns:Primary hypertension Take 1 tablet (2.5 mg) by mouth 2 times daily. 180 tablet 1 08/06/19 25 Active loratadine (Claritin) 10 MG tabletIndicatio ns:Rash Take one tablet twice a day for 5 days then one daily 60 tablet 08/06/19 25 Active triamcinolone (Kenalog) 0.5 % creamIndication s:Rash Apply topically 3 times daily. 15 g 08/06/19 25 Active amLODIPine (Norvasc) 2.5 MG tabletIndicatio ns:Primary hypertension Take 1 tablet (2.5 mg) by mouth Once per day. 90 tablet 1 02/19/20 24 025 Discontinued(Re order (will not trigger notification to Pharmacy)) Active Problems Problem Noted Date Diagnosed Date Rash 08/05/2024 Belching symptom 06/05/2024 Assessment & Plan (06/05/2024 [...] declines medications Coronary artery disease invo lving [place] coronary artery of [place] heart without angina pectoris 04/16/2023 Assessment & [...] specialist Primary hypertension 10/15/2022 Assessment & Plan (08/05/2024 2:25 PM EDT): I increase his amlodipine to 2.5 mg twice a day instead of once a day (patient prefers to take this medications split into doses instead of taking 5 mg at once, conversation was done with cardiology regarding this) I advised low-sodium diet Monitor blood pressure at home if it continues to be in the high side please report back Assessment & Plan (02/25/2024 1:28 PM EDT): [...] Encounters Date Type Department Care Team Description 08/07/2024 Population Health Risk Score [facility] () Department [address] [phone] Provider, Population Health Generic 08/05/2024 11:30 AM EDT Office Visit [address] [address] Arti Lei MD Rash (Primary Dx); Primary hypertension 08/05/2024 Travel 07/31/[address] [address] Arti Lei MD Chart Prep 07/29/2024 Patient Outreach [address] [address] Arti Lei MD Pre-visit Planning ((Unable to reach for PVP screening, LVM)) 07/28/2024 Orders Only GENERIC EXTERNAL DATA DEPARTMENT Provider, Generic External Data 07/24/2024 Orders Only [facility] External Provider, [facility] 06/23/2024 Orders Only GENERIC EXTERNAL DATA DEPARTMENT Provider, Generic External Data 06/22/2024 Orders Only [address] [address] Arti Lei MD 06/17/2024 Telephone [facility] [address] [place] [address] Rahul Yoder MA Results 06/12/[address] [address] Arti Lei MD Results 06/05/2024 3:15 PM EST Office Visit [facility] [address] [facility] [place] [address] Arti Lei MD Belching symptom (Primary Dx); Bloating symptom 06/05/2024 Travel from Last 3 Months Immunizations Name Administration [...] Answer Date Recorded Patient Health Questionnaire-9 Score 0 08/05/2024 Patient Health Questionnaire-9 Score 0 08/05/2024 Last PHQ-9: Questionnaire Data Not on file 0 08/05/2024 Housing Stability Answer Date Recorded What is your housing situation today? I have boris jenna 08/05/[address] you li ve. Do you have problems with any of the following? None of the above 08/05/2024 Food Insecurity Answer Date Recorded Within the past 12 months, y ou worried that your food would run out before you got money to buy more: Never True 08/05/2024 Within the past 12 months,th e food you bought just didn't last and you didn't have enough money to get more: Never True 04/2025 Transportation Answer Date Recorded In the past 12 months, has l ack of transportation kept you from medical appts, meetings, work or from getting things needed for daily living? No 08/05/2024 Utilities Answer Date Recorded In the past 12 months, has t he electric, gas, oil or water company threatened to shut off services in your home? No 08/05/2024 Depression Answer Date Recorded Patient Health Questionnaire-2 Score 0 08/05/2024 Internet Access Answer Date Recorded Internet Access Q1 No 08/05/2024 Internet Access Q2 I do not want or need it 07/25 Sex and Gender Information Value Date Recorded Sex Assigned at Male 03/26/2022 10:18 AM EDT Legal Sex Male 10:18 AM EDT Gender Identity Male 03/26/2022 10:18 AM EDT Sexual Orientation Straight 03/26/2022 10 :18 AM EDT Last Filed Vital Signs Vital Sign Reading Time Taken Comments Blood Pressure 153/85 08/05/2024 12:16 PM EDT Pulse 66 08/05/2024 11:41 AM EDT Temperature 36.2 ??C (97.1 ??F) 08/05/2024 11:41 AM E DT Respiratory Rate 18 08/05/2024 11:41 AM EDT Oxygen Saturation 97% 01/22/2024 10:36 AM EDT Inhaled Oxygen Concentration - - Weight 64.6 kg (142 lb 6.4 oz) 08/05/2024 11:41 AM EDT Height 177.8 cm (5' 10 ) 08/05/2024 11:41 AM EDT Body Mass Index 20.43 08/05/2024 11:41 AM EDT Plan of Treatment Upcoming Encounters Date Type Department Care Team (Late st Contact Info) Description 11/05/2024 11:30 AM EDT Telemedicine [facility] [address] [place] [address] Arti Lei MD [address] [place] [address] Health Maintenance Due Date Last Done Comments CT Colonography 1950 FIT DNA/Cologuard 1950 FIT 1950 FOBT 1950 Sigmoidoscopy 1950 Hepatitis C Screening 10/15/1969 Hepatitis B Vaccines (3 of 3 - 19+ 3-dose series) 08/23/2013 06/16/2013, 02/23/2013 Colonoscopy 05/02/2023 05/02/2018 Colorectal Cancer Screening 05/02/2023 COVID-19 Vaccine ( season) 2024 02/19/2024, 10/18/2023, 03/22/2023, Additional history exists DTaP/Tdap/Td Vaccines (2 - Td or Tdap) 05/17/2025 05/17/2015 Alcohol/Substance Use Screening 08/05/2025 08/05/2024 Depression Screening 08/05/2025 08/05/2024, 08/06/19 SDOH Screening 08/05/2025 08/05/2024 Tobacco Screening 08/05/2025 08/05/2024 Lipid Panel 06/19/2028 06/19/2023, 08/0 08/2022, 2022, [...] on patient's age to complete this topic Hepatitis A Vaccines Aged Out No long er eligible based on patient's age to complete [...] Procedure Name Priority Date/Time Associated Diagnosis Comments PANCREATIC ELASTASE, FECAL Routine 07/28/2024 10:00 AM EST LDCT LUNG SCREENING Routine 07/24/2024 7 :14 [...] PANEL, STANDARD Routine 06/19/2023 1:12 PM EST COLONOSCOPY Routine 05/02/2018 from Last 3 Months or Most Recently Relevant to Health Maintenance Results * Pancreatic elastase, fecal (07/28/2024 10:00 AM EST) Pancreatic Elastase 1 514 >200 mcg/g [facility] Comment:E-1 mcg/g feces Inte rpretation <100 Severe exocrine pancreatic insufficiency 100-200 Mild to moderate exocrine pancreatic insufficiency >200 NormalTHIS TEST WAS PERFORMED AT:[employer] [id number] [place] [id number] DEMARCO MD,PHD,ESTELLE 07/28/2024 10:0 0 AM EST 07/28/2024 1:57 PM EST us Generic External Data Provider LAB BODY FLUIDS A ND STOOLS ORDERABLES Final Result [facility] [address] [place] [phone] * CT Lung Screening Low dose (07/24/2024 7:14 PM EST) Anatomical Region Laterality Modality Lung Computed Tomogra phy 07/24/2024 7:14 PM EST Narrative 07/24/2024 7:16 PM EST ? [facility] ?[address] ?[place] [address] ? CT Scan Report ? Signed ? Patient: Jaiden,John ?MR#: [id number] ?? 250 ? : 1950 ?Acct:[id number] ? Age/Sex: 73 / M ?ADM Date: 07/24/24 ? Loc: HO.CT ? Attending Dr: Ila Meek PA-C ? Ordering Physician: Ila Meek PA-C ?? Date of Service: 07/24/24 ?? Procedure(s): CT lung screening ?? Accession Number(s): [id number] ? cc: Arti Lei MD; Ila Meek PA-C ? Report Number: ?? [id number]: Total DLP = ?? 50.00 mGy-cm ? [...] signed by John Ramírez MD in OV> ?07/24/245 ? DD/ 13 ? TD/TT: 07/24/241913 ? Manager Of Health: ? Procedure Note Vinod, Quintin - 07/24/[address] [place] [address] [address] Scan Report Signed Patient: John HwangMR#: [id number] 250 : 1950cct:[id number] Age/Sex: 73 / MADM Date: 07/24/24 Loc: HO.CT Attending Dr: Ila Meek PA-C Ordering Physician: Ila Meek PA-C Date of Service: 07/24/24 Procedure(s): CT lung screening Accession Number(s): [id number] cc: Arti Lei MD; Ila Meek PA-C Report Number: [id number]: Total DLP = 50.00 mGy-cm CLINICAL HISTORY: [...] in OV> 07/24/241914 DD/ 13 TD/TT: 07/24/241913 Manager Of Health: [facility] External Provider IMG CT PROCEDURES Final Result * Tissue Transglutaminase Antibody, IgA (07/24/2024 1:54 PM EST) Transglutaminase IgA <1.0 U/mL [facility] Comment:Value Interpretation ----- <15.0 Antibody not detected> or = 15.0 Antibody detectedTHIS TEST WAS PERFORMED AT:[employer] [place] [id number] KEANE MD 07/24/2024 1:54 PM EST 07/24/2024 4:12 PM EST Generic External Data Provider LAB BLOOD ORDERAB LES Final Result [facility] [address] [place] [address] [phone] * VITAMIN D 25-OH (D2 AND D3) (06/23/2024 2:50 PM EST) Vitamin D, 25-OH, D2 4 ng/mL [facility] Comment:This test was develo ped and its analytical performancecharacteristics have been determined by [employer] [place], [place]. It hasnot been cleared or approved by the U.S. Food and DrugAdministration. This assay has been validated pursuantto the CLIA regulations and is used for clinicalpurposes.THIS TEST WAS PERFORMED AT:[employer] [id number] [place] [address]KYLSQSDCARIE العلي MD,PHD Vitamin D, 25-OH, D3 27 ng/mL [facility] Comment:This test was develo ped and its analytical performancecharacteristics have been determined by [employer] [place]. It hasnot been cleared or approved by the U.S. Food and DrugAdministration. This assay has been validated pursuantto the CLIA regulations and is used for clinicalpurposes. Vitamin D, 25-OH, Total 31 30 - 100 ng/mL [facility] Comment:Vitamin D, 25-Hydrox y reports [...] = 30 ng/mL.For additional information, please refer tohttp://education.E-House/faq/CTI168(This link is being provided for informational/educational purposes only.) 06/23/2024 2:50 PM EST 06/23/2024 2:50 PM EST Generic External Data Provider LAB BLOOD ORDERAB LES Final Result Performing Organization Address [facility] Co de Phone Number [facility] [address] [place] [phone] * Vitamin B12 (Cobalamin) and Folate Panel, Serum (06/23/2024 2:50 PM EST) Vitamin B12 570 200 - 900 pg/mL [facility] Comment:NORMAL 200-900 PG/ML INDETERMINATE 160-199 PG/ML DEFICIENT < 160 PG/ML Folate 15.4 > or = 4.0 ng/mL [facility] Comment:Reference Values:> o r = 4.0 ng/mL< 4.0 ng/mL suggests folate deficiency Methotrexate, aminopterin and folinic acid(leucovorin) are chemotherapeutic agents whose molecularstructures are similar to folate; therefore, the Architectfolate assay cannot be used for patients using these drugs. 06/23/2024 2:50 PM EST 06/23/2024 2:50 PM EST Generic External Data Provider LAB BLOOD ORDERAB LES Final Result Performing Organization Address [facility] Phone Number [facility] [address] [place] [phone] * TSH with Reflex to Free T4 (06/23/2024 2:50 PM EST) Pathologist [facility] TSH reflex Free T4 1.65 0.32 - 4.0 uIU/mL [facility] 06/23/2024 2:50 PM EST 06/23/2024 2:50 PM EST Generic External Data Provider LAB BLOOD ORDERAB LES Final Result Performing Organization Address [facility] Co de Phone Number [facility] [address] [place] [phone] * US ABDOMINAL AORTIC ANEURYSM (06/22/2024 12:50 PM EST) Anatomical Region Laterality Modality Abdomen Ultrasound 06/22/2024 12:5 0 PM EST Narrative 06/22/2024 12:51 PM EST ? [facility] ?[address] ? [place] [address] ? Ultrasound Report ? Signed ? Patient: Jaiden,John ?MR#: [id number] ?? 250 ? : 1950 ?Acct:[id number] ? Age/Sex: 73 / M ?ADM Date: 06/22/24 ? Loc: HO.HMGCX ? Attending Dr: Arti Pires MD ? Ordering Physician: Arti Lei MD ?? Date of Service: 06/22/24 ?? Procedure(s): US abdominal aortic aneurysm ?? Accession Number(s): [id number] ? cc: Arti Lei MD ? CLINICAL [...] DD/ 1250 ? TD/TT: 06/22/24 1250 ? Manager Of Health: ? Procedure Note Donnazarioter, Image - 06/22/2024 [facility] [address] [place] [address] Ultrasound Report Signed Patient: John Hwang#: [id number] 250 : 2Acct:[id number] Age/Sex: 73 / MADM Date: 06/22/24 Loc: HO.HMGCX Attending Dr: Arti Pires MD Ordering Physician: Arti Lei MD Date of Service: 06/22/24 Procedure(s): US abdominal aortic aneurysm Accession Number(s): [id number] cc: Arti Lei MD CLINICAL HISTORY: SMOKER, [...] 06/22/24 1251 DD/ 1250 TD/TT: 06/22/24 1250 Manager Of Health: Arti Pires MD [facility] PROCEDURES Fin al Result * Helicobacter pylori??Antigen, EIA, Stool (06/08/2024 11:30 AM EST) H pylori Ag Stool SEE NOTE [facility] Comment:HELICOBACTER PYLORI AG, EIA, STOOL Micro Number: [id number] Test Status: Final Specimen Source: Stool Specimen Quality: Adequate H.pylori Ag: Not Detected Antimicrobials, proton pump inhibitors, and bismuth preparations inhibit H. pylori and ingestion up to two weeks prior to testing may cause false negative results. If clinically indicated the test should be repeated on a new specimen obtained two weeks after discontinuing treatment. Reference Range: Not DetectedTHIS TEST WAS PERFORMED AT:[employer] [place] [phone] KEANE MD Stool Rectal contents / Unknown 06/08/2024 11:30 AM EST 06/08/2024 1:00 PM EST Arti Pires MD LAB BODY FLUIDS AND S TOOLS ORDERABLES Final Result [facility] [address] [place] [phone] * Lipid Panel, Standard (06/19/2023 1:12 PM EST) Triglycerides 67 <150 mg/dL [facility] Comment:Desirable Triglyceri de: less than 150 mg/dLBorderline High Triglyceride 150-199 mg/dLHigh Triglyceride: 200-499 mg/dLVery High Triglyceride: greater than or equal to 5OO mg/dL Cholesterol 110 <200 mg/dL [facility] Comment:Desirable Cholestero l: less than 200 mg/dLBorderline High Cholesterol: 200-239 mg/dLHigh Cholesterol: greater than 239 mg/dL LDL Cholesterol Calculated 56 <100 mg/dL [facility] Comment:Desirable LDL: less than 100 mg/dLNear Optimal/Above Optimal LDL: 110- 129 mg/dLBorderline High LDL: 130-159 mg/dLHigh LDL: 160-189 mg/dLVery High LDL: greater than or equal to 190 mg/dL HDL Cholesterol 41 >40 mg/dL [facility] Comment:Desirable HDL: great er than 40 mg/dL Note: This HDL assay may give artificially low results in patients with liver disease. 06/19/2023 1:12 PM EST 06/19/2023 1:12 PM EST us Generic External Data Provider LAB BLOOD ORDERAB LES Final Result [facility] [address] [place] [phone] [phone] * Colonoscopy (05/02/2018) Historical Provider HEALTH MAINTENANCE Final Result from Last 3 Months or Most Recently Relevant to Health Maintenance Insurance MEDICARE [facility] STANDARD Care Teams National Accounts Recruiter Relationship Specialty Start Date End Date Arti Lei MD [address] [place] [phone] PCP - General Family Medicine 02/05/18
--- OUTSIDE RECORDS SUMMARY | 2024-08-28 15:49 | XMS_ITS | Encounter Summary ---
Author Organization [employer] Address [address] [facility] 7t [place] [address] Care Team Providers Care Golf Ball Winder Name Role Phone Arti Lei MD Primary Care Provide r Reason for Visit * Reason Onset Date Comments FYI 10/19/2022 Encounter Details Date Type Department Care Team ([facility] st Contact Info) Description 10/19/2022 Telephone [facility] [address] [place], [place] [phone] Arti Lei MD [address] [place] [address] FYI Social History Tobacco Use Types Packs/Day [...] Info) Description 11/05/2024 11:30 AM EDT Telemedicine [facility] [address] [place], [place] [phone] Arti Lei MD [address] [place], [place] [phone] documented as of this encounter Visit Diagnoses Not on filedocumented in this encounter Additional Health Concerns Assessment Noted Time PHQ-9 Depression Total Score: 2 10/16/19 23 3:44 PM EDT documented as of this encounter Care Teams Golf Ball Winder Relationship Specialty Start Date End Date Arti Lei MD [address] [place], [place] [phone] PCP - General Family Medicine 02/05/18 documented as of this encounter
--- OUTSIDE RECORDS SUMMARY | 2024-08-28 15:49 | XMS_ITS | Encounter Summary ---
Author Organization [employer] Address [address] [facility] 7t [place] [address] Care Team Providers Care Tractor Drill Operator Name Role Phone Arti Lei MD Primary Care Provide r Reason for Visit * Reason Comments Med Refill Encounter Details Date Type Department Care Team ([facility] st Contact Info) Description 11/30/2023 Refill [facility] [address] [place], [place] [phone] Arti Lei MD [address] [place] [address] Primary hypertension Social History Tobacco Use Types [...] Info) Description 11/05/2024 11:30 AM EDT Telemedicine [facility] [address] [place] [address] Arti Lei MD [address] [place] [address] documented as of this encounter Visit Diagnoses Diagnosis Primary hypertension Unspecified essential hypertension documented in this encounter Additional Health Concerns Assessment Noted Time PHQ-9 Depression Total Score: 2 10/16/19 23 3:44 PM EDT documented as of this encounter Care Teams Tractor Drill Operator Relationship Specialty Start Date End Date Arti Lei MD [address] [place] [address] PCP - General Family Medicine 02/05/18 documented as of this encounter
== END 2024-08-28 14:44 | disposition home or self-care (01) ==
LOC: HO.HGI 14:05
PROVIDERS: PCP Internal Medicine; Visit Provider Nurse Practitioner Family
DX: R14.0 Abdominal distension (gaseous) (principal); R10.13 Epigastric pain; K59.01 Slow transit constipation; K21.9 Gastro-esophageal reflux disease without esophagitis
CPT/HCPCS: 99214; G2211

== ENCOUNTER → 2024-08-28 14:04 | Outpatient (BNVA) | payer MEDICARE, MEDICAID, SELFPAY | PROVIDERS: PCP Internal Medicine; Visit Provider Nurse Practitioner Family | DX: K21.9 Gastro-esophageal reflux disease without esophagitis (principal); K59.01 Slow transit constipation; R14.3 Flatulence; R14.0 Abdominal distension (gaseous); R10.13 Epigastric pain | CPT/HCPCS: 99212 ==

== ENCOUNTER 2024-09-02 10:46 | Outpatient (REF) | payer MEDICARE, MEDICAID, SELFPAY ==
--- OUTSIDE RECORDS SUMMARY | 2024-09-02 12:30 | XMS_ITS | Encounter Summary ---
Author Organization [employer] Address [address] [facility] 7t [place] [address] Care Team Providers Care Chain Machine Operator Name Role Phone Arti Lei MD Primary Care Provide r Reason for Visit * Reason Comments Med Refill Encounter Details Date Type Department Care Team ([facility] st Contact Info) Description 11/30/2023 Refill [facility] [address] [place], [place] [phone] Arti Lei MD [address] [place] [address] Primary hypertension Social History Tobacco Use Types [...] Info) Description 11/05/2024 11:30 AM EDT Telemedicine [facility] [address] [place] [address] Arti Lei MD [address] [place] [address] documented as of this encounter Visit Diagnoses Diagnosis Primary hypertension Unspecified essential hypertension documented in this encounter Additional Health Concerns Assessment Noted Time PHQ-9 Depression Total Score: 2 10/16/19 23 3:44 PM EDT documented as of this encounter Care Teams Chain Machine Operator Relationship Specialty Start Date End Date Arti Lei MD [address] [place] [address] PCP - General Family Medicine 02/05/18 documented as of this encounter
--- OUTSIDE RECORDS SUMMARY | 2024-09-02 12:30 | XMS_ITS | Clinical Summary ---
Author Organization [employer] Address [address] [facility] 7t [place] [address] Care Team Providers Care Airfield Manager Name Role Phone Arti Lei MD [...] declines medications Coronary artery disease invo lving tunica-biloxi coronary artery of tunica-bil[place]i heart without angina pectoris 04/16/2023 Assessment & [...] Team Description 08/07/2024 Population Health Risk Score [facility] () Department [address] [phone] Provider, Population Health Generic 08/05/2024 11:30 AM EDT Office Visit [address] [address] Arti Lei MD Rash (Primary Dx); Primary hypertension 08/05/2024 Travel 07/31/[address] [address] Arti Lei MD Chart Prep 07/29/2024 Patient Outreach [address] [address] Arti Lei MD Pre-visit Planning ((Unable to reach for PVP screening, LVM)) 07/28/2024 Orders Only GENERIC EXTERNAL DATA DEPARTMENT Provider, Generic External Data 07/24/2024 Orders Only [facility] External Provider, [facility] 06/23/2024 Orders Only GENERIC EXTERNAL DATA DEPARTMENT Provider, Generic External Data 06/22/2024 Orders Only [address] [address] Arti Lei MD 06/17/2024 Telephone [facility] [address] [place] [address] Rahul Yoder MA Results 06/12/[address] [address] Arti Lei MD Results 06/05/2024 3:15 PM EST Office Visit [facility] [address] [facility] [place] [address] Arti Lei MD Belching symptom (Primary Dx); [...] Info) Description 11/05/2024 11:30 AM EDT Telemedicine [facility] [address] [place] [address] Arti Lei MD 230 [place] [address] Health Maintenance Due Date Last [...] EST) Pancreatic Elastase 1 514 >200 mcg/g [facility] Comment:E-1 mcg/g feces Inte rpretation <100 Severe exocrine pancreatic insufficiency 100-200 Mild to moderate exocrine pancreatic insufficiency >200 NormalTHIS TEST WAS PERFORMED AT:[employer] [id number] [place] [id number] DEMARCO MD,PHD,ESTELLE 07/28/2024 10:0 0 AM EST 07/28/2024 1:57 PM EST us Generic External Data Provider LAB BODY FLUIDS A ND STOOLS ORDERABLES Final Result [facility] [address] [place] [address] [phone] * CT Lung Screening Low dose (07/24/2024 7:14 PM EST) Anatomical Region Laterality Modality Lung Computed Tomogra phy 07/24/2024 7:14 PM EST Narrative 07/24/2024 7:16 PM EST ? [facility] ?[address] ?[place] [address] ? CT Scan Report ? Signed ? Patient: Jaiden,John ?MR#: [id number] ?? 250 ? : 1950 ?Acct:[id number] ? Age/Sex: 73 / M ?ADM Date: 07/24/24 ? Loc: HO.CT ? Attending Dr: Ila Meek PA-C ? Ordering Physician: Ila Meek PA-C ?? Date of Service: 07/24/24 ?? Procedure(s): CT lung screening ?? Accession Number(s): [id number] ? cc: Arti Lei MD; Ila Meek PA-C ? Report Number: ?? [id number]: Total DLP = ?? 50.00 mGy-cm ? [...] ? DD/ 13 ? TD/TT: 07/24/241913 ? Buggy Ladle Tender: ? Procedure Note Vinod, Quintin - 07/24/[address] [place] [address] [address] Scan Report Signed Patient: John HwangMR#: [id number] 250 : 1950cct:[id number] Age/Sex: 73 / MADM Date: 07/24/24 Loc: HO.CT Attending Dr: Ila Meek PA-C Ordering Physician: Ila Meek PA-C Date of Service: 07/24/24 Procedure(s): CT lung screening Accession Number(s): [id number] cc: Arti Lei MD; Ila Meek PA-C Report Number: [id number]: Total DLP = 50.00 mGy-cm CLINICAL HISTORY: [...] in OV> 07/24/241914 DD/ 13 TD/TT: 07/24/241913 Buggy Ladle Tender: [facility] External Provider IMG CT PROCEDURES Final Result * Tissue Transglutaminase Antibody, IgA (07/24/2024 1:54 PM EST) Transglutaminase IgA <1.0 U/mL [facility] Comment:Value Interpretation ----- <15.0 Antibody not detected> or = 15.0 Antibody detectedTHIS TEST WAS PERFORMED AT:[employer] [place] [phone] KEANE MD 07/24/2024 1:54 PM EST 07/24/2024 4:12 PM EST Generic External Data Provider LAB BLOOD ORDERAB LES Final Result [facility] [address] [place] [address] [phone] * VITAMIN D 25-OH (D2 AND D3) (06/23/2024 2:50 PM EST) Vitamin D, 25-OH, D2 4 ng/mL [facility] Comment:This test was develo ped and its analytical performancecharacteristics have been determined by [employer] [place], [place]. It hasnot been cleared or approved by the U.S. Food and DrugAdministration. This assay has been validated pursuantto the CLIA regulations and is used for clinicalpurposes.THIS TEST WAS PERFORMED AT:[employer] [id number] [place] [address]RASKPYHCARIE العلي MD,PHD Vitamin D, 25-OH, D3 27 ng/mL [facility] Comment:This test was develo ped and its analytical performancecharacteristics have been determined by [employer] [place], [place]. It hasnot been cleared or approved by the U.S. Food and DrugAdministration. This assay has been validated pursuantto the CLIA regulations and is used for clinicalpurposes. Vitamin D, 25-OH, Total 31 30 - 100 ng/mL [facility] Comment:Vitamin D, 25-Hydrox y reports [...] = 30 ng/mL.For additional information, please refer tohttp://education.[employer]/faq/SIF128(This link is being provided for informational/educational purposes only.) 06/23/2024 2:50 PM EST 06/23/2024 2:50 PM EST Generic External Data Provider LAB BLOOD ORDERAB LES Final Result Performing Organization Address [facility] Co de Phone Number [facility] [address] [place] [phone] * Vitamin B12 (Cobalamin) and Folate Panel, Serum (06/23/2024 2:50 PM EST) Vitamin B12 570 200 - 900 pg/mL [facility] Comment:NORMAL 200-900 PG/ML INDETERMINATE 160-199 PG/ML DEFICIENT < 160 PG/ML Folate 15.4 > or = 4.0 ng/mL [facility] Comment:Reference Values:> o r = 4.0 ng/mL< 4.0 ng/mL suggests folate deficiency Methotrexate, aminopterin and folinic acid(leucovorin) are chemotherapeutic agents whose molecularstructures are similar to folate; therefore, the Architectfolate assay cannot be used for patients using these drugs. 06/23/2024 2:50 PM EST 06/23/2024 2:50 PM EST Generic External Data Provider LAB BLOOD ORDERAB LES Final Result Performing Organization Address [facility] Phone Number [facility] [address] [place] [phone] * TSH with Reflex to Free T4 (06/23/2024 2:50 PM EST) Pathologist [facility] TSH reflex Free T4 1.65 0.32 - 4.0 uIU/mL [facility] 06/23/2024 2:50 PM EST 06/23/2024 2:50 PM EST Generic External Data Provider LAB BLOOD ORDERAB LES Final Result Performing Organization Address [facility] Co de Phone Number [facility] [address] [place] [phone] * US ABDOMINAL AORTIC ANEURYSM (06/22/2024 12:50 PM EST) Anatomical Region Laterality Modality Abdomen Ultrasound 06/22/2024 12:5 0 PM EST Narrative 06/22/2024 12:51 PM EST ? [facility] ?[address] ? [place] [address] ? Ultrasound Report ? Signed ? Patient: Jaiden,John ?MR#: [id number] ?? 250 ? : 1950 ?Acct:[id number] ? Age/Sex: 73 / M ?ADM Date: 06/22/24 ? Loc: HO.HMGCX ? Attending Dr: Arti Pires MD ? Ordering Physician: Arti Lei MD ?? Date of Service: 06/22/24 ?? Procedure(s): US abdominal aortic aneurysm ?? Accession Number(s): [id number] ? cc: Arti Lei MD ? CLINICAL [...] DD/ 1250 ? TD/TT: 06/22/24 1250 ? Buggy Ladle Tender: ? Procedure Note Donnazarioter, Image - 06/22/2024 [facility] [address] [place] [address] Ultrasound Report Signed Patient: John Hwang#: [id number] 250 : 2Acct:[id number] Age/Sex: 73 / MADM Date: 06/22/24 Loc: HO.HMGCX Attending Dr: Arti Pires MD Ordering Physician: Arti Lie MD Date of Service: 06/22/24 Procedure(s): US abdominal aortic aneurysm Accession Number(s): [id number] cc: Arti Lei MD CLINICAL HISTORY: SMOKER, [...] 06/22/24 1251 DD/ 1250 TD/TT: 06/22/24 1250 Buggy Ladle Tender: Arti Pires MD [facility] PROCEDURES Fin al Result * Helicobacter pylori??Antigen, EIA, Stool (06/08/2024 11:30 AM EST) H pylori Ag Stool SEE NOTE [facility] Comment:HELICOBACTER PYLORI AG, EIA, STOOL Micro Number: [id number] Test Status: Final Specimen Source: Stool Specimen Quality: Adequate H.pylori Ag: Not Detected Antimicrobials, proton pump inhibitors, and bismuth preparations inhibit H. pylori and ingestion up to two weeks prior to testing may cause false negative results. If clinically indicated the test should be repeated on a new specimen obtained two weeks after discontinuing treatment. Reference Range: Not DetectedTHIS TEST WAS PERFORMED AT:[employer] [place] [phone]ALEKSANDAR KEANE MD Stool Rectal contents / Unknown 06/08/2024 11:30 AM EST 06/08/2024 1:00 PM EST Arti Pires MD LAB BODY FLUIDS AND S TOOLS ORDERABLES Final Result [facility] [address] [place] [phone] * Lipid Panel, Standard (06/19/2023 1:12 PM EST) Triglycerides 67 <150 mg/dL [facility] Comment:Desirable Triglyceri de: less than 150 mg/dLBorderline High Triglyceride 150-199 mg/dLHigh Triglyceride: 200-499 mg/dLVery High Triglyceride: greater than or equal to 5OO mg/dL Cholesterol 110 <200 mg/dL [facility] Comment:Desirable Cholestero l: less than 200 mg/dLBorderline High Cholesterol: 200-239 mg/dLHigh Cholesterol: greater than 239 mg/dL LDL Cholesterol Calculated 56 <100 mg/dL [facility] Comment:Desirable LDL: less than 100 mg/dLNear Optimal/Above Optimal LDL: 110- 129 mg/dLBorderline High LDL: 130-159 mg/dLHigh LDL: 160-189 mg/dLVery High LDL: greater than or equal to 190 mg/dL HDL Cholesterol 41 >40 mg/dL [facility] Comment:Desirable HDL: great er than 40 mg/dL Note: This HDL assay may give artificially low results in patients with liver disease. 06/19/2023 1:12 PM EST 06/19/2023 1:12 PM EST us Generic External Data Provider LAB BLOOD ORDERAB LES Final Result [facility] [address] [place] [address] [phone] * Colonoscopy (05/02/2018) Historical Provider HEALTH MAINTENANCE Final Result from Last 3 Months or Most Recently Relevant to Health Maintenance Insurance MEDICARE [facility] STANDARD Care Teams Airfield Manager Relationship Specialty Start Date End Date Arti eLi MD [address] [place] [phone] PCP - General Family Medicine 02/05/18
--- OUTSIDE RECORDS SUMMARY | 2024-09-02 12:30 | XMS_ITS | Encounter Summary ---
Author Organization [facility] Address [address] [facility] [address] [place] [phone] Phone Care Team Providers Care Patient Service Technician Pst Name Role Phone Arti Lei MD Primary Care Provide r Encounter Details Date Type Department Care Team (Late st Contact Info) Description 10/23/2022 Telephone [facility] [address] [facility] [address] [place] [phone] Emma Wei Social History Tobacco [...] Visit [facility] [address] [place] [phone] Brent Hammond MD [address] [facility] [address] [place] [phone] documented as of this encounter Visit Diagnoses Not on filedocumented in this encounter Care Teams Patient Service Technician Pst Relationship Specialty Start Date End Date Arti Lei MD [address] [place] [phone] PCP - General Internal Medicine 10/18/22 documented as of this encounter
--- OUTSIDE RECORDS SUMMARY | 2024-09-02 12:30 | XMS_ITS | Encounter Summary ---
Author Organization [employer] [facility] Address [address] [place] [address] 7t [place] [address] Care Team Providers Care Manager Scientific Name Role Phone Arti Lei MD Primary Care Provide r Encounter Details Date Type Department Care Team (Late st Contact Info) Description 02/05/2023 Orders Only [facility] [address] [place] [address] [phone] Provider, MD Jenifer Social History Tobacco Use [...] Info) Description 11/05/2024 11:30 AM EDT Telemedicine [facility] [address] [place] [address] [phone] Arti Lei MD [address] [place] [address] [phone] documented as of this encounter Procedures Procedure [...] as of this encounter Care Teams Manager Scientific Relationship Specialty Start Date End Date Arti Lei MD [address] [place] [address] PCP - General Family Medicine 02/05/18 documented as of this encounter
--- OUTSIDE RECORDS SUMMARY | 2024-09-02 12:30 | XMS_ITS | Encounter Summary ---
Author Organization [employer] Address [address] [place] [address] 7t [place] [address] Care Team Providers Care Kelp Cutter Name Role Phone Arti Lei MD Primary Care Provide r Reason for Visit * Reason Comments Med Refill Encounter Details Date Type Department Care Team (Late st Contact Info) Description 12/17/2022 Refill [facility] [address] [place] [address] [phone] Arti Lei MD [address] [place] [address] [phone] Primary hypertension Social History Tobacco Use Types [...] Info) Description 11/05/2024 11:30 AM EDT Telemedicine [facility] [address] [place] [address] [phone] Arti Lei MD [address] [place] [address] [phone] documented as of this encounter Visit Diagnoses Diagnosis Primary hypertension Unspecified essential hypertension documented in this encounter Additional Health Concerns Assessment Noted Time PHQ-9 Depression Total Score: 2 10/16/19 23 3:44 PM EDT documented as of this encounter Care Teams Kelp Cutter Relationship Specialty Start Date End Date Arti Lei MD [address] [place] [address] PCP - General Family Medicine 02/05/18 documented as of this encounter
--- OUTSIDE RECORDS SUMMARY | 2024-09-02 12:30 | XMS_ITS | Clinical Summary ---
Author Organization [facility] Address [address] [place] [phone] Care Team Providers Care Parts Consultant Name Role Phone Arti Lei MD [...] [facility] [address] [place] [address] Brent Hammond MD Stage 3a chronic kidney [...] [facility] [address] [place] [phone] Brent Hammond MD [address] [facility] [address] [place] [address] Health Maintenance Due Date Last [...] [place]ID [place] Care Teams Parts Consultant Relationship Specialty Start Date End Date Arti Lei MD [address] [place] [phone] PCP - General Internal Medicine 10/18/22
--- OUTSIDE RECORDS SUMMARY | 2024-09-02 12:30 | XMS_ITS | Encounter Summary ---
Author Organization [employer] Address [address] [facility] 7t [place] [address] Care Team Providers Care Environmental Solutions Engineer Name Role Phone Arti Lei MD Primary Care Provide r Reason for Visit * Reason Onset Date Comments FYI 10/19/2022 Encounter Details Date Type Department Care Team ([facility] st Contact Info) Description 10/19/2022 Telephone [facility] [address] [place], [place] [phone] Arti Lei MD [address] [place] [address] FYI Social History Tobacco Use Types Packs/Day [...] Info) Description 11/05/2024 11:30 AM EDT Telemedicine [facility] [address] [place], [place] [phone] Arti Lei MD [address] [place], [place] [phone] documented as of this encounter Visit Diagnoses Not on filedocumented in this encounter Additional Health Concerns Assessment Noted Time PHQ-9 Depression Total Score: 2 10/16/19 23 3:44 PM EDT documented as of this encounter Care Teams Environmental Solutions Engineer Relationship Specialty Start Date End Date Arti Lei MD [address] [place], [place] [phone] PCP - General Family Medicine 02/05/18 documented as of this encounter
--- OUTSIDE RECORDS SUMMARY | 2024-09-02 12:30 | XMS_ITS | Encounter Summary ---
Author Organization [employer] Address [address] [facility] [address] [place] [address] Care Team Providers Care Food And Beverage Associate Name Role Phone Arti Lei MD Primary Care Provide r Encounter Details Date Type Department Care Team (Late st Contact Info) Description 09/12/2022 Orders Only [facility] MED & PEDS [address] [place], [place] [phone] Emma Loredo LPN Social History Tobacco Use [...] Info) Description 11/05/2024 11:30 AM EDT Telemedicine [facility] MEDICINE [address] [place] [address] Arti Lei MD [address] [place] [address] documented as of this encounter Procedures Procedure [...] (12/28/2022 9:40 AM EDT) Triglycerides 74 mg/dL [facility] Comment:Desirable Triglyceri de: less than 150 mg/dLBorderline High Triglyceride 150-199 mg/dLHigh Triglyceride: 200-499 mg/dLVery High Triglyceride: greater than or equal to 5OO mg/dL Cholesterol 166 mg/dL [facility] Comment:Desirable Cholestero l: less than 200 mg/dLBorderline High Cholesterol: 200-239 mg/dLHigh Cholesterol: greater than 239 mg/dL LDL Cholesterol Calculated 107 mg/dl [facility] Comment:Desirable LDL: less than 100 mg/dLNear Optimal/Above Optimal LDL: 110- 129 mg/dLBorderline High LDL: 130-159 mg/dLHigh LDL: 160-189 mg/dLVery High LDL: greater than or equal to 190 mg/dL HDL Cholesterol 45 mg/dL [facility] Comment:Desirable HDL: great er than 40 mg/dL Note: This HDL assay may give artificially low results in patients with liver disease. 12/28/2022 9:40 AM EDT 12/28/2022 9:40 AM EDT us Generic External Data Provider LAB BLOOD ORDERAB LES Final Result [facility] [address] [place] [phone] * Basic Metabolic Panel (12/28/2022 9:40 AM EDT) Sodium 138 135 - 145 mmol/L [facility] Potassium 4.5 3.3 - 5.1 mmol/L [facility] Chloride 106 96 - 108 mmol/L [facility] Carbon Dioxide 22 22 - 29 mmol/L [facility] Anion Gap 15 12 - 20 [facility] Urea Nitrogen (BUN) 16 9 - 16 mg/dL [facility] Creatinine, Serum 1.12 0.5 - 1.4 mg/dL [facility] Estimated Glomerular Filt Rate >60 [facility] Comment:NOTE: For -Am erican individuals, multiply the result by 1.210.Chronic Kidney Disease: Estimated GFR < 60 mL/min/1.79h2[place]quek Kidney Disease: Estimated GFR < 15 mL/min/1.73m2 Glucose 113 60 - 115 mg/dL [facility] Calcium 9.1 8.4 - 10.2 mg/dL [facility] 12/28/2022 9:40 AM EDT 12/28/2022 9:40 AM EDT [facility] External Provider LAB BLO OD ORDERABLES Final Result [facility] [address] [place] [address] [phone] * (ABNORMAL) CBC auto differential (12/28/2022 9:40 AM EDT) White Blood Count 9.9 4.8 - 10.8 X10*3/uL [facility] Red Blood Count 4.06(L) 4.60 - 5.80 X10*6/uL [facility] Hemoglobin 13.0(L) 14.0 - 18.0 g/dl [facility] Hematocrit 39.4(L) 42.0 - 52.0 % [facility] Mean Corpuscular Volume 97.0 80.0 - 98.0 fL [facility] Mean Corpuscular Hemoglobin 32.0 27.0 - 33.0 pg [facility] Mean Corpuscular HGB Conc 33.0 31.0 - 36.0 g/dl [facility] Red Cell Distribution Width 12.7 11.0 - 16.0 % [facility] Platelet Count 275 160 - 400 X10*3/uL [facility] Mean Platelet Volume 9.0(L) 9.4 - 12.4 fL [facility] Neutrophils Percent Auto 71.2 45 - 73 % [facility] Imm Gran Pct Auto 1.0(H) 0.0 - 0.4 % [facility] Lymphocytes Percent Auto 17.8(L) 20 - 40 % [facility] Monocytes Percent Auto 7.5 2 - 11 % [facility] Eosinophils Percent Auto 2.0 0 - 4 % [facility] Basophils Percent Auto 0.5 0 - 2 % [facility] NRBC Pct Auto 0.0 0.0 - 0.2 /100WBC [facility] Neutrophils Absolute Auto 7.1 2.0 - 8.3 x10*3/uL [facility] Imm Gran Abs Auto 0.10(H) 0.00 - 0.03 X10*3/uL [facility] Lymphocytes Absolute Auto 1.8 1.2 - 4.9 X10*3/uL [facility] Monocytes Absolute Auto 0.7 0.1 - 1.2 X10*3/uL [facility] Eosinophils Absolute Auto 0.2 0.0 - 0.4 X10*3/uL [facility] Basophils Absolute Auto 0.1 0.0 - 0.2 X10*3/uL [facility] NRBC Abs Auto 0.000 0.0 - 0.012 X10*3/uL [facility] 12/28/2022 9:40 AM EDT 12/28/2022 9:40 AM EDT us [facility] External Provider LAB BLO OD ORDERABLES Final Result Performing Organization Address City/State/[facility] Co de Phone Number [facility] [address] [place] [phone] * Prothrombin Time-INR (12/28/2022 9:40 AM EDT) Prothrombin Time 11.6 11.1 - 13.3 SEC [facility] INTERNATIONAL NORM RATIO 1.0 0.9 - 1.1 [facility] Comment:INTERNATIONAL NORMAL IZED RATIO (INR) [...] AM EDT 12/28/2022 9:40 AM EDT us [facility] External Provider LAB BLO OD ORDERABLES Final Result [facility] [address] [place] [address] [phone] * (ABNORMAL) Comprehensive Metabolic Panel (11/28/2022 9:22 AM EDT) Sodium 140 135 - 145 mmol/L [facility] Potassium 5.1 3.3 - 5.1 mmol/L [facility] Chloride 107 96 - 108 mmol/L [facility] Carbon Dioxide 24 22 - 29 mmol/L [facility] Anion Gap 14 12 - 20 [facility] Urea Nitrogen (BUN) 16 9 - 16 mg/dL [facility] Creatinine, Serum 1.54(H) 0.5 - 1.4 mg/dL [facility] Estimated Glomerular Filt Rate 45 [facility] Comment:NOTE: For -Am erican individuals, multiply the result by 1.210.Chronic Kidney Disease: Estimated GFR < 60 mL/min/1.13y1Iybloi Kidney Disease: Estimated GFR < 15 mL/min/1.73m2 Glucose 119(H) 60 - 115 mg/dL [facility] Calcium 9.6 8.4 - 10.2 mg/dL [facility] Bilirubin, Total 0.8 0.0 - 1.0 mg/dL [facility] Aspartate Amino Transferase 13 5 - 37 U/L [facility] Alanine Aminotransferase 11 0 - 40 U/L [facility] Total Protein 7.2 6.5 - 8.0 g/dL [facility] Albumin Level 4.0 3.5 - 5.0 g/dL [facility] Alkaline Phosphatase 43 39 - 117 U/L [facility] 11/28/2022 9:22 AM EDT 11/28/2022 9:22 AM EDT us [facility] External Provider LAB BLO OD ORDERABLES Final Result [facility] [address] [place] [phone] * (ABNORMAL) CBC auto differential (11/28/2022 9:22 AM EDT) White Blood Count 7.7 4.8 - 10.8 X10*3/uL [facility] Red Blood Count 3.92(L) 4.60 - 5.80 X10*6/uL [facility] Hemoglobin 12.4(L) 14.0 - 18.0 g/dl [facility] Hematocrit 38.1(L) 42.0 - 52.0 % [facility] Mean Corpuscular Volume 97.2 80.0 - 98.0 fL [facility] Mean Corpuscular Hemoglobin 31.6 27.0 - 33.0 pg [facility] Mean Corpuscular HGB Conc 32.5 31.0 - 36.0 g/dl [facility] Red Cell Distribution Width 13.5 11.0 - 16.0 % [facility] Platelet Count 282 160 - 400 X10*3/uL [facility] Mean Platelet Volume 8.9(L) 9.4 - 12.4 fL [facility] Neutrophils Percent Auto 68.7 45 - 73 % [facility] Imm Gran Pct Auto 0.4 0.0 - 0.4 % [facility] Lymphocytes Percent Auto 21.1 20 - 40 % [facility] Monocytes Percent Auto 8.2 2 - 11 % [facility] Eosinophils Percent Auto 1.2 0 - 4 % [facility] Basophils Percent Auto 0.4 0 - 2 % [facility] NRBC Pct Auto 0.0 0.0 - 0.2 /100WBC [facility] Neutrophils Absolute Auto 5.3 2.0 - 8.3 x10*3/uL [facility] Imm Gran Abs Auto 0.03 0.00 - 0.03 X10*3/uL [facility] Lymphocytes Absolute Auto 1.6 1.2 - 4.9 X10*3/uL [facility] Monocytes Absolute Auto 0.6 0.1 - 1.2 X10*3/uL [facility] Eosinophils Absolute Auto 0.1 0.0 - 0.4 X10*3/uL [facility] Basophils Absolute Auto 0.0 0.0 - 0.2 X10*3/uL [facility] NRBC Abs Auto 0.000 0.0 - 0.012 X10*3/uL [facility] 11/28/2022 9:22 AM EDT 11/28/2022 9:22 AM EDT [facility] External Provider LAB BLO OD ORDERABLES Final Result Performing Organization Address [facility]/ZIP Co de Phone Number [facility] [address] [place] [address] [phone] * Chromosome Analysis, Bone Marrow (11/22/2022 12:00 PM EDT) Pathologist [facility] Chromosome Analysis, Bone Marrow See note [facility] Comment:See report from [employer] in the EMR. 11/22/2022 12:0 0 PM EDT 11/22/2022 1:46 PM EDT [facility] Exter nal Provider LAB BODY FLUIDS AND STOOLS ORDERABLES Final Result Performing Organization Address City/[facility] Co de Phone Number [facility] [address] [place] [address] [phone] * LEUKEMIA/LYMPH. EVAL. BONE MAR (11/22/2022 12:00 PM EDT) LLE Interpretation See Note [facility] Comment:See report from [employer] in the EMR. 11/22/2022 12:0 0 PM EDT 11/22/2022 1:46 PM EDT us [facility] External Provider LAB BLO OD ORDERABLES Final Result [facility] [address] [place] [address] [phone] * Bone Marrow Smear (11/22/2022 11:45 AM EDT) 11/22/2022 11:4 5 AM EDT 11/22/2022 1:56 PM EDT Narrative [facility] - 01/23/2023 11:20 AM EDT ----- ------- Name: John Hwang ?Age/Sex: 72/M ? : 1950 Unit#: [id number] ?? Attend Dr: Oliver Ospina MD ?Re11/22/22 ?Status: DEP SDC ? Location: [facility] ?Disch: ? ----- ------- SPEC : [id number] ? RECD: 11/22/22-1356 ? STATUS: ??SOUT ? REQ NUM: [id number] ? AURA: 11/22/22-1145 ? SUBM DR: Oliver [...] Technical services for reticulin study performed at [facility] [address] Alda Nagel [place]; [place] #[id number] Addendum Signed (signature on file) Malik Lancaster [...] Hwang ?Age/Sex: 72/M ? : 1950 Unit#: [id number] ?? Attend Dr: Oliver Ospina MD ?Re11/22/22 ?Status: DEP [facility] ? Location: [facility] ?Disch: ? ----- ------- SPEC : [id number] ? RECD: 11/22/226 ? STATUS: ??SOUT ? REQ NUM: [id number] ? AURA: 11/22/22-1145 ? SUBM DR: Oliver Ospina MD ? ENTERED: ??11/22/22-9684 ?SP TYPE: Surgical ? OTHR DR: Arti [...] Hwang ?Age/Sex: 72/M ? : 1950 Unit#: [id number] ?? Attend Dr: Oliver Ospina MD ?Re11/22/22 ?Status: DEP SDC ? Location: HO.SSS ?Disch: ? ----- ------- SPEC : [id number] ? RECD: 11/22/22-5074 ? STATUS: ??SOUT ? REQ NUM: [id number] ? AURA: 11/22/22-1144 ? SUBM DR: Oliver Ospina MD ? ENTERED: ??11/22/22-1981 ?SP TYPE: Surgical ? OTHR DR: Arti [...] To: ?? Arti Lei MD ?? [address] [facility] ?? [place] [address] ?? [phone] ?? Oliver Ospina MD ?? [address] ?? Dept. of Hematology/Oncology ?? [place] ?? [phone] ----- ------- Signed (signature on file) Malik Lancaster MD 11/30/221630 ? ----- ------- ? END OF REPORT ? us [facility] Exter nal Provider LAB BODY FLUIDS AND STOOLS ORDERABLES Final Result [facility] [address] [facility] [place] [address] [phone] * (ABNORMAL) Phosphate (As Phosphorus) (10/23/2022 10:03 AM EDT) Phosphorus 2.3(L) 2.7 - 4.5 mg/dL [facility] 10/23/2022 10:0 3 AM EDT 10/23/2022 10:04 AM EDT [facility] External Provider LAB BLO OD ORDERABLES Final Result [facility] [address] [place] [phone] * Calcium (10/23/2022 10:03 AM EDT) Calcium 10.0 8.4 - 10.2 mg/dL [facility] 10/23/2022 10:0 3 AM EDT 10/23/2022 10:04 AM EDT [facility] External Provider LAB BLO OD ORDERABLES Final Result Performing Organization Address City/[facility]/ZIP Co de Phone Number [facility] [address] [place] [phone] * (ABNORMAL) Creatinine, Serum (10/23/2022 10:03 AM EDT) Creatinine, Serum 2.03(H) 0.5 - 1.4 mg/dL [facility] Estimated Glomerular Filt Rate 33 [facility] Comment:NOTE: For -Am erican individuals, multiply the result by 1.210.Chronic Kidney Disease: Estimated GFR < 60 mL/min/1.63z4Huobga Kidney Disease: Estimated GFR < 15 mL/min/1.73m2 10/23/2022 10:0 3 AM EDT 10/23/2022 10:04 AM EDT [facility] External Provider LAB BLO OD ORDERABLES Final Result Performing Organization Address [facility] Co de Phone Number [facility] [address] [place] [address] [phone] * (ABNORMAL) BUN (Blood Urea Nitrogen) (10/23/2022 10:03 AM EDT) Urea Nitrogen (BUN) 17(H) 9 - 16 mg/dL [facility] 10/23/2022 10:0 3 AM EDT 10/23/2022 10:04 AM EDT [facility] External Provider LAB BLO OD ORDERABLES Final Result Performing Organization Address [facility] de Phone Number [facility] [address] [place] [address] [phone] * (ABNORMAL) Electrolyte Panel (10/23/2022 10:03 AM EDT) [facility] Signature Sodium 143 135 - 145 mmol/L [facility] Potassium 3.9 3.3 - 5.1 mmol/L [facility] Chloride 109(H) 96 - 108 mmol/L [facility] Carbon Dioxide 28 22 - 29 mmol/L [facility] Anion Gap 10(L) 12 - 20 [facility] 10/23/2022 10:0 3 AM EDT 10/23/2022 10:04 AM EDT [facility] External Provider LAB BLO OD ORDERABLES Final Result Performing Organization Address [facility] Co de Phone Number [facility] [address] [place] [address] [phone] * (ABNORMAL) Urinalysis, Complete, with Reflex to Culture (10/17/2022 4:16 AM EDT) Color Urine Yellow [facility] Appearance Urine Clear [facility] PH 6.5 5.0 - 9.0 [facility] Glucose Urine UA Negative Negative mg/dL [facility] Urine Blood Negative Negative [facility] Specific Bruno - Urine 1.010 1.005 - 1.025 [facility] Urine Protein Negative Neg-Trace mg/dL [facility] Urine Ketones Negative Negative mg/dL [facility] Nitrite Urine Negative Negative [facility] Leukocyte Esterase Urine Small (1+)(A) Negative [facility] RBC Urine 0-2 0 - 2 /HPF [facility] Urine WBC 11-20(A) 0 - 5 /HPF [facility] Urine Squamous Epithelial Cell 0-2 0 - 2 /HPF [facility] Urine Bacteria None Seen None Seen [facility] Hyaline Casts, Urine 3-5 0 - 2 /LPF [facility] 10/17/2022 4:16 AM EDT 10/17/2022 4:19 AM EDT Narrative [facility] - 10/17/2022 4:34 AM EDT Urine, Clean Catch [facility] External Provider LAB URI NE ORDERABLES Final Result Performing Organization Address [facility] Co de Phone Number [facility] [address] [place] [phone] * Magnesium (10/17/2022 2:51 AM EDT) Magnesium 2.6 1.6 - 2.6 mg/dL [facility] 10/17/2022 2:51 AM EDT 10/17/2022 2:55 AM EDT [facility] External Provider LAB BLO OD ORDERABLES Final Result Performing Organization Address [facility] Co de Phone Number [facility] [address] [place] [phone] * (ABNORMAL) Comprehensive Metabolic Panel (10/17/2022 2:51 AM EDT) Sodium 138 135 - 145 mmol/L [facility] Potassium 3.8 3.3 - 5.1 mmol/L [facility] Chloride 99 96 - 108 mmol/L [facility] Carbon Dioxide 33(H) 22 - 29 mmol/L [facility] Anion Gap 10(L) 12 - 20 [facility] Urea Nitrogen (BUN) 42(H) 9 - 16 mg/dL [facility] Creatinine, Serum 3.18(H) 0.5 - 1.4 mg/dL [facility] Creatinine Clr Calc Pharmacy 18.4 [facility] Comment:eGFR (calculated fro m the MDRD study equation) and eCrCl(calculated from the Cockcroft-Gault equation) are based ondifferent parameters and may not yield comparable results.If eCrCl result is absurd, please check patient'sheight/weight. Estimated Glomerular Filt Rate 19 [facility] Comment:NOTE: For -Am erican individuals, multiply the result by 1.210.Chronic Kidney Disease: Estimated GFR < 60 mL/min/1.80f4Cexkcf Kidney Disease: Estimated GFR < 15 mL/min/1.73m2 Glucose 129(H) 60 - 115 mg/dL [facility] Calcium 15.7(HH) 8.4 - 10.2 mg/dL [facility] Comment:Critical value for t est(s): CALCIUM Results called to luci back by: NEDRA Person calling:VINCENT Date:10/17/22 Time:0323 Bilirubin, Total 0.8 0.0 - 1.0 mg/dL [facility] Aspartate Amino Transferase 13 5 - 37 U/L [facility] Alanine Aminotransferase 11 0 - 40 U/L [facility] Total Protein 7.0 6.5 - 8.0 g/dL [facility] Albumin Level 4.2 3.5 - 5.0 g/dL [facility] Alkaline Phosphatase 50 39 - 117 U/L [facility] 10/17/2022 2:51 AM EDT 10/17/2022 2:55 AM EDT us [facility] External Provider LAB BLO OD ORDERABLES Final Result [facility] [address], [place] [phone] * (ABNORMAL) CBC auto differential (10/17/2022 2:51 AM EDT) White Blood Count 10.3 4.8 - 10.8 X10*3/uL [facility] Red Blood Count 4.13(L) 4.60 - 5.80 X10*6/uL [facility] Hemoglobin 13.0(L) 14.0 - 18.0 g/dl [facility] Hematocrit 37.6(L) 42.0 - 52.0 % [facility] Mean Corpuscular Volume 91.0 80.0 - 98.0 fL [facility] Mean Corpuscular Hemoglobin 31.5 27.0 - 33.0 pg [facility] Mean Corpuscular HGB Conc 34.6 31.0 - 36.0 g/dl [facility] Red Cell Distribution Width 12.1 11.0 - 16.0 % [facility] Platelet Count 244 160 - 400 X10*3/uL [facility] Mean Platelet Volume 9.1(L) 9.4 - 12.4 fL [facility] Neutrophils Percent Auto 73.6(H) 45 - 73 % [facility] Imm Gran Pct Auto 0.3 0.0 - 0.4 % [facility] Lymphocytes Percent Auto 18.0(L) 20 - 40 % [facility] Monocytes Percent Auto 6.8 2 - 11 % [facility] Eosinophils Percent Auto 0.9 0 - 4 % [facility] Basophils Percent Auto 0.4 0 - 2 % [facility] NRBC Pct Auto 0.0 0.0 - 0.2 /100WBC [facility] Neutrophils Absolute Auto 7.6 2.0 - 8.3 x10*3/uL [facility] Imm Gran Abs Auto 0.03 0.00 - 0.03 X10*3/uL [facility] Lymphocytes Absolute Auto 1.8 1.2 - 4.9 X10*3/uL [facility] Monocytes Absolute Auto 0.7 0.1 - 1.2 X10*3/uL [facility] Eosinophils Absolute Auto 0.1 0.0 - 0.4 X10*3/uL [facility] Basophils Absolute Auto 0.0 0.0 - 0.2 X10*3/uL [facility] NRBC Abs Auto 0.000 0.0 - 0.012 X10*3/uL [facility] 10/17/2022 2:51 AM EDT 10/17/2022 2:55 AM EDT us [facility] External Provider LAB BLO OD ORDERABLES Final Result [facility] [address] [place] [phone] [phone] documented in this encounter Visit Diagnoses Not on filedocumented in this encounter Care Teams Food And Beverage Associate Relationship Specialty Start Date End Date Arti Lei MD [address] [place] [phone] PCP - General Family Medicine 02/05/18 documented as of this encounter
[2024-09-02 13:20] LABS: MANUAL DIFF FLAG NO
[2024-09-02 13:34] LABS: Appearance Urine Clear; Color Urine Yellow; Glucose Urine UA Negative (Negative); Leukocyte Esterase Urine Trace (Negative); Nitrite Urine Negative (Negative); PH 6.5 (5.0-9.0); Specific Gravity - Urine <= 1.005 (1.005-1.025); UMIC TRIGGER UA YES; Urine Blood Negative (Negative); Urine Ketones Negative (Negative); Urine Protein Negative (Neg-Trace)
[2024-09-02 13:40] LABS: Bacteria Urine None Seen (None Seen); Hyaline Casts Urine 0-2 /LPF (0-2); RBC Urine 0-2 /HPF (0-2); Squamous Epithelial Cell Urine 0-2 /HPF (0-2); WBC Urine 0-5 /HPF (0-5)
[2024-09-02 13:43] LABS: Basophils Percent Auto 0.4 % (0-2); Eosinophils Absolute Auto 0.1 X10*3/uL (0.0-0.4); Eosinophils Percent Auto 1.7 % (0-4); Hematocrit 45.3 % (42.0-52.0); Hemoglobin 14.4 g/dl (14.0-18.0); Imm Gran Abs Auto 0.02 X10*3/uL (0.00-0.03); Imm Gran Pct Auto 0.3 % (0.0-0.4); Lymphocytes Absolute Auto 1.4 X10*3/uL (1.2-4.9); Lymphocytes Percent Auto 19.3 % (20-40); Mean Corpuscular HGB Conc 31.8 g/dl (31.0-36.0); Mean Corpuscular Hemoglobin 29.8 pg (27.0-33.0); Mean Corpuscular Volume 93.8 fL (80.0-98.0); Mean Platelet Volume 9.7 fL (9.4-12.4); Monocytes Absolute Auto 0.6 X10*3/uL (0.1-1.2); Monocytes Percent Auto 8.5 % (2-11); Neutrophils Percent Auto 69.8 % (45-73); Platelet Count 176 X10*3/uL (160-400); Red Blood Count 4.83 X10*6/uL (4.60-5.80); Red Cell Distribution Width 12.8 % (11.0-16.0); White Blood Count 7.2 X10*3/uL (4.8-10.8)
[2024-09-02 14:06] LABS: Albumin Level 4.3 g/dL (3.5-5.0); Anion Gap 11 (12-20); Blood Urea Nitrogen 15 mg/dL (9-16); Calcium 8.9 mg/dL (8.4-10.2); Carbon Dioxide 25 mmol/L (22-29); Chloride 106 mmol/L (96-108); Estimated Glomerular Filt Rate > 60; Magnesium 2.1 mg/dL (1.6-2.6); Phosphorus 3.2 mg/dL (2.7-4.5); Potassium 4.1 mmol/L (3.3-5.1); Sodium 138 mmol/L (135-145)
[2024-09-02 14:09] LABS: Creatinine Urine 32.38 mg/dL; Microalbumin Urine < 5.0 mg/L; Total Protein Urine Random < 7 mg/dL (<12)
[2024-09-02 14:16] LABS: Vitamin D 25-OH Total 12.1 ng/mL (>30)
[2024-09-02 14:25] LABS: Parathyroid Hormone Intact 121.6 pg/mL (8.7-77.1)
== END 2024-09-02 10:47 | disposition home or self-care (01) ==
LOC: HO.HMGCLDS 10:46
PROVIDERS: PCP Internal Medicine; Visit Provider Internal Medicine Nephrology
DX: N18.31 Chronic kidney disease, stage 3a (principal)
CPT/HCPCS: 36415; 80051; 81001; 82040; 82043; 82306; 82310; 82565; 82570; 83735; 83970; 84100; 84156; 84520; 85025

== ENCOUNTER 2024-09-08 09:42 | Outpatient (REF) | payer MEDICARE, MEDICAID, SELFPAY ==
--- NOTE | ~2024-09-08 | FL_ITS ---
EXAMINATION: XR FLUOROSCOPY UPPER GI SERIES CLINICAL INFORMATION: Patient complaining of excessive burping. GERD. COMPARISON: None TECHNIQUE: Fluoroscopic air contrast upper GI examination was performed utilizing standard techniques with thin and thick barium and effervescent granules. Numerous spot images were obtained. Several fluoroscopic image hold cine sequences were also obtained. FINDINGS: UPPER GI SERIES: Lateral cine images of the oropharynx and hypopharynx demonstrate normal swallow mechanism with normal epiglottic inversion and soft palate elevation. No laryngeal penetration, glottic or subglottic aspiration identified. No nasopharyngeal reflux present. Hypopharyngeal structures appear normal without evidence of mass or diverticulum. 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 Dual and single contrast images of the esophagus demonstrate normal caliber and contour. Granular appearance to the esophageal mucosa noted. No evidence of stricture, mass, or gross ulcerations identified. Esophageal peristalsis is mildly disordered. Feline contraction pattern noted. No evidence of hiatus hernia identified. No significant gastroesophageal reflux was seen during the course of the examination and on reflux views. Dual contrast and single contrast images of the stomach demonstrated normal but mildly elongated contour. Small fundal gastric diverticulum. There is diffuse thickening and prominence of the areae gastricae. Mild thickening of the gastric rugal folds. No gross mass or ulceration. A few small well-circumscribed rounded filling defects in the fundus and body are consistent with small hyperplastic polyps. Contrast freely passed into the gastric antrum and duodenal bulb without delay. Single and air-contrast images of the duodenal bulb demonstrate no abnormality. The duodenal sweep has a normal appearance, course, and mucosal fold appearance. FLUOROSCOPY TIME: 3 minutes, 21 seconds Number of Spot Images:10 Number of cines obtained: 14 DOSE AREA PRODUCT: 2250 uGy-m2 (microgray-meter squared) FL/FL upper GI w air w Ba Swallow IMPRESSION: 1. Mild to moderate cricopharyngeal achalasia. 2. Granular appearance of the esophageal mucosa suggesting esophagitis. 3. Mildly disordered esophageal peristalsis. Feline contraction pattern noted, in keeping with chronic reflux. 4. Mild thickening of the gastric rugal folds, and diffuse prominence of thickening of the areae gastricae, findings consistent with gastritis. 5. No definite hiatus hernia. 6. No definite gastroesophageal reflux identified during the course of the exam. 7. Given the above findings, correlation with EGD recommended. Electronically signed by: Geoff Stephens MD 09/08/2024 11:17 AM EDT RP
--- OUTSIDE RECORDS SUMMARY | 2024-09-08 10:59 | XMS_ITS | Encounter Summary ---
Author Organization [employer] Address [address] [facility] [address] [place] [address] Care Team Providers Care Site Acquisition Specialist Name Role Phone Arti Lei MD Primary Care Provide r Encounter Details Date Type Department Care Team (Late st Contact Info) Description 09/12/2022 Orders Only [facility] [address] [place], [place] [phone] Emma Loredo LPN Social History Tobacco Use [...] Info) Description 11/05/2024 11:30 AM EDT Telemedicine [facility] MEDICINE [address] [place] [address] rAti Lei MD [address] [place] [address] documented as of this encounter Procedures Procedure [...] (12/28/2022 9:40 AM EDT) Triglycerides 74 mg/dL [facility] Comment:Desirable Triglyceri de: less than 150 mg/dLBorderline High Triglyceride 150-199 mg/dLHigh Triglyceride: 200-499 mg/dLVery High Triglyceride: greater than or equal to 5OO mg/dL Cholesterol 166 mg/dL [facility] Comment:Desirable Cholestero l: less than 200 mg/dLBorderline High Cholesterol: 200-239 mg/dLHigh Cholesterol: greater than 239 mg/dL LDL Cholesterol Calculated 107 mg/dl [facility] Comment:Desirable LDL: less than 100 mg/dLNear Optimal/Above Optimal LDL: 110- 129 mg/dLBorderline High LDL: 130-159 mg/dLHigh LDL: 160-189 mg/dLVery High LDL: greater than or equal to 190 mg/dL HDL Cholesterol 45 mg/dL [facility] Comment:Desirable HDL: great er than 40 mg/dL Note: This HDL assay may give artificially low results in patients with liver disease. 12/28/2022 9:40 AM EDT 12/28/2022 9:40 AM EDT us Generic External Data Provider LAB BLOOD ORDERAB LES Final Result [facility] [address] [place] [phone] * Basic Metabolic Panel (12/28/2022 9:40 AM EDT) Sodium 138 135 - 145 mmol/L [facility] Potassium 4.5 3.3 - 5.1 mmol/L [facility] Chloride 106 96 - 108 mmol/L [facility] Carbon Dioxide 22 22 - 29 mmol/L [facility] Anion Gap 15 12 - 20 [facility] Urea Nitrogen (BUN) 16 9 - 16 mg/dL [facility] Creatinine, Serum 1.12 0.5 - 1.4 mg/dL [facility] Estimated Glomerular Filt Rate >60 [facility] Comment:NOTE: For -Am erican individuals, multiply the result by 1.210.Chronic Kidney Disease: Estimated GFR < 60 mL/min/[id number] Kidney Disease: Estimated GFR < 15 mL/min/1.73m2 Glucose 113 60 - 115 mg/dL [facility] Calcium 9.1 8.4 - 10.2 mg/dL [facility] 12/28/2022 9:40 AM EDT 12/28/2022 9:40 AM EDT [facility] External Provider LAB BLO OD ORDERABLES Final Result [facility] [address] [place] [address] [phone] * (ABNORMAL) CBC auto differential (12/28/2022 9:40 AM EDT) White Blood Count 9.9 4.8 - 10.8 X10*3/uL [facility] Red Blood Count 4.06(L) 4.60 - 5.80 X10*6/uL [facility] Hemoglobin 13.0(L) 14.0 - 18.0 g/dl [facility] Hematocrit 39.4(L) 42.0 - 52.0 % [facility] Mean Corpuscular Volume 97.0 80.0 - 98.0 fL [facility] Mean Corpuscular Hemoglobin 32.0 27.0 - 33.0 pg [facility] Mean Corpuscular HGB Conc 33.0 31.0 - 36.0 g/dl [facility] Red Cell Distribution Width 12.7 11.0 - 16.0 % [facility] Platelet Count 275 160 - 400 X10*3/uL [facility] Mean Platelet Volume 9.0(L) 9.4 - 12.4 fL [facility] Neutrophils Percent Auto 71.2 45 - 73 % [facility] Imm Gran Pct Auto 1.0(H) 0.0 - 0.4 % [facility] Lymphocytes Percent Auto 17.8(L) 20 - 40 % [facility] Monocytes Percent Auto 7.5 2 - 11 % [facility] Eosinophils Percent Auto 2.0 0 - 4 % [facility] Basophils Percent Auto 0.5 0 - 2 % [facility] NRBC Pct Auto 0.0 0.0 - 0.2 /100WBC [facility] Neutrophils Absolute Auto 7.1 2.0 - 8.3 x10*3/uL [facility] Imm Gran Abs Auto 0.10(H) 0.00 - 0.03 X10*3/uL [facility] Lymphocytes Absolute Auto 1.8 1.2 - 4.9 X10*3/uL [facility] Monocytes Absolute Auto 0.7 0.1 - 1.2 X10*3/uL [facility] Eosinophils Absolute Auto 0.2 0.0 - 0.4 X10*3/uL [facility] Basophils Absolute Auto 0.1 0.0 - 0.2 X10*3/uL [facility] NRBC Abs Auto 0.000 0.0 - 0.012 X10*3/uL [facility] 12/28/2022 9:40 AM EDT 12/28/2022 9:40 AM EDT us [facility] External Provider LAB BLO OD ORDERABLES Final Result Performing Organization Address City/State/[facility] Co de Phone Number [facility] [address] [place] [phone] * Prothrombin Time-INR (12/28/2022 9:40 AM EDT) Prothrombin Time 11.6 11.1 - 13.3 SEC [facility] INTERNATIONAL NORM RATIO 1.0 0.9 - 1.1 [facility] Comment:INTERNATIONAL NORMAL IZED RATIO [...] AM EDT 12/28/2022 9:40 AM EDT us [facility] External Provider LAB BLO OD ORDERABLES Final Result [facility] [address] [place] [address] [phone] * (ABNORMAL) Comprehensive Metabolic Panel (11/28/2022 9:22 AM EDT) Sodium 140 135 - 145 mmol/L [facility] Potassium 5.1 3.3 - 5.1 mmol/L [facility] Chloride 107 96 - 108 mmol/L [facility] Carbon Dioxide 24 22 - 29 mmol/L [facility] Anion Gap 14 12 - 20 [facility] Urea Nitrogen (BUN) 16 9 - 16 mg/dL [facility] Creatinine, Serum 1.54(H) 0.5 - 1.4 mg/dL [facility] Estimated Glomerular Filt Rate 45 [facility] Comment:NOTE: For -Am erican individuals, multiply the result by 1.210.Chronic Kidney Disease: Estimated GFR < 60 mL/min/1.51h8Eatupq Kidney Disease: Estimated GFR < 15 mL/min/1.73m2 Glucose 119(H) 60 - 115 mg/dL [facility] Calcium 9.6 8.4 - 10.2 mg/dL [facility] Bilirubin, Total 0.8 0.0 - 1.0 mg/dL [facility] Aspartate Amino Transferase 13 5 - 37 U/L [facility] Alanine Aminotransferase 11 0 - 40 U/L [facility] Total Protein 7.2 6.5 - 8.0 g/dL [facility] Albumin Level 4.0 3.5 - 5.0 g/dL [facility] Alkaline Phosphatase 43 39 - 117 U/L [facility] 11/28/2022 9:22 AM EDT 11/28/2022 9:22 AM EDT us [facility] External Provider LAB BLO OD ORDERABLES Final Result [facility] [address] [place] [address] [phone] * (ABNORMAL) CBC auto differential (11/28/2022 9:22 AM EDT) White Blood Count 7.7 4.8 - 10.8 X10*3/uL [facility] Red Blood Count 3.92(L) 4.60 - 5.80 X10*6/uL [facility] Hemoglobin 12.4(L) 14.0 - 18.0 g/dl [facility] Hematocrit 38.1(L) 42.0 - 52.0 % [facility] Mean Corpuscular Volume 97.2 80.0 - 98.0 fL [facility] Mean Corpuscular Hemoglobin 31.6 27.0 - 33.0 pg [facility] Mean Corpuscular HGB Conc 32.5 31.0 - 36.0 g/dl [facility] Red Cell Distribution Width 13.5 11.0 - 16.0 % [facility] Platelet Count 282 160 - 400 X10*3/uL [facility] Mean Platelet Volume 8.9(L) 9.4 - 12.4 fL [facility] Neutrophils Percent Auto 68.7 45 - 73 % [facility] Imm Gran Pct Auto 0.4 0.0 - 0.4 % [facility] Lymphocytes Percent Auto 21.1 20 - 40 % [facility] Monocytes Percent Auto 8.2 2 - 11 % [facility] Eosinophils Percent Auto 1.2 0 - 4 % [facility] Basophils Percent Auto 0.4 0 - 2 % [facility] NRBC Pct Auto 0.0 0.0 - 0.2 /100WBC [facility] Neutrophils Absolute Auto 5.3 2.0 - 8.3 x10*3/uL [facility] Imm Gran Abs Auto 0.03 0.00 - 0.03 X10*3/uL [facility] Lymphocytes Absolute Auto 1.6 1.2 - 4.9 X10*3/uL [facility] Monocytes Absolute Auto 0.6 0.1 - 1.2 X10*3/uL [facility] Eosinophils Absolute Auto 0.1 0.0 - 0.4 X10*3/uL [facility] Basophils Absolute Auto 0.0 0.0 - 0.2 X10*3/uL [facility] NRBC Abs Auto 0.000 0.0 - 0.012 X10*3/uL [facility] 11/28/2022 9:22 AM EDT 11/28/2022 9:22 AM EDT [facility] External Provider LAB BLO OD ORDERABLES Final Result Performing Organization Address [facility]/ZIP Co de Phone Number [facility] [address] [place] [address] [phone] * Chromosome Analysis, Bone Marrow (11/22/2022 12:00 PM EDT) Pathologist [facility] Chromosome Analysis, Bone Marrow See note [facility] Comment:See report from [employer] in the EMR. 11/22/2022 12:0 0 PM EDT 11/22/2022 1:46 PM EDT [facility] Exter nal Provider LAB BODY FLUIDS AND STOOLS ORDERABLES Final Result Performing Organization Address City/[facility] Co de Phone Number [facility] [address] [place] [address] [phone] * LEUKEMIA/LYMPH. EVAL. BONE MAR (11/22/2022 12:00 PM EDT) LLE Interpretation See Note [facility] Comment:See report from [employer] in the EMR. 11/22/2022 12:0 0 PM EDT 11/22/2022 1:46 PM EDT us [facility] External Provider LAB BLO OD ORDERABLES Final Result [facility] [address] [place] [address] [phone] * Bone Marrow Smear (11/22/2022 11:45 AM EDT) 11/22/2022 11:4 5 AM EDT 11/22/2022 1:56 PM EDT Narrative [facility] - 01/23/2023 11:20 AM EDT ----- ------- Name: John Hwang ?Age/Sex: 72/M ? : 1950 Unit#: [id number] ?? Attend Dr: Oliver Ospina MD ?Re11/22/22 ?Status: DEP SDC ? Location: HO.SSS ?Disch: ? ----- ------- SPEC : [id number] ? RECD: 11/22/22-1356 ? STATUS: ??SOUT ? REQ NUM: [id number] ? AURA: 11/22/22-1145 ? SUBM DR: Oliver [...] Technical services for reticulin study performed at [facility] [address] Alda Nagel [place]; [place] #[id number] Addendum Signed (signature on file) Malik Lancaster [...] Hwang ?Age/Sex: 72/M ? : 1950 Unit#: [id number] ?? Attend Dr: Oliver Ospina MD ?Re11/22/22 ?Status: DEP [facility] ? Location: [facility] ?Disch: ? ----- ------- SPEC : [id number] ? RECD: 11/22/226 ? STATUS: ??SOUT ? REQ NUM: [id number] ? AURA: 11/22/22-1145 ? SUBM DR: Oliver Ospina MD ? ENTERED: ??11/22/22-4745 ?SP TYPE: Surgical ? OTHR DR: Arti [...] Hwang ?Age/Sex: 72/M ? : 1950 Unit#: [id number] ?? Attend Dr: Oliver Ospina MD ?Re11/22/22 ?Status: DEP SDC ? Location: HO.SSS ?Disch: ? ----- ------- SPEC : [id number] ? RECD: 11/22/22-0541 ? STATUS: ??SOUT ? REQ NUM: [id number] ? AURA: 11/22/22-1142 ? SUBM DR: Oliver Ospina MD ? ENTERED: ??11/22/22-5975 ?SP TYPE: Surgical ? OTHR DR: Arti [...] To: ?? Arti Lei MD ?? [address] [facility] ?? [place] [address] ?? [phone] ?? Oliver Ospina MD ?? [address] ?? Dept. of Hematology/Oncology ?? [place] ?? [phone] ----- ------- Signed (signature on file) Malik Lancaster MD 11/30/221630 ? ----- ------- ? END OF REPORT ? us [facility] Exter nal Provider LAB BODY FLUIDS AND STOOLS ORDERABLES Final Result [facility] [address] [place] [address] [phone] * (ABNORMAL) Phosphate (As Phosphorus) (10/23/2022 10:03 AM EDT) Phosphorus 2.3(L) 2.7 - 4.5 mg/dL [facility] 10/23/2022 10:0 3 AM EDT 10/23/2022 10:04 AM EDT [facility] External Provider LAB BLO OD ORDERABLES Final Result [facility] [address] [place] [phone] * Calcium (10/23/2022 10:03 AM EDT) Calcium 10.0 8.4 - 10.2 mg/dL [facility] 10/23/2022 10:0 3 AM EDT 10/23/2022 10:04 AM EDT [facility] External Provider LAB BLO OD ORDERABLES Final Result Performing Organization Address City/[facility]/ZIP Co de Phone Number [facility] [address] [place] [phone] * (ABNORMAL) Creatinine, Serum (10/23/2022 10:03 AM EDT) Creatinine, Serum 2.03(H) 0.5 - 1.4 mg/dL [facility] Estimated Glomerular Filt Rate 33 [facility] Comment:NOTE: For -Am erican individuals, multiply the result by 1.210.Chronic Kidney Disease: Estimated GFR < 60 mL/min/1.40j4Yihzcd Kidney Disease: Estimated GFR < 15 mL/min/1.73m2 10/23/2022 10:0 3 AM EDT 10/23/2022 10:04 AM EDT [facility] External Provider LAB BLO OD ORDERABLES Final Result Performing Organization Address [facility] Co de Phone Number [facility] [address] [place] [address] [phone] * (ABNORMAL) BUN (Blood Urea Nitrogen) (10/23/2022 10:03 AM EDT) Urea Nitrogen (BUN) 17(H) 9 - 16 mg/dL [facility] 10/23/2022 10:0 3 AM EDT 10/23/2022 10:04 AM EDT [facility] External Provider LAB BLO OD ORDERABLES Final Result Performing Organization Address [facility] de Phone Number [facility] [address] [place] [address] [phone] * (ABNORMAL) Electrolyte Panel (10/23/2022 10:03 AM EDT) [facility] Signature Sodium 143 135 - 145 mmol/L [facility] Potassium 3.9 3.3 - 5.1 mmol/L [facility] Chloride 109(H) 96 - 108 mmol/L [facility] Carbon Dioxide 28 22 - 29 mmol/L [facility] Anion Gap 10(L) 12 - 20 [facility] 10/23/2022 10:0 3 AM EDT 10/23/2022 10:04 AM EDT [facility] External Provider LAB BLO OD ORDERABLES Final Result Performing Organization Address [facility] Co de Phone Number [facility] [address] [place] [address] [phone] * (ABNORMAL) Urinalysis, Complete, with Reflex to Culture (10/17/2022 4:16 AM EDT) Color Urine Yellow [facility] Appearance Urine Clear [facility] PH 6.5 5.0 - 9.0 [facility] Glucose Urine UA Negative Negative mg/dL [facility] Urine Blood Negative Negative [facility] Specific Etlan - Urine 1.010 1.005 - 1.025 [facility] Urine Protein Negative Neg-Trace mg/dL [facility] Urine Ketones Negative Negative mg/dL [facility] Nitrite Urine Negative Negative [facility] Leukocyte Esterase Urine Small (1+)(A) Negative [facility] RBC Urine 0-2 0 - 2 /HPF [facility] Urine WBC 11-20(A) 0 - 5 /HPF [facility] Urine Squamous Epithelial Cell 0-2 0 - 2 /HPF [facility] Urine Bacteria None Seen None Seen [facility] Hyaline Casts, Urine 3-5 0 - 2 /LPF [facility] 10/17/2022 4:16 AM EDT 10/17/2022 4:19 AM EDT Narrative [facility] - 10/17/2022 4:34 AM EDT Urine, Clean Catch [facility] External Provider LAB URI NE ORDERABLES Final Result Performing Organization Address [facility] Co de Phone Number [facility] [address] [place] [phone] * Magnesium (10/17/2022 2:51 AM EDT) Magnesium 2.6 1.6 - 2.6 mg/dL [facility] 10/17/2022 2:51 AM EDT 10/17/2022 2:55 AM EDT [facility] External Provider LAB BLO OD ORDERABLES Final Result Performing Organization Address [facility] Co de Phone Number [facility] [address] [place] [phone] * (ABNORMAL) Comprehensive Metabolic Panel (10/17/2022 2:51 AM EDT) Sodium 138 135 - 145 mmol/L [facility] Potassium 3.8 3.3 - 5.1 mmol/L [facility] Chloride 99 96 - 108 mmol/L [facility] Carbon Dioxide 33(H) 22 - 29 mmol/L [facility] Anion Gap 10(L) 12 - 20 [facility] Urea Nitrogen (BUN) 42(H) 9 - 16 mg/dL [facility] Creatinine, Serum 3.18(H) 0.5 - 1.4 mg/dL [facility] Creatinine Clr Calc Pharmacy 18.4 [facility] Comment:eGFR (calculated fro m the MDRD study equation) and eCrCl(calculated from the Cockcroft-Gault equation) are based ondifferent parameters and may not yield comparable results.If eCrCl result is absurd, please check patient'sheight/weight. Estimated Glomerular Filt Rate 19 [facility] Comment:NOTE: For -Am erican individuals, multiply the result by 1.210.Chronic Kidney Disease: Estimated GFR < 60 mL/min/1.87w0Xrivfx Kidney Disease: Estimated GFR < 15 mL/min/1.73m2 Glucose 129(H) 60 - 115 mg/dL [facility] Calcium 15.7(HH) 8.4 - 10.2 mg/dL [facility] Comment:Critical value for t est(s): CALCIUM Results called to luci back by: NEDRA Person calling:VINCENT Date:10/17/22 Time:0323 Bilirubin, Total 0.8 0.0 - 1.0 mg/dL [facility] Aspartate Amino Transferase 13 5 - 37 U/L [facility] Alanine Aminotransferase 11 0 - 40 U/L [facility] Total Protein 7.0 6.5 - 8.0 g/dL [facility] Albumin Level 4.2 3.5 - 5.0 g/dL [facility] Alkaline Phosphatase 50 39 - 117 U/L [facility] 10/17/2022 2:51 AM EDT 10/17/2022 2:55 AM EDT us [facility] External Provider LAB BLO OD ORDERABLES Final Result [facility] [address] [place], [place] [phone] * (ABNORMAL) CBC auto differential (10/17/2022 2:51 AM EDT) White Blood Count 10.3 4.8 - 10.8 X10*3/uL [facility] Red Blood Count 4.13(L) 4.60 - 5.80 X10*6/uL [facility] Hemoglobin 13.0(L) 14.0 - 18.0 g/dl [facility] Hematocrit 37.6(L) 42.0 - 52.0 % [facility] Mean Corpuscular Volume 91.0 80.0 - 98.0 fL [facility] Mean Corpuscular Hemoglobin 31.5 27.0 - 33.0 pg [facility] Mean Corpuscular HGB Conc 34.6 31.0 - 36.0 g/dl [facility] Red Cell Distribution Width 12.1 11.0 - 16.0 % [facility] Platelet Count 244 160 - 400 X10*3/uL [facility] Mean Platelet Volume 9.1(L) 9.4 - 12.4 fL [facility] Neutrophils Percent Auto 73.6(H) 45 - 73 % [facility] Imm Gran Pct Auto 0.3 0.0 - 0.4 % [facility] Lymphocytes Percent Auto 18.0(L) 20 - 40 % [facility] Monocytes Percent Auto 6.8 2 - 11 % [facility] Eosinophils Percent Auto 0.9 0 - 4 % [facility] Basophils Percent Auto 0.4 0 - 2 % [facility] NRBC Pct Auto 0.0 0.0 - 0.2 /100WBC [facility] Neutrophils Absolute Auto 7.6 2.0 - 8.3 x10*3/uL [facility] Imm Gran Abs Auto 0.03 0.00 - 0.03 X10*3/uL [facility] Lymphocytes Absolute Auto 1.8 1.2 - 4.9 X10*3/uL [facility] Monocytes Absolute Auto 0.7 0.1 - 1.2 X10*3/uL [facility] Eosinophils Absolute Auto 0.1 0.0 - 0.4 X10*3/uL [facility] Basophils Absolute Auto 0.0 0.0 - 0.2 X10*3/uL [facility] NRBC Abs Auto 0.000 0.0 - 0.012 X10*3/uL [facility] 10/17/2022 2:51 AM EDT 10/17/2022 2:55 AM EDT us [facility] External Provider LAB BLO OD ORDERABLES Final Result [facility] [address] [place] [address] [phone] documented in this encounter Visit Diagnoses Not on filedocumented in this encounter Care Teams Site Acquisition Specialist Relationship Specialty Start Date End Date Arti Lei MD [address] [place] [phone] PCP - General Family Medicine 02/05/18 documented as of this encounter
--- OUTSIDE RECORDS SUMMARY | 2024-09-08 10:59 | XMS_ITS | Clinical Summary ---
Author Organization [facility] Facility Address [address] [place] [id number] Care Team Providers Care Lab Nurse Name Role Phone Arti Lei MD Primary [...] Visit [facility] [address] [place] [address] rBent Hammond MD Stage 3a chronic kidney disease (HCC) (Primary Dx) from Last 3 Months Immunizations Immunization Administration Dates Next Due Hepatitis B 06/16/2013,02/23/2013 [...] Visit [facility] [address] [place] [phone] Brent Hammond MD [address] [facility] [address] [place] [address] Health Maintenance Due Date Last Done Comments Colorectal Cancer Screening: Annual FOBT 10/15/2000 Colorectal Cancer Screening: Colonoscopy 10/15/2000 Colorectal Cancer Screening: Sigmoidoscopy 10/15/2000 Hepatitis B Vaccine Aged Out 06/16/2013, 3 No longer eligible based on patient's age to complete this topic Pneumococcal Vaccine: 50+ Years Completed 10/15/2022, 11/15/2014 Influenza Vaccine Completed 02/19/2024, , 04/27/2021, Additional history exists Procedures Procedure Name Priority Date/Time Associated Diagnosis Comments PTH, INTACT (HC) Routine 09/02/2024 1:15 PM EDT CREATININE, BLOOD Routine 09/02/2024 1:1 5 PM EDT BUN Routine 09/02/2024 1:15 PM EDT ELECTROLYTE PANEL Routine 09/02/2024 1:1 5 PM EDT CBC AND DIFFERENTIAL Routine 09/02/2024 1:15 PM EDT CALCIUM Routine 09/02/2024 1:15 PM EDT Stage 3a chronic kidney disease (HCC) ALBUMIN Routine 09/02/2024 1:15 PM EDT Stage 3a chronic kidney disease (HCC) MAGNESIUM Routine 09/02/2024 1:15 PM EDT Stage 3a chronic kidney disease (HCC) PHOSPHATE ( PHOSPHORUS) Routine 09/02/2024 1:15 PM EDT Stage 3a chronic kidney disease (HCC) VITAMIN D 25 HYDROXY Routine 09/02/2024 1:15 PM EDT Stage 3a chronic kidney disease (HCC) ALBUMIN, URINE, RANDOM Routine 09/02/2024 1:14 PM EDT PROTEIN / CREATININE RATIO, URINE Routine 09/02/2024 1:14 PM EDT Stage 3a chronic kidney disease (HCC) URINALYSIS WITH MICROSCOPIC Routine 09/02/2024 1:14 PM EDT Stage 3a chronic kidney disease (HCC) from Last 3 Months Results * Creatinine (09/02/2024 1:15 PM EDT) Creatinine Serum 0.99 0.5 - 1.4 mg/dL See order comments eGFR >60 See order comments Comment: Chronic Kidney Disease: ??Estimated GFR < 60 mL/min/1.73m2 Severe Kidney Disease: ??Estimated GFR < 15 mL/min/1.73m2 09/02/2024 1:15 PM EDT 09/02/2024 1:15 PM EDT us Brent Hammond MD LAB BLOOD ORDERABLES Final Re sult [place] See order comments [place] [address] * (ABNORMAL) PTH, Intact (09/02/2024 1:15 PM EDT) Parathyroid Hormone, Intact 121.6(H) 8.7 - 77.1 pg/mL See order comments 09/02/2024 1:15 PM EDT 09/02/2024 1:15 PM EDT us Brent Hammond MD LAB [id number] SOLICITED RESULTS Final Result Performing Organization Address [facility] Co de Phone Number [place] See order comments [place] [address] * (ABNORMAL) Vitamin D 25 Hydroxy (09/02/2024 1:15 PM EDT) Vitamin D, 25-Hydroxy 12.1(L) >30 ng/mL See order comments Comment: Health Based Reference Values* < 20 ??ng/mL ??Deficient 20-30 ng/mL ??Insufficient > 30 ??ng/mL ??Sufficient *Roxana RODRIGUEZ. N Engl J Med. 2007;357:[id number] There is no well-established upper level of normal vitamin D levels. Some laboratories use 50 ng/mL as an upper limit of normal. However, toxicity is patient-dependent and may occur at any level. Careful correlation with the patient's presentation is necessary and, if there is concern for vitamin D toxicity, treatment should be considered irrespective of the serum level. Care must be taken in interpreting Vitamin D results from different laboratories and methodologies. ??Published data demonstrated that results from patients undergoing hemodialysis may show a negative bias when tested with various automated 25-OH vitamin D assays when compared to LC-MS/MS. When testing samples from patients whose predominant form of Vitamin D is Vitamin D2, such as patients receiving Vitamin D2 supplementation, results that are subtherapeutic should be confirmed with another method such as LC-MS/MS. Blood (Blood, Venous) 09/02/2024 1:15 PM EDT 09/02/2024 1:15 PM EDT us Brent Hammond MD LAB BLOOD ORDERABLES Final Re sult Performing Organization Address [facility] Co de Phone Number [place] See order comments [place] [address] * (ABNORMAL) CBC and Differential (09/02/2024 1:15 PM EDT) WBC 7.2 4.8 - 10.8 X10*3/uL See order comments RBC 4.83 4.60 - 5.80 X10*6/uL See order comments Hgb 14.4 14.0 - 18.0 g/dl See order comments Hematocrit 45.3 42.0 - 52.0 % See order comments MCV 93.8 80.0 - 98.0 fL See order comments MCH 29.8 27.0 - 33.0 pg See order comments MCHC 31.8 31.0 - 36.0 g/dl See order comments RDW 12.8 11.0 - 16.0 % See order comments Platelets 176 160 - 400 X10*3/uL See order comments MPV 9.7 9.4 - 12.4 fL See order comments Neutrophils % Auto 69.8 45 - 73 % See order comments Immature Granulocytes 0.3 0.0 - 0.4 % See order comments Lymphocytes Relative 19.3(L) 20 - 40 % See order comments Monocytes 8.5 2 - 11 % See order comments Eosinophils Relative 1.7 0 - 4 % See order comments Basophils Relative 0.4 0 - 2 % See order comments nRBC Count 0.0 0.0 - 0.2 /100WBC See order comments Neutrophils Absolute 5.0 2.0 - 8.3 x10*3/uL See order comments Immature Grans (Absolute) 0.02 0.00 - 0.03 X10*3/uL See order comments Lymphocytes Absolute 1.4 1.2 - 4.9 X10*3/uL See order comments Monocytes Absolute 0.6 0.1 - 1.2 X10*3/uL See order comments Eosinophils Absolute 0.1 0.0 - 0.4 X10*3/uL See order comments Basophils Absolute 0.0 0.0 - 0.2 X10*3/uL See order comments NRBC Absolute 0.000 0.0 - 0.012 X10*3/uL See order comments 09/02/2024 1:15 PM EDT 09/02/2024 1:15 PM EDT us Brent Hammond MD LAB BLOOD ORDERABLES Final Re sult [place] See order comments [place] [address] * BUN (09/02/2024 1:15 PM EDT) BUN 15 9 - 16 mg/dL See order comments 09/02/2024 1:15 PM EDT 09/02/2024 1:15 PM EDT us Brent Hammond MD LAB BLOOD ORDERABLES Final Re sult Performing Organization Address [facility] Phone Number [place] See order comments [place] [address] * Phosphorus (09/02/2024 1:15 PM EDT) Phosphorus, Serum 3.2 2.7 - 4.5 mg/dL See order comments Blood (Blood, Venous) 09/02/2024 1:15 PM EDT 09/02/2024 1:15 PM EDT us Brent Hammond MD LAB BLOOD ORDERABLES Final Re sult Performing Organization Address [facility] Phone Number [place] See order comments [place] [address] * Magnesium (09/02/2024 1:15 PM EDT) Magnesium 2.1 1.6 - 2.6 mg/dL See order comments Blood (Blood, Venous) 09/02/2024 1:15 PM EDT 09/02/2024 1:15 PM EDT us Brent Hammond MD LAB BLOOD ORDERABLES Final Re sult Performing Organization Address [facility] Phone Number [place] See order comments [place] [address] * Calcium (09/02/2024 1:15 PM EDT) Calcium 8.9 8.4 - 10.2 mg/dL See order comments Blood (Blood, Venous) 09/02/2024 1:15 PM EDT 09/02/2024 1:15 PM EDT us Brent Hammond MD LAB BLOOD ORDERABLES Final Re sult Performing Organization Address [facility] Co de Phone Number [facility] See order comments [place] [address] * Albumin (09/02/2024 1:15 PM EDT) Albumin 4.3 3.5 - 5.0 g/dL See order comments Blood (Blood, Venous) 09/02/2024 1:15 PM EDT 09/02/2024 1:15 PM EDT Brent Hammond MD LAB BLOOD ORDERABLES Final Re sult Performing Organization Address [facility] de Phone Number [place] See order comments [place] [address] * (ABNORMAL) Electrolyte panel (09/02/2024 1:15 PM EDT) Sodium 138 135 - 145 mmol/L See order comments Potassium 4.1 3.3 - 5.1 mmol/L See order comments Chloride 106 96 - 108 mmol/L See order comments Bicarbonate (CO2) 25 22 - 29 mmol/L See order comments Anion Gap 11(L) 12 - 20 See order comments 09/02/2024 1:15 PM EDT 09/02/2024 1:15 PM EDT Brent Hammond MD LAB BLOOD ORDERABLES Final Re sult Performing Organization Address [facility] de Phone Number [place] See order comments [place] [address] * Protein, Total, Random Urine w/Creatinine (Protein/Creat Ratio) (09/02/2024 1:14 PM EDT) Protein Urine Random <7 <12 mg/dL See order comments Protein/Creatin ine Ratio, Urine TNP <0.2 See order comments Comment: Unable to calculate urine protein creatinine ratio due to low creatinine or protein result. Urine (Urine, Clean Catch) 09/02/2024 1:14 PM EDT 09/02/2024 1:14 PM EDT Brent Hammond MD LAB URINE ORDERABLES Final Re sult [place] See order comments [place] [address] * Albumin, urine, random (09/02/2024 1:14 PM EDT) Creatinine, Urine 32.38 mg/dL Se e order comments Urine Microalbumin <5.0 mg/L See order comments Microalbumin/Crea tinine Ratio TNP <30 ug/mg cr See order comments Comment: Unable to calculate albumin/creatinine ratio due to low microalbumin or creatinine result. 09/02/2024 1:14 PM EDT 09/02/2024 1:14 PM EDT Brent Hammond MD LAB URINE ORDERABLES Final Re sult Performing Organization Address [facility] Co de Phone Number [place] See order comments [place] [address] * (ABNORMAL) Urinalysis with microscopic (09/02/2024 1:14 PM EDT) Color Urine Yellow See orde r comments Appearance Urine Clear See order comments pH Urine 6.5 5.0 - 9.0 See order comments Glucose Urine Negative Negative mg/dL See order comments Blood, Urine Negative Negative See ord er comments Specific [place] Urine <=1.005 1.005 - 1.025 See order comments Protein Urine Negative Neg-Trace mg/dL See order comments Ketones, Urine Negative Negative mg/dL See order comments Nitrite, Urine Negative Negative See o rder comments Leukocyte Esterase Urine Trace(A) Negative See order comments RBC, Urine 0-2 0 - 2 /HPF See orde r comments WBC 0-5 0 - 5 /HPF See order comments Squamous Epithelial, Urine 0-2 0 - 2 /HPF See order comments Bacteria, Urine None Seen None Seen See order comments Hyaline Casts, Urine 0-2 0 - 2 /LPF See order comments Urine (Urine, Clean Catch) 09/02/2024 1:14 PM EDT 09/02/2024 1:14 PM EDT Brent Hammond MD LAB URINE ORDERABLES Final Re sult [place] See order comments [place] [address] from Last 3 Months Insurance Medicare Medicaid [place] Medicare Medicaid [place] Care Teams Lab Nurse Relationship Specialty Start Date End Date Arti Lei MD [address] [place] [phone] PCP - General Internal Medicine 10/18/22
--- OUTSIDE RECORDS SUMMARY | 2024-09-08 10:59 | XMS_ITS | Encounter Summary ---
Author Organization [employer] Address [address] [facility] [address] [place] [address] Care Team Providers Care Field Assembly Supervisor Name Role Phone Arti Lei MD Primary Care Provide r Reason for Visit * Reason Comments Med Refill Encounter Details Date Type Department Care Team ([facility] st Contact Info) Description 11/30/2023 Refill [facility] MEDICINE [address] [place], [place] [phone] Arti Lei MD [address] [place] [address] Primary hypertension Social History Tobacco Use Types [...] Info) Description 11/05/2024 11:30 AM EDT Telemedicine [facility] MEDICINE [address] [place] [address] Arti Lei MD [address] [place] [address] documented as of this encounter Visit Diagnoses Diagnosis Primary hypertension Unspecified essential hypertension documented in this encounter Additional Health Concerns Assessment Noted Time PHQ-9 Depression Total Score: 2 10/16/19 23 3:44 PM EDT documented as of this encounter Care Teams Field Assembly Supervisor Relationship Specialty Start Date End Date Arti Lei MD [address] [place] [address] PCP - General Family Medicine 02/05/18 documented as of this encounter
--- OUTSIDE RECORDS SUMMARY | 2024-09-08 11:00 | XMS_ITS | Encounter Summary ---
Author Organization [employer] Address [address] [facility] [address] [place] [address] Care Team Providers Care Data Assistant Name Role Phone Arti Lei MD Primary Care Provide r Reason for Visit * Reason Onset Date Comments FYI 10/19/2022 Encounter Details Date Type Department Care Team ([facility] st Contact Info) Description 10/19/2022 Telephone [facility] MEDICINE [address] [place], [place] [phone] Arti Lei MD [address] [place] [address] FYI Social History Tobacco Use Types Packs/Day [...] Info) Description 11/05/2024 11:30 AM EDT Telemedicine [facility] MEDICINE [address] [place], [place] [phone] Arti Lei MD [address] [place], [place] [phone] documented as of this encounter Visit Diagnoses Not on filedocumented in this encounter Additional Health Concerns Assessment Noted Time PHQ-9 Depression Total Score: 2 10/16/19 23 3:44 PM EDT documented as of this encounter Care Teams Data Assistant Relationship Specialty Start Date End Date Arti Lei MD [address] [place], [place] [phone] PCP - General Family Medicine 02/05/18 documented as of this encounter
--- OUTSIDE RECORDS SUMMARY | 2024-09-08 11:00 | XMS_ITS | Clinical Summary ---
Author Organization [employer] Address [address] [facility] 7[address] [place] [address] Care Team Providers Care Curling Machine Operator Name Role Phone Arti Lei MD Primary Care Provide r Allergies Active Allergy Reactions Criticality Noted Date Comments Other GI intolerance High 03/23/2021 Peanut-Containing Drug Products GI intolerance High 03/23/2021 Medications Brilinta 90 MG tablet 3 Active Aspirin 81 MG capsuleIndication s:Primary hypertension [...] evening meal. 355 mL 1 5 Active amLODIPine (Norvasc) 2.5 MG tabletIndications :Primary hypertension Take 1 tablet (2.5 mg) by mouth 2 times daily. 180 tablet 1 5 Active loratadine (Claritin) 10 MG tabletIndications :Rash Take one tablet twice a day for 5 days then one daily 60 tablet 5 Active triamcinolone (Kenalog) 0.5 % creamIndications: Rash Apply topically 3 times daily. 15 g Active Active Problems Problem Noted Date Diagnosed [...] declines medications Coronary artery disease invo lving nenana coronary artery of nenana heart without angina pectoris 04/16/2023 Assessment & [...] Encounters Date Type Department Care Team Description 09/02/2024 Orders Only GENERIC EXTERNAL DATA DEPARTMENT Provider, Generic External Data 08/07/2024 Population Health Risk Score [facility] (C3) Department [address] [phone] Provider, Population Health Generic 08/05/2024 11:30 AM EDT Office Visit [facility] [address] [place] [phone] Arti Lei MD Rash (Primary Dx); Primary hypertension 08/05/2024 Travel 07/31/[address] [address] Arti Lei MD Chart Prep 07/29/2024 Patient Outreach [address] [address] Arti Lei MD Pre-visit Planning ((Unable to reach for PVP screening, LVM)) 07/28/2024 Orders Only GENERIC EXTERNAL DATA DEPARTMENT Provider, Generic External Data 07/24/2024 Orders Only [facility] External Provider, [facility] 06/23/2024 Orders Only GENERIC EXTERNAL DATA DEPARTMENT Provider, Generic External Data 06/22/2024 Orders Only [address] [address] Arti Lei MD 06/17/[address] [phone] Rahul Yoder [place] Results 06/12/[address] [address] Arti Lei MD Results from Last 3 Months Immunizations Name Administration [...] housing situation today? I have [facility] 08/05/[address] you li [...] Info) Description 11/05/2024 11:30 AM EDT Telemedicine [facility] [address] [place] [address] Arti Lei MD [address] [place] [address] Health Maintenance Due Date Last Done Comments [...] Priority Date/Time Associated Diagnosis Comments PTH, INTACT WITHOUT CALCIUM Routine 09/02/2024 10:54 AM EDT VITAMIN D,25-OH,TOTAL,IA Routine 025 10:54 AM EDT PROTEIN CREATININE RATIO, URINE Routine 09/02/2024 10:54 AM EDT ALBUMIN, RANDOM URINE W/CREATININE Routine 09/02/2024 10:54 AM EDT ALBUMIN Routine 09/02/2024 10:54 AM EDT MAGNESIUM Routine 09/02/2024 10:54 AM EDT PHOSPHATE ( PHOSPHORUS) Routine 09/02/2024 10:54 AM EDT CALCIUM Routine 09/02/2024 10:54 AM EDT CREATININE, SERUM Routine 09/02/2024 10: 54 AM EDT UREA NITROGEN (BUN) Routine 09/02/2024 1 0:54 AM EDT ELECTROLYTE PANEL Routine 09/02/2024 10: 54 AM EDT CBC WITH AUTO DIFFERENTIAL Routine 09/02/2024 10:54 AM EDT URINALYSIS, COMPLETE Routine 09/02/2024 10:54 AM EDT PANCREATIC ELASTASE, FECAL Routine 07/28/2024 10:00 AM [...] AORTIC ANEURYSM Routine 06/22/2024 12:50 PM EST LIPID PANEL, STANDARD Routine 06/19/2023 1:12 PM EST HM COLONOSCOPY Routine 05/02/2018 from Last 3 Months or Most Recently Relevant to Health Maintenance Results * Protein Creatinine Ratio, Urine (09/02/2024 10:54 AM EDT) Protein, Total, Random Urine <7 <12 mg/dL [facility] Protein/Creatin ine Ratio, Ur TNP <0.2 [facility] Comment:Unable to calculate urine protein creatinine ratio due tolow creatinine or protein result. 09/02/2024 10:5 4 AM EDT 09/02/2024 1:14 PM EDT us Generic External Data Provider LAB URINE ORDERAB LES Final Result [facility] [address] [place] [address] [phone] * (ABNORMAL) Vitamin D, 25-Hydroxy, Total, Immunoassay (09/02/2024 10:54 AM EDT) Vitamin D 25-OH Total 12.1(L) >30 ng/mL [facility] Comment: Health Based Reference Values*< 20 ??ng/mL ??[id number] ng/mL ??Insufficient> 30 ??ng/mL ??Sufficient*Roxana RODRIGUEZ. N Engl J Med. 2007;357:266-280There is no well-established upper level of normal vitamin Dlevels. Some laboratories use 50 ng/mL as an upper limit ofnormal. However, toxicity is patient-dependent and may occurat any level. Careful correlation with the patient'spresentation is necessary and, if there is concern forvitamin D toxicity, treatment should be consideredirrespective of the serum level.Care must be taken in interpreting Vitamin D results fromdifferent laboratories and methodologies. ??Published datademonstrated that results from patients undergoinghemodialysis may show a negative bias when tested withvarious automated 25-OH vitamin D assays when compared toLC- MS/MS.When testing samples from patients whose predominant form ofVitamin D is Vitamin D2, such as patients receiving VitaminD2 supplementation, results that are subtherapeutic shouldbe confirmed with another method such as LC-MS/MS. 09/02/2024 10:5 4 AM EDT 09/02/2024 1:15 PM EDT us Generic External Data Provider LAB BLOOD ORDERAB LES Final Result Performing Organization Address [facility] Co de Phone Number [facility] [address] [place] [phone] * Creatinine, Serum (09/02/2024 10:54 AM EDT) Creatinine, Serum 0.99 0.5 - 1.4 mg/dL [facility] Estimated Glomerular Filt Rate >60 [facility] Comment:Chronic Kidney Disea se: Estimated GFR < 60 mL/min/1.52q2Gkdyom Kidney Disease: Estimated GFR < 15 mL/min/1.73m2 09/02/2024 10:5 4 AM EDT 09/02/2024 1:15 PM EDT Generic External Data Provider LAB BLOOD ORDERAB LES Final Result Performing Organization Address [facility] de Phone Number [facility] [address] [place] [phone] * Albumin, Random Urine W/Creatinine (09/02/2024 10:54 AM EDT) Creatinine, Urine 32.38 mg/dL [facility] Microalbumin Urine <5.0 mg/L [facility] Microalbum Creatinine Ratio Ur TNP <30 ug/mg cr [facility] Comment:Unable to calculate albumin/creatinine ratio due to lowmicroalbumin or creatinine result. 09/02/2024 10:5 4 AM EDT 09/02/2024 1:14 PM EDT Generic External Data Provider LAB URINE ORDERAB LES Final Result Performing Organization Address [facility] Co de Phone Number [facility] [address] [place] [address] [phone] * (ABNORMAL) CBC auto differential (09/02/2024 10:54 AM EDT) White Blood Count 7.2 4.8 - 10.8 X10*3/uL [facility] Red Blood Count 4.83 4.60 - 5.80 X10*6/uL [facility] Hemoglobin 14.4 14.0 - 18.0 g/dl [facility] Hematocrit 45.3 42.0 - 52.0 % [facility] Mean Corpuscular Volume 93.8 80.0 - 98.0 fL [facility] Mean Corpuscular Hemoglobin 29.8 27.0 - 33.0 pg [facility] Mean Corpuscular HGB Conc 31.8 31.0 - 36.0 g/dl [facility] Red Cell Distribution Width 12.8 11.0 - 16.0 % [facility] Platelet Count 176 160 - 400 X10*3/uL [facility] Mean Platelet Volume 9.7 9.4 - 12.4 fL [facility] Neutrophils Percent Auto 69.8 45 - 73 % [facility] Imm Gran Pct Auto 0.3 0.0 - 0.4 % [facility] Lymphocytes Percent Auto 19.3(L) 20 - 40 % [facility] Monocytes Percent Auto 8.5 2 - 11 % [facility] Eosinophils Percent Auto 1.7 0 - 4 % [facility] Basophils Percent Auto 0.4 0 - 2 % [facility] NRBC Pct Auto 0.0 0.0 - 0.2 /100WBC [facility] Neutrophils Absolute Auto 5.0 2.0 - 8.3 x10*3/uL [facility] Imm Gran Abs Auto 0.02 0.00 - 0.03 X10*3/uL [facility] Lymphocytes Absolute Auto 1.4 1.2 - 4.9 X10*3/uL [facility] Monocytes Absolute Auto 0.6 0.1 - 1.2 X10*3/uL [facility] Eosinophils Absolute Auto 0.1 0.0 - 0.4 X10*3/uL [facility] Basophils Absolute Auto 0.0 0.0 - 0.2 X10*3/uL [facility] NRBC Abs Auto 0.000 0.0 - 0.012 X10*3/uL [facility] 09/02/2024 10:5 4 AM EDT 09/02/2024 1:15 PM EDT us Generic External Data Provider LAB BLOOD ORDERAB LES Final Result Performing Organization Address City/[facility]/ZIP Co de Phone Number [facility] [address] [place] [phone] * (ABNORMAL) Urinalysis Complete (09/02/2024 10:54 AM EDT) Color Urine Yellow [facility] Appearance Urine Clear [facility] PH 6.5 5.0 - 9.0 [facility] Glucose Urine UA Negative Negative mg/dL [facility] Urine Blood Negative Negative [facility] Specific Cecil - Urine <=1.005 1.005 - 1.025 [facility] Urine Protein Negative Neg-Trace mg/dL [facility] Urine Ketones Negative Negative mg/dL [facility] Nitrite Urine Negative Negative [facility] Leukocyte Esterase Urine Trace(A) Negative [facility] RBC Urine 0-2 0 - 2 /HPF [facility] Urine WBC 0-5 0 - 5 /HPF [facility] Urine Squamous Epithelial Cell 0-2 0 - 2 /HPF [facility] Urine Bacteria None Seen None Seen [facility] Hyaline Casts, Urine 0-2 0 - 2 /LPF [facility] 09/02/2024 10:5 4 AM EDT 09/02/2024 1:14 PM EDT us Generic External Data Provider LAB URINE ORDERAB LES Final Result [facility] [address] [place] [phone] * BUN (Blood Urea Nitrogen) (09/02/2024 10:54 AM EDT) Urea Nitrogen (BUN) 15 9 - 16 mg/dL [facility] 09/02/2024 10:5 4 AM EDT 09/02/2024 1:15 PM EDT us Generic External Data Provider LAB BLOOD ORDERAB LES Final Result Performing Organization Address [facility] Co de Phone Number [facility] [address] [place] [phone] * Phosphate (As Phosphorus) (09/02/2024 10:54 AM EDT) Phosphorus 3.2 2.7 - 4.5 mg/dL [facility] 09/02/2024 10:5 4 AM EDT 09/02/2024 1:15 PM EDT us Generic External Data Provider LAB BLOOD ORDERAB LES Final Result Performing Organization Address [facility] Co de Phone Number [facility] [address] [place] [phone] * (ABNORMAL) PTH, Intact Without Calcium (09/02/2024 10:54 AM EDT) Parathyroid Hormone, Intact 121.6(H) 8.7 - 77.1 pg/mL [facility] 09/02/2024 10:5 4 AM EDT 09/02/2024 1:15 PM EDT Generic External Data Provider LAB BLOOD ORDERAB LES Final Result Performing Organization Address [facility] Co de Phone Number [facility] [address] [place] [phone] * Magnesium (09/02/2024 10:54 AM EDT) Magnesium 2.1 1.6 - 2.6 mg/dL [facility] 09/02/2024 10:5 4 AM EDT 09/02/2024 1:15 PM EDT us Generic External Data Provider LAB BLOOD ORDERAB LES Final Result Performing Organization Address [facility] Co de Phone Number [facility] [address] [place] [phone] * Calcium (09/02/2024 10:54 AM EDT) Pathologist [facility] Calcium 8.9 8.4 - 10.2 mg/dL [facility] 09/02/2024 10:5 4 AM EDT 09/02/2024 1:15 PM EDT us Generic External Data Provider LAB BLOOD ORDERAB LES Final Result Performing Organization Address [facility] Co de Phone Number [facility] [address] [place] [phone] * Albumin (09/02/2024 10:54 AM EDT) Pathologist [facility] Albumin Level 4.3 3.5 - 5.0 g/dL [facility] 09/02/2024 10:5 4 AM EDT 09/02/2024 1:15 PM EDT Generic External Data Provider LAB BLOOD ORDERAB LES Final Result Performing Organization Address [facility] de Phone Number [facility] [address] [place] [phone] * (ABNORMAL) Electrolyte Panel (09/02/2024 10:54 AM EDT) Pathologist [facility] Sodium 138 135 - 145 mmol/L [facility] Potassium 4.1 3.3 - 5.1 mmol/L [facility] Chloride 106 96 - 108 mmol/L [facility] Carbon Dioxide 25 22 - 29 mmol/L [facility] Anion Gap 11(L) 12 - 20 [facility] 09/02/2024 10:5 4 AM EDT 09/02/2024 1:15 PM EDT Generic External Data Provider LAB BLOOD ORDERAB LES Final Result Performing Organization Address [facility] de Phone Number [facility] [address] [place] [phone] * Pancreatic elastase, fecal (07/28/2024 10:00 AM EST) Pancreatic Elastase 1 514 >200 mcg/g [facility] Comment:E-1 mcg/g feces Inte rpretation <100 Severe exocrine pancreatic insufficiency 100-200 Mild to moderate exocrine pancreatic insufficiency >200 NormalTHIS TEST WAS PERFORMED AT:[facility] [id number] [facility] [place] [address]DVDSBSUE DEMARCO MD,PHD,ESTELLE 07/28/2024 10:0 0 AM EST 07/28/2024 1:57 PM EST Generic External Data Provider LAB BODY FLUIDS A ND STOOLS ORDERABLES Final Result Performing Organization Address [facility] de Phone Number [facility] [address] [place] [phone] * CT Lung Screening Low dose (07/24/2024 7:14 PM EST) Anatomical Region Laterality Modality Lung Computed Tomogra phy 07/24/2024 7:14 PM EST Narrative 07/24/2024 7:16 PM EST ? [facility] ?[address] ?[place] [address] ? CT Scan Report ? Signed ? Patient: Jaiden,John ?MR#: [id number] ?? 250 ? : 1950 ?Acct:[id number] ? Age/Sex: 73 / M ?ADM Date: 02/28/25 ? Loc: HO.CT ? Attending Dr: Ila Meek PA-C ? Ordering Physician: Ila Meek PA-C ?? Date of Service: 07/24/24 ?? Procedure(s): CT lung screening ?? Accession Number(s): [id number] ? cc: Arti Lei MD; Ila Meek PA-C ? Report Number: ?? [id number]: Total DLP = ?? 50.00 mGy-cm ? [...] OV> ?07/24/241914 ? DD/ 13 ? TD/TT: 07/24/24 1914 ? Re Recording Mixer: ? Procedure Note Donotuseinterpreter, Image - 07/24/[address] [place] [address] [address] Scan Report Signed Patient: Thu Hwang#: [id number] 250 : 2Acct:[id number] Age/Sex: 73 / MADM Date: 07/24/24 Loc: HO.CT Attending Dr: Ila Meek PA-C Ordering Physician: Ila Meek PA-C Date of Service: 07/24/24 Procedure(s): CT lung screening Accession Number(s): [id number] cc: Arti Lei MD; Ila Meek PA-C Report Number: [id number]: Total DLP = 50.00 mGy-cm CLINICAL HISTORY: [...] in OV> 07/24/241914 DD/ 13 TD/TT: 07/24/241913 Re Recording Mixer: [facility] External Provider IMG CT PROCEDURES Final Result * Tissue Transglutaminase Antibody, IgA (07/24/2024 1:54 PM EST) Transglutaminase IgA <1.0 U/mL [facility] Comment:Value Interpretation ----- <15.0 Antibody not detected> or = 15.0 Antibody detectedTHIS TEST WAS PERFORMED AT:[facility] [place] [id number] KEANE MD 07/24/2024 1:54 PM EST 07/24/2024 4:12 PM EST Generic External Data Provider LAB BLOOD ORDERAB LES Final Result [facility] [address] [place] [phone] * VITAMIN D 25-OH (D2 AND D3) (06/23/2024 2:50 PM EST) Vitamin D, 25-OH, D2 4 ng/mL [facility] Comment:This test was develo ped and its analytical performancecharacteristics have been determined by [facility] [place], [place]. It hasnot been cleared or approved by the U.S. Food and DrugAdministration. This assay has been validated pursuantto the CLIA regulations and is used for clinicalpurposes.THIS TEST WAS PERFORMED AT:[facility] [place] [address]AZGQVPLCARIE العلي MD,PHD Vitamin D, 25-OH, D3 27 ng/mL [facility] Comment:This test was develo ped and its analytical performancecharacteristics have been determined by [employer] [place], [place]. It hasnot been cleared or approved by the U.S. Food and DrugAdministration. This assay has been validated pursuantto the CLIA regulations and is used for clinicalpurposes. Vitamin D, 25-OH, Total 31 30 - 100 ng/mL [facility] Comment:Vitamin D, 25-Hydrox y [...] = 30 ng/mL.For additional information, please refer tohttp://education.Tilkee/faq/VHA052(This link is being provided for informational/educational purposes only.) 06/23/2024 2:50 PM EST 06/23/2024 2:50 PM EST us Generic External Data Provider LAB BLOOD ORDERAB LES Final Result [facility] [address] [place] [phone] * Vitamin B12 (Cobalamin) and Folate Panel, Serum (06/23/2024 2:50 PM EST) Vitamin B12 570 200 - 900 pg/mL [facility] Comment:NORMAL 200-900 PG/ML INDETERMINATE 160-199 PG/ML DEFICIENT < 160 PG/ML Folate 15.4 > or = 4.0 ng/mL [facility] Comment:Reference Values:> o r = 4.0 ng/mL< 4.0 ng/mL suggests folate deficiency Methotrexate, aminopterin and folinic acid(leucovorin) are chemotherapeutic agents whose molecularstructures are similar to folate; therefore, the Architectfolate assay cannot be used for patients using these drugs. 06/23/2024 2:50 PM EST 06/23/2024 2:50 PM EST Generic External Data Provider LAB BLOOD ORDERAB LES Final Result Performing Organization Address [facility] Co de Phone Number [facility] [address] [place] [phone] * TSH with Reflex to Free T4 (06/23/2024 2:50 PM EST) TSH reflex Free T4 1.65 0.32 - 4.0 uIU/mL [facility] 06/23/2024 2:50 PM EST 06/23/2024 2:50 PM EST Generic External Data Provider LAB BLOOD ORDERAB LES Final Result Performing Organization Address [facility] de Phone Number [facility] [address] [place] [phone] * US ABDOMINAL AORTIC ANEURYSM (06/22/2024 12:50 PM EST) Anatomical Region Laterality Modality Abdomen Ultrasound 06/22/2024 12:5 0 PM EST Narrative 06/22/2024 12:51 PM EST ? [facility] ?[address] ? [place] [address] ? Ultrasound Report ? Signed ? Patient: Jaiden,John ?MR#: [id number] ?? 250 ? : 1950 ?Acct:[id number] ? Age/Sex: 73 / M ?ADM Date: 01/27/25 ? Loc: HO.HMGCX ? Attending Dr: Arti Pires MD ? Ordering Physician: Arti Lei MD ?? Date of Service: 06/22/24 ?? Procedure(s): US abdominal aortic aneurysm ?? Accession Number(s): [id number] ? cc: Arti Lei MD ? CLINICAL [...] DD/ 1250 ? TD/TT: 06/22/24 1250 ? Re Recording Mixer: ? Procedure Note Vinod, Image - 06/22/2024 [facility] [address] Ultrasound Report Signed Patient: Thu Hwang#: [id number] 250 : 1950cct:[id number] Age/Sex: 73 / MADM Date: 06/22/24 Loc: HO.HMGCX Attending Dr: Arti Pires MD Ordering Physician: Arti Lei MD Date of Service: 06/22/24 Procedure(s): US abdominal aortic aneurysm Accession Number(s): [id number] cc: Arti Lei MD CLINICAL HISTORY: SMOKER, [...] 06/22/24 1251 DD/ 1250 TD/TT: 06/22/24 1250 Re Recording Mixer: us Arti Pires MD IMG US PROCEDURES Fin al Result * Lipid Panel, Standard (06/19/2023 1:12 PM EST) Triglycerides 67 <150 mg/dL [facility] Comment:Desirable Triglyceri de: less than 150 mg/dLBorderline High Triglyceride 150-199 mg/dLHigh Triglyceride: 200-499 mg/dLVery High Triglyceride: greater than or equal to 5OO mg/dL Cholesterol 110 <200 mg/dL [facility] Comment:Desirable Cholestero l: less than 200 mg/dLBorderline High Cholesterol: 200-239 mg/dLHigh Cholesterol: greater than 239 mg/dL LDL Cholesterol Calculated 56 <100 mg/dL [facility] Comment:Desirable LDL: less than 100 mg/dLNear Optimal/Above Optimal LDL: 110- 129 mg/dLBorderline High LDL: 130-159 mg/dLHigh LDL: 160-189 mg/dLVery High LDL: greater than or equal to 190 mg/dL HDL Cholesterol 41 >40 mg/dL [facility] Comment:Desirable HDL: great er than 40 mg/dL Note: This HDL assay may give artificially low results in patients with liver disease. 06/19/2023 1:12 PM EST 06/19/2023 1:12 PM EST us Generic External Data Provider LAB BLOOD ORDERAB LES Final Result [facility] [address] [place] [address] [phone] * Hm Colonoscopy (05/02/2018) us Historical Provider HEALTH MAINTENANCE Final Result from Last 3 Months or Most Recently Relevant to Health Maintenance Insurance [place] [id number] [facility] STANDARD Care Teams Curling Machine Operator Relationship Specialty Start Date End Date Arti Lei MD [address] [place] [phone] PCP - General Family Medicine 02/05/18
--- OUTSIDE RECORDS SUMMARY | 2024-09-08 11:00 | XMS_ITS | Encounter Summary ---
Author Organization [employer] [facility] Address [address] [place] [address] [address] [place] [address] Care Team Providers Care Hand Ii Tube Bender Name Role Phone Arti Lei MD Primary Care Provide r Encounter Details Date Type Department Care Team (Late st Contact Info) Description 02/05/2023 Orders Only [facility] [address] [place] [address] [phone] Provider, MD Jenifer Social History Tobacco Use [...] Info) Description 11/05/2024 11:30 AM EDT Telemedicine [facility] [address] [place] [address] [phone] Arti Lei MD [address] [place] [address] [phone] documented as of this encounter Procedures Procedure [...] documented as of this encounter Care Teams Hand Ii Tube Bender Relationship Specialty Start Date End Date Arti Lei MD [address] [place] [address] PCP - General Family Medicine 02/05/18 documented as of this encounter
--- OUTSIDE RECORDS SUMMARY | 2024-09-08 11:00 | XMS_ITS | Encounter Summary ---
Author Organization [employer] Address [address] [place] [address] [address] [place] [address] Care Team Providers Care Learning Analyst Name Role Phone Arti Lei MD Primary Care Provide r Reason for Visit * Reason Comments Med Refill Encounter Details Date Type Department Care Team (Late st Contact Info) Description 12/17/2022 Refill [facility] [address] [place] [address] [phone] Arti Lei MD [address] [place] [address] [phone] Primary hypertension Social History Tobacco Use Types [...] Info) Description 11/05/2024 11:30 AM EDT Telemedicine [facility] [address] [place] [address] [phone] Arti Lei MD [address] [place] [address] [phone] documented as of this encounter Visit Diagnoses Diagnosis Primary hypertension Unspecified essential hypertension documented in this encounter Additional Health Concerns Assessment Noted Time PHQ-9 Depression Total Score: 2 10/16/19 23 3:44 PM EDT documented as of this encounter Care Teams Learning Analyst Relationship Specialty Start Date End Date Arti Lei MD [address] [place] [phone] PCP - General Family Medicine 02/05/18 documented as of this encounter
--- OUTSIDE RECORDS SUMMARY | 2024-09-08 11:00 | XMS_ITS | Encounter Summary ---
Author Organization [facility] Address [address] [facility] [address] [place] [address] Phone Care Team Providers Care Contact Officer Name Role Phone Arti Lei MD Primary Care Provide r Encounter Details Date Type Department Care Team (Late st Contact Info) Description 10/23/2022 Telephone [facility] [address] [facility] [address] [place] [address] Emma Wei Social History Tobacco [...] Visit [facility] [address] [place] [phone] Brent Hammond MD [address] [facility] [address] [place] [address] documented as of this encounter Visit Diagnoses Not on filedocumented in this encounter Care Teams Contact Officer Relationship Specialty Start Date End Date Arti Lei MD [address] [place] [phone] PCP - General Internal Medicine 10/18/22 documented as of this encounter
== END 2024-09-08 09:43 | disposition home or self-care (01) ==
LOC: HO.XRAY 09:42
PROVIDERS: PCP Internal Medicine; Visit Provider Nurse Practitioner Family
DX: K21.9 Gastro-esophageal reflux disease without esophagitis (principal)
CPT/HCPCS: 74246

== ENCOUNTER → 2024-09-08 09:43 | Outpatient (BNV) | payer MEDICARE, MEDICAID, SELFPAY | PROVIDERS: PCP Internal Medicine; Visit Provider Radiology Diagnostic Radiology | DX: K21.9 Gastro-esophageal reflux disease without esophagitis (principal) | CPT/HCPCS: 74246 ==

== ENCOUNTER 2024-12-01 15:05 | Outpatient (AMB) | payer MEDICARE, MEDICAID, SELFPAY ==
--- NOTE | 2024-12-01 15:06 | A.OFFVIS_ITS ---
Vital Signs 12/01/24 15:08 Height 5 ft 10 in Weight 137 lb 9.095 oz BMI 19.7 BP 118/74 Blood Pressure Location Rt brachial Position Sitting Pulse 80 Pulse Source Pulse Oximeter Pulse Oximetry (%) 92 Oxygen Delivery Method Room Air Intake Visit Reasons: discuss colo Intake Note: ESTABLISHED PATIENT for Constipation + Abd pain mgmt. Imaging done. Chief Complaint; C.O. lack of therapeutic effect with PPI. Pt has stopped taking the medication and had been following low FODMAP without any noticeable changes. 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 We will start him on Nexium. He has his upper GI series in couple weeks we will review it. I will see patient in 3-4 months. He will be sent for upper endoscopy. Will call Cardiology for clearance. Patient was encouraged to increase fluid intake and activity to promote better bowel motility. If patient continues to be constipated not feeling like he empties his bowels completely he is to call our office and we can order mild stimulant like senna. Continue follow FODMAP diet. Avoid dietary triggers in late night snacking. Staying upright for minimum 3 hours after meals discussed with patient. Patient also smokes every day which probably is contributing to his symptoms as well. She message sent to Surgical schedules to bulk upper endoscopy for him as well as colonoscopy. Patient is agreeable to this plan and verbalizes understanding of instructions. He was given the opportunity to ask questions and all questions answered. ? Thank you for allowing me to participate in his care New esomeprazole magnesium (Nexium) 40 mg PO DAILY 30 caps 3RF K21.9 TODAY'S VISIT Patient was seen 3 months ago and was started on Nexium. Upper GI series showed disorganized peristalses and achalasia no actual reflux was seen on the study, however feline contraction pattern might represent chronic reflux. Patient reports that he was taking it for 2 months and states that it was not helping him with belching. Patient denies any epigastric pain and denies actual reflux. His symptoms are mainly abdominal bloating very gassy and frequent belching. Patient will be sent for upper endoscopy as well as will send him for colonoscopy as he is due for one. Denies any issues with anesthesia. Denies any cardiac or respiratory symptoms. Patient is taking low-dose aspirin. Sees Cardiology once a year. Denies any shortness of breath with exertion. Patient had colonoscopy in 2018. History of tubular adenoma in the past. Patient tried strict low FODMAP diet for almost 2 months without any results. Reports occasional constipation [facility] History Atherosclerotic cardiovascular disease Tubular adenoma of colon (~2012) Nicotine dependence, cigarettes, uncomplicated Internal and external bleeding hemorrhoids Hypertension Surgical History History of heart artery stent (~2022) History of cardiac cath (~2022) History of bone marrow biopsy (~2022) History of colonoscopy History of removal of cyst (~2020) Family History Paternal Aunt Colon cancer Social History Household Members: None Housing: House Do you presently have visiting nurse or other home services: No Alcohol intake: current Alcohol intake frequency: does not drink Patient Tobacco Use Status: Current everyday Tobacco user Tobacco use type: Cigarette Years Smoked: 52 Second Hand Smoke Exposure: No Substance Use Type: Marijuana service: No Current occupational status: employed [employer] Const Denies weight gain and Denies weight loss ENT Reports no additional complaints, Denies dysphagia and Denies odynophagia Card Reports no additional complaints Resp Reports no additional complaints GI Denies abdominal pain, Denies belching, Denies melena, Reports bloating, Denies change in bowel habits, Reports constipation, Denies dysphagia, Denies excessive flatus, Denies dyspepsia, Denies heartburn, Denies diarrhea, Denies loose stools, Denies nausea, Denies odynophagia and Denies vomiting Reports no additional complaints Musc Reports no additional complaints Neuro Reports no additional complaints Psych Reports no additional complaints Endo Reports no additional complaints Physical Exam Vital Signs: Last Vital Signs Pulse 80 12/01/24 15:08 BP 118/74 12/01/24 15:08 Pulse Ox 92 12/01/24 15:08 Oxygen Delivery Method Room Air 12/01/24 15:08 BMI result Body Mass Index 19.7 Const General: healthy appearing, no acute distress and well developed Nutritional Appearance: well nourished Orientation/consciousness: patient oriented x3 Resp Effort & Inspection: normal respiratory effort, able to speak in complete sentences, no tracheal deviation and symmetric chest movement Auscultation: clear to auscultation bilaterally Cardio Rate: regular rate GI Inspection: Yes normal to inspection and No distended Palpation (GI): Soft to palpation, not firm, nontender and No hepatosplenomegaly present Auscultation: normal bowel sounds General: Yes no CVA tenderness Back/Spine/Pelvis Back: no CVA tenderness Skin General skin exam: elasticity normal, turgor normal and dry skin Neuro General: patient oriented x3 Psych Appearance: grossly normal Mental Status: mental status grossly normal Results Reviewed Results Reviewed: UPPER GI SERIES WITH BARIUM SWALLOW 09/08/2024 IMPRESSION: 1. Mild to moderate cricopharyngeal achalasia. 2. Granular appearance of the esophageal mucosa suggesting esophagitis. 3. Mildly disordered esophageal peristalsis. Feline contraction pattern noted, in keeping with chronic reflux. 4. Mild thickening of the gastric rugal folds, and diffuse prominence of thickening of the areae gastricae, findings consistent with gastritis. 5. No definite hiatus hernia. 6. No definite gastroesophageal reflux identified during the course of the exam. 7. Given the above findings, correlation with EGD recommended. Assessment & Plan Assessment & Plan (1) Tubular adenoma of colon: Onset Date: ~2012 Code(s): D12.6 - Benign neoplasm of colon, unspecified Category: Medical (2) Chronic GERD: Code(s): K21.9 - Gastro-esophageal reflux disease without esophagitis (3) Postprandial abdominal bloating: Code(s): R14.0 - Abdominal distension (gaseous) Plan Patient was encouraged to avoid dietary triggers. He will try yvhv-jsx-tssongi enzyme therapy for now, that will help hopefully with his abdominal bloating. Continue avoiding dietary triggers. Patient will take Dulcolax for 1 week before going for procedure with 4 tablets at noon day before procedure followed by split MiraLax prep. Increase fluid intake and activity to promote better bowel motility. Patient will be sent for upper endoscopy as well to evaluate his esophagus and his stomach. Achalasia seen on upper GI series. Might need dilation although patient does not complain of any swallowing issues. What to expect before during and after procedure discussed with patient. Stressed the importance of good bowel prep and clear liquid diet day before procedure. Follow-up after the procedure, sooner on as needed basis. He is agreeable to this plan and verbalizes understanding of instructions. He was given the opportunity to ask questions and all questions answered. Thank you for allowing me to participate in his care Medications: New polyethylene glycol 3350 (Miralax) As directed by gastroenterology department at [facility] 238 grams PO ONCE 238 grams 0RF Z12.11 - Encounter for screening for malignant neoplasm of colon bisacodyl (Dulcolax (bisacodyl)) Start taking 2 tablet every night 7 days before the procedure and 1 day before procedure take 4 tablets at noon time followed by MiraLax prep 10 mg (2 x 5 mg) PO BEDTIME 16 tabs 0RF Z12.11 - Encounter for screening for malignant neoplasm of colon Coding Level of Care Code Est Pt Level 3 (86147) Diagnoses Tubular adenoma of colon D12.6 Chronic GERD K21.9 Postprandial abdominal bloating R14.0 Time Spent (min) 30 Comment 20 minutes spent with patient and additional 10 minutes spent reviewing his records
[2024-12-01 15:08] VITALS: BP 118/74; PULSE 80; O2SAT 92; BMI 19.7
--- OUTSIDE RECORDS SUMMARY | 2024-12-01 15:46 | XMS_ITS | Encounter Summary ---
Author Organization [employer] Address [address] [facility] [address] [place] [address] Care Team Providers Care Personal Consultant Name Role Phone Arti Lei MD Primary Care Provide r Reason for Visit * Reason Comments Med Refill Encounter Details Date Type Department Care Team ([facility] st Contact Info) Description 11/30/2023 Refill [facility] [address] [place], [place] [phone] Arti Lei MD [address] [place] [address] Primary hypertension Social History Tobacco Use Types [...] the past 12 months, has t he [employer], oil or water company threatened to shut [...] Care Team (Late st Contact Info) Description 12/17/2024 11:30 AM EDT Telemedicine [facility] [address] [place] [address] Arti Lei MD [address] [place] [address] documented as of this encounter Visit Diagnoses Diagnosis Primary hypertension Unspecified essential hypertension documented in this encounter Additional Health Concerns Assessment Noted Time PHQ-9 Depression Total Score: 2 10/16/19 23 3:44 PM EDT documented as of this encounter Care Teams Personal Consultant Relationship Specialty Start Date End Date Arti Lei MD [address] [place] [address] PCP - General Family Medicine 02/05/18 documented as of this encounter
--- OUTSIDE RECORDS SUMMARY | 2024-12-01 15:46 | XMS_ITS | Clinical Summary ---
Author Organization [facility] Address [address] [place] [address] Care Team Providers Care Cyber Analyst Name Role Phone Arti Lei MD [...] & Plan: Blood work ordered today Immunizations Immunization Administration Dates Next Due Hepatitis [...] Visit [facility] [address] [place], [place] [phone] Brent Hammond MD [address] [place] [address] Health Maintenance Due Date Last Done Comments Colorectal Cancer Screening: Annual FOBT 10/15/2000 Colorectal Cancer Screening: Colonoscopy 10/15/2000 Colorectal Cancer Screening: Sigmoidoscopy 10/15/2000 Influenza Vaccine (#1) 2025 4, 03/19/2022, 04/27/2021, Additional history exists Hepatitis B Vaccine Aged Out 06/16/2013, 3 No longer eligible based on patient's age to complete this topic Pneumococcal Vaccine: 50+ Years Completed 10/15/2022, 11/15/2014 Procedures Procedure Name Priority Date/Time Associated Diagnosis [...] - 1.4 mg/dL See order comments eGFR (Calc) >60 See orde r comments Comment: Chronic Kidney Disease: Estimated GFR < 60 mL/min/1.73m2 Severe Kidney Disease: Estimated GFR < 15 mL/min/1.73m2 09/02/2024 1:15 PM EDT 09/02/2024 1:15 PM EDT us Brent Hammond MD LAB BLOOD ORDERABLES Final Re sult JOSE [id number] See order comments [place] [address] * (ABNORMAL) PTH, Intact (09/02/2024 1:15 PM EDT) Parathyroid Hormone, Intact 121.6(H) 8.7 - 77.1 pg/mL See order comments 09/02/2024 1:15 PM EDT 09/02/2024 1:15 PM EDT us Brent Hammond MD LAB [id number] SOLICITED RESULTS Final Result JOSE ALFREDOILEANAVENITA See order comments [place] [address] * (ABNORMAL) Vitamin D 25 Hydroxy (09/02/2024 1:15 PM EDT) Vitamin D, 25-Hydroxy 12.1(L) >30 ng/mL See order comments Comment: Health Based Reference Values* < 20 ng/mL Deficient 20-30 ng/mL Insufficient > 30 ng/mL Sufficient *Roxana RODRIGUEZ. N Engl J Med. 2007;357:266-280 [...] D results from different laboratories and methodologies. Published data demonstrated that results from patients undergoing hemodialysis may show a negative bias when tested with various automated 25-OH vitamin D assays when compared to LC-MS/MS. When testing samples from patients whose predominant form of Vitamin D is Vitamin D2, such as patients receiving Vitamin D2 supplementation, results that are subtherapeutic should be confirmed with another method such as LC-MS/MS. Blood specimen (specimen) Venous blood / Unknown 09/02/2024 1:15 PM EDT 09/02/2024 1:15 PM EDT us Brent Hammond MD LAB BLOOD ORDERABLES Final Re sult [place] See order comments [place] [address] * (ABNORMAL) CBC and Differential (09/02/2024 1:15 [...] order comments [place] [address] * BUN (09/02/2024 1:15 PM EDT) BUN 15 9 - 16 mg/dL See order comments 09/02/2024 1:15 PM EDT 09/02/2024 1:15 PM EDT us Brent Hammond MD LAB BLOOD ORDERABLES Final Re sult Performing Organization Address [facility] Phone Number [place] See order comments [place] [address] * Phosphorus (09/02/2024 1:15 PM EDT) Pathologist [facility] Phosphorus, Serum 3.2 2.7 - 4.5 mg/dL See order comments Blood specimen (specimen) Venous blood / Unknown 09/02/2024 1:15 PM EDT 09/02/2024 1:15 PM EDT Brent Hammond MD LAB BLOOD ORDERABLES Final Re sult Performing Organization Address [facility] Phone Number [place] See order comments [place] [address] * Magnesium (09/02/2024 1:15 PM EDT) Magnesium 2.1 1.6 - 2.6 mg/dL See order comments Blood specimen (specimen) Venous blood / Unknown 09/02/2024 1:15 PM EDT 09/02/2024 1:15 PM EDT us Brent Hammond MD LAB BLOOD ORDERABLES Final Re sult Performing Organization Address [facility] Phone Number [place] See order comments [place] [address] * Calcium (09/02/2024 1:15 PM EDT) Calcium 8.9 8.4 - 10.2 mg/dL See order comments Blood specimen (specimen) Venous blood / Unknown 09/02/2024 1:15 PM EDT 09/02/2024 1:15 PM EDT us Brent Hammond MD LAB BLOOD ORDERABLES Final Re sult Performing Organization Address [facility] de Phone Number [place] See order comments [place] [address] * Albumin (09/02/2024 1:15 PM EDT) Albumin 4.3 3.5 - 5.0 g/dL See order comments Blood specimen (specimen) Venous blood / Unknown 09/02/2024 1:15 PM EDT 09/02/2024 1:15 PM EDT Brent Hammond MD LAB BLOOD ORDERABLES Final Re sult Performing Organization Address [facility] Co de Phone Number [place] See order comments [place] [address] * (ABNORMAL) Electrolyte panel (09/02/2024 1:15 PM [...] ORDERABLES Final Re sult Performing Organization Address [facility] de Phone Number [place] See order comments [place] [address] * Protein, Total, Random Urine w/Creatinine (Protein/Creat Ratio) (09/02/2024 1:14 PM EDT) Protein Urine Random <7 <12 mg/dL See order comments Protein/Creatin ine Ratio, Urine TNP <0.2 See order comments Comment: Unable to calculate urine protein creatinine ratio due to low creatinine or protein result. Urine specimen (specimen) Urine specimen obtained by clean catch procedure / Unknown 09/02/2024 1:14 PM EDT 09/02/2024 1:14 PM EDT us Brent Hammond MD LAB URINE ORDERABLES Final Re sult Performing Organization Address [facility] Co de Phone Number [place] See order comments [place] [address] * Albumin, urine, random (09/02/2024 1:14 PM EDT) Creatinine, Urine 32.38 mg/dL Se e order comments Urine Microalbumin <5.0 mg/L See order comments Microalbumin/Crea tinine Ratio TNP <30 ug/mg cr See order comments Comment: Unable to calculate albumin/creatinine ratio due to low microalbumin or creatinine result. 09/02/2024 1:14 PM EDT 09/02/2024 1:14 PM EDT us Brent Hammond MD LAB URINE ORDERABLES Final Re sult YO See order comments [place] [address] * (ABNORMAL) Urinalysis with microscopic (09/02/2024 1:14 PM EDT) Color Urine Yellow See orde r comments Appearance Urine Clear See order comments pH Urine 6.5 5.0 - 9.0 See order comments Glucose Urine Negative Negative mg/dL See order comments Blood, Urine Negative Negative See ord er comments Specific [place] Urine <=1.005 1.005 - 1.025 See order [...] - 2 /LPF See order comments Urine specimen (specimen) Urine specimen obtained by clean catch procedure / Unknown 09/02/2024 1:14 PM EDT 09/02/2024 1:14 PM EDT us Brent Hammond MD LAB URINE ORDERABLES Final Re sult YOVENITA See order comments [place] [address] from Last 3 Months Insurance Medicare Medicaid [place] Medicare Medicaid [place] Care Teams Cyber Analyst Relationship Specialty Start Date End Date Arti Lei MD [address] [place] [phone] PCP - General Internal Medicine 10/18/22
== END 2024-12-01 15:59 | disposition home or self-care (01) ==
LOC: HO.HGI 15:06
PROVIDERS: PCP Internal Medicine; Visit Provider Nurse Practitioner Family
DX: D12.6 Benign neoplasm of colon, unspecified (principal); K21.9 Gastro-esophageal reflux disease without esophagitis; R14.0 Abdominal distension (gaseous)
CPT/HCPCS: 99213

== ENCOUNTER → 2024-12-01 15:05 | Outpatient (BNVA) | payer MEDICARE, MEDICAID, SELFPAY | PROVIDERS: PCP Internal Medicine; Visit Provider Nurse Practitioner Family | DX: R10.13 Epigastric pain (principal); R14.0 Abdominal distension (gaseous); K21.9 Gastro-esophageal reflux disease without esophagitis; Z86.0101 Personal history of adenomatous and serrated colon polyps | CPT/HCPCS: 99212 ==

== ENCOUNTER 2025-02-15 07:54 | Day surgery (SDC) | payer MEDICARE, MEDICAID, SELFPAY ==
--- OUTSIDE RECORDS SUMMARY | 2025-02-10 11:30 | XMS_ITS | Encounter Summary ---
Author Organization [employer] Address [address] [facility] 7t [place] [address] Care Team Providers Care Cigarette Book Maker Name Role Phone Arti Lei MD Primary Care Provide r Reason for Visit * Reason Comments Med Refill Encounter Details Date Type Department Care Team ([facility] st Contact Info) Description 11/30/2023 Refill [facility] [address] [place], [place] [phone] Arti Lei MD [address] [place] [address] Primary hypertension Social History Tobacco Use Types [...] the past 12 months, has t he [employer], [employer], oil or water [employer] threatened to shut off services in your [...] Care Team (Late st Contact Info) Description 03/22/2025 1:45 PM EDT Office Visit [facility] [address] [place] [address] Arti Lei MD [address] [place] [address] 06/04/2025 1:00 PM EST Office Visit [facility] [address] [place] [address] Po, Perla, OD [address] [place] [address] documented as of this encounter Visit Diagnoses Diagnosis Primary hypertension Unspecified essential hypertension documented in this encounter Additional Health Concerns Assessment Noted Time PHQ-9 Depression Total Score: 2 10/16/19 23 3:44 PM EDT documented as of this encounter Care Teams Cigarette Book Maker Relationship Specialty Start Date End Date Arti Lei MD [address] [place] [address] PCP - General Family Medicine 02/05/18 documented as of this encounter
--- OUTSIDE RECORDS SUMMARY | 2025-02-10 11:30 | XMS_ITS | Encounter Summary ---
Author Organization [employer] Address [address] [facility] [address] [place] [address] Care Team Providers Care City Planning Aide Name Role Phone Arti Lei MD Primary Care Provide r Encounter Details Date Type Department Care Team (Late st Contact Info) Description 09/12/2022 Orders Only [facility] CH[facility] MED & PEDS [address] [place] [address] Emma Loredo LPN Social History Tobacco Use [...] Description 03/22/2025 1:45 PM EDT Office Visit [facility] MEDICINE [address] [place] [address] Arti Lei MD [address] [place] [address] 06/04/2025 1:00 PM EST Office Visit [facility] OPTOMETRY [address] [place] [address] Perla Fontenot, OD [address] [place] [address] documented as of this encounter Procedures Procedure [...] (12/28/2022 9:40 AM EDT) Triglycerides 74 mg/dL [facility] Comment:Desirable Triglyceri de: less than 150 mg/dLBorderline High Triglyceride 150-199 mg/dLHigh Triglyceride: 200-499 mg/dLVery High Triglyceride: greater than or equal to 5OO mg/dL Cholesterol 166 mg/dL [facility] Comment:Desirable Cholestero l: less than 200 mg/dLBorderline High Cholesterol: 200-239 mg/dLHigh Cholesterol: greater than 239 mg/dL LDL Cholesterol Calculated 107 mg/dl [facility] Comment:Desirable LDL: less than 100 mg/dLNear Optimal/Above Optimal LDL: 110- 129 mg/dLBorderline High LDL: 130-159 mg/dLHigh LDL: 160-189 mg/dLVery High LDL: greater than or equal to 190 mg/dL HDL Cholesterol 45 mg/dL [facility] Comment:Desirable HDL: great er than 40 mg/dL Note: This HDL assay may give artificially low results in patients with liver disease. 12/28/2022 9:40 AM EDT 12/28/2022 9:40 AM EDT us Generic External Data Provider LAB BLOOD ORDERAB LES Final Result [facility] [address] [place] [phone] * Basic Metabolic Panel (12/28/2022 9:40 AM EDT) Sodium 138 135 - 145 mmol/L [facility] Potassium 4.5 3.3 - 5.1 mmol/L [facility] Chloride 106 96 - 108 mmol/L [facility] Carbon Dioxide 22 22 - 29 mmol/L [facility] Anion Gap 15 12 - 20 [facility] Urea Nitrogen (BUN) 16 9 - 16 mg/dL [facility] Creatinine, Serum 1.12 0.5 - 1.4 mg/dL [facility] Estimated Glomerular Filt Rate >60 [facility] Comment:NOTE: For -Am erican individuals, multiply the result by 1.210.Chronic Kidney Disease: Estimated GFR < 60 mL/min/1.57g9Yvsvrt Kidney Disease: Estimated GFR < 15 mL/min/1.73m2 Glucose 113 60 - 115 mg/dL [facility] Calcium 9.1 8.4 - 10.2 mg/dL [facility] 12/28/2022 9:40 AM EDT 12/28/2022 9:40 AM EDT us [facility] External Provider LAB BLO OD ORDERABLES Final Result [facility] [address] [place] [address] [phone] * (ABNORMAL) CBC auto differential (12/28/2022 9:40 AM EDT) White Blood Count 9.9 4.8 - 10.8 X10*3/uL [facility] Red Blood Count 4.06(L) 4.60 - 5.80 X10*6/uL [facility] Hemoglobin 13.0(L) 14.0 - 18.0 g/dl [facility] Hematocrit 39.4(L) 42.0 - 52.0 % [facility] Mean Corpuscular Volume 97.0 80.0 - 98.0 fL [facility] Mean Corpuscular Hemoglobin 32.0 27.0 - 33.0 pg [facility] Mean Corpuscular HGB Conc 33.0 31.0 - 36.0 g/dl [facility] Red Cell Distribution Width 12.7 11.0 - 16.0 % [facility] Platelet Count 275 160 - 400 X10*3/uL [facility] Mean Platelet Volume 9.0(L) 9.4 - 12.4 fL [facility] Neutrophils Percent Auto 71.2 45 - 73 % [facility] Imm Gran Pct Auto 1.0(H) 0.0 - 0.4 % [facility] Lymphocytes Percent Auto 17.8(L) 20 - 40 % [facility] Monocytes Percent Auto 7.5 2 - 11 % [facility] Eosinophils Percent Auto 2.0 0 - 4 % [facility] Basophils Percent Auto 0.5 0 - 2 % [facility] NRBC Pct Auto 0.0 0.0 - 0.2 /100WBC [facility] Neutrophils Absolute Auto 7.1 2.0 - 8.3 x10*3/uL [facility] Imm Gran Abs Auto 0.10(H) 0.00 - 0.03 X10*3/uL [facility] Lymphocytes Absolute Auto 1.8 1.2 - 4.9 X10*3/uL [facility] Monocytes Absolute Auto 0.7 0.1 - 1.2 X10*3/uL [facility] Eosinophils Absolute Auto 0.2 0.0 - 0.4 X10*3/uL [facility] Basophils Absolute Auto 0.1 0.0 - 0.2 X10*3/uL [facility] NRBC Abs Auto 0.000 0.0 - 0.012 X10*3/uL [facility] 12/28/2022 9:40 AM EDT 12/28/2022 9:40 AM EDT [facility] External Provider LAB BLO OD ORDERABLES Final Result [facility] [address] [place] [address] [phone] * Prothrombin Time-INR (12/28/2022 9:40 AM EDT) Prothrombin Time 11.6 11.1 - 13.3 SEC [facility] INTERNATIONAL NORM RATIO 1.0 0.9 - 1.1 [facility] Comment:INTERNATIONAL NORMAL IZED RATIO (INR) [...] AM EDT 12/28/2022 9:40 AM EDT us [facility] External Provider LAB BLO OD ORDERABLES Final Result [facility] [address] [place] [place], [place] [phone] * (ABNORMAL) Comprehensive Metabolic Panel (11/28/2022 9:22 AM EDT) Sodium 140 135 - 145 mmol/L [facility] Potassium 5.1 3.3 - 5.1 mmol/L [facility] Chloride 107 96 - 108 mmol/L [facility] Carbon Dioxide 24 22 - 29 mmol/L [facility] Anion Gap 14 12 - 20 [facility] Urea Nitrogen (BUN) 16 9 - 16 mg/dL [facility] Creatinine, Serum 1.54(H) 0.5 - 1.4 mg/dL [facility] Estimated Glomerular Filt Rate 45 [facility] Comment:NOTE: For -Am erican individuals, multiply the result by 1.210.Chronic Kidney Disease: Estimated GFR < 60 mL/min/1.55n3Vxejis Kidney Disease: Estimated GFR < 15 mL/min/1.73m2 Glucose 119(H) 60 - 115 mg/dL [facility] Calcium 9.6 8.4 - 10.2 mg/dL [facility] Bilirubin, Total 0.8 0.0 - 1.0 mg/dL [facility] Aspartate Amino Transferase 13 5 - 37 U/L [facility] Alanine Aminotransferase 11 0 - 40 U/L [facility] Total Protein 7.2 6.5 - 8.0 g/dL [facility] Albumin Level 4.0 3.5 - 5.0 g/dL [facility] Alkaline Phosphatase 43 39 - 117 U/L [facility] 11/28/2022 9:22 AM EDT 11/28/2022 9:22 AM EDT [facility] External Provider LAB BLO OD ORDERABLES Final Result [facility] [address] [place] [address] [phone] * (ABNORMAL) CBC auto differential (11/28/2022 9:22 AM EDT) White Blood Count 7.7 4.8 - 10.8 X10*3/uL [facility] Red Blood Count 3.92(L) 4.60 - 5.80 X10*6/uL [facility] Hemoglobin 12.4(L) 14.0 - 18.0 g/dl [facility] Hematocrit 38.1(L) 42.0 - 52.0 % [facility] Mean Corpuscular Volume 97.2 80.0 - 98.0 fL [facility] Mean Corpuscular Hemoglobin 31.6 27.0 - 33.0 pg [facility] Mean Corpuscular HGB Conc 32.5 31.0 - 36.0 g/dl [facility] Red Cell Distribution Width 13.5 11.0 - 16.0 % [facility] Platelet Count 282 160 - 400 X10*3/uL [facility] Mean Platelet Volume 8.9(L) 9.4 - 12.4 fL [facility] Neutrophils Percent Auto 68.7 45 - 73 % [facility] Imm Gran Pct Auto 0.4 0.0 - 0.4 % [facility] Lymphocytes Percent Auto 21.1 20 - 40 % [facility] Monocytes Percent Auto 8.2 2 - 11 % [facility] Eosinophils Percent Auto 1.2 0 - 4 % [facility] Basophils Percent Auto 0.4 0 - 2 % [facility] NRBC Pct Auto 0.0 0.0 - 0.2 /100WBC [facility] Neutrophils Absolute Auto 5.3 2.0 - 8.3 x10*3/uL [facility] Imm Gran Abs Auto 0.03 0.00 - 0.03 X10*3/uL [facility] Lymphocytes Absolute Auto 1.6 1.2 - 4.9 X10*3/uL [facility] Monocytes Absolute Auto 0.6 0.1 - 1.2 X10*3/uL [facility] Eosinophils Absolute Auto 0.1 0.0 - 0.4 X10*3/uL [facility] Basophils Absolute Auto 0.0 0.0 - 0.2 X10*3/uL [facility] NRBC Abs Auto 0.000 0.0 - 0.012 X10*3/uL [facility] 11/28/2022 9:22 AM EDT 11/28/2022 9:22 AM EDT [facility] External Provider LAB BLO OD ORDERABLES Final Result Performing Organization Address City/[facility]/ZIP Co de Phone Number [facility] [address] [place] [phone] * Chromosome Analysis, Bone Marrow (11/22/2022 12:00 PM EDT) [facility] Chromosome Analysis, Bone Marrow See note [facility] Comment:See report from [employer] in the EMR. 11/22/2022 12:0 0 PM EDT 11/22/2022 1:46 PM EDT [facility] Exter nal Provider LAB BODY FLUIDS AND STOOLS ORDERABLES Final Result Performing Organization Address [facility]/ZIP Co de Phone Number [facility] [address] [place] [phone] * LEUKEMIA/LYMPH. EVAL. BONE MAR (11/22/2022 12:00 PM EDT) LLE Interpretation See Note H [facility] Comment:See report from [employer] in the EMR. 11/22/2022 12:0 0 PM EDT 11/22/2022 1:46 PM EDT us [facility] External Provider LAB BLO OD ORDERABLES Final Result [facility] [address] [place] [phone] * Bone Marrow Smear (11/22/2022 11:45 AM EDT) 11/22/2022 11:4 5 AM EDT 11/22/2022 1:56 PM EDT Narrative [facility] - 01/23/2023 11:20 AM EDT ----- ------- Name: John Hwang Age/Sex: 72/M : 1950 Unit#: [id number] Attend Dr: Oliver Ospina MD Re11/22/22 [place]: [facility] Location: [place] Disch: ----- ------- SPEC : [id number] RECD: 11/22/22-7317 STATUS: TARA FREEMAN NUM: [id number] AURA: 11/22/22-[address]: Oliver Ospina MD ENTERED: 11/22/22-1408 SP TYPE: Surgical OTHR DR: Arti Lei MD ORDERED: Bm Smear, Iron Stain/3, HE Stain/3, Reticulin Stain, Gross Micro L4/2, B Cell, T Cell, Banerjee Giemsa/3, IHC/2, Add. immunos/2, Special st. 2/4, CD138/2, Decal Addendum Addendum 1 Entered: 01/23/23-1119 No reticulin fibrosis is seen on reticulin stain. Cytogenetics: Abnormal male karyotype 45,X,-Y[20] See report in its entirety in the EMR - Reports/Pathology section as a scanned report (camera icon). If appropriate, a copy has also been sent to the ordering provider's office. Technical services for reticulin study performed at [employer] [address] Alda [place], [place]; [place] #[id number] Addendum Signed (signature on file) Malik Lancaster MD 01/23/23 1120 ----- ------- Diagnosis A-C. Bone marrow, aspirate, biopsy and clot: - Mildly hypercellular marrow with maturing trilineage hematopoiesis. - Diagnostic morphologic features of a plasma cell dyscrasia not identified. COMMENT: Concurrent flow cytometry does not identify a clonal plasma cell population - see report in its entirety in the EMR - Reports/Pathology section as a scanned report (camera icon). If appropriate, a copy has also been sent to the ordering provider's office. Cytogenetics will be addended. Clinical History Multiple myeloma not having achieved remission Microscopic Description Review of the peripheral smear: Red cells are mildly reduced in number, normochromic, and normocytic; rouleaux is not present. The white blood cell count appears normal and is comprised of normal constituents. The platelet count is normal. Bone Marrow CONTINUED ON NEXT PAGE ----- ------- Name: John Hwang Age/Sex: 72/M : 1950 Unit#: [id number] Attend Dr: Oliver Ospina MD Re11/22/22 Status: [facility] Location: [facility] Disch: ----- ------- SPEC : [id number] RECD: 11/22/22-1356 STATUS: TARA FIGUEROAMichael NUM: [id number] AURA: 11/22/22-[address] [facility] [address]: Oliver Ospina MD ENTERED: 11/22/22-9298 SP TYPE: Surgical OTHR DR: Arti Lei MD ORDERED: Bm Smear, Iron Stain/3, HE Stain/3, Reticulin Stain, Gross Micro L4/2, B Cell, T Cell, Banerjee Giemsa/3, IHC/2, Add. immunos/2, Special st. 2/4, CD138/2, Decal Microscopic Description (Continued) A-C. The bone marrow biopsy measures 20 mm (fragmented) and consists of trabecular marrow, cortical bone, periosteum and clot. The overall cellularity is 40%. The M:E ratio is normal. Erythroid precursors have normoblastic maturation. Myeloid precursors have normal maturation through to the neutrophilic stage. Megakaryocytes appear normal in number, are focally loosely clusted and a rare naked megakaryocyte is identified. The clot section has marrow elements similar in composition to those seen in the biopsy and, additionally, a few lymphoid aggregates comprised of small lymphocytes. Plasma cells are approximately 5% of total cellularity by CD138 immunostain (A and B) and the lymphocytes in part C are mix of B and T-cells by CD20 and CD3 immunostaining, respectively (T-cells greater than B-cells). The marrow aspirate smear is adequate for evaluation and consists of few cellular spicules. The overall M:E ratio is 2.4. Red cells are normal in number and have normoblastic maturation. Myeloid precursors are normal in number and have normal maturation. Megakaryocytes are readily seen and morphologically typical. The differential has less than 1 blast, 1 promyelocytes, 22 myelocytes/metamyelocytes, 40 bands/neutrophils, 8 lymphs, 1 plasma cell, 27 erythroids. Special Studies: Iron stain performed on the core does not have significant stainable iron; iron stain performed on the clot has scattere storage iron. Iron stain performed on the aspirate has storage iron; a rare sideroblast is identified; no ring sideroblasts are identified. Reticulin stain on the core will be addended. Material Received A. Bx bone marrow B. Aspirate bone marrow C. Smears bone marrow Gross Description Received in 3 parts. Part A: Received in B fix labeled bm bx are 3 hard, carter-brown cylindrical portions of bone measuring 0.25, 0.3 and 0.7 cm in length and 0.2 cm in diameter which are submitted in toto in a single cassette labeled A following decalcification. Part B: Received in B fix labeled bm asp. is a 1.2 x 1.0 x 0.4 cm aggregate of several soft, carter particulate tissue fragments. The specimen submitted in toto in a single cassette labeled B. Part C: Received are 2 Giemsa stained slides. A portion of the specimen is sent for flow cytometry and cytogenetic studies. CEDS CONTINUED ON NEXT PAGE ----- ------- Name: John Hwang Age/Sex: 72/M : 1950 Unit#: [id number] Attend Dr: Oliver Ospina MD Re11/22/22 Status: [facility] Location: [facility] Disch: ----- ------- SPEC : [id number] RECD: 11/22/22-1356 STATUS: RADHACheyanne PETE NUM: [id number] AURA: 11/22/22-[address] [facility] [address]: Oliver Ospina MD ENTERED: 11/22/22-1408 SP TYPE: Surgical OTHR DR: Arti Lei MD ORDERED: Bm Smear, Iron Stain/3, HE Stain/3, Reticulin Stain, Gross Micro L4/2, B Cell, T Cell, Banerjee Giemsa/3, IHC/2, Add. immunos/2, Special st. 2/4, CD138/2, Decal Gross Description (Continued) Special studies ordered and performed: iron stain (A-C); immunostains for CD138 on A and B and CD20 and CD3 on B. Copies To: Arti Lei MD [address] [place], [place] [phone] Oliver Ospina MD [address] [place] [address] Dept. of Hematology/[place] [address] ----- ------- Signed (signature on file) Malik Lancaster MD 11/30/22 1631 ----- ------- END OF REPORT [facility] Exter nal Provider LAB BODY FLUIDS AND STOOLS ORDERABLES Final Result Performing Organization Address [facility] Co de Phone Number [facility] [address] [place] [phone] * (ABNORMAL) Phosphate (As Phosphorus) (10/23/2022 10:03 AM EDT) Phosphorus 2.3(L) 2.7 - 4.5 mg/dL [facility] 10/23/2022 10:0 3 AM EDT 10/23/2022 10:04 AM EDT [facility] External Provider LAB BLO OD ORDERABLES Final Result Performing Organization Address [facility] Co de Phone Number [facility] [address] [place] [phone] * Calcium (10/23/2022 10:03 AM EDT) Calcium 10.0 8.4 - 10.2 mg/dL [facility] 10/23/2022 10:0 3 AM EDT 10/23/2022 10:04 AM EDT [facility] External Provider LAB BLO OD ORDERABLES Final Result Performing Organization Address [facility] Co de Phone Number [facility] [address] [place] [phone] * (ABNORMAL) Creatinine, Serum (10/23/2022 10:03 AM EDT) Creatinine, Serum 2.03(H) 0.5 - 1.4 mg/dL [facility] Estimated Glomerular Filt Rate 33 [facility] Comment:NOTE: For -Am erican individuals, multiply the result by 1.210.Chronic Kidney Disease: Estimated GFR < 60 mL/min/1.00w4Ptbybm Kidney Disease: Estimated GFR < 15 mL/min/1.73m2 10/23/2022 10:0 3 AM EDT 10/23/2022 10:04 AM EDT [facility] External Provider LAB BLO OD ORDERABLES Final Result Performing Organization Address [facility] Co de Phone Number [facility] [address] [place] [phone] * (ABNORMAL) BUN (Blood Urea Nitrogen) (10/23/2022 10:03 AM EDT) Urea Nitrogen (BUN) 17(H) 9 - 16 mg/dL [facility] 10/23/2022 10:0 3 AM EDT 10/23/2022 10:04 AM EDT [facility] External Provider LAB BLO OD ORDERABLES Final Result Performing Organization Address City/[facility]/ZIP Co de Phone Number [facility] [address] [place] [phone] * (ABNORMAL) Electrolyte Panel (10/23/2022 10:03 AM EDT) Sodium 143 135 - 145 mmol/L [facility] Potassium 3.9 3.3 - 5.1 mmol/L [facility] Chloride 109(H) 96 - 108 mmol/L [facility] Carbon Dioxide 28 22 - 29 mmol/L [facility] Anion Gap 10(L) 12 - 20 [facility] 10/23/2022 10:0 3 AM EDT 10/23/2022 10:04 AM EDT [facility] External Provider LAB BLO OD ORDERABLES Final Result Performing Organization Address [facility] Co de Phone Number [facility] [address] [place] [address] [phone] * (ABNORMAL) Urinalysis, Complete, with Reflex to Culture (10/17/2022 4:16 AM EDT) Color Urine Yellow [facility] Appearance Urine Clear [facility] PH 6.5 5.0 - 9.0 [facility] Glucose Urine UA Negative Negative mg/dL [facility] Urine Blood Negative Negative [facility] Specific [place] - Urine 1.010 1.005 - 1.025 [facility] Urine Protein Negative Neg-Trace mg/dL [facility] Urine Ketones Negative Negative mg/dL [facility] Nitrite Urine Negative Negative [facility] Leukocyte Esterase Urine Small (1+)(A) Negative [facility] RBC Urine 0-2 0 - 2 /HPF [facility] Urine WBC 11-20(A) 0 - 5 /HPF [facility] Urine Squamous Epithelial Cell 0-2 0 - 2 /HPF [facility] Urine Bacteria None Seen None Seen [facility] Hyaline Casts, Urine 3-5 0 - 2 /LPF [facility] 10/17/2022 4:16 AM EDT 10/17/2022 4:19 AM EDT Narrative [facility] - 10/17/2022 4:34 AM EDT Urine, Clean Catch [facility] External Provider LAB URI NE ORDERABLES Final Result Performing Organization Address [facility] Co de Phone Number [facility] [address] [place] [address] [phone] * Magnesium (10/17/2022 2:51 AM EDT) Magnesium 2.6 1.6 - 2.6 mg/dL [facility] 10/17/2022 2:51 AM EDT 10/17/2022 2:55 AM EDT [facility] External Provider LAB BLO OD ORDERABLES Final Result [facility] [address] [place] [phone] * (ABNORMAL) Comprehensive Metabolic Panel (10/17/2022 2:51 AM EDT) Sodium 138 135 - 145 mmol/L [facility] Potassium 3.8 3.3 - 5.1 mmol/L [facility] Chloride 99 96 - 108 mmol/L [facility] Carbon Dioxide 33(H) 22 - 29 mmol/L [facility] Anion Gap 10(L) 12 - 20 [facility] Urea Nitrogen (BUN) 42(H) 9 - 16 mg/dL [facility] Creatinine, Serum 3.18(H) 0.5 - 1.4 mg/dL [facility] Creatinine Clr Calc Pharmacy 18.4 [facility] Comment:eGFR (calculated fro m the MDRD study equation) and eCrCl(calculated from the Cockcroft-Gault equation) are based ondifferent parameters and may not yield comparable results.If eCrCl result is absurd, please check patient'sheight/weight. Estimated Glomerular Filt Rate 19 [facility] Comment:NOTE: For -Am erican individuals, multiply the result by 1.210.Chronic Kidney Disease: Estimated GFR < 60 mL/min/1.35x4Gwkbbj Kidney Disease: Estimated GFR < 15 mL/min/1.73m2 Glucose 129(H) 60 - 115 mg/dL [facility] Calcium 15.7(HH) 8.4 - 10.2 mg/dL [facility] Comment:Critical value for t est(s): CALCIUM Results called to luci back by: NEDRA Person calling:VINCENT Date:10/17/22 Time:032 Bilirubin, Total 0.8 0.0 - 1.0 mg/dL [facility] Aspartate Amino Transferase 13 5 - 37 U/L [facility] Alanine Aminotransferase 11 0 - 40 U/L [facility] Total Protein 7.0 6.5 - 8.0 g/dL [facility] Albumin Level 4.2 3.5 - 5.0 g/dL [facility] Alkaline Phosphatase 50 39 - 117 U/L [facility] 10/17/2022 2:51 AM EDT 10/17/2022 2:55 AM EDT [facility] External Provider LAB BLO OD ORDERABLES Final Result [facility] [address] [place] [phone] * (ABNORMAL) CBC auto differential (10/17/2022 2:51 AM EDT) White Blood Count 10.3 4.8 - 10.8 X10*3/uL [facility] Red Blood Count 4.13(L) 4.60 - 5.80 X10*6/uL [facility] Hemoglobin 13.0(L) 14.0 - 18.0 g/dl [facility] Hematocrit 37.6(L) 42.0 - 52.0 % [facility] Mean Corpuscular Volume 91.0 80.0 - 98.0 fL [facility] Mean Corpuscular Hemoglobin 31.5 27.0 - 33.0 pg [facility] Mean Corpuscular HGB Conc 34.6 31.0 - 36.0 g/dl [facility] Red Cell Distribution Width 12.1 11.0 - 16.0 % [facility] Platelet Count 244 160 - 400 X10*3/uL [facility] Mean Platelet Volume 9.1(L) 9.4 - 12.4 fL [facility] Neutrophils Percent Auto 73.6(H) 45 - 73 % [facility] Imm Gran Pct Auto 0.3 0.0 - 0.4 % [facility] Lymphocytes Percent Auto 18.0(L) 20 - 40 % [facility] Monocytes Percent Auto 6.8 2 - 11 % [facility] Eosinophils Percent Auto 0.9 0 - 4 % [facility] Basophils Percent Auto 0.4 0 - 2 % [facility] NRBC Pct Auto 0.0 0.0 - 0.2 /100WBC [facility] Neutrophils Absolute Auto 7.6 2.0 - 8.3 x10*3/uL [facility] Imm Gran Abs Auto 0.03 0.00 - 0.03 X10*3/uL [facility] [facility] Lymphocytes Absolute Auto 1.8 1.2 - 4.9 X10*3/uL [facility] Monocytes Absolute Auto 0.7 0.1 - 1.2 X10*3/uL [facility] Eosinophils Absolute Auto 0.1 0.0 - 0.4 X10*3/uL [facility] Basophils Absolute Auto 0.0 0.0 - 0.2 X10*3/uL [facility] NRBC Abs Auto 0.000 0.0 - 0.012 X10*3/uL [facility] 10/17/2022 2:51 AM EDT 10/17/2022 2:55 AM EDT [facility] External Provider LAB BLO OD ORDERABLES Final Result [facility] [address] [place] [phone] documented in this encounter Visit Diagnoses Not on filedocumented in this encounter Care Teams City Planning Aide Relationship Specialty Start Date End Date Arti Lei MD [address] [place] [phone] PCP - General Family Medicine 02/05/18 documented as of this encounter
--- OUTSIDE RECORDS SUMMARY | 2025-02-10 11:30 | XMS_ITS | Encounter Summary ---
Author Organization [employer] Address [address] [facility] [address] [place] [address] Care Team Providers Care Hoop Driving Machine Operator Name Role Phone Arti Lei MD Primary Care Provide r Reason for Visit * Reason Onset Date Comments FYI 10/19/2022 Encounter Details Date Type Department Care Team ([facility] st Contact Info) Description 10/19/2022 Telephone [facility] [address] [place], [place] [phone] Arti Lei MD [address] [place] [address] FYI Social History Tobacco Use Types Packs/Day [...] when he gets discharge. Pt is on [facility] for High levels on Calcium. PCP DR. Devine documented in this encounter Plan of Treatment Upcoming Encounters Date Type Department Care Team (Late st Contact Info) Description 03/22/2025 1:45 PM EDT Office Visit [facility] [address] [place] [address] Arti Lei MD [address] [place] [address] 06/04/2025 1:00 PM EST Office Visit [facility] [address] [place] [address] Po, Perla, OD [address] [place] [address] documented as of this encounter Visit Diagnoses Not on filedocumented in this encounter Additional Health Concerns Assessment Noted Time PHQ-9 Depression Total Score: 2 10/16/19 23 3:44 PM EDT documented as of this encounter Care Teams Hoop Driving Machine Operator Relationship Specialty Start Date End Date Arti Lei MD [address] [place], [place] [phone] PCP - General Family Medicine 02/05/18 documented as of this encounter
--- OUTSIDE RECORDS SUMMARY | 2025-02-10 11:30 | XMS_ITS | Clinical Summary ---
Author Organization [employer] Address [address] [place] [address] 7[address] [place] [address] Care Team Providers Care Cook Apprentice Pastry Name Role Phone Arti Lei MD Primary Care Provide r Allergies Active Allergy Reactions Criticality Noted Date Comments Other GI intolerance High 03/23/2021 Peanut-Containing Drug Products GI intolerance High 03/23/2021 Medications Brilinta 90 MG tablet 3 Active Aspirin 81 MG capsuleIndication s:Primary hypertension Take 81 mg by mouth Once per day. 90 capsule 1 4 Active simethicone (Mylicon,Gas-X) 180 MG [...] Apply topically 3 times daily. 15 g 5 Active rosuvastatin (Crestor) 20 MG tabletIndications :Primary hypertension TAKE ONE TABLET BY MOUTH EVERY DAY 90 tablet 1 Active Active Problems Problem Noted Date Diagnosed Date Rash 08/05/2024 Belching symptom 06/05/2024 Assessment & Plan (12/17/2024 12:17 PM EDT): Continue to follow up with GI, he is schedule for EGD and colonoscopy Assessment & Plan (06/05/2024 3:46 PM EST): I advise patient to avoid NSAIDs, spicy and acid food, I advise to eat at the same time every day, I advise to elevate the head of the bed and take medications as prescribe Atypical mole 10/28/2023 Abdominal bloating 08/19/2023 Assessment & Plan (12/17/2024 12:17 PM EDT): Continue to follow up with GI, he is schedule for EGD and colonoscopy Assessment & Plan (08/19/2023 2:13 PM EDT): Diet recommendations done He will try shalini the counter probiotics, Pepcid and simethicone Hemorrhoids 08/14/2023 Mixed anxiety and depressive disorder 08/14/2023 Assessment & Plan (02/25/2024 1:29 PM EDT): Counseling done Patient declines BHN referral, declines medications Coronary artery disease invo lving [place] coronary artery of [place] heart without angina pectoris 04/16/2023 Assessment & [...] specialist Primary hypertension 10/15/2022 Assessment & Plan (12/17/2024 12:17 PM EDT): I advised: - Aerobic exercise to reduce BP. Initial [...] consulting health care provider Assessment & Plan (08/05/2024 2:25 PM EDT): [...] Encounters Date Type Department Care Team Description 01/07/2025 Telephone [facility] [address] [place] [address] Arti Lei MD OCT RECALL 01/05/2025 Refill [facility] [address] [place] [address] Arti Lei MD Primary hypertension 12/17/2024 11:30 AM EDT Telemedicine [facility] [address] [place] [address] Arti Lei MD Abdominal bloating (Primary Dx); Belching symptom; Primary hypertension 12/17/2024 Travel 12/16/2024 Telephone [facility] [address] [place] [address] Arti Lei MD Chart Prep from Last 3 Months Immunizations Immunization Administration Dates Next Due Hep B, adult [...] housing situation today? I have [place] 08/05/[address] you [...] the past 12 months, has t he [employer], [employer], oil or water [employer] threatened to shut off services in your [...] 66 08/05/2024 11:41 AM EDT Temperature 36.2 C (97.1 F) 08/05/2024 11:41 AM EDT Respiratory Rate 18 08/05/2024 11:41 AM EDT [...] Description 03/22/2025 1:45 PM EDT Office Visit [facility] [address] [place] [address] Arti Lei MD [address] [place] [address] 06/04/2025 1:00 PM EST Office Visit [facility] [address] [place] [address] Perla Fontenot, MC [address] [place] [address] Health Maintenance Due Date Last Done Comments CT Colonography 1951 FIT DNA/Cologuard 1950 FIT 1950 FOBT 1950 Sigmoidoscopy 1950 Hepatitis C Screening 10/15/1969 Hepatitis B Vaccines (3 of 3 - 19+ 3-dose series) 08/23/2013 06/16/2013, 02/23/2013 Colonoscopy 05/02/2023 05/02/2018 Colorectal Cancer Screening 05/02/2023 COVID-19 Vaccine ( season) 2025 02/19/2024, 10/18/2023, 03/22/2023, Additional history exists Influenza Vaccine (#1) 2025 , 03/12/2023, 03/19/2022, Additional history exists DTaP/Tdap/Td Vaccines (2 - [...] Aged 60 years or older Completed 03/22/2023 HIB Vaccines Aged Out No longer eligi [...] patient's age to complete this topic Meningococcal B Vaccine Aged Out No l onger eligible based on patient's age to complete [...] Procedure Name Priority Date/Time Associated Diagnosis Comments LIPID PANEL, STANDARD Routine 06/19/2023 1:12 PM EST COLONOSCOPY Routine 05/02/2018 from Last 3 Months or Most Recently Relevant to Health Maintenance Results * Lipid Panel, Standard (06/19/2023 1:12 PM EST) Triglycerides 67 <150 mg/dL [facility] Comment:Desirable Triglyceri de: less than 150 mg/dLBorderline High Triglyceride 150-199 mg/dLHigh Triglyceride: 200-499 mg/dLVery High Triglyceride: greater than or equal to 5OO mg/dL Cholesterol 110 <200 mg/dL [facility] Comment:Desirable Cholestero l: less than 200 mg/dLBorderline High Cholesterol: 200-239 mg/dLHigh Cholesterol: greater than 239 mg/dL LDL Cholesterol Calculated 56 <100 mg/dL [facility] Comment:Desirable LDL: less than 100 mg/dLNear Optimal/Above Optimal LDL: 110- 129 mg/dLBorderline High LDL: 130-159 mg/dLHigh LDL: 160-189 mg/dLVery High LDL: greater than or equal to 190 mg/dL HDL Cholesterol 41 >40 mg/dL [facility] Comment:Desirable HDL: great er than 40 mg/dL Note: This HDL assay may give artificially low results in patients with liver disease. 06/19/2023 1:12 PM EST 06/19/2023 1:12 PM EST us Generic External Data Provider LAB BLOOD ORDERAB LES Final Result [facility] [address] [place] [phone] * Colonoscopy (05/02/2018) us Historical Provider HEALTH MAINTENANCE Final Result from Last 3 Months or Most Recently Relevant to Health Maintenance Insurance MEDICARE [facility] STANDARD Care Teams Cook Apprentice Pastry Relationship Specialty Start Date End Date Arti Lei MD [address] [place] [phone] PCP - General Family Medicine 02/05/18
--- OUTSIDE RECORDS SUMMARY | 2025-02-10 11:30 | XMS_ITS | Encounter Summary ---
Author Organization [employer] Address [address] [place] [address] [address] [place] [address] Care Team Providers Care Judicial Assistant Name Role Phone Arti Lei MD Primary Care Provide r Reason for Visit * Reason Comments Med Refill Encounter Details Date Type Department Care Team (Late Contact Info) Description 12/17/2022 Refill [facility] [address] [place] [address] [phone] Arti Lei MD [address] [place] [address] [phone] Primary hypertension Social History Tobacco Use Types [...] Description 03/22/2025 1:45 PM EDT Office Visit [facility] [address] [place], [place] [phone] Arti Lei MD [address] [place] [address] [phone] 06/04/2025 1:00 PM EST Office Visit [facility] [address] [place] [address] Prela Fontenot, OD [address] [place], [place] [phone] documented as of this encounter Visit Diagnoses Diagnosis Primary hypertension Unspecified essential hypertension documented in this encounter Additional Health Concerns Assessment Noted Time PHQ-9 Depression Total Score: 2 10/16/19 23 3:44 PM EDT documented as of this encounter Care Teams Judicial Assistant Relationship Specialty Start Date End Date Arti Lei MD [address] [place] [address] PCP - General Family Medicine 02/05/18 documented as of this encounter
--- OUTSIDE RECORDS SUMMARY | 2025-02-10 11:30 | XMS_ITS | Encounter Summary ---
Author Organization [employer] Address [address] [place] [address] [place] [address] Care Team Providers Care Studio Operations Manager Name Role Phone Arti Lei MD Primary Care Provide r Encounter Details Date Type Department Care Team (Late Contact Info) Description 02/05/2023 Orders Only [facility] [address] [place] [phone] Provider, MD Jenifer Social History Tobacco Use [...] Department Care Team (Late Contact Info) Description 03/22/2025 1:45 PM EDT Office Visit [facility] [address] [place] [address] Arti Lei MD [address] [place], [place] [phone] 06/04/2025 1:00 PM EST Office Visit [facility] [address] [place] [address] Perla Fontenot, OD [address] [place] [address] documented as of this encounter Procedures Procedure [...] documented as of this encounter Care Teams Studio Operations Manager Relationship Specialty Start Date End Date Arti Lei MD [address] [place] [phone] PCP - General Family Medicine 02/05/18 documented as of this encounter
--- OUTSIDE RECORDS SUMMARY | 2025-02-10 11:30 | XMS_ITS | Clinical Summary ---
Author Organization [facility] Address [address] [place] [id number] Care Team Providers Care Quartz Cutter Name Role Phone Arti Lei MD [...] Visit [facility] [address] [place] [phone] rBent Hammond MD [address] [facility] [address] [place] [phone] Health Maintenance Due Date Last Done Comments Colorectal Cancer Screening: Annual FOBT 10/15/2000 Colorectal Cancer Screening: Colonoscopy 10/15/2000 Colorectal Cancer Screening: Sigmoidoscopy 10/15/2000 Influenza Vaccine (#1) 2025 4, 03/19/2022, 04/27/2021, Additional history exists Hepatitis B Vaccine Aged Out 06/16/2013, 3 No longer eligible based on patient's age to complete this topic Pneumococcal Vaccine: 50+ Years Completed 10/15/2022, 11/15/2014 Insurance Medicare Medicaid [place] Medicare Medicaid [place] Care Teams Quartz Cutter Relationship Specialty Start Date End Date Arti Lei MD [address] [place] [phone] PCP - General Internal Medicine 10/18/22
--- OUTSIDE RECORDS SUMMARY | 2025-02-10 11:30 | XMS_ITS | Encounter Summary ---
Author Organization [facility] Address [address] [facility] [address] [place] [address] Phone Care Team Providers Care Steam Shovel Operator Name Role Phone Arti Lei MD Primary Care Provide r Encounter Details Date Type Department Care Team (Late st Contact Info) Description 10/23/2022 Telephone [facility] [address] [facility] [address] [place] [phone] Emma Wei Social History Tobacco [...] Visit [facility] [address] [place] [phone] Brent Hammond MD [address] [facility] [address] [place] [phone] documented as of this encounter Visit Diagnoses Not on filedocumented in this encounter Care Teams Steam Shovel Operator Relationship Specialty Start Date End Date Arti Lei MD [address] [place] [phone] PCP - General Internal Medicine 10/18/22 documented as of this encounter
[2025-02-15 08:03] VITALS: BMI 19.1
[2025-02-15 08:13] VITALS: BP 130/67; PULSE 75; RESP 16; TEMP 36.5; O2SAT 95
[2025-02-15] MEDS: Lactated Ringers 1,000 ML 100 ML IVCONT (08:29)
--- NOTE | 2025-02-15 08:33 | MHC.SHP ---
Pre-Procedural Eval Section A - 24 Hr Update-Section A only Date of Service: 02/15/25 The patient is an INPATIENT: No The patient has been examined within 24 hours of the surgical procedure. The History & Physical has been completed within 30 days and I have reviewed it.: No Section B - Complete if H&P > 30 days Chief Complaint: screening,gerd, Relevant Family History (Specify if Yes): Yes Relevant Social History: Tobacco Use Present Medications: see Short Stay Collaborative assessment Medical History: Significant History (Atherosclerotic cardiovascular disease Tubular adenoma of colon (~2012) Nicotine dependence, cigarettes, uncomplicated Internal and external bleeding hemorrhoids Hypertension) History of Previous Operations: Relevant previous surgery/procedure and date(s) (Atherosclerotic cardiovascular disease Tubular adenoma of colon (~2012) Nicotine dependence, cigarettes, uncomplicated Internal and external bleeding hemorrhoids Hypertension) Allergies: Allergies Allergy/AdvReac Type Severity Reaction Status Date / Time peanut (PEANUT) AdvReac Intermediate GI UPSET Verified 02/15/25 08:03 tree nut (TREE NUT) AdvReac Intermediate GI UPSET Verified 02/15/25 08:03 Review of Systems Sugical H&P ROS: Negative: Constitution, Cardiovascular, Respiratory and Gastrointestinal Exam Surgical H&P Exam: Normal: Heart, Normal: Lungs, Normal: Extremities and Normal: Abdomen Plan Diagnosis/Plan: Unchanged I have reviewed the history and physical and performed a pertinent physical examination on my patient. No changes have occurred unless specified. Time Spent With Patient Time: Total time managing care of this patient today ____ minutes.
[2025-02-15] MEDS: Albuterol Sulfate (0.083%) 2.5 MG/3 ML VIAL.NEB INHALE (08:40)
--- NOTE | 2025-02-15 09:00 | P.CONAN_ITS ---
Documented by User: Crissy Gonzalez NP 02/12/25 10:55 HPI - Anesthesia Eval Consult details Narrative: 74yo M for Upper Endoscopy and Colonoscopy CAD s/p PCI to LAD 12/2022. Follows [facility] Cardiology. Stable at 07/2024 office visit with routine 1 year f/u Per workload from scheduling analyst, TYE to proceed if no new cardiac symptoms PMFSH Active Problems Active Problems: All Active Problems Atherosclerotic cardiovascular disease (Acute) History of heart artery stent (Acute ~2022) Plasma cell dyscrasia (Acute) Hypercalcemia (Acute) Pulmonary nodules (Acute) Abnormal nuclear stress test (Acute) Shortness of breath (Acute) Hypertension (Acute) Tubular adenoma of colon (Acute ~2012) Nicotine dependence, cigarettes, uncomplicated (Acute) JAVIER (acute kidney injury) (Acute) Internal and external bleeding hemorrhoids (Acute) Past Medical History Medical History (Updated 02/15/25 @ 08:12 by Latoya Barton RN) Emphysema lung Elevated cholesterol Atherosclerotic cardiovascular disease Tubular adenoma of colon (~2012) Nicotine dependence, cigarettes, uncomplicated Internal and external bleeding hemorrhoids Hypertension Family History Family History Paternal Aunt Colon cancer Family history of problems with anesthesia: No Surgical History Surgical History History of heart artery stent (~2022) History of cardiac cath (~2022) History of bone marrow biopsy (~2022) History of colonoscopy History of removal of cyst (~2020) History of Problems with Anesthesia: No Social History Social History Household Members: None Housing: House Do you presently have visiting nurse or other home services: No Alcohol intake: current Alcohol intake frequency: does not drink Patient Tobacco Use Status: Current everyday Tobacco user Tobacco use type: Cigarette Cigarettes Per Day: 12 Years Smoked: 52 Second Hand Smoke Exposure: No Use of substances other than those prescribed or required for medical reasons: Yes Substance Use Type: Marijuana Substance Use Type Other:: 6 days ago-edibles mostly Substance Use Frequency: Occasionally Are you DNR?: No Advance Directives: No Advance Directives Information Provided: Yes service: No Current occupational status: employed Meds Allergies Allergy/AdvReac Type Severity Reaction Status Date / Time peanut (PEANUT) AdvReac Intermediate GI UPSET Verified 02/15/25 08:03 tree nut (TREE NUT) AdvReac Intermediate GI UPSET Verified 02/15/25 08:03 Home Medications ?Medication ?Instructions ?Recorded ?Confirmed ?Last Taken ?Type multivitamin 1 tab PO .Q3days 12/14/22 Unknown History aspirin 81 mg chewable tablet 81 mg PO DAILY 12/27/22 02/15/25 02/09/25 History (Mu Chewable Low Dose Aspirin) amlodipine 2.5 mg tablet 2.5 mg PO BID 12/18/2302/15 Unknown History diphenhydramine HCl 25 mg capsule 25 mg PO TID PRN Anx iety 02/15/25 02/15/25 Unknown History (Benadryl) Exam Pertinent Lab Results Pertinent Lab Results: Laboratory Tests 09/02/24 10:54 WBC 7.2 Hgb 14.4 Hct 45.3 Plt Count 176 Sodium 138 Potassium 4.1 Chloride 106 Carbon Dioxide 25 BUN 15 Creatinine 0.99 Narrative Narrative: EKG 2023 Details: EKG with sinus rhythm at 62/Min; T inversions along the inferior leads but otherwise unremarkable; normal NC and corrected QT. ECHO 2022 Conclusions: - The left ventricular systolic function is low normal. The visually estimated ejection fraction is between 50-55%. - The inferoseptal wall, the mid inferior, and basal anterolateral segments are hypokinetic. - The basal inferior and basal inferolateral segments are akinetic. - No obvious valvular pathology seen on this study. - Large plaque is seen in the sino tubular ridge. Assessment and Plan Assessment Anesthesia Assessment: Chart Reviewed Final Anesthetic Review Family History of Problems with Anesthesia: No History of Problems with Anesthesia: No Documented by User: Latoya Ibarra DO 02/15/25 09:28 [facility] Past Medical History Medical History (Updated 02/15/25 @ 08:12 by Latoya Barton RN) Emphysema lung Elevated cholesterol Atherosclerotic cardiovascular disease Tubular adenoma of colon (~2012) Nicotine dependence, cigarettes, uncomplicated Internal and external bleeding hemorrhoids Hypertension Family History Family History Paternal Aunt Colon cancer Family history of problems with anesthesia: No Surgical History Surgical History History of heart artery stent (~2022) History of cardiac cath (~2022) History of bone marrow biopsy (~2022) History of colonoscopy History of removal of cyst (~2020) History of Problems with Anesthesia: No Social History Social History Household Members: None Housing: House Do you presently have visiting nurse or other home services: No Alcohol intake: current Alcohol intake frequency: does not drink Patient Tobacco Use Status: Current everyday Tobacco user Tobacco use type: Cigarette Cigarettes Per Day: 12 Years Smoked: 52 Second Hand Smoke Exposure: No Use of substances other than those prescribed or required for medical reasons: Yes Substance Use Type: Marijuana Substance Use Type Other:: 6 days ago-edibles mostly Substance Use Frequency: Occasionally Are you DNR?: No Advance Directives: No Advance Directives Information Provided: Yes service: No Current occupational status: employed Meds Allergies Allergy/AdvReac Type Severity Reaction Status Date / Time peanut (PEANUT) AdvReac Intermediate GI UPSET Verified 02/15/25 08:03 tree nut (TREE NUT) AdvReac Intermediate GI UPSET Verified 02/15/25 08:03 Home Medications ?Medication ?Instructions ?Recorded ?Confirmed ?Last Taken ?Type multivitamin 1 tab PO .Q3days 12/14/22 Unknown History aspirin 81 mg chewable tablet 81 mg PO DAILY 12/27/22 02/15/25 02/09/25 History (Mu Chewable Low Dose Aspirin) amlodipine 2.5 mg tablet 2.5 mg PO BID 12/18/2302/15 Unknown History diphenhydramine HCl 25 mg capsule 25 mg PO TID PRN Anx iety 02/15/25 02/15/25 Unknown History (Benadryl) Exam Exam Date and Time: 02/15/25 0910 Height,Weight and Vital Signs: Height 5 ft 10 in Weight 60.328 kg Vital Signs Temperature 97.7 F 02/15/25 08:13 Pulse Rate 75 02/15/25 08:13 Respiratory Rate 16 02/15/25 08:13 Blood Pressure 130/67 02/15/25 08:13 Pulse Oximetry 95 02/15/25 08:13 Oxygen Delivery Method Room Air 02/15/25 08:13 Temperature 97.7 F 02/15/25 08:13 Pulse Rate 75 02/15/25 08:13 Respiratory Rate 16 02/15/25 08:13 Blood Pressure 130/67 02/15/25 08:13 Pulse Oximetry 95 02/15/25 08:13 Oxygen Delivery Method Room Air 02/15/25 08:13 Airway Mallampati Class: II TM Dist: >3cm Neck ROM: Limited Denture: Upper and Lower Heart: S1S2 Lungs: Diminished bilaterally Assessment and Plan Assessment Anesthesia Assessment: Anesthesia Plan Discussed and Chart Reviewed Final Anesthetic Review Family History of Problems with Anesthesia: No History of Problems with Anesthesia: No NPO: Yes ASA Class: III Final Preanesthetic Review: No Changes in Pt Med Stat, Meds/Allgs Chart Reviewed, Consent Obtained/Reviewed and Anes Risks/Benef Reviewed Patient Risk: Intermediate Procedure Risk: Low Anesthetic Plan Anesthetic Plan: MAC: and Agree w/ Assess. and Plan Disposition: Standard PACU
[2025-02-15 09:29] VITALS: PULSE 72; RESP 16; O2SAT 96
--- NOTE | 2025-02-15 09:34 | HO.OPN-COLON ---
Colonoscopy Operative Note Operative Note Date of Service: 02/15/25 Narrative: FLEXIBLE TRANSORAL UPPER GASTROINTESTINAL ENDOSCOPY WITH BIOPSIES AND COLONOSCOPY TILL CECUM WITH SNARE POLYPECTOMY, SUBMUCOSAL INJECTION AND HEMOCLIP PLACEMENT Pre-op diagnosis: Colon cancer screening, GERD, abd bloating and burping Post-op diagnosis: GERD, Gastritis, gastric nodule, Colon Polyps, Diverticulosis, hemorrhoids Endoscopist:? Chana Brasher MD Anesthesia:?MAC UPPER ENDOSCOPY Consent: Indications for the procedure and potential complications of bleeding, perforation, reaction to medications and missed diagnosis were discussed with the patient and informed consent was obtained. Instrument: Olympus GIF H 190 mid size upper endoscope Monitoring: Vital signs and clinical assessment, continuous EKG monitoring, Pulse oximetry, Carbon Dioxide monitoring and blood pressure monitoring were done throughout the procedure. Procedure: The patient was placed in the left lateral decubitis position and pre-procedure medications were administered and a bite block was placed. The endoscope was inserted into the mouth and advanced under direct vision to the third part of duodenum. A careful inspection was made as the upper endoscope was withdrawn including a retroflexed examination of the proximal stomach; Findings and interventions are described below. Findings: Larynx: Normal Esophagus: GE junction at 40 cms. No esophagitis. A 1 cms tongue of possible Morrison's - biopsies were obtained.. Stomach: A 10-12 mm calcified nodule in the gastric fundus - biopsied. Moderate diffuse gastric erythema - biopsies were obtained from the antrum. Grade 2 flap valve on retroflexed examination of the cardia. Duodenum: Duodenitis in the bulb and normal descending duodenum Biopsies were obtained from descending duodenum to check for celiac sprue Intervention: Biopsies as noted above COLONOSCOPY PROCEDURE NOTE Instrument: Olympus CF H 190 L variable stiffness adult colonoscope Monitoring: Vital signs and clinical assessment, intermittent blood pressure monitoring, continuous EKG monitoring, Pulse oximetry and Carbon Dioxide monitoring were done throughout the procedure. Please see anesthesia flowsheet. Colon withdrawl time was 40 minutes. Procedure: The patient was placed in the left lateral decubitis position and pre-procedure medications were administered. After a digital rectal examination of the ano-rectum, the video colonoscope was inserted into the rectum and advanced through the colon to the cecum. The colonoscope was slowly withdrawn in a retrograde panoramic fashion and the colon mucosa was carefully examined including a retroflexed view of the rectum. Findings and interventions are described below. 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 Ascending Colon: A 15 - 18 mm sessile polyp in the proximal AC. Polyp was raised with 6 cc of [place] and removed with a stiff hot snare. Polypectomy site was closed with 2 hemoclips and marked with Huong ink. A 2 to 2.5 cms flat polyp in the mid AC. Polyp was raised with 4 cc of Eleview and removed with a stiff hot snare. Polypectomy site was closed with 2 hemoclips and marked with Huong ink. Transverse Colon: Two 7-8 mm sessile polyps - removed with a hot snare. Descending Colon: A 2 cms flat polyp - raised with 3 cc of Ele[place] and removed with a stiff hot snare. Polypectomy site was closed with 1 hemoclip. Sigmoid Colon: A few 5-10 mm polyps in the left colon - not removed due to excessive length of the procedure. Moderate diverticulosis Rectum: Normal Ano-rectum: Moderate internal hemorrhoids Colon preparation: Good after copious irrigation. [place] Bowel Preparation Scale Right colon; 2 Transverse colon: 2 Left colon; 2 (0 = Unprepared colon segment with mucosa not seen due to solid stool that cannot be cleared. 1 = Portion of mucosa of the colon segment seen, but other areas of the colon segment not well seen due to staining, residual stool and/or opaque liquid. 2 = Minor amount of residual staining, small fragments of stool and/or opaque liquid, but mucosa of colon segment seen well. 3 = Entire mucosa of colon segment seen well with no residual staining, small fragments of stool or opaque liquid) Impression and Post Procedure Diagnosis: Endoscopy Findings: ESOPHAGUS: GE junction at 40 cms. No esophagitis. A 1 cms tongue of possible Morrison's - biopsied. STOMACH: A 10-12 mm calcified nodule in the gastric fundus - biopsied. Moderate diffuse gastric erythema DUODENUM: Duodenitis in the bulb, normal descending duodenum. 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 Moderate diverticulosis seen in the sigmoid colon Moderate hemorrhoids on retroflexed exam. No cause found for bloating and burping - ? due to SIBO - consider empiric trial of antibiotics. Plan: Pt has a FU appointment on 05/04/25 with Norma Reilly NP Repeat Colonoscopy in 6 to 12 months if polyps are adenomatous - to check polypectomy sites in the right colon and removal of smaller left colon polyps (Dulcolax 10 mg daily x 5 days before next colon appt an adult colonoscope for next colonoscopy). A summary of above findings and relevant handouts were given to the patient. BIOPSIES SHOWED: A. Duodenum, biopsy: Duodenal mucosa within normal limits; preserved villous architecture and no increased intraepithelial lymphocytes. B. Stomach, antrum, biopsy: Gastric antral mucosa with mild reactive gastropathy; negative for Helicobacter pylori, intestinal metaplasia and dysplasia. C. 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 D. Stomach, body biopsy: Gastric body mucosa within normal limits; negative for Helicobacter pylori, intestinal metaplasia and dysplasia. E. Gastroesophageal junction, biopsy: Squamocolumnar junctional mucosa with mild chronic inflammation; negative for intestinal metaplasia and dysplasia. F. Colon, cecum, polypectomy: Clinically polypoid colonic mucosa with melanosis coli noted; negative for a hyperplastic or neoplastic process. G. Colon, proximal ascending, polypectomy: Sessile serrated polyp/lesion without dysplasia. H. Colon, mid ascending, polypectomy: Tubular adenoma, multiple fragments; negative for high-grade dysplasia. I. Colon, transverse colon polypectomy x2: Tubular adenoma (2); negative high-grade dysplasia. J. Colon, descending, polypectomy: Hyperplastic polyp Letter sent to the patient with biopsy results. Patient was placed on the colonoscopy recall list for repeat colonoscopy in 6 - 12 months.
[2025-02-15 10:31] VITALS: BP 109/54; PULSE 65; RESP 16; TEMP 36.1; O2SAT 97
[2025-02-15 10:46] VITALS: BP 119/59; PULSE 64; RESP 16; O2SAT 95
== END 2025-02-15 11:31 | disposition home or self-care (01) ==
PROVIDERS: PCP Internal Medicine; Visit Provider Internal Medicine Gastroenterology
PROC: (CPT 45385; principal; 2025-02-15 09:20)
DX: Z12.11 Encounter for screening for malignant neoplasm of colon (principal); Z86.0101 Personal history of adenomatous and serrated colon polyps; D12.2 Benign neoplasm of ascending colon; D12.3 Benign neoplasm of transverse colon; K63.5 Polyp of colon; K63.89 Other specified diseases of intestine; K57.30 Diverticulosis of large intestine without perforation or abscess without bleeding; K64.8 Other hemorrhoids; K21.9 Gastro-esophageal reflux disease without esophagitis; R14.0 Abdominal distension (gaseous); R14.2 Eructation; K31.89 Other diseases of stomach and duodenum; K29.60 Other gastritis without bleeding; K29.80 Duodenitis without bleeding; I10 Essential (primary) hypertension; I25.10 Atherosclerotic heart disease of native coronary artery without angina pectoris; Z95.5 Presence of coronary angioplasty implant and graft; Z91.018 Allergy to other foods; Z91.010 Allergy to peanuts; F17.210 Nicotine dependence, cigarettes, uncomplicated
CPT/HCPCS: 45385; 45381; 43239; 88305; 88313; 88342; 94640; J2003; J2371; J2704

== ENCOUNTER → 2025-02-15 07:54 | Outpatient (BNV) | payer MEDICARE, MEDICAID, SELFPAY | PROVIDERS: PCP Internal Medicine; Visit Provider Internal Medicine Gastroenterology | DX: K21.9 Gastro-esophageal reflux disease without esophagitis (principal); K29.70 Gastritis, unspecified, without bleeding; R14.0 Abdominal distension (gaseous); Z12.11 Encounter for screening for malignant neoplasm of colon; K63.5 Polyp of colon; K57.90 Diverticulosis of intestine, part unspecified, without perforation or abscess without bleeding; K64.8 Other hemorrhoids | CPT/HCPCS: 43239; 45380; 45385 ==